=== PATIENT | female | born 1940 | race Caucasian/White ===

== ENCOUNTER 2016-06-15 13:31 | Inpatient (IN) | payer MEDICARE, MEDICAID ==
[2016-06-15] VITALS (7 sets, daily range): BP systolic 131–166; BP diastolic 68–117; PULSE 77–110; RESP 15–21; O2SAT 94–98
[~2016-06-15] VITALS: Ht 157.5 cm; Wt 59.0 kg
[~2016-06-15 13:31] MED LIST: CHOL200025 PO; ESTRACE VAGINAL; Hydrocodone/Acetaminophen PO; LOSA25TA21 PO; LOV30 SUBQ; LOVA40TA PO; METF10002 PO; Metoprolol Tartrate PO; Nicotine TOPICAL; QUET25TA PO; SERT50TA9 PO; Senna/Docusate Sodium PO; [UNRECOGNIZED DRUG - CODE] PO
--- NOTE | 2016-06-15 13:45 | ED.REPORT ---
HPI-General Illness Date of Service Jun 15, 2016 ED Provider: Valente Turpin DO Willough[place] is a 75-year-old woman who presents to the emergency department from the [facility] in [place]. She provides no history but [facility] reports that she has low sodium, urinary retention, diarrhea and increased confusion. Patient complains of right knee pain. Daughter reports that the patient was ambulatory and quite functional 2 weeks ago. However they learn from likely that she had 5 falls previous to that visit 2 weeks ago. Since then she has become increasingly weak, complaining of back pain, muscle aches, reduced appetite. 6 days ago she was transferred to [place] where she was diagnosed with the flu. After returning to [facility] she continues to exhibit reduced appetite, reduced drinking increased confusion. She does not walk by herself and requires 2 people to transfer. Daughter reports initial stages of dementia at baseline. Nursing Notes Stated Complaint: LOW SODIUM, INCREASED CONFUSION Chief Complaint: General Complaint Nursing Notes Reviewed: Yes Allergies: Coded Allergies: amoxicillin (Verified Allergy, Unknown, 01/20/14) clavulanic acid (Verified Allergy, Unknown, 01/20/14) codeine (Verified Allergy, Unknown, 01/20/14) erythromycin base (Verified Allergy, Unknown, 01/20/14) prednisone (Verified Allergy, Unknown, 01/20/14) prednisone intensol/ corticosteroids simvastatin (Verified Allergy, Unknown, 01/20/14) Uncoded Allergies: No Known Allergies (Allergy, Severe, 12/21/03) Scheduled ([Metoprolol Tartrate]) 50 MG TABLET 50 MG PO BID Cholecalciferol (Vitamin D3) (Vitamin D3) 2,000 Unit Tablet 2,000 UNIT PO DAILY Donepezil (Donepezil) 5 Mg Tablet 10 MG PO HS Estradiol (Estrace) 42.5 Gm Cream.appl 2 G VG 2X/week Folic Acid (Folic Acid) 0.8 Mg Tablet 0.4 MG PO DAILY Lidocaine (Lidoderm) 700 Mg Adh..patch 1 PATCH TP DAILY Losartan Potassium (Losartan Potassium) 100 Mg Tablet 100 MG PO DAILY Meloxicam (Meloxicam) 7.5 Mg Tablet 7.5 MG PO DAILY Metformin HCl (Metformin HCl ER) 1,000 Mg [id number] 1,000 MG PO BID Oseltamivir Phosphate (Tamiflu) 75 Mg Capsule 75 MG PO BID Sertraline HCl (Sertraline) 20 Mg/1 Ml Oral.conc 75 MG PO DAILY Scheduled PRN ([house cough syrup]) 15-30 ML PO q6hrs PRN PRN For Cough Acetaminophen (Acetaminophen) 325 Mg Tablet 650 MG PO Q4H PRN PRN For Pain Clonazepam (Clonazepam) 0.5 Mg Tablet 0.25 MG PO HS PRN PRN For Anxiety or Agitation Loperamide HCl (Imodium A-D) 2 Mg Capsule 2 MG PO Q4hrs PRN PRN For Diarrhea or Loose Stool Magnesium Hydroxide (Milk of Magnesia) 400 Mg/5 Ml Oral.susp 30 ML PO DAILY PRN PRN For Constipation Polyethylene Glycol 3350 (Miralax) 17 Gm Powd.pack 17 GM PO DAILY PRN PRN For Constipation Sennosides (Senna) 8.6 Mg Tablet 17.2 MG PO DAILY PRN PRN For Constipation hydrOXYzine Hcl (HydrOXYzine Hcl) 25 Mg Tablet 25 MG PO TID PRN PRN For Nausea General Time Seen by MD: 13:42 Chief Complaint Other (confusion) Review of Systems Unable to Obtain ROS Patient condition Full Review of Systems Cardiovascular: Denies: Chest pain GI: Denies: Abdominal pain Physical Exam General: Elderly, thin, moderate distress. Head: Atraumatic, normocephalic. No mastoid tenderness. Eyes: No scleral icterus or injection. No discharge. PERRL. Ears: Pinna and tragus nontender with manipulation. External auditory canal patent, atraumatic and without discharge. Tympanic membrane obrien, shiny and translucent without fluid, bulging, retraction or perforation. Hearing grossly intact. Nose: Symmetrical, nares patent without discharge. No frontal or maxillary sinus tenderness. Mouth/pharynx: normal dentition, mucus membranes tacky. Neck: No tenderness or lymphadenopathy. Trachea midline. Respiratory: Regular rate and rhythm. Breath sounds present, clear to auscultation and equal bilaterally. Cardiovascular: Regular rate and rhythm, without murmur, gallop or rub. No pedal edema. Gastrointestinal: Right-sided tenderness without guarding or rebound. Bowel sounds normoactive. Skin: Warm and dry. Neurological: Grossly nonfocal. Psychological: Confused. Vital Signs Vital Signs Date Time Temp Pulse Resp B/P Pulse Ox O2 Delivery O2 Flow Rate FiO2 06/15/16 17:04 37.1 99 15 150/117 96 Room Air 06/15/16 16:53 99 15 150/117 96 Room Air 06/15/16 13:43 37.1 78 21 131/82 98 Room Air 06/15/16 13:43 37.1 78 21 131/82 98 06/15/16 13:32 37.6 77 21 131/82 97 Room Air Initial VS: Reviewed, Vital signs normal General/Constitutional: Well-developed, Well-nourished Head / Eyes: Atraumatic, Normocephalic, PERRL ENT: Mucous membranes moist, Conjunctiva normal, No scleral icterus Neck: Supple, Non-tender, Full range of motion Respiratory: Breath sounds normal, Clear to auscultation, No respiratory distress Cardiovascular: Regular rate & rhythm, Heart sounds normal, Intact distal pulses Extremities: No swelling, No tenderness Skin: Warm, Dry, No cyanosis Abdomen: No guarding, No rebound, No hernia, No palpable mass Tenderness/Guarding/Rebound: Positive: Tender RLQ... (Mild), Tender RUQ... ( Mild), Tender suprapubic Neurologic: Speech NL, No motor deficits Mental Status: Positive: Somnolent Interpretation & Diagnostics Lab Results Interpretation Result Diagram: 06/15/16 1407 06/15/16 1830 Test 06/15/16 13:48 06/15/16 14:07 Urine Color Yellow (YELLOW) Urine Appearance Hazy (CLEAR,HAZY) Urine pH 6.5 (5.0-8.0) Urine Specific [place] 1.020 (1.003-1.035) Urine Protein Negativemg/dL (NEG,TRACE) Urine Glucose (UA) Negativemg/dL (NEGATIVE) Urine Ketones Negativemg/dL (NEGATIVE) Urine Occult Blood Negative (NEGATIVE) Urine Nitrite Positive (NEGATIVE) Urine Bilirubin Negative (NEGATIVE) Urine Urobilinogen Normalmg/dL (NORMAL) Urine Leukocyte Esterase Negative (NEGATIVE) Urine RBC 0-2/hpf (0-2) Urine WBC 0-5/hpf (0-5) Urine Epithelial Cells Occasional/hpf (NONE-MOD) Urine Crystals None seen (NONE SEEN) Urine Bacteria Many/hpf (NONE-FEW) Urine Hyaline Casts Occasional/lpf (NONE) Urine Granular Casts None seen (NONE SEEN) Urine Waxy Casts None seen (NONE SEEN) Urine Red Blood Cell Casts None seen (NONE SEEN) Urine White Blood Cell Casts None seen (NONE SEEN) Urine Mucus None seen (None Seen) Urine Trichomonas None seen (NONE SEEN) Urine Yeast None (NONE SEEN) Urinalysis Comment None Urine Culture Reflexed Indicated White Blood Count 14.8th/mm3 (3.8-10.1) Red Blood Count 4.20mil/mm3 (3.90-5.20) Hemoglobin 11.5g/dL (12.0-15.6) Hematocrit 34.3% (35.0-46.0) Mean Corpuscular Volume 81.7fL (81-100) Mean Corpuscular Hemoglobin 27.4pg (27.0-35.0) Mean Corpuscular Hemoglobin Concent 33.5% (32.0-37.0) Red Cell Distribution Width 12.7% (12.3-15.4) Platelet Count 304bil/L (150-400) Neutrophils (%) (Auto) 68.4% (40-74) Lymphocytes (%) (Auto) 19.0% (14-46) Monocytes (%) (Auto) 10.1% (4-12) Eosinophils (%) (Auto) 1.8% (0-5) Basophils (%) (Auto) 0.2% (0-3) Magnesium Level 1.7mg/dL (1.6-2.6) Total Bilirubin 0.3mg/dL (0.0-1.2) Aspartate Amino Transf (AST/SGOT) 35U/L (0-50) Alanine Aminotransferase (ALT/SGPT) 39U/L (0-32) Alkaline Phosphatase 66U/L (25-165) Troponin T < 0.010ug/L (0.0-0.011) Total Protein 6.7g/dL (6.4-8.4) Albumin 3.9g/dL (3.4-5.0) X-Ray Chest Interpretation Chest Xray Interpretation: PROCEDURE: X-RAY CHEST ONE VIEW, PORTABLE ([id number]) INDICATIONS: CP IMPRESSION: No acute cardiopulmonary findings. Interpretation / Wet Read by: Interpret - Radiologist, Interp - P Re-Eval/Medical Decision Med Decision/Clinical Course 1547: Recheck with Dr. Bhavana Vora. Symptoms reviewed and discussed plan to get abdominal CT with patient's family. Patient requests something to eat and reports mild nausea. She does not report any other associated pain and is able to name her family members in the room. Upon physical exam, patient had right upper mid and lower quadrant tenderness as well as suprapubic. 1630: Recheck with Dr. Vora. Informed patient of diagnosis of diverticulitis and hyponatremia and need for admission. Patient understands and agrees with plan for admission. Repalpated belly; right upper, mid, and lower quadrant abdominal pain, and left lower abdomen; maximal mid tenderness was super pubic This patient was signed out to me by the mid-level provider. In speaking with the family it sounds that the patient has a delirium. She says there is a recent treatment for influenza, examination the patient has abdominal pain which is worse in the suprapubic area. CT of the abdomen shows possible diverticulitis which would explain her abdominal pain. The patient will be admitted for IV antibiotics. Differential diagnoses considered were influenza, pneumonia, urinary tract infection, colitis, diverticulitis, and sepsis. Discharge & Departure Primary Impression: Diverticulitis Diverticulitis site: large intestine Diverticulitis bleeding: without bleeding Diverticulitis complication: without perforation or abscess Qualified Code: K57.32 - Diverticulitis of large intestine without perforation or abscess without bleeding Additional Impressions: Hyponatremia Acute delirium Disposition: ADMITTED TO HOSPITAL Referrals: Karsten Rodríguez MD (PCP) Care Transferred to: Dr Vora Care Transferred at: 16:00 Attending Statement This patient was initially seen by her mid-level provider and care is transferred to [place], Dr. Vora, I spent [id number] time with this patient and determine her disposition. Valente Turpin DO Jun 15, 2016 13:44 Jero Rae PA-C Jun 15, 2016 14:18 Roselia Vora MD Jun 15, 2016 15:46 NIKKI MALONEY Jun 15, 2016 15:49 2.7mmol/L (0.4-2.0) X-Ray Chest Interpretation Chest Xray Interpretation: PROCEDURE: X-RAY CHEST ONE VIEW, PORTABLE ([id number]) INDICATIONS: CP IMPRESSION: No acute cardiopulmonary findings. Interpretation / Wet Read by: Interpret - Radiologist, Interp - P Re-Eval/Medical Decision Med Decision/Clinical Course 1547: Recheck with Dr. Bhavana Vora. Symptoms reviewed and discussed plan to get abdominal CT with patient's family. Patient requests something to eat and reports mild nausea. She does not report any other associated pain and is able to name her family members in the room. Upon physical exam, patient had right upper mid and lower quadrant tenderness. 1630: Recheck with Dr. Vora. Informed patient of diagnosis of diverticulitis and hyponatremia and need for admission. Patient understands and agrees with plan for admission. Repalpated belly; right upper, mid, and lower quadrant abdominal pain; maximal mid tenderness was super pubic Discharge & Departure Referrals: Karsten Rodríguez MD (PCP) Valente Turpin DO Jun 15, 2016 13:44 Jero Rae PA-C Jun 15, 2016 14:18 Roselia Vora MD Jun 15, 2016 15:46 NIKKI MALONEY Jun 15, 2016 15:49
[2016-06-15 14:10] LABS: BASOPHILS % (AUTO) 0.2 % (0-3); EOSINOPHILS % (AUTO) 1.8 % (0-5); MONOCYTES % (AUTO) 10.1 % (4-12); Mean Corpuscular Hemoglobin 27.4 pg (27.0-35.0); Mean Corpuscular Volume 81.7 fL (81-100); NEUTROPHILS % (AUTO) 68.4 % (40-74); Platelet Count 304 bil/L (150-400)
--- NOTE | 2016-06-15 14:10 | DRSVH ---
PROCEDURE: X-RAY CHEST ONE VIEW, PORTABLE ([id number]) INDICATIONS: CP TECHNIQUE: One view of the chest was acquired. COMPARISON: [facility], , CHEST 1VW (PORTABLE), 01/19/2014, 20:32. FINDINGS: Surgical changes and devices: None. Lungs and pleura: No pleural effusions or pneumothorax. Lungs are clear. Mediastinum: Mediastinal contours appear normal. Heart size is normal. Bones and chest wall: No suspicious bony lesions. Overlying soft tissues appear unremarkable. IMPRESSION: No acute cardiopulmonary findings. Dictated by: Amanda Brush M.D. on 06/15/2016 at 14:08 Approved by: Amanda Brush M.D. on 06/15/2016 at 14:09
[2016-06-15] MEDS ORDERED: Ondansetron 2 mg/mL 2 mL Inj IVPUSH ONE (14:20)
[2016-06-15] MEDS ORDERED: 0.9% Sodium Chloride 1,000 ML IV ONE (14:20)
[2016-06-15 14:42] LABS: TROPONIN T < 0.010 ug/L (0.0-0.011)
[2016-06-15 14:44] LABS: Magnesium 1.7 mg/dL (1.6-2.6)
[2016-06-15 14:56] LABS: APPEARANCE,URINE HAZY (CLEAR,HAZY); COLOR,URINE YELLOW (YELLOW); PH,URINE 6.5 (5.0-8.0)
[2016-06-15 14:57] LABS: OCCULT BLOOD,URINE NEGATIVE (NEGATIVE); UROBILINOGEN,URINE NORMAL (NORMAL)
--- NOTE | 2016-06-15 15:23 | DRSVH ---
PROCEDURE: CT BRAIN WITHOUT CONTRAST ([id number]) INDICATIONS: fall TECHNIQUE: Noncontrast 4.5 mm thick angled axial sections acquired from the foramen magnum to the vertex, with c oronal reformats. COMPARISON: CT brain 06/08/2016; MRI brain 11/11/2015 FINDINGS: Image quality: Excellent. CSF spaces: Basal cisterns are patent. No extra-axial fluid collections. The ventricles are symmet bryon in size and shape. Brain: No intracranial bleeds or masses. There is cerebral volume loss for age, with resultant vent ricular and sulcal prominence. There are periventricular and deep white matter chronic small vessel ischemic changes. There is intracranial internal carotid artery atherosclerosis. Calcification right mammary body again noted. Skull and face: Calvarium and visualized facial bones appear intact, without suspicious lesions. Sinuses: Visualized sinuses and mastoids are clear. IMPRESSION: 1. No acute posttraumatic changes. 2. Cerebral atrophy and chronic deep white matter ischemic changes. Dictated by: Will Zurita M.D. on 06/15/2016 at 15:19 Approved by: Will Zurita M.D. on 06/15/2016 at 15:22
[2016-06-15] MEDS ORDERED: 0.9% Sodium Chloride 1,000 ML IV SCH ×3 (16:20→17:02)
--- NOTE | 2016-06-15 16:20 | DRSVH ---
PROCEDURE: CT ABDOMEN AND PELVIS WITH CONTRAST ([id number]) INDICATIONS: right side abdominal tenderness TECHNIQUE: After the administration of intravenous contrast, 5 mm thick sections acquired from the diaphragm to the symphysis. 5 mm coronal and sagittal reformats were acquired. For radiation dose reduction, the following was used: automated exposure control, adjustment of mA and/or kV according to patient siz e. COMPARISON: [facility] , CT, ABD/PELVIS W/CON (PNL), 11/21/2004, 16:27. [facility], CT, IVP-CT (ABD W/WO;PEL W/W/O), 08/29/2011, 10:49. [facility] , CT, ABD /PELVIS W/CON (PNL), 03/03/2010, 10:12. FINDINGS: Image quality: Excellent. ABDOMEN: Lung bases: Lung bases are clear. Heart size is normal. Atherosclerotic ossifications are noted in the visualized coronary vasculature. 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 Gallbladder is withi n normal limits. Biliary system is non dilated. Pancreas enhances normally. Bilobed fat containing right adrenal nodule is stable compared to prior examination and is compatible with myelolipoma. Kidn eys demonstrate normal size and enhancement, without hydronephrosis. Small bilateral renal angiomyoli pomas are stable compared to prior examinations. Large right renal cyst is again noted. Peritoneum and bowel: Small hiatal hernia is noted. Bowel loops demonstrate normal wall thickness an d caliber. Numerous diverticuli scattered throughout the colon. Circumferential wall thickening noted in the sigmoid colon the regional numerous diverticuli suspicious for chronic diverticulitis. Trace amount of free fluid is noted in the lower left pelvis adjacent to the sigmoid colon which again is s uspicious for chronic diverticulitis. No free air. The appendix is normal. Nodes and vessels: No retroperitoneal or mesenteric adenopathy by size criteria. Aorta and inferior vena cava are normal in size. Scattered atherosclerotic calcifications noted in the abdominal pelvic vasculature. Miscellaneous: No ventral hernias. PELVIS: Genitourinary: The bladder is obscured by artifact related to bilateral hip orthopedic hardware. Miscellaneous: No inguinal hernias or adenopathy. Bones: No suspicious bony lesions. No vertebral body compression fractures. Left hip arthroplasty n oted. Postsurgical changes compatible with ORIF of right hip fracture noted. Spine degenerative disea se and facet arthropathy noted. Convex left lumbar spine scoliosis is noted. IMPRESSION: 1. Reed colonic diverticulosis. Severe, circumferential wall thickening involving the sigmoid colon is noted in the region of multiple diverticula. Finding may represent chronic diverticulitis, however f inding is nonspecific and if patient fails to respond to appropriate therapy for diverticulitis, then colonoscopy is recommended to exclude neoplastic process. 2. The appendix is normal. 3. No dilated loops of bowel. 4. Right adrenal myelolipoma is stable. 5. 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 6. Splenic hemangiomas stable. 7. Atherosclerosis including the visualized coronary vasculature. Dictated by: Laurie Bansal MD, PhD on 06/15/2016 at 16:04 Approved by: Laurie Bansal MD, PhD on 06/15/2016 at 16:18
[2016-06-15] MEDS ORDERED: Ciprofloxacin Inj 400 MG in IV Premix 1 EACH IV ONE (16:25)
[2016-06-15] MEDS ORDERED: metroNIDAZOLE Inj 1,000 MG in IV Premix 1 EACH IV ONE (16:25)
[2016-06-15] MEDS ORDERED: TAM75UDCAP PO (16:59)
[2016-06-15] MEDS ORDERED: LOSA100T29 PO (16:59)
[2016-06-15] MEDS ORDERED: HYDR-656 PO (16:59)
[2016-06-15] MEDS ORDERED: MELO-259 PO (16:59)
[2016-06-15] MEDS ORDERED: LIDO700A6 TP (16:59)
[2016-06-15] MEDS ORDERED: DONE5TAB30 PO (16:59)
[2016-06-15] MEDS ORDERED: SENN-133 PO (16:59)
[2016-06-15] MEDS ORDERED: MAGN400O4 PO (16:59)
[2016-06-15] MEDS ORDERED: FOLI0.8T PO (16:59)
[2016-06-15] MEDS ORDERED: LOPE-147 PO (16:59)
[2016-06-15] MEDS ORDERED: ESTR42.52 VG (16:59)
[2016-06-15] MEDS ORDERED: SERT20OR6 PO (16:59)
[2016-06-15] MEDS ORDERED: ACET325T51 PO (16:59)
[2016-06-15] MEDS ORDERED: KLO5T PO (16:59)
[2016-06-15] MEDS ORDERED: [UNRECOGNIZED DRUG - REMARK] PO (16:59)
[2016-06-15] MEDS ORDERED: POLY17PO6 PO (16:59)
[2016-06-15] MEDS ORDERED: Alum-Mag Hydrox-Simeth 30 mL Suspension PO PRN ×2 (17:00→17:05)
[2016-06-15] MEDS ORDERED: Ondansetron 2 mg/mL 2 mL Inj IVPUSH PRN ×2 (17:00→17:05)
[2016-06-15] MEDS ORDERED: METF-778 PO (17:00)
[2016-06-15] MEDS ORDERED: Glucose 40% Oral Gel 15 Gm Tube PO PRN (17:10)
--- NOTE | 2016-06-15 17:25 | PCM.HPMED ---
Subjective Date of Service Jun 15, 2016 Primary Provider: Admitting Physician: Primary Care Physician: Karsten Rodríguez MD Attending Physician: Chief Complaint: HISTORY was OBTAINED FROM family / [facility] NOTES History of present illness 75-year-old female from nursing facility, recently discharged from [facility] for influenza and hyponatremia 5 days ago, noted by family to have urinary incontinence, lethargy, more than usual confusion since 10 days ago. mild nausea. diarrhea since then, calling out for help though I and granddaughter are present - unusual for dementia patient. concurrent runny nose this week, has been [facility] [employer] [facility]. She had been complaining of back pain and Right abdominal pain since last week. lethargy associated w/ falling much in the last few days. leg pain appears to be due to falls. chronic hip scar pains. In the ER, 98% room air, 131/82, HR 77, T 37.6, bruises noted on lower calves and lower abdomen, CT consistent with diverticulitis, Flagyl/Cipro/2 L normal saline Review of Systems - paitient delirous unable to assess ambulates w/ cane but forgets FAMILY HX no diverticulitis SOCIAL HX smoking history quit 4 year ago MEDICATIONS Past Medical/Surgical HX Cataracts Hypertension/hyperlipidemia Diverticulitis Endometriosis, left nephrectomy, tonsillectomy,carpal tunnel release UTI/nocturia Arthritis back, right hip joint replacement 2003, left hip replacement 2013 Diabetes types 2 Depression, anxiety recurrent hyponatremia since 2013 [employer] [place] tooth Allergies Coded Allergies: amoxicillin (Verified Allergy, Unknown, 01/20/14) clavulanic acid (Verified Allergy, Unknown, 01/20/14) codeine (Verified Allergy, Unknown, 01/20/14) erythromycin base (Verified Allergy, Unknown, 01/20/14) prednisone (Verified Allergy, Unknown, 01/20/14) prednisone intensol/ corticosteroids simvastatin (Verified Allergy, Unknown, 01/20/14) Uncoded Allergies: No Known Allergies (Allergy, Severe, 12/21/03) PMH Social History Hx Alcohol Use: No Hx Substance Use: No Hx Tobacco Use: Yes Smoking Status: Current Every Day Smoker Exam Vital Signs Vital Sign - Last Date Time Temp Pulse Resp B/P Pulse Ox O2 Delivery O2 Flow Rate FiO2 06/15/16 16:53 99 15 150/117 96 Room Air 06/15/16 13:43 37.1 Exam Exam on admission 2L NC NAD A and O x 3 mood affect WNL NC/AT no icterus no injected eyes EOMI PERRL /no pharyngeal lesions/ no oral lesions / hearing intact / dry mouth, follows some commands Supple neck CTAB equal chest rise / no accessory muscle use / speaks in full sentences / no rrw RRR S1 S2 / no mrg / 2+ radial pulses Soft nt nd + BS no hepatosplenomegaly No edema no cyanosis no ecchymosis of lower extremities No rash / no jaundice MAGAÑA squirming in bed EKG 72SR no ST changes Trop 0.01 at 2 PM lactic acid 2.7 UA positive nitrite, no yeast, many bacteria UCx pending Blood culture pending LFT normal except, ALT 39 Imaging PROCEDURE: CT ABDOMEN AND PELVIS WITH CONTRAST ([facility][id number]) INDICATIONS: right side abdominal tenderness TECHNIQUE: After the administration of intravenous contrast, 5 mm thick sections acquired from the diaphragm to the symphysis. 5 mm coronal and sagittal reformats were acquired. For radiation dose reduction, the following was used: automated exposure control, adjustment of mA and/or kV according to patient size. COMPARISON: [facility] , CT, ABD/PELVIS W/CON (PN), 11/21/2004 , 16:27. [facility], CT, IVP-CT (ABD W/WO;PEL W/W/O), 08/29/2011, 10:49. [facility] , CT, ABD/PELVIS W/CON (PN), 03/03/2010, 10: 12. FINDINGS: Image quality: Excellent. ABDOMEN: Lung bases: Lung bases are clear. Heart size is normal. Atherosclerotic ossifications are noted in the visualized coronary vasculature. 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 Gallbladder is within normal limits. Biliary system is non dilated. Pancreas enhances normally. Bilobed fat containing right adrenal nodule is stable compared to prior examination and is compatible with myelolipoma. Kidneys demonstrate normal size and enhancement, without hydronephrosis. Small bilateral renal angiomyolipomas are stable compared to prior examinations. Large right renal cyst is again noted. Peritoneum and bowel: Small hiatal hernia is noted. Bowel loops demonstrate normal wall thickness and caliber. Numerous diverticuli scattered throughout the colon. Circumferential wall thickening noted in the sigmoid colon the regional numerous diverticuli suspicious for chronic diverticulitis. Trace amount of free fluid is noted in the lower left pelvis adjacent to the sigmoid colon which again is suspicious for chronic diverticulitis. No free air. The appendix is normal. Nodes and vessels: No retroperitoneal or mesenteric adenopathy by size criteria. Aorta and inferior vena cava are normal in size. Scattered atherosclerotic calcifications noted in the abdominal pelvic vasculature. Miscellaneous: No ventral hernias. PELVIS: Genitourinary: The bladder is obscured by artifact related to bilateral hip orthopedic hardware. Miscellaneous: No inguinal hernias or adenopathy. Bones: No suspicious bony lesions. No vertebral body compression fractures. Left hip arthroplasty noted. Postsurgical changes compatible with ORIF of right hip fracture noted. Spine degenerative disease and facet arthropathy noted. Convex left lumbar spine scoliosis is noted. IMPRESSION: 1. Reed colonic diverticulosis. Severe, circumferential wall thickening involving the sigmoid colon is noted in the region of multiple diverticula. Finding may represent chronic diverticulitis, however finding is nonspecific and if patient fails to respond to appropriate therapy for diverticulitis, then colonoscopy is recommended to exclude neoplastic process. 2. The appendix is normal. 3. No dilated loops of bowel. 4. Right adrenal myelolipoma is stable. 5. 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 6. Splenic hemangiomas stable. 7. Atherosclerosis including the visualized coronary vasculature. PROCEDURE: CT BRAIN WITHOUT CONTRAST ([id number]) INDICATIONS: fall TECHNIQUE: Noncontrast 4.5 mm thick angled axial sections acquired from the foramen magnum to the vertex, with coronal reformats. COMPARISON: CT brain 06/08/2016; MRI brain 11/11/2015 FINDINGS: Image quality: Excellent. CSF spaces: Basal cisterns are patent. No extra-axial fluid collections. The ventricles are symmetric in size and shape. Brain: No intracranial bleeds or masses. There is cerebral volume loss for age , with resultant ventricular and sulcal prominence. There are periventricular and deep white matter chronic small vessel ischemic changes. There is intracranial internal carotid artery atherosclerosis. Calcification right mammary body again noted. Skull and face: Calvarium and visualized facial bones appear intact, without suspicious lesions. Sinuses: Visualized sinuses and mastoids are clear. IMPRESSION: 1. No acute posttraumatic changes. 2. Cerebral atrophy and chronic deep white matter ischemic changes. PROCEDURE: X-RAY CHEST ONE VIEW, PORTABLE ([id number]) INDICATIONS: CP TECHNIQUE: One view of the chest was acquired. COMPARISON: [facility], CR, CHEST 1VW (PORTABLE), 01/19/2014, 20:32. FINDINGS: Surgical changes and devices: None. Lungs and pleura: No pleural effusions or pneumothorax. Lungs are clear. Mediastinum: Mediastinal contours appear normal. Heart size is normal. Bones and chest wall: No suspicious bony lesions. Overlying soft tissues appear unremarkable. IMPRESSION: No acute cardiopulmonary findings. Lab and Diagnostics Result Diagram: 06/15/16140606/15/161406 Assessment & Plan Active issues and reason for admission 75-year-old female presenting with worse altered mental status from baseline dementia, treating for recurrent Diverticulitis and recurrent UTI with leukocytosis/lactic acidosis --pending [facility] inpatient notes from saturday -- Flagyl Cipro IVF --stool cx pending --consider GI follow up of persistent thickened colon wall per radiologist, if unrelieved by diverticulitis management UTI w/ new urinary incontinence -- Pending urine culture Recurrent hyponatremia, liekly dehydration contributory, contributory Siadh from SSRI? --serial BMP, NS 100/hr --tsh bnp recent influenza + --pending [facility] notes, continue tamifu, duoneb scheduled then PRN tomorrow monitor right leg pain, consider imaging if ongoing Chronic issues known prior to admission, present on admission Cataracts Hypertension/hyperlipidemia Arthritis back, right hip joint replacement 2003, left hip replacement 2013 Diabetes types 2 Depression, anxiety recurrent hyponatremia since 2013 --SSI, tylenol, trial tramadol for pain Diet carb/cardiac DVT prophylaxis lovenox Code DNR Disposition inpt Assessment and plan were discussed with patient family. Gracie Us MD Jun 15, 2016 17:25 Result Diagram: 06/15/16140606/15/161406 Gracie Us MD Jun 15, 2016 17:25
[2016-06-15] MEDS ORDERED: Albuterol-Ipratropium 3 mL Inhalation Solution NEB PRN (17:55)
[2016-06-15] MEDS: Insulin LISPRO 300 Unit/3 mL Inj SUBQ SCH ×2 (18:20→21:35)
[2016-06-15] MEDS: 0.9% Sodium Chloride 1,000 ML IV SCH (18:33)
--- NOTE | 2016-06-15 19:26 | NUR ---
Admit Pt admitted to [facility] from ED at 1805. Pt appears confused, constantly needing to be reorientated. Pt moans, states she hurts, unsure of location. Hx of falls-last week. Hx of hip replacements. IV in RFA patent. IV Flagyl started. Arciniega catheter patent, draining clear urine-placed in ED (per report) d/t urinary retention. Per family, pts spouse 5 yrs ago, dx with dementia last year. Granddaughter with pt. Bed in low position, 3 rails up, call light in reach.
[2016-06-15] MEDS: Albuterol-Ipratropium 3 mL Inhalation Solution NEB SCH (20:24)
[2016-06-15] MEDS: Ciprofloxacin Inj 400 MG in IV Premix 1 EACH IV SCH (21:09)
[2016-06-15 23:08] LABS: TROPONIN T 0.01 ug/L (0.0-0.011)
[2016-06-16] MEDS: Sodium Chloride LOK Flush 10 mL Syringe IVFLUSH SCH ×3 (00:26→17:19)
[2016-06-16] MEDS: metroNIDAZOLE Inj 500 MG in IV Premix 1 EACH IV SCH ×3 (00:26→17:20)
--- NOTE | 2016-06-16 01:09 | NUR ---
Agitation/Insomnia pt c/o insomnia, calling out help and asking to go to bed while currently in bed. Reoriented to Hospital room, provided Ultram for headache and repositioned multiple times.
[2016-06-16] MEDS: 0.9% Sodium Chloride 1,000 ML IV SCH ×3 (03:02→23:02)
[2016-06-16] MEDS: Albuterol-Ipratropium 3 mL Inhalation Solution NEB SCH (06:00)
[2016-06-16 06:02] VITALS: BP 159/79; PULSE 78; RESP 18; O2SAT 96
[2016-06-16 06:56] LABS: Mean Corpuscular Hemoglobin 26.9 pg (27.0-35.0); Mean Corpuscular Volume 81.7 fL (81-100)
[2016-06-16] MEDS: Insulin LISPRO 300 Unit/3 mL Inj SUBQ SCH ×4 (08:00→21:46)
[2016-06-16 08:08] LABS: Free Thyroxine Index 2.5 (1.2-4.9); Thyroxine (T4) 8.3 ug/dL (4.5-12.0)
[2016-06-16] MEDS: Lidocaine Topical 5% Patch TOPICAL SCH ×2 (08:43→11:20)
[2016-06-16 09:29] VITALS: PULSE 97; RESP 20; O2SAT 95
[2016-06-16] MEDS: Ciprofloxacin Inj 400 MG in IV Premix 1 EACH IV SCH ×2 (09:41→21:45)
--- NOTE | 2016-06-16 11:09 | PCM.PNMED ---
Subjective Date of Service Jun 16, 2016 Subjective She is still sleeping in her room late in the morning. She denies abdominal pain. She does complain of low back pain but has no tenderness there. She looks more pale than she did last week and when I was her attending at a different hospital. Her sodium level was 131. Today's white blood count is still pending. Exam Vital Signs Vital Sign - Last Date Time Temp Pulse Resp B/P Pulse Ox O2 Delivery O2 Flow Rate FiO2 06/16/16 09:29 97 20 95 Room Air 06/16/16 06:02 36.4 159/79 Intake and Output 06/15/16 06/15/16 06/16/16 Cumulative From/Thru 14:59 22:59 06:59 06/15/16 13:32 - 06/16/16 06:43 Intake Total 1000 ml 0 ml 1223 ml 2223 ml Output Total 200 ml 940 ml 800 ml 1940 ml Balance 800 ml -940 ml 423 ml 283 ml Intake Oral 0 ml 0 ml 0 ml IV Total 1000 ml 1223 ml 2223 ml Output Urine Total 200 ml 940 ml 800 ml 1940 ml # Bowel Movements 0 0 0 Exam She is able to be woken up and interacts at a basic level but does not appear to be oriented. This is close to her baseline. Heart is regular rate and rhythm without murmur Lungs are clear to auscultation bilaterally Abdomen is soft, bowel sounds are heard, she is not tender anywhere, specifically not tender in the left lower quadrant, the abdomen is without organomegaly. Extremities have no ankle edema. Lab and Diagnostics Result Diagram: 06/16/1661406/16/16614 X-Rays, CTs and MRIs CT ABDOMEN AND PELVIS WITH CONTRAST ([facility]-[id number]) INDICATIONS: right side abdominal tenderness TECHNIQUE: After the administration of intravenous contrast, 5 mm thick sections acquired from the diaphragm to the symphysis. 5 mm coronal and sagittal reformats were acquired. For radiation dose reduction, the following was used: automated exposure control, adjustment of mA and/or kV according to patient size. COMPARISON: [facility] , CT, ABD/PELVIS W/CON (PNL), 11/21/2004 , 16:27. [facility], CT, IVP-CT (ABD W/WO;PEL W/W/O), 08/29/2011, 10:49. [facility] , CT, ABD/PELVIS W/CON (PNL), 03/03/2010, 10: 12. FINDINGS: Image quality: Excellent. ABDOMEN: Lung bases: Lung bases are clear. Heart size is normal. Atherosclerotic ossifications are noted in the visualized coronary vasculature. 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 Gallbladder is within normal limits. Biliary system is non dilated. Pancreas enhances normally. Bilobed fat containing right adrenal nodule is stable compared to prior examination and is compatible with myelolipoma. Kidneys demonstrate normal size and enhancement, without hydronephrosis. Small bilateral renal angiomyolipomas are stable compared to prior examinations. Large right renal cyst is again noted. Peritoneum and bowel: Small hiatal hernia is noted. Bowel loops demonstrate normal wall thickness and caliber. Numerous diverticuli scattered throughout the colon. Circumferential wall thickening noted in the sigmoid colon the regional numerous diverticuli suspicious for chronic diverticulitis. Trace amount of free fluid is noted in the lower left pelvis adjacent to the sigmoid colon which again is suspicious for chronic diverticulitis. No free air. The appendix is normal. Nodes and vessels: No retroperitoneal or mesenteric adenopathy by size criteria. Aorta and inferior vena cava are normal in size. Scattered atherosclerotic calcifications noted in the abdominal pelvic vasculature. Miscellaneous: No ventral hernias. PELVIS: Genitourinary: The bladder is obscured by artifact related to bilateral hip orthopedic hardware. Miscellaneous: No inguinal hernias or adenopathy. Bones: No suspicious bony lesions. No vertebral body compression fractures. Left hip arthroplasty noted. Postsurgical changes compatible with ORIF of right hip fracture noted. Spine degenerative disease and facet arthropathy noted. Convex left lumbar spine scoliosis is noted. IMPRESSION: 1. Reed colonic diverticulosis. Severe, circumferential wall thickening involving the sigmoid colon is noted in the region of multiple diverticula. Finding may represent chronic diverticulitis, however finding is nonspecific and if patient fails to respond to appropriate therapy for diverticulitis, then colonoscopy is recommended to exclude neoplastic process. 2. The appendix is normal. 3. No dilated loops of bowel. 4. Right adrenal myelolipoma is stable. 5. 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 6. Splenic hemangiomas stable. 7. Atherosclerosis including the visualized coronary vasculature. Dictated by: Laurie Bansal MD, PhD Assessment & Plan Active issues and reason for admission 75-year-old female presenting with worse altered mental status from baseline dementia, treating for possible sigmoid diverticulitis. There is no UTI or lactic acidosis. -- Flagyl Cipro IVF -- The pro calcitonin was only 0.05. The white blood count was only 14. --stool cx pending --consider GI follow up of persistent thickened colon wall per radiologist, if unrelieved by diverticulitis management UTI w/ new urinary incontinence -- Her UA is normal. There is no UTI. 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 --serial BMP, NS 100/hr --tsh bnp recent influenza + -- Completed Tamiflu 5 day course. monitor right leg pain, consider imaging if ongoing -- No symptoms or signs today. Chronic issues known prior to admission, present on admission Cataracts Hypertension/hyperlipidemia Arthritis back, right hip joint replacement 2003, left hip replacement 2013 Diabetes types 2 Depression, anxiety recurrent hyponatremia since 2013 Progressive dementia --SSI, tylenol, trial tramadol for pain Diet carb/cardiac DVT prophylaxis lovenox Code DNR Disposition inpt Assessment and plan were discussed with patient family. Family continue to hope for a reversible/treatable cause to be found for her worsening dementia recently. At [facility] there were no complaints of abdominal pain and so no imaging of the abdomen was done last weekend during that hospitalization. VTE Mechanical Devices: Venous Foot Pump Resuscitation Status: DNR/DNI:Do Not Resuscitate/Intubate Vinayak Bryant MD Jun 16, 2016 11:06
[2016-06-16 12:17] VITALS: BP 120/67; PULSE 68; RESP 18; O2SAT 97
--- NOTE | 2016-06-16 13:32 | NUR ---
Student Nurse Note Arrived on shift, received report from NOC shift RN. Initial assessment of pt showed pt to be A&O to self only. Pt was restless. Pt has yet to have a BM since admission, PRN laxatives will be administered later this shift. AM medications were administered, which included IV Flagyl and Cipro. At approximately 1030 pt restlessness was unrelieved and removed IV. New IV was placed in the right antecubital and ABX were continued. Pt vocalized having pain in the lower back, which was not relieved with 650mg Acetaminophen. At approximately 1130, pt was given Toradol and a Lidocaine patch. Pt responded well and is now resting comfortably. Family consulted with Dr. Bryant regarding further action and plan of care. Further monitoring of labs, particularly WBC of 10 and Sodium of 133, indicated at this time. Addendum: 06/16/16 at 1836 by JITENDRA WALTERS 1730 - Pt getting restless and agitated again. Pt complains of intractable back pain. PRN PO tramadol administered to help with pain and restlessness.
--- NOTE | 2016-06-16 15:54 | NUR ---
Social Work: Initial Assessment Data: Pt is a 75 y/o female admitted for diverticulitis, delerium, hyponatremia. Pt's PCP is Dr Rodríguez, pt's insurance is [employer] Medicare with [facility] supp. No readmit score listed. Pt has dementia, ANTHROPOLOGICAL LINGUIST called pt's granddaughter to complete assessment. Pt's granddaughter states that she is pt's DPOA and states she will bring a copy to hospital. Pt's grdaughter states that pt lives at [facility] and typically uses a walker. She states pt does not drive, has no hx with , no LTC or VA benefits, and is not a caregiver. She states that she is agreeable to pt returning to [facility] but is interested in resources, ANTHROPOLOGICAL LINGUIST left [employer] book in room for her to have. ANTHROPOLOGICAL LINGUIST will continue to follow. Assessment: Pt from [facility]. Plan: Pt will d/c back to [facility] when medically stable. ANTHROPOLOGICAL LINGUIST will continue to follow. ARBEN Medina Addendum: 06/16/16 at 1613 by ASHLEIGH GRACE Amended: Links added.
[2016-06-16 16:51] VITALS: PULSE 89; RESP 14; O2SAT 94
--- NOTE | 2016-06-16 17:07 | DRSVH ---
PROCEDURE: X-RAY LUMBAR SPINE, 2 OR 3 VIEW INDICATIONS: Low back pain TECHNIQUE: 3 views of the lumbar spine were acquired. COMPARISON: [facility], [place], XR LUMBAR SPINE 2 OR 3VW, 02/11, 10:02. None. FINDINGS: Bones: 5 [id number] vertebrae are present. Convex left scoliosis is noted. There is mild no 2 -L3 and L3 over L4 retrolisthesis. Multilevel degenerative disc disease. Multilevel facet arthropat hy.. No vertebral body compression fractures. No suspicious bony lesions. Soft tissues: Overlying bowel gas pattern is normal. No suspicious soft tissue calcifications. IMPRESSION: No fracture. No acute osseous lesion. If there are persistent symptoms or continued clin ical suspicion for pathology, then MRI should be considered for further evaluation. Dictated by: Laurie Bansal MD, PhD on 06/16/2016 at 17:04 Approved by: Laurie Bansal MD, PhD on 06/16/2016 at 17:06
[2016-06-16 17:42] VITALS: BP 118/72; PULSE 74; RESP 18; O2SAT 97
[2016-06-16] MEDS: Polyethylene Glycol (PEG) 17 Gm Powder PO SCH (18:10)
[2016-06-16 20:42] VITALS: BP 156/79; PULSE 97; RESP 20; O2SAT 96
[2016-06-17] MEDS: Sodium Chloride LOK Flush 10 mL Syringe IVFLUSH SCH ×3 (00:30→17:10)
[2016-06-17] MEDS: metroNIDAZOLE Inj 500 MG in IV Premix 1 EACH IV SCH ×3 (01:23→17:10)
[2016-06-17 05:02] VITALS: BP 174/79; PULSE 80; RESP 20; O2SAT 96
--- NOTE | 2016-06-17 06:44 | NUR ---
Activity/Pain Patient has history of delirium, dementia, UTI. Patient weak and on bedrest, alert to self only. Restless and confused and will attempt to get out of bed to "go to the bathroom". Patient has love catheter and both bed alarm and kaylie alarm are on. Back pain managed with Tramadol q4. Continue IV antibiotics.
[2016-06-17] MEDS: Insulin LISPRO 300 Unit/3 mL Inj SUBQ SCH ×4 (08:00→19:59)
[2016-06-17] MEDS: Polyethylene Glycol (PEG) 17 Gm Powder PO SCH (08:30)
[2016-06-17] MEDS: Lidocaine Topical 5% Patch TOPICAL SCH (08:42)
[2016-06-17] MEDS: Ciprofloxacin Inj 400 MG in IV Premix 1 EACH IV SCH ×2 (08:46→19:58)
[2016-06-17] MEDS: 0.9% Sodium Chloride 1,000 ML IV SCH ×2 (09:02→19:55)
[2016-06-17 09:15] VITALS: PULSE 77; RESP 20; O2SAT 95
[2016-06-17] MEDS: Albuterol-Ipratropium 3 mL Inhalation Solution NEB SCH (09:15)
--- NOTE | 2016-06-17 09:19 | PCM.PNMED ---
Subjective Date of Service Jun 17, 2016 Subjective Her mental status is improved today. She is able to interact significantly improved level during my visit. Her complaints of low back pain have modulated. Her x-rays low back did not show any compression fracture. I reviewed the films myself and was not impressed with any significant osteoarthritis/degenerative disc disease either. She has no complaints of abdominal pain or other GI symptoms. Her urine culture is growing coag- negative staph which is pansensitive and is likely a contaminant. Her Arciniega catheter will be removed today. Exam Vital Signs Vital Sign - Last Date Time Temp Pulse Resp B/P Pulse Ox O2 Delivery O2 Flow Rate FiO2 06/17/16 05:02 37.1 80 20 174/79 96 Room Air Intake and Output 06/16/16 06/16/16 06/17/16 Cumulative From/Thru 15:00 23:00 07:00 06/15/16 13:32 - 06/17/16 05:03 Intake Total 460 ml 2683 ml Output Total 550 ml 2490 ml Balance -90 ml 193 ml Intake Oral 460 ml 460 ml IV Total 2223 ml Output Urine Total 550 ml 2490 ml # Bowel Movements 0 Exam Heart is regular rate and rhythm without murmur. Lungs are clear to auscultation bilaterally. Abdomen is soft, bowel sounds positive, nontender, no organomegaly. Extremities have no ankle edema There is no low back tenderness. In general she is alert, and in my opinion from years of observation at the long term appears to be at her baseline confusion, although the frown and the very general complaint of feeling badly is not her baseline. IVs and Medications Medications Reviewed: Medications were reviewed in detail Lab and Diagnostics Result Diagram: 06/16/1661406/16/16614 X-Rays, CTs and MRIs CT ABDOMEN AND PELVIS WITH CONTRAST ([id number]) INDICATIONS: right side abdominal tenderness TECHNIQUE: After the administration of intravenous contrast, 5 mm thick sections acquired from the diaphragm to the symphysis. 5 mm coronal and sagittal reformats were acquired. For radiation dose reduction, the following was used: automated exposure control, adjustment of mA and/or kV according to patient size. COMPARISON: [facility] , CT, ABD/PELVIS W/CON (PNL), 11/21/2004 , 16:27. [facility], CT, IVP-CT (ABD W/WO;PEL W/W/O), 08/29/2011, 10:49. [facility] , CT, ABD/PELVIS W/CON (PNL), 03/03/2010, 10: 12. FINDINGS: Image quality: Excellent. ABDOMEN: Lung bases: Lung bases are clear. Heart size is normal. Atherosclerotic ossifications are noted in the visualized coronary vasculature. 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 Gallbladder is within normal limits. Biliary system is non dilated. Pancreas enhances normally. Bilobed fat containing right adrenal nodule is stable compared to prior examination and is compatible with myelolipoma. Kidneys demonstrate normal size and enhancement, without hydronephrosis. Small bilateral renal angiomyolipomas are stable compared to prior examinations. Large right renal cyst is again noted. Peritoneum and bowel: Small hiatal hernia is noted. Bowel loops demonstrate normal wall thickness and caliber. Numerous diverticuli scattered throughout the colon. Circumferential wall thickening noted in the sigmoid colon the regional numerous diverticuli suspicious for chronic diverticulitis. Trace amount of free fluid is noted in the lower left pelvis adjacent to the sigmoid colon which again is suspicious for chronic diverticulitis. No free air. The appendix is normal. Nodes and vessels: No retroperitoneal or mesenteric adenopathy by size criteria. Aorta and inferior vena cava are normal in size. Scattered atherosclerotic calcifications noted in the abdominal pelvic vasculature. Miscellaneous: No ventral hernias. PELVIS: Genitourinary: The bladder is obscured by artifact related to bilateral hip orthopedic hardware. Miscellaneous: No inguinal hernias or adenopathy. Bones: No suspicious bony lesions. No vertebral body compression fractures. Left hip arthroplasty noted. Postsurgical changes compatible with ORIF of right hip fracture noted. Spine degenerative disease and facet arthropathy noted. Convex left lumbar spine scoliosis is noted. IMPRESSION: 1. Reed colonic diverticulosis. Severe, circumferential wall thickening involving the sigmoid colon is noted in the region of multiple diverticula. Finding may represent chronic diverticulitis, however finding is nonspecific and if patient fails to respond to appropriate therapy for diverticulitis, then colonoscopy is recommended to exclude neoplastic process. 2. The appendix is normal. 3. No dilated loops of bowel. 4. Right adrenal myelolipoma is stable. 5. 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 6. Splenic hemangiomas stable. 7. Atherosclerosis including the visualized coronary vasculature. Dictated by: Laurie Bansal MD, PhD Assessment & Plan Active issues and reason for admission 75-year-old female presenting with worse altered mental status from baseline dementia, treating for possible sigmoid diverticulitis. There is no UTI or lactic acidosis. -- Flagyl Cipro IVF -- The pro calcitonin was only 0.05. The white blood count was only 14. --stool cx pending --consider GI follow up of persistent thickened colon wall per radiologist, if unrelieved by diverticulitis management -- This was discussed extensively with her granddaughter yesterday. She is improved today so likely will be back to her baseline tomorrow and can be discharged back to [facility] without further imaging, and with continued oral antibiotics typical for diverticulitis. Consider repeat CT scan at some point, consider GI consult and colonoscopy. UTI w/ new urinary incontinence -- Her UA is normal. The coag-negative staph is classically a skin contaminant. She is being covered with Cipro and Flagyl, and has not had any UTI symptoms. Her catheter will be removed today.. 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 --serial BMP, NS 100/hr --tsh bnp recent influenza + -- Completed Tamiflu 5 day course yesterday. Much of her general complaints is probably related to both the flu and the Tamiflu. monitor right leg pain, consider imaging if ongoing -- No symptoms or signs today. Low Back Pain -- No signs of imaging of any pathology and complaints seem to be modulating today. -- This was her family's major concern yesterday -- They continue to be quite focused on finding a physiologic or medical reason for her mental deterioration. She has had a thorough evaluation with the best conclusion so far being possible diverticulitis and/or colonic neoplasm if not responding to the diverticulitis antibiotics. So far that does not appear to be the case. Chronic issues known prior to admission, present on admission Cataracts Hypertension/hyperlipidemia Arthritis back, right hip joint replacement 2003, left hip replacement 2013 Diabetes types 2 Depression, anxiety recurrent hyponatremia since 2013 Progressive dementia --SSI, tylenol, trial tramadol for pain Diet carb/cardiac DVT prophylaxis lovenox Code DNR Disposition inpt Assessment and plan were discussed with patient family. Family continue to hope for a reversible/treatable cause to be found for her worsening dementia recently. At [facility] there were no complaints of abdominal pain and so no imaging of the abdomen was done last weekend during that hospitalization. Pain Evaluation: Adequate Pain Control VTE Mechanical Devices: Venous Foot Pump Resuscitation Status: DNR/DNI:Do Not Resuscitate/Intubate Vinayak Bryant MD Jun 17, 2016 08:31
--- NOTE | 2016-06-17 12:54 | NUR ---
Evaluation completed. Please go to "Notes" then click on "Assessments and Notes" (bottom left corner of screen). Then select appropriate discipline tab on top of screen.
[2016-06-17 14:14] VITALS: BP 176/81; PULSE 89; RESP 22; O2SAT 98
--- NOTE | 2016-06-17 16:30 | NUR ---
LENORA given Chart not near room. Verbal consent to sign once chart is located. ARBEN Medina
--- NOTE | 2016-06-17 19:37 | NUR ---
Mentation Baseline dementia, grossly confused and unable to reorient. Family at bedside almost entire shift. One daughter increased agitation and was asked to leave. Sitter at bedside at this time. Family requesting not to have pt in [facility] bed for confusion. Bed and kaylie alarms in place at this time.
[2016-06-17 19:42] VITALS: BP 149/67; PULSE 88; RESP 18; O2SAT 96
[2016-06-17] MEDS: Nystatin 100,000 Unit/mL 5 mL Suspension PO SCH (20:30)
[2016-06-18] MEDS: metroNIDAZOLE Inj 500 MG in IV Premix 1 EACH IV SCH ×2 (00:11→08:21)
[2016-06-18] MEDS: 0.9% Sodium Chloride 1,000 ML IV SCH (00:33)
[2016-06-18] MEDS: Sodium Chloride LOK Flush 10 mL Syringe IVFLUSH SCH ×4 (00:46→19:48)
[2016-06-18] MEDS: Nystatin 100,000 Unit/mL 5 mL Suspension PO SCH ×4 (03:52→21:34)
--- NOTE | 2016-06-18 05:11 | NUR ---
Mentation: Crying out "help" through the first half of the shift, off and on. Was trying to get out of bed earlier, made it to the edge of the bed, sitter now with pt and bed alarm activated. The later half of the shift, pt did not try to get out of bed. Has been up to the BSC to void several times, used the bedpan once. Medicated for stated pain with Tramadol x1. After pain medication, pt has been quieter with periods of restfulness; although has been quite active rolling side to side in bed.
[2016-06-18 06:04] VITALS: BP 179/86; PULSE 91; RESP 18; O2SAT 96
[2016-06-18] MEDS: Ciprofloxacin Inj 400 MG in IV Premix 1 EACH IV SCH (08:20)
[2016-06-18] MEDS: Lidocaine Topical 5% Patch TOPICAL SCH (09:07)
[2016-06-18] MEDS: Polyethylene Glycol (PEG) 17 Gm Powder PO SCH (09:07)
[2016-06-18] MEDS: Insulin LISPRO 300 Unit/3 mL Inj SUBQ SCH ×4 (09:07→19:48)
--- NOTE | 2016-06-18 10:45 | NUR ---
Palliative Care Palliative Care received order from Dr Bryant 06/17/16 to assist with goals of care. Patient is a 75 year old woman who presented with worse altered mental status from baseline dementia. She was admitted 06/15/16 and is receiving care for recurrent diverticulitis and recurrent UTI with leukocytosis/lactic acidosis. Patient is a resident at [facility]. Fabienne Oden (granddaughter) [phone] Hilton Cerda (granddaughter) [phone] Palliative Care to follow. Vanessa Erwin
[2016-06-18 12:59] VITALS: BP 145/77; PULSE 62; RESP 18; O2SAT 100
--- NOTE | 2016-06-18 13:40 | PCM.CONPAL ---
Date of Service Jun 18, 2016 Date of Hospital Admission: Jun 15, 2016 at 17:05 Date of Palliative Consult: Jun 18, 2016 Requesting Provider: Vinayak Bryant MD Reason Palliative Care Consult: Pain, Other Symptoms, Goals of Care Discussion Hospital Unit @time of consult: Medical/Pediatric Care Palliative Care Recommendation 75-year-old female presenting with worse altered mental status from baseline dementia, treating for possible sigmoid diverticulitis. She has had frequent falls and increasing complaints of abdominal pain and back pain. She tells her granddaughters repeatedly "something's wrong with me". She was recently treated for influenza at [facility]. There is no UTI or lactic acidosis. Summary of palliative recommendations: -Symptom management (Pain/other) Agitation: PT previously on Seroquel, stopped on admission, may be partly due to borderline QTc of 472. --restart Seroquel 12.5 mg at HS --Additional prn dose seroquel 12.5 mg once daily --monthly EKG to check QTc; counselor marriage and family family about pros/cons of continuing med with high QT if this >500. Anxiety: patient expresses "something's wrong" --consider restarting clonazepam if seroquel ineffective. Previously 0.5 mg prn anxiety Pain: dtr agrees that patient's back/abdominal pain need treatment. She wants us to use caution due to patient being "sensitive" to pain meds. --Schedule Tramadol 50 mg at 0800, 1400, 2000 --Additional Tramadol dosing 50 mg up to 3 times a day prn. -DPOA/Advanced Directives/POLST --Agree DNR/DNI, selective treatments (IVF, antibiotics) NEEDS POLST FORM COMPLETED--palliative care will try to do this before DC but if unable suggest f/u by medical numerical control operator or SHRINK PIT SUPERVISOR at [facility] -Family/emotional support --assist family understanding of progressive dementia -Disposition: D/w gdtr and attending: see if pt will meet criteria for skilled therapies at [facility]. Patient Goals: 1. Patient wants to be told the truth about his/her illness, even if it is unpleasant. 2. Patient would like to be told prognosis when it can be predicted, to better guide treatment decisions. 3. Patient would choose quality of life over quantity of life, and defines quality as able to enjoy eating and visiting with family. 4. Patient would request that comfort care take priority over cognitive/mental confusion. Additional Medical Diagnoses with primary management by Hospitalist team include : Thickened Colon wall--Probable diverticulitis/diverticulosis, other differential includes neoplasm. -- Flagyl and Cipro changed from IV to po. -- The pro calcitonin was only 0.05. The white blood count was only 14. --stool cx pending --consider GI follow up of persistent thickened colon wall per radiologist, if unrelieved by diverticulitis management -- This was discussed extensively with her granddaughter yesterday. She is improved today so likely will be back to her baseline tomorrow and can be discharged back to [facility] without further imaging, and with continued oral antibiotics typical for diverticulitis. Consider repeat CT scan at some point, consider GI consult and colonoscopy. Oral Candidiasis: --Nystatin UTI w/ new urinary incontinence -- Her UA is normal. The coag-negative staph is classically a skin contaminant. She is being covered with Cipro and Flagyl, and has not had any UTI symptoms. Her catheter will be removed today.. 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 --serial BMP, NS 100/hr --tsh bnp recent influenza + -- Completed Tamiflu 5 day course yesterday. Much of her general complaints is probably related to both the flu and the Tamiflu. monitor right leg pain, consider imaging if ongoing -- No symptoms or signs today. Low Back Pain -- No signs of imaging of any pathology and complaints seem to be modulating today. -- This was her family's major concern yesterday -- They continue to be quite focused on finding a physiologic or medical reason for her mental deterioration. She has had a thorough evaluation with the best conclusion so far being possible diverticulitis and/or colonic neoplasm if not responding to the diverticulitis antibiotics. So far that does not appear to be the case. Chronic issues known prior to admission, present on admission Cataracts Hypertension/hyperlipidemia Arthritis back, right hip joint replacement 2003, left hip replacement 2013 Diabetes types 2 Depression, anxiety recurrent hyponatremia since 2013 Progressive dementia --SSI, tylenol, trial tramadol for connie Problems: (1) Goals of care, counseling/discussion Assessment & Plan: Family and patient want to treat reversible conditions, assistance with advancing dementia. Status: Acute ICD Code: Z71.89 (2) Pain Assessment & Plan: New onset pain in low back, R abdominal region --Lumbar XR shows no compression fx --Colonic thickening --Consider further w/u if s/s continue -Discuss palliative options Status: Acute ICD Code: R52 (3) Palliative care by specialist Assessment & Plan: INfectious causes of pain, differential for other causes included neoplasm in the setting of advancing dementia. Software Development Test Engineer POA regarding decision-making and palliative options Status: Acute ICD Code: Z51.5 End of Life Preferences Comfort if at end of life Goals of Care Hoping for return to baseline but focus on comfort with all treatments, along with treating treatable conditions Resuscitation Status Resuscitation Status: DNR/DNI:Do Not Resuscitate/Intubate POLST Updates/Changes Previous POLST?: No Antibiotics: Determine Use or Limitations Artificially Admin Nutrition: No Artifical Nutrition by Tube POLST Discussed with: Health Care Agent ([facility]) POLST Review Outcome: New Form Completed (plan new form completion as no form is with her. Family unable to come in to sign this.) . Pain: Mild Symptom management: Anxiety, Agitation, Delirium Pt History History of Present Illness 75-year-old female presenting with worse altered mental status from baseline dementia, treating for possible sigmoid diverticulitis. She has had frequent falls and increasing complaints of abdominal pain and back pain over the last 2- 3 weeks (since Jun 04). She tells her granddaughters repeatedly "something's wrong with me". She was recently treated for influenza at [facility]. There is no UTI or lactic acidosis. Her baseline includes being able to walk with her walker, needing reminders to use the walker; being able to feed herself and having a normal appetite, being fully continent of bowel and bladder. Past Medical History Significant PMH Noted: FAMILY HX no diverticulitis SOCIAL HX smoking history quit 4 year ago MEDICATIONS Past Medical/Surgical HX Cataracts Hypertension/hyperlipidemia Diverticulitis Endometriosis, left nephrectomy, tonsillectomy,carpal tunnel release UTI/nocturia Arthritis back, right hip joint replacement 2003, left hip replacement 2013 Diabetes types 2 Depression, anxiety recurrent hyponatremia since 2013 [place] tooth Social History Family Members Issues: local dtr Fabienne is POA; has only a few weeks old and a 2 yr old. Social Support: family supportive Living Situation: long-term care setting. Responsive Patient Symptoms Pain (current): Mild Pain (minimum): None Pain (maximium): Mild Tiredness/Fatigue: Mild Anxiety: Moderate Palliative Performance Scale PPS Patient Status: Baseline PPS Ambulation: Mainly Sit/Lie PPS Activity: Unable to do any work PPS Self-Care: Occasional assistance necessary PPS Intake: Normal or reduced PPS Conscious Level: Full or drowsey, +/- confusion Performance Scale: 50% ADLs ADL Patient Status: Current ADL Ambulation: Totally Bed ADL Dressing: Mainly assistance ADL Feeding: Mainly assistance ADL Hygene/bathing: Mainly assistance ADL Transfers: Mainly assistance FAST Scale FAST Score: 6-E Allergy Allergies Reviewed: Yes Medications Current Medications: Current Medications Docusate Sodium 250 mg DAILY PRN PO Last administered on 06/18/16 09:07; Admin Dose 250 MG; Start 06/16/16 at 18:10 Polyethylene Glycol 17 gm DAILY PO Last administered on 06/18/16 09:07; Admin Dose 17 GM; Start 06/16/16 at 18:10 Nystatin 500,000 unit Q6 PO Last administered on 06/18/16 09:07; Admin Dose 500, 000 UNIT; Start 06/17/16 at 20:30 Ciprofloxacin 500 mg BID PO; Start 06/18/16 at 08:35 Metronidazole HCl 500 mg Q8 PO; Start 06/18/16 at 08:35 Scheduled Atorvastatin (Lipitor) 20 Mg Tablet 20 MG PO HS Cholecalciferol (Vitamin D3) (Vitamin D3) 2,000 Unit Tablet 2,000 UNIT PO DAILY Donepezil (Donepezil) 5 Mg Tablet 10 MG PO HS Folic Acid (Folic Acid) 0.8 Mg Tablet 0.4 MG PO DAILY Lidocaine (Lidoderm) 700 Mg Adh..patch 1 PATCH TP DAILY Losartan Potassium (Losartan Potassium) 100 Mg Tablet 100 MG PO DAILY Meloxicam (Meloxicam) 7.5 Mg Tablet 7.5 MG PO DAILY Metformin HCl (Metformin HCl ER) 1,000 Mg [id number] 1,000 MG PO BID Metoprolol Tartrate (Metoprolol Tartrate) 50 Mg Tablet 50 MG PO BID Nut.tx.,Elemental,Lac-Free/Mct (Xtracal Plus Liquid Packet) 45 Ml Liquid.pkt 45 ML PO TIDWM Potassium Chloride (Potassium Chloride Powder) 20 Meq Packet 20 MEQ PO DAILY DISSOVE CONTENTS OF PACKET IN FULL GLASS OF WATER AND DRINK ONCE DAILY. TAKE WITH FOOD Risperidone (Risperdal) 1 Mg Tablet 0.5 MG PO TID Sertraline HCl (Sertraline) 50 Mg Tablet 75 MG PO DAILY Scheduled PRN ([house cough syrup]) 15-30 ML PO q6hrs PRN PRN For Cough Acetaminophen (Acetaminophen) 325 Mg Tablet 650 MG PO Q4H PRN PRN For Pain Albuterol Neb Soln (Albuterol Neb Soln) 0.63 Mg/3 Ml Vial.neb 0.83 MG INHALATION Q4H PRN PRN For Shortness of Breath Loperamide HCl (Imodium A-D) 2 Mg Capsule 2 MG PO Q4hrs PRN PRN For Diarrhea or Loose Stool Magnesium Hydroxide (Milk of Magnesia) 400 Mg/5 Ml Oral.susp 30 ML PO DAILY PRN PRN For Constipation Polyethylene Glycol 3350 (Miralax) 17 Gm Powd.pack 17 GM PO DAILY PRN PRN For Constipation Sennosides (Senna) 8.6 Mg Tablet 17.2 MG PO DAILY PRN PRN For Constipation Tramadol (Tramadol) 50 Mg Tablet 100 MG PO Q6H PRN PRN For Pain hydrOXYzine Hcl (HydrOXYzine Hcl) 25 Mg Tablet 25 MG PO TID PRN PRN For Itching Objective Findings Exam Vital Sign - Last Date Time Temp Pulse Resp B/P Pulse Ox O2 Delivery O2 Flow Rate FiO2 06/18/16 06:04 36.9 91 18 179/86 96 Room Air Intake and Output 06/17/16 06/17/16 06/18/16 Cumulative From/Thru 15:00 23:00 07:00 06/15/16 13:32 - 06/18/16 00:47 Intake Total 822 ml 439 ml 385 ml 4329 ml Output Total 1600 ml 300 ml 4390 ml Balance -778 ml 139 ml 385 ml -61 ml Intake Oral 0 ml 300 ml 760 ml IV Total 822 ml 139 ml 385 ml 3569 ml Output Urine Total 1600 ml 300 ml 4390 ml # Bowel Movements 0 0 General: Alert, Oriented, Person HEENT: Atraumatic Heart: Exam Unremarkable Lungs: Normal Air Movement Neuro: Arousable Lab/Diagnostics Lab and Imaging results reviewed in detail in EMR. Patient/Family Conference Members Present Family Members Present pt unable to participate due to dementia; dtr reached by TC, not able to come in for consultation due to ill children Discussion/Goals of Care Discussion: FAMILY UNDERSTANDING OF DISEASE: [The patient does not know why she is in the hospital. Pts gdlamar Loving is her POA but she is not able to come in today due to having an ill 2 yr old at home (as well as a baby). The gdtr understands that there is an underlying process of dementia but that the sudden changes in her starting from Jun 04 were too sudden to be explained by dementia. It made sense to her that the worsening of her grandmother's agitation and her loss of other abilities (diminished appetite and ability to self-feed, incontinence) could be explained by the influenza, diverticulosis/ itis, or other unknown cause. She said that Dr. Bryant had mentioned the possibility of cancer DISEASE PROGRESSION/EVIDENCE OF DECLINE: [sudden possible acute illness changes in the setting of moderate dementia] SYMPTOM BURDEN: [agitation, worsening of dementia/ delirium] GOALS: [treat underlying cause if able, palliate progression of underlying dementia] HOPES/WORRIES: [hope that patient can return to her prior level of function. POA /dtr is worried about this being related to a cancer; agrees that work-up and treatment would not be in patient's best interest.] Palliative Care counselled: Explored wishes as above. Counselled re: POLST options--dtr is aware that completing POLST prior to DC is their prerogative; this will be made available per the palliative care team during the hospitalization or can be completed with SHRINK PIT SUPERVISOR/Engineer/Conductor at SNF. Time spent Total time 70 minutes; >50% face to face with patient and/or family, providing counselling regarding plans and recommendations, and in care coordination with his/her medical teams. OF this 35 minutes was spent counseling for advanced care planning with the patient/the patients family/the surrogate decision maker. copies to: Vinayak Bryant MD, Sharmon M. ARNP Jun 18, 2016 11:18
[2016-06-18 19:34] VITALS: BP 149/87; PULSE 94; RESP 20; O2SAT 97
--- NOTE | 2016-06-18 19:52 | PCM.PNMED ---
Subjective Date of Service Jun 18, 2016 Subjective Patient reports that she is doing very poorly this morning. She states that she is in a considerable amount of pain. 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 She denies any myalgias or pain elsewhere. Patient denies any nausea, vomiting or abdominal pain. Exam Vital Signs Vital Sign - Last Date Time Temp Pulse Resp B/P Pulse Ox O2 Delivery O2 Flow Rate FiO2 06/18/16 12:59 36.5 62 18 145/77 100 Room Air Intake and Output 06/17/16 06/17/16 06/18/16 Cumulative From/Thru 15:00 23:00 07:00 06/15/16 13:32 - 06/18/16 00:47 Intake Total 822 ml 439 ml 385 ml 4329 ml Output Total 1600 ml 300 ml 4390 ml Balance -778 ml 139 ml 385 ml -61 ml Intake Oral 0 ml 300 ml 760 ml IV Total 822 ml 139 ml 385 ml 3569 ml Output Urine Total 1600 ml 300 ml 4390 ml # Bowel Movements 0 0 Exam General: Frail elderly female, lying in bed. No acute distress. HEENT: Normocephalic, atraumatic. External ears without defect. Pupils equal, round, and reactive to light and accommodation. Neck: Supple with full range of motion. Cardiovascular: Regular rate and rhythm with no murmurs, rubs, or gallops appreciated Pulmonary: Clear to auscultation bilaterally with no crackles, wheezes, or rhonchi. Normal respiratory effort with no use of accessory muscles. Abdomen: Bowel tones present. Soft, nontender, nondistended. Extremities: No clubbing, cyanosis, edema, or lymphadenopathy appreciated. Skin: Normal temperature, turgor, and texture; no rash, ulcers, or subcutaneous nodules appreciated. Psychiatric: Normal mood and affect. Alert. IVs and Medications Medications Reviewed: Medications were reviewed in detail Lab and Diagnostics Result Diagram: 06/16/1661406/16/16614 X-Rays, CTs and MRIs CT ABDOMEN AND PELVIS WITH CONTRAST ([id number]) INDICATIONS: right side abdominal tenderness TECHNIQUE: After the administration of intravenous contrast, 5 mm thick sections acquired from the diaphragm to the symphysis. 5 mm coronal and sagittal reformats were acquired. For radiation dose reduction, the following was used: automated exposure control, adjustment of mA and/or kV according to patient size. COMPARISON: [facility] [place] , [place], ABD/PELVIS W/CON (PNL), 11/21/2004 , 16:27. [facility], CT, IVP-CT (ABD W/WO;PEL W/W/O), 08/29/2011, 10:49. [facility] [place] , CT, ABD/PELVIS W/CON (PNL), 03/03/2010, 10: 12. FINDINGS: Image quality: Excellent. ABDOMEN: Lung bases: Lung bases are clear. Heart size is normal. Atherosclerotic ossifications are noted in the visualized coronary vasculature. 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 Gallbladder is within normal limits. Biliary system is non dilated. Pancreas enhances normally. Bilobed fat containing right adrenal nodule is stable compared to prior examination and is compatible with myelolipoma. Kidneys demonstrate normal size and enhancement, without hydronephrosis. Small bilateral renal angiomyolipomas are stable compared to prior examinations. Large right renal cyst is again noted. Peritoneum and bowel: Small hiatal hernia is noted. Bowel loops demonstrate normal wall thickness and caliber. Numerous diverticuli scattered throughout the colon. Circumferential wall thickening noted in the sigmoid colon the regional numerous diverticuli suspicious for chronic diverticulitis. Trace amount of free fluid is noted in the lower left pelvis adjacent to the sigmoid colon which again is suspicious for chronic diverticulitis. No free air. The appendix is normal. Nodes and vessels: No retroperitoneal or mesenteric adenopathy by size criteria. Aorta and inferior vena cava are normal in size. Scattered atherosclerotic calcifications noted in the abdominal pelvic vasculature. Miscellaneous: No ventral hernias. PELVIS: Genitourinary: The bladder is obscured by artifact related to bilateral hip orthopedic hardware. Miscellaneous: No inguinal hernias or adenopathy. Bones: No suspicious bony lesions. No vertebral body compression fractures. Left hip arthroplasty noted. Postsurgical changes compatible with ORIF of right hip fracture noted. Spine degenerative disease and facet arthropathy noted. Convex left lumbar spine scoliosis is noted. IMPRESSION: 1. Reed colonic diverticulosis. Severe, circumferential wall thickening involving the sigmoid colon is noted in the region of multiple diverticula. Finding may represent chronic diverticulitis, however finding is nonspecific and if patient fails to respond to appropriate therapy for diverticulitis, then colonoscopy is recommended to exclude neoplastic process. 2. The appendix is normal. 3. No dilated loops of bowel. 4. Right adrenal myelolipoma is stable. 5. 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 6. Splenic hemangiomas stable. 7. Atherosclerosis including the visualized coronary vasculature. Dictated by: Laurie Bansal MD, PhD Assessment & Plan 75-year-old female presenting with worse altered mental status from baseline dementia. Possible acute sigmoid diverticulitis, present on admission, ongoing. -- Flagyl and Cipro IVF -- procalcitonin was 0.05. The white blood count was 14. --stool cx negative --consider GI follow up of persistent thickened colon wall per radiologist, if unrelieved by diverticulitis management UTI w/ new urinary incontinence -- Her UA is normal. The coag-negative staph is classically a skin contaminant. She is being covered with Cipro and Flagyl, and has not had any UTI symptoms. Her catheter will be removed today.. 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 --serial BMP, NS 100/hr --Continue to monitor BMP Recent diagnosis of influenza, -- Completed Tamiflu 5 day course Right leg pain, chronicity unknown. -Consider imaging, if pt reports worsening. Low Back Pain, chronicity unknown -- Lumbar xray did not demonstrate any cause of the pain -- Palliative care, restarted Tramadol for pain control. Dementia, chronicity unknown, ongoing -Palliative care has been consulted, and started patient on Seroquel -Will check EKG to monitor for QTC prolongation Chronic issues known prior to admission, present on admission Cataracts Hypertension/hyperlipidemia Arthritis back, right hip joint replacement 2003, left hip replacement 2013 Diabetes types 2 Depression, anxiety recurrent hyponatremia since 2013 Progressive dementia Diet carb/cardiac DVT prophylaxis lovenox Code DNR VTE Mechanical Devices: Intermittant Pneumatic CD Resuscitation Status: DNR/DNI:Do Not Resuscitate/Intubate Time spent 25 minutes Attending Statement I have seen and evaluated patient at bedside in addition to directly supervising care provided by resident physician. I agree with above documentation. Active underlying medical condition aside from recent influenza is not certain, pt has baseline dementia, but potentially with overlying hospital delirium. Appreciating palliative care assistance. Winnie Gonzales DO Jun 18, 2016 19:52 Rm Calhoun DO Jun 18, 2016 22:49
[2016-06-19] MEDS: Nystatin 100,000 Unit/mL 5 mL Suspension PO SCH ×4 (02:30→20:15)
--- NOTE | 2016-06-19 05:58 | NUR ---
Sleep: Pt had ordered Seroquel at HS along with Tramadol and has been able to sleep most of the night. Continues to turn self in bed independently, but is not calling out for help. Although pt was sleepy and it was unsafe to administer the last PO dose of her antibiotic.
[2016-06-19 06:10] VITALS: BP 118/58; PULSE 82; RESP 18; O2SAT 98
[2016-06-19] MEDS: Insulin LISPRO 300 Unit/3 mL Inj SUBQ SCH ×4 (08:00→22:00)
[2016-06-19 08:15] LABS: BASOPHILS % (AUTO) 0.7 % (0-3); EOSINOPHILS % (AUTO) 2.7 % (0-5); Mean Corpuscular Hemoglobin 27.6 pg (27.0-35.0); Mean Corpuscular Volume 81.9 fL (81-100); NEUTROPHILS % (AUTO) 67.7 % (40-74); Platelet Count 327 bil/L (150-400)
[2016-06-19] MEDS: Polyethylene Glycol (PEG) 17 Gm Powder PO SCH (08:30)
[2016-06-19] MEDS: Sodium Chloride LOK Flush 10 mL Syringe IVFLUSH SCH ×3 (08:30→23:23)
--- NOTE | 2016-06-19 08:44 | NUR ---
LENORA: Patient unable to accept LENORA at this time, asked [facility] to follow up with daughter to give LENORA
--- NOTE | 2016-06-19 09:00 | NUR ---
LENORA signed with granddaughter via phone. ARBEN Serrato
[2016-06-19] MEDS: Lidocaine Topical 5% Patch TOPICAL SCH (09:13)
[2016-06-19 10:41] VITALS: PULSE 82; RESP 18; O2SAT 96
--- NOTE | 2016-06-19 10:52 | PCM.PALLBR ---
Palliative Care Recommendation 75-year-old female presenting with worse altered mental status from baseline dementia, treating for possible sigmoid diverticulitis. She has had frequent falls and increasing complaints of abdominal pain and back pain. Today is Hospital Day 5. Summary of palliative recommendations: -Symptom management (Pain/other) Agitation: PT previously on Seroquel, stopped on admission, may be partly due to borderline QTc of 472. --Continue Seroquel 12.5 mg at HS, has been helpful for sleeping without agitation overnight, Today we will add 12.5mg po q am, to see if she can be calmer during day when she is awake. --Additional prn dose seroquel 12.5 mg once daily --monthly EKG to check QTc; milieu counselor family about pros/cons of continuing med with high QT if this >500. Anxiety: patient expresses "something's wrong" --consider restarting clonazepam if seroquel ineffective. Previously 0.5 mg prn anxiety Pain: dtr agrees that patient's back/abdominal pain need treatment. She wants us to use caution due to patient being "sensitive" to pain meds. --Schedule Tramadol 50 mg at 0800, 1400, 2000 --Additional Tramadol dosing 50 mg up to 3 times a day prn. -DPOA/Advanced Directives/POLST 1.Agree DNR/DNI, selective treatments (IVF, antibiotics) 2. NEEDS POLST FORM COMPLETED-- Dr. Juarez filled out and signed her both sides of form and placed on paper chart. Granddaughter is not coming in until 7pm tonight and will ask for and sign form them. We discussed it over the phone together today. If granddaughter forgets to sign form before discharge, suggest f/u by medical field representative or PERPETUAL INVENTORY CLERK at [facility] -Family/emotional support --assist family understanding of progressive dementia -Disposition: Gdtr hopes that if pt will meet criteria for skilled therapies at [facility]-. Gdtr is also considering [facility] placement. Additional Medical Diagnoses with primary management by Hospitalist team include : Possible acute sigmoid diverticulitis, present on admission, ongoing. -- Flagyl and Cipro IVF -- procalcitonin was 0.05. The white blood count was 14. --stool cx negative --consider GI follow up of persistent thickened colon wall per radiologist, if unrelieved by diverticulitis management UTI w/ new urinary incontinence-- Her UA is normal. Catheter removed. 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 --serial BMP, NS 100/hr, Continue to monitor BMP Recent diagnosis of influenza, Completed Tamiflu 5 day course Right leg pain, chronicity unknown. Consider imaging, if pt reports worsening. Low Back Pain, chronicity unknown Lumbar xray did not demonstrate any cause of the pain -- Palliative care, restarted Tramadol for pain control. Dementia, chronicity unknown, with intermittent agitation, Palliative care has been consulted, and started patient on Seroquel -Will check EKG to monitor for QTC prolongation Thickened Colon wall--Probable diverticulitis/diverticulosis, other differential includes neoplasm. Flagyl and Cipro changed from IV to po. The pro calcitonin was only 0.05. The white blood count was only 14. Stool cx negative --She is improved so likely can be discharged back to [facility] without further imaging, and with continued oral antibiotics typical for diverticulitis. Consider repeat CT scan at some point, consider GI consult and colonoscopy. Daughter counseled on this by Attending team /. Oral Candidiasis: --Nystatin Problems: (1) Goals of care, counseling/discussion Assessment & Plan: Family and patient want to treat reversible conditions, assistance with advancing dementia. Status: Acute ICD Code: Z71.89 (2) Pain Assessment & Plan: New onset pain in low back, R abdominal region --Lumbar XR shows no compression fx --Colonic thickening --Consider further w/u if s/s continue -Discuss palliative options Status: Acute ICD Code: R52 (3) Palliative care by specialist Assessment & Plan: INfectious causes of pain, differential for other causes included neoplasm in the setting of advancing dementia. Atg Architect POA regarding decision-making and palliative options Status: Acute ICD Code: Z51.5 End of Life Preferences Comfort if at end of life Goals of Care Hoping for return to baseline but focus on comfort with all treatments, along with treating treatable conditions Resuscitation Status Resuscitation Status: DNR/DNI:Do Not Resuscitate/Intubate POLST Updates/Changes Previous POLST?: No Antibiotics: Determine Use or Limitations Artificially Admin Nutrition: No Artifical Nutrition by Tube POLST Discussed with: Health Care Agent (DPOAHC) POLST Review Outcome: New Form Completed (plan new form completion as no form is with her. Family unable to come in to sign this.) Total time 35 minutes; >50% face to face with patient and/or family, providing counselling regarding plans and recommendations, and in care coordination with his/her medical teams. I also spent an additional 15 minutes counseling for advanced care planning with the patient/the patients family/the surrogate decision maker. Palliative Brief Note Date of Service Jun 19, 2016 . History of Present Illness 75-year-old female admitted 06/15/16 with worse altered mental status from baseline dementia, treating for possible sigmoid diverticulitis. She has had frequent falls and increasing complaints of abdominal pain and back pain over the last 2-3 weeks (since Jun 04). She tells her granddaughters repeatedly "something's wrong with me". She was recently [place] [facility] [place] continues [place] flu precautions here. Past Medical History: Cataracts,Hypertension/hyperlipidemia,Arthritis back, right hip joint replacement 2003, left hip replacement 2013,Diabetes types 2, Depression, anxiety, recurrent hyponatremia since 2013, Progressive dementia. Hospital Course: Today is Hospital Day 5. She was treated for flu with Tamiflu x 5 days, was given antibiotics for presumptive sigmoid diverticulitis. She has been treated for hyponatremiaShe was started back on her HS seroquel on 06/18 evening, which has been helpful in calming her down. However, RN reports she still needs / sitter for calling out when she is awake. At baseline she can walk with her walker, needing reminders to use the walker ; being able to feed herself and having a normal appetite, being fully continent of bowel and bladder. This admission, she has needed help to get to [facility], and requires protective mats on siderails and floor as she had been trying to get out of bed due to confusion. Subjective: She is asking to go home. Objective: General: alert, makes eye contact, lying flat in bed with no dyspnea. HEENT: PERRL, EOMI, sclera clear, mucosa dry Lungs: clear Heart: S1,S2, no murmur Abdomen: flat, nontender, positive bowel sounds Extremities: moves all four extremities, no edema Skin: warm, dry, no eccymoses, no rashes Mental Status: alert x 1, president is "Hart," can name days of week in order but cannot recite backwards, knows town as [facility], cannot name hospital. Confused but quiet when people in room and responds positively to gently reassurances, when left alone she is calling out frequently for help. CT Abd/Pelvis without contrast on 06/15 (admission): 1. Reed colonic diverticulosis. Severe, circumferential wall thickening involving the sigmoid colon is noted in the region of multiple diverticula. Finding may represent chronic diverticulitis, however finding is nonspecific and if patient fails to respond to appropriate therapy for diverticulitis, then colonoscopy is recommended to exclude neoplastic process. 2. The appendix is normal. 3. No dilated loops of bowel. 4. Right adrenal myelolipoma is stable. 5. 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 6. Splenic hemangiomas stable. 7. Atherosclerosis including the visualized coronary vasculature. Melissa Juarez MD Jun 19, 2016 10:52
--- NOTE | 2016-06-19 11:42 | NUR ---
Evaluation completed. Please go to "Notes" then click on "Assessments and Notes" (bottom left corner of screen). Then select appropriate discipline tab on top of screen.
--- NOTE | 2016-06-19 12:39 | NUR ---
Palliative care note D/A: Phone call from pt stevie Loving ). She is calling to discuss possible SNF with rehab for pt. This worker reviews PT notes that indicates that pt was having trouble following direction and cautions that pt may not be able to participate in therapies to the degree necessary for SNF coverage. Have indicated that family will need to speak to HYPERBARIC TECHNICIAN who does dc planning and that this worker will discuss request with dcp. Note that pt was LTC pt at [facility] previously. Gr dtr also affirms that she is considering [facility] as possible longer term plan for pt. Phone call to Alba HYPERBARIC TECHNICIAN dcp. Alba is familiar with case having just spoken to gr dtr and will call her regarding above request. P: Palliative care to follow. Roxanna BATRES, CCM
[2016-06-19 14:02] VITALS: BP 122/73; PULSE 105; RESP 22; O2SAT 98
--- NOTE | 2016-06-19 14:21 | NUR ---
Social Work-continued d/c planning: Data:EMR Reviewed. Pt is on day 4 of hospitalization for diverticulitis per H&P. Pt is not medically stable, anticipate several more days. MAGDI spoke with pt's granddaughter Fabienne today to confirm discharge plan. 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 MAGDI updated by Palliative that granddaughter wondering about rehab. PT and OT have been seeing pt for therapy and recommending SNF. authorization would need to be obtained. Pt continues with sitter, pt will need to be 24 hours sitter free. SW provided update to Janeen Winston admissions at [facility] [phone]. Paperwork in the chart. SW will continue to follow. Assessment:Pt who is penitentiary care pt at [facility]. Plan: Pt to discharge back to [facility] when medically stable.PT and OT have been seeing pt for therapy and recommending SNF. authorization would need to be obtained. If denied, pt is penitentiary care pt at facility. Paperwork in the chart. SW will continue to follow. ARBEN Serrato
--- NOTE | 2016-06-19 15:39 | PCM.PNMED ---
Subjective Date of Service Jun 19, 2016 Subjective Patient seen this morning, and no family was present at the time. Patient was less talkative this morning, and only answered some of my questions. Exam Vital Signs Vital Sign - Last Date Time Temp Pulse Resp B/P Pulse Ox O2 Delivery O2 Flow Rate FiO2 06/19/16 06:10 36.3 82 18 118/58 98 Room Air Intake and Output 06/18/16 06/18/16 06/19/16 Cumulative From/Thru 15:00 23:00 07:00 06/15/16 13:32 - 06/19/16 06:30 Intake Total 100 ml 420 ml 360 ml 5209 ml Output Total 350 ml 400 ml 300 ml 5440 ml Balance -250 ml 20 ml 60 ml -231 ml Intake Oral 100 ml 420 ml 360 ml 1640 ml IV Total 3569 ml Output Urine Total 350 ml 400 ml 300 ml 5440 ml # Voids 1 1 # Bowel Movements 1 1 Exam General: Frail elderly female, lying in bed. No acute distress. HEENT: Normocephalic, atraumatic. External ears without defect. Pupils equal, round, and reactive to light and accommodation. Neck: Supple with full range of motion. Cardiovascular: Regular rate and rhythm with no murmurs, rubs, or gallops appreciated Pulmonary: Clear to auscultation bilaterally with no crackles, wheezes, or rhonchi. Normal respiratory effort with no use of accessory muscles. Abdomen: Bowel tones present. Soft, nontender, nondistended. Extremities: No clubbing, cyanosis, edema, or lymphadenopathy appreciated. Skin: Normal temperature, turgor, and texture; no rash, ulcers, or subcutaneous nodules appreciated. Psychiatric: Normal mood and affect. Alert but does not answer questions consistently. IVs and Medications Medications Reviewed: Medications were reviewed in detail Lab and Diagnostics Result Diagram: 06/16/1661406/16/16614 X-Rays, CTs and MRIs CT ABDOMEN AND PELVIS WITH CONTRAST ([id number]) INDICATIONS: right side abdominal tenderness TECHNIQUE: After the administration of intravenous contrast, 5 mm thick sections acquired from the diaphragm to the symphysis. 5 mm coronal and sagittal reformats were acquired. For radiation dose reduction, the following was used: automated exposure control, adjustment of mA and/or kV according to patient size. COMPARISON: [facility] [place] , [place], ABD/PELVIS W/CON (PN), 11/21/2004 , 16:27. [facility], [place], IVP-CT (ABD W/WO;PEL W/W/O), 08/29/2011, 10:49. [facility] , CT, ABD/PELVIS W/CON (PNL), 03/03/2010, 10: 12. FINDINGS: Image quality: Excellent. ABDOMEN: Lung bases: Lung bases are clear. Heart size is normal. Atherosclerotic ossifications are noted in the visualized coronary vasculature. 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 Gallbladder is within normal limits. Biliary system is non dilated. Pancreas enhances normally. Bilobed fat containing right adrenal nodule is stable compared to prior examination and is compatible with myelolipoma. Kidneys demonstrate normal size and enhancement, without hydronephrosis. Small bilateral renal angiomyolipomas are stable compared to prior examinations. Large right renal cyst is again noted. Peritoneum and bowel: Small hiatal hernia is noted. Bowel loops demonstrate normal wall thickness and caliber. Numerous diverticuli scattered throughout the colon. Circumferential wall thickening noted in the sigmoid colon the regional numerous diverticuli suspicious for chronic diverticulitis. Trace amount of free fluid is noted in the lower left pelvis adjacent to the sigmoid colon which again is suspicious for chronic diverticulitis. No free air. The appendix is normal. Nodes and vessels: No retroperitoneal or mesenteric adenopathy by size criteria. Aorta and inferior vena cava are normal in size. Scattered atherosclerotic calcifications noted in the abdominal pelvic vasculature. Miscellaneous: No ventral hernias. PELVIS: Genitourinary: The bladder is obscured by artifact related to bilateral hip orthopedic hardware. Miscellaneous: No inguinal hernias or adenopathy. Bones: No suspicious bony lesions. No vertebral body compression fractures. Left hip arthroplasty noted. Postsurgical changes compatible with ORIF of right hip fracture noted. Spine degenerative disease and facet arthropathy noted. Convex left lumbar spine scoliosis is noted. IMPRESSION: 1. Reed colonic diverticulosis. Severe, circumferential wall thickening involving the sigmoid colon is noted in the region of multiple diverticula. Finding may represent chronic diverticulitis, however finding is nonspecific and if patient fails to respond to appropriate therapy for diverticulitis, then colonoscopy is recommended to exclude neoplastic process. 2. The appendix is normal. 3. No dilated loops of bowel. 4. Right adrenal myelolipoma is stable. 5. 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 6. Splenic hemangiomas stable. 7. Atherosclerosis including the visualized coronary vasculature. Dictated by: Laurie Bansal MD, PhD Assessment & Plan 75-year-old female presenting with acute change in mental status from baseline dementia. Possible acute sigmoid diverticulitis, present on admission, ongoing. -Pt on PO Flagyl and Cipro -Normal procalcitonin, and no evidence of leukocytosis -Stool cx negative -Patient appears to be improving Acute urinary tract infection due to unknown cause, with concomitant urinary incontinence -UA demonstrated positive Nitrate, and many bacteria -Urine culture, preliminary report stating coagulase negative staphylococcus( spp epidermidis) -Pt has been receiving Cipro for suspected sigmoid diverticulitis, and bacteria in urine is sensitive to cipro. -Pt continues to require assistance with urination, secondary to balance issues. Recurrent hyponatremia, likely secondary to hypervolemia based on lab review. -Pt removed her IV, thus not receiving IVF -Pt has appropriate oral intake -Daily AM labs. Recent diagnosis of influenza, -Completed Tamiflu 5 day course Right leg pain, chronicity unknown. -Consider imaging, if pt reports worsening. -Pt denies pain today Low Back Pain, chronicity unknown -Lumbar xray did not demonstrate any cause of the pain -Palliative care, restarted Tramadol for pain control. Dementia, chronicity unknown, ongoing -Palliative care has been consulted, and started patient on Seroquel 12.5mg q HS , and Clonazepam 0.5mg BID -Will check EKG to monitor for QTC prolongation, pt will need monthly checks -Pt continues to need sitter, crying out while awake -Hopefully if new regimen of medication is effective, sitter can be discontinued and patient can be discharged home to [facility]. Functional status -Pt evaluated by Occupation Therapy, who felt that patient would benefit from discharge to SNF secondary to her functional deficits. 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 Gonzales on 06/19/2016 and I agree with the history, exam and plan as outlined in the note above. Winnie Gonzales DO Jun 19, 2016 07:04 Pravin Mars MD Jun 20, 2016 10:26
[2016-06-19 18:22] VITALS: BP 100/48; PULSE 72; RESP 22; O2SAT 93
--- NOTE | 2016-06-19 18:46 | NUR ---
Behavior Pt given 1 dose of PRN Seroquel mid morning, followed by 1 PO dose of Clonazepam. Pt continues to cry out "help" with sitter at bedside. Pt trying to get out of bed or chair, requesting to go home with aunt and uncle (), concerned about adopted children who are at home and wanting to know where her spouse is (). Granddaughter at bedside visiting, pt continues to call out for help. Continued need for sitter. Will continue to monitor.
--- NOTE | 2016-06-20 01:24 | NUR ---
Ambulation Some weight bearing from bed to BSC however on move back to bed almost no use of legs observed.
[2016-06-20] MEDS: Nystatin 100,000 Unit/mL 5 mL Suspension PO SCH ×4 (02:48→20:26)
[2016-06-20 05:41] VITALS: BP 129/60; PULSE 74; RESP 18; O2SAT 97
[2016-06-20 06:57] LABS: BASOPHILS % (AUTO) 0.5 % (0-3); EOSINOPHILS % (AUTO) 2.9 % (0-5); MONOCYTES % (AUTO) 10.9 % (4-12); Mean Corpuscular Hemoglobin 27.3 pg (27.0-35.0); Mean Corpuscular Volume 82.1 fL (81-100); NEUTROPHILS % (AUTO) 63.5 % (40-74); Platelet Count 336 bil/L (150-400)
[2016-06-20] MEDS: Sodium Chloride LOK Flush 10 mL Syringe IVFLUSH SCH ×3 (07:54→22:26)
[2016-06-20] MEDS: Insulin LISPRO 300 Unit/3 mL Inj SUBQ SCH ×4 (07:54→21:07)
[2016-06-20] MEDS: Polyethylene Glycol (PEG) 17 Gm Powder PO SCH (08:06)
[2016-06-20] MEDS: Lidocaine Topical 5% Patch TOPICAL SCH (08:06)
[2016-06-20] MEDS ORDERED: oxyCODONE 1 mg/mL 5 mL Liquid PO SCH (08:35)
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
[2016-06-20] MEDS: oxyCODONE 1 mg/mL 5 mL Liquid PO SCH ×4 (09:17→22:00)
--- NOTE | 2016-06-20 11:37 | NUR ---
Discontinue sitter Patient has been sleeping most of morning except to eat and use commode. Patient does not show need for sitter. Patient 1:1 sitter has been discontinued around 1100.
[2016-06-20 14:46] VITALS: BP 93/56; PULSE 71; RESP 16; O2SAT 95
--- NOTE | 2016-06-20 15:49 | PCM.PNMED ---
Subjective Date of Service Jun 20, 2016 Subjective Per nursing, overnight patient continued to scream help while with the sitter and requesting to speak with family members that were apparently . This morning patient was slightly agitated and would not answer any questions repeating "I don't want to be here please let me go". When I return to see the patient she was very somnolent and again did not answer any questions. Exam Vital Signs Vital Sign - Last Date Time Temp Pulse Resp B/P Pulse Ox O2 Delivery O2 Flow Rate FiO2 06/20/16 05:41 36.1 74 18 129/60 97 Room Air Intake and Output 06/19/16 06/19/16 06/20/16 Cumulative From/Thru 15:00 23:00 07:00 06/15/16 13:32 - 06/20/16 05:44 Intake Total 850 ml 300 ml 6359 ml Output Total 200 ml 200 ml 5840 ml Balance 650 ml 100 ml 519 ml Intake Oral 850 ml 300 ml 2790 ml IV Total 3569 ml Output Urine Total 200 ml 200 ml 5840 ml # Voids 1 2 # Bowel Movements 0 0 1 Exam General: Frail elderly female, lying in bed sleeping. Not easily woken. No acute distress. HEENT: Normocephalic, atraumatic. External ears without defect. Pupils equal, round, and reactive to light and accommodation. Neck: Supple with full range of motion. Cardiovascular: Regular rate and rhythm with no murmurs, rubs, or gallops appreciated Pulmonary: Clear to auscultation bilaterally with no crackles, wheezes, or rhonchi. Normal respiratory effort with no use of accessory muscles. Abdomen: Bowel tones present. Soft, nontender, nondistended. Extremities: No clubbing, cyanosis, edema, or lymphadenopathy appreciated. Skin: Normal temperature, turgor, and texture; no rash, ulcers, or subcutaneous nodules appreciated. Psychiatric: Pt is very somnolent, and does not answer questions. She opens eyes and then goes back to sleep. IVs and Medications Medications Reviewed: Medications were reviewed in detail Lab and Diagnostics Result Diagram: 06/20/1661406/20/16614 X-Rays, CTs and MRIs CT ABDOMEN AND PELVIS WITH CONTRAST ([id number]) INDICATIONS: right side abdominal tenderness TECHNIQUE: After the administration of intravenous contrast, 5 mm thick sections acquired from the diaphragm to the symphysis. 5 mm coronal and sagittal reformats were acquired. For radiation dose reduction, the following was used: automated exposure control, adjustment of mA and/or kV according to patient size. COMPARISON: [facility] , [place], ABD/PELVIS W/CON (PNL), 11/21/2004 , 16:27. [facility], [place], IVP-CT (ABD W/WO;PEL W/W/O), 08/29/2011, 10:49. [facility] , [place], ABD/PELVIS W/CON (PNL), 03/03/2010, 10: 12. FINDINGS: Image quality: Excellent. ABDOMEN: Lung bases: Lung bases are clear. Heart size is normal. Atherosclerotic ossifications are noted in the visualized coronary vasculature. 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 Gallbladder is within normal limits. Biliary system is non dilated. Pancreas enhances normally. Bilobed fat containing right adrenal nodule is stable compared to prior examination and is compatible with myelolipoma. Kidneys demonstrate normal size and enhancement, without hydronephrosis. Small bilateral renal angiomyolipomas are stable compared to prior examinations. Large right renal cyst is again noted. Peritoneum and bowel: Small hiatal hernia is noted. Bowel loops demonstrate normal wall thickness and caliber. Numerous diverticuli scattered throughout the colon. Circumferential wall thickening noted in the sigmoid colon the regional numerous diverticuli suspicious for chronic diverticulitis. Trace amount of free fluid is noted in the lower left pelvis adjacent to the sigmoid colon which again is suspicious for chronic diverticulitis. No free air. The appendix is normal. Nodes and vessels: No retroperitoneal or mesenteric adenopathy by size criteria. Aorta and inferior vena cava are normal in size. Scattered atherosclerotic calcifications noted in the abdominal pelvic vasculature. Miscellaneous: No ventral hernias. PELVIS: Genitourinary: The bladder is obscured by artifact related to bilateral hip orthopedic hardware. Miscellaneous: No inguinal hernias or adenopathy. Bones: No suspicious bony lesions. No vertebral body compression fractures. Left hip arthroplasty noted. Postsurgical changes compatible with ORIF of right hip fracture noted. Spine degenerative disease and facet arthropathy noted. Convex left lumbar spine scoliosis is noted. IMPRESSION: 1. Reed colonic diverticulosis. Severe, circumferential wall thickening involving the sigmoid colon is noted in the region of multiple diverticula. Finding may represent chronic diverticulitis, however finding is nonspecific and if patient fails to respond to appropriate therapy for diverticulitis, then colonoscopy is recommended to exclude neoplastic process. 2. The appendix is normal. 3. No dilated loops of bowel. 4. Right adrenal myelolipoma is stable. 5. 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 6. Splenic hemangiomas stable. 7. Atherosclerosis including the visualized coronary vasculature. Dictated by: Laurie Bansal MD, PhD PROCEDURE: CT BRAIN WITHOUT CONTRAST ([id number]) INDICATIONS: fall TECHNIQUE: Noncontrast 4.5 mm thick angled axial sections acquired from the foramen magnum to the vertex, with coronal reformats. COMPARISON: CT brain 06/08/2016; MRI brain 11/11/2015 FINDINGS: Image quality: Excellent. CSF spaces: Basal cisterns are patent. No extra-axial fluid collections. The ventricles are symmetric in size and shape. Brain: No intracranial bleeds or masses. There is cerebral volume loss for age , with resultant ventricular and sulcal prominence. There are periventricular and deep white matter chronic small vessel ischemic changes. There is intracranial internal carotid artery atherosclerosis. Calcification right mammary body again noted. Skull and face: Calvarium and visualized facial bones appear intact, without suspicious lesions. Sinuses: Visualized sinuses and mastoids are clear. IMPRESSION: 1. No acute posttraumatic changes. 2. Cerebral atrophy and chronic deep white matter ischemic changes. Dictated by: Will Zurita M.D. on 06/15/2016 at 15:19 Approved by: Will Zurita M.D. on 06/15/2016 at 15:22 Assessment & Plan 75-year-old female presenting with acute change in mental status from baseline dementia. Possible acute sigmoid diverticulitis, present on admission, ongoing. -Pt on PO Flagyl and Cipro -Normal procalcitonin, and no evidence of leukocytosis -Stool cx negative -Patient appears to be improving Acute urinary tract infection due to unknown cause, with concomitant urinary incontinence -UA demonstrated positive Nitrate, and many bacteria -Urine culture, preliminary report stating coagulase negative staphylococcus( spp epidermidis) -Pt has been receiving Cipro for suspected sigmoid diverticulitis, and bacteria in urine is sensitive to cipro. -Pt continues to require assistance with urination, secondary to balance issues. Recurrent hyponatremia, likely secondary to hypervolemia based on lab review. -Pt removed her IV, thus not receiving IVF -Pt has appropriate oral intake -Daily AM labs. Dementia, chronicity unknown, ongoing -Palliative care has been consulted, and started patient on Seroquel 25mg q HS and 12.5mg q daily, and Clonazepam 0.5mg BID, Aricept, and sertraline -Will check EKG to monitor for QTC prolongation, pt will need monthly checks -Pt was somnolent today, but did not demonstrate behavior requiring sitter. Sitter was discontinued. Recent diagnosis of influenza, -Completed Tamiflu 5 day course Right leg pain, chronicity unknown. -Consider imaging, if pt reports worsening. Low Back Pain, chronicity unknown -Lumbar xray did not demonstrate any cause of the pain -Palliative care,prescribed oxycodone for pain today Functional status -Pt evaluated by Occupation Therapy, who felt that patient would benefit from discharge to SNF secondary to her functional deficits. 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 Gonzales on 06/20/2016 and I agree with the history, exam and plan as outlined in the note above. Winnie Gonzales DO Jun 20, 2016 10:26 Pravin Mars MD Jun 21, 2016 10:22
--- NOTE | 2016-06-20 20:11 | NUR ---
Mentation still confused and calling out while people in room. When asked why she is yelling: "We have to work around here, I should be going to school or taking classes this quarter". Oriented to self only but able to identify city once the hospital name is given. Addendum: 06/21/16 at 0029 by MAR TELLEZ RN Missed medications due to somnolence: Flagyl and Roxicodone.
[2016-06-20] MEDS: risperiDONE 1 mg Tablet PO SCH (20:27)
[2016-06-20 20:50] VITALS: BP 150/69; PULSE 96; RESP 20; O2SAT 98
[2016-06-21] MEDS: Nystatin 100,000 Unit/mL 5 mL Suspension PO SCH ×4 (02:28→21:00)
[2016-06-21 05:40] VITALS: BP 106/65; PULSE 73; RESP 18; O2SAT 97
[2016-06-21 07:46] LABS: BASOPHILS % (AUTO) 0.3 % (0-3); EOSINOPHILS % (AUTO) 1.7 % (0-5); MONOCYTES % (AUTO) 11.4 % (4-12); Mean Corpuscular Hemoglobin 27.2 pg (27.0-35.0); Mean Corpuscular Volume 82.4 fL (81-100); NEUTROPHILS % (AUTO) 72.6 % (40-74); Platelet Count 321 bil/L (150-400)
[2016-06-21] MEDS: Insulin LISPRO 300 Unit/3 mL Inj SUBQ SCH ×4 (08:00→22:00)
--- NOTE | 2016-06-21 08:05 | PCM.PALLBR ---
Palliative Care Recommendation 75-year-old female presenting with worse altered mental status from baseline dementia, treating for possible sigmoid diverticulitis. She has had frequent falls and increasing complaints of abdominal pain and back pain. Today is Hospital Day 7. Summary of palliative recommendations: -Symptom management (Pain/other) 1. Agitation: PT previously on Seroquel, stopped on admission, may be partly due to borderline QTc of 472. --After several days of seroquel 12.5mg q day, then BID, no improvement, this was stopped and we began risperdal 0.5mg po BID on night of 06/21. Discussed with Dr. Mars who agrees. --consider prn dose of risperdal 0.5 during day, if needed for breakthrough agitation today. --monthly EKG to check QTc; tour counselor family about pros/cons of continuing med with high QT if this >500. 2. Anxiety: patient expresses "something's wrong" --continue clonazepam 0.5 po BID (today is day 3) 3. Pain: Pt crying out "ow, my back hurts. help me, please help me." Gdtr agrees that patient's back/abdominal pain need treatment. She wants us to use caution due to patient being "sensitive" to pain meds. --Started oxycodone 5mg before meals and at HS. Began on 06/20. Not oversedated on this regimen and seems calmer. Perhaps some of her agitation was 2/2 musculoskeletal/arthritic pain. --Continue Tramadol dosing 50 mg up to 3 times a day for breakthrough pain. -DPOA/Advanced Directives/POLST 1.Agree DNR/DNI, selective treatments (IVF, antibiotics) 2. POLST FORM COMPLETED-- Dr. Juarez filled out and signed her both sides of form and placed on paper chart. Granddaughter signed when she visited evening of 06/20. -Family/emotional support --assist family understanding of progressive dementia.Dr. Juarez counseled gdtr more on delirium, dementia, progressive behavior changes that are common in dementia, need for meds to reduce anxiety and agitation, thereby helping pt become less fearful and more comfortable in strange (hospital) surroundings. -Disposition: Gdtr hopes that if pt will meet criteria for skilled therapies at [facility]. Gdtr is also considering [facility] placement. Additional Medical Diagnoses with primary management by Hospitalist team include : Possible acute sigmoid diverticulitis, present on admission, ongoing. -- Flagyl and Cipro IVF -- procalcitonin was 0.05. The white blood count was 14. --stool cx negative --consider GI follow up of persistent thickened colon wall per radiologist, if unrelieved by diverticulitis management UTI w/ new urinary incontinence-- Her UA is normal. Catheter removed. 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 --serial BMP, NS 100/hr, Continue to monitor BMP Recent diagnosis of influenza, Completed Tamiflu 5 day course Right leg pain, chronicity unknown. Consider imaging, if pt reports worsening. Low Back Pain, chronicity unknown Lumbar xray did not demonstrate any cause of the pain -- Palliative care, restarted Tramadol for pain control. Dementia, chronicity unknown, with intermittent agitation, Palliative care has been consulted, and started patient on Seroquel -Will check EKG to monitor for QTC prolongation Thickened Colon wall--Probable diverticulitis/diverticulosis, other differential includes neoplasm. Flagyl and Cipro changed from IV to po. The pro calcitonin was only 0.05. The white blood count was only 14. Stool cx negative --She is improved so likely can be discharged back to [facility] without further imaging, and with continued oral antibiotics typical for diverticulitis. Consider repeat CT scan at some point, consider GI consult and colonoscopy. Daughter counseled on this by Attending team /. Oral Candidiasis: --Nystatin Problems: (1) Goals of care, counseling/discussion Assessment & Plan: Family and patient want to treat reversible conditions, assistance with advancing dementia. Status: Acute ICD Code: Z71.89 (2) Pain Assessment & Plan: New onset pain in low back, R abdominal region --Lumbar XR shows no compression fx --Colonic thickening --Consider further w/u if s/s continue -Discuss palliative options Status: Acute ICD Code: R52 (3) Palliative care by specialist Assessment & Plan: INfectious causes of pain, differential for other causes included neoplasm in the setting of advancing dementia. Emergency Department POA regarding decision-making and palliative options Status: Acute ICD Code: Z51.5 End of Life Preferences Comfort if at end of life Goals of Care Hoping for return to baseline but focus on comfort with all treatments, along with treating treatable conditions Resuscitation Status Resuscitation Status: DNR/DNI:Do Not Resuscitate/Intubate POLST Updates/Changes Previous POLST?: No Antibiotics: Determine Use or Limitations Artificially Admin Nutrition: No Artifical Nutrition by Tube POLST Discussed with: Health Care Agent (DPOAHC) POLST Review Outcome: New Form Completed (plan new form completion as no form is with her. Family unable to come in to sign this.) Total time 35 minutes; >50% face to face with patient and/or family, providing counselling regarding plans and recommendations, and in care coordination with his/her medical teams. Palliative Brief Note Date of Service Jun 21, 2016 . History of Present Illness 75-year-old female admitted 06/15/16 with worse altered mental status from baseline dementia, treating for possible sigmoid diverticulitis. She has had frequent falls and increasing complaints of abdominal pain and back pain over the last 2-3 weeks (since Jun 04). She tells her granddaughters repeatedly "something's wrong with me". She was recently treated for influenza at [facility] and continues on flu precautions here. Past Medical History: Cataracts,Hypertension/hyperlipidemia,Arthritis back, right hip joint replacement 2003, left hip replacement 2013,Diabetes types 2, Depression, anxiety, recurrent hyponatremia since 2013, Progressive dementia. Hospital Course: Today is Hospital Day 7. She was treated for flu with Tamiflu x 5 days, was given antibiotics for presumptive sigmoid diverticulitis. She has been treated for hyponatremia. She was started back on her HS seroquel on 06/18 evening, which has been helpful in calming her down. However, RN reports she still needs 03/12 sitter for calling out when she is awake. At baseline she can walk with her walker, needing reminders to use the walker; being able to feed herself and having a normal appetite, being fully continent of bowel and bladder. This admission, she has needed help to get to [facility], and requires protective mats on siderails and floor as she had been trying to get out of bed due to confusion. Subjective: She is sitting up in chair, eating breakfast Objective: General: alert, makes eye contact, sitting up in chair by bed HEENT: PERRL, EOMI, sclera clear, mucosa dry Lungs: clear Heart: S1,S2, no murmur Abdomen: flat, nontender, positive bowel sounds Extremities: moves all four extremities, no edema Skin: warm, dry, no eccymoses, no rashes Mental Status: alert x1. Confused but quiet when people in room and responds positively to gently reassurances, when left alone she is calling out frequently for help. Melissa Juarez MD Jun 21, 2016 08:04 Melissa Juarez MD Jun 21, 2016 08:04
[2016-06-21 08:12] VITALS: BP 108/63; PULSE 89; RESP 20; O2SAT 96
[2016-06-21] MEDS: Lidocaine Topical 5% Patch TOPICAL SCH (08:24)
[2016-06-21] MEDS: Polyethylene Glycol (PEG) 17 Gm Powder PO SCH (08:25)
[2016-06-21] MEDS: oxyCODONE 1 mg/mL 5 mL Liquid PO SCH ×4 (08:26→22:00)
[2016-06-21] MEDS: risperiDONE 1 mg Tablet PO SCH ×2 (08:28→21:02)
[2016-06-21] MEDS: Sodium Chloride LOK Flush 10 mL Syringe IVFLUSH SCH ×2 (08:30→16:23)
--- NOTE | 2016-06-21 09:51 | NUR ---
Social Work: Continued d/c planning Data: Pt is on day 6 of hospitalization. EMR reviewed. Pt discussed in rounds. MD states pt likely to remain in hospital for at least 2 more days. EXTERNAL GRINDER will continue to follow. Assessment: Pt who is independent at baseline. Plan: Pt will d/c to [facility] when medically stable, likely in at least 2 or more days. [facility] auth will be needed before d/c. EXTERNAL GRINDER will continue to follow. ARBEN Medina
--- NOTE | 2016-06-21 10:19 | NUR ---
LENORA: Patient unable to accept LENORA asked SCIENTIFIC AIDE to follow up via phone with POA.
[2016-06-21] MEDS: 0.9% Sodium Chloride 1,000 ML IV SCH ×2 (10:47→20:59)
--- NOTE | 2016-06-21 11:21 | NUR ---
LENORA given LENORA left on voice mail for pt's granddaughter. ARBEN Medina
--- NOTE | 2016-06-21 15:42 | NUR ---
Social Work: Continued d/c planning Data: Pt is on day 6 of hospitalization. EMR reviewed. RN told CHEF SAUCIER that pt's granddaughter, and DPOA, would like to talk with CHEF SAUCIER. CHEF SAUCIER called pt's granddaughter twice today, left messages both times requesting a call back to discuss d/c planning. CHEF SAUCIER will continue to follow. Assessment: Pt who is independent at baseline. Plan: Pt will likely d/c back to [facility] when medically stable. CHEF SAUCIER will await phone call from pt's granddaughter to discuss other d/c planning options. ARBEN Medina
[2016-06-21 16:10] VITALS: PULSE 89; RESP 18; O2SAT 96
--- NOTE | 2016-06-21 16:56 | PCM.PNMED ---
Subjective Date of Service Jun 21, 2016 Subjective Patient reports that she is very tired this morning. Patient states that the year is 1926 and that she is in a hotel in [place]. Patient is somewhat somnolent, but is able to answer some questions. Nursing overnight patient slept, with intermittent episodes of calling out and confusion Exam Vital Signs Vital Sign - Last Date Time Temp Pulse Resp B/P Pulse Ox O2 Delivery O2 Flow Rate FiO2 06/21/16 16:10 89 18 96 Room Air 06/21/16 08:12 36.6 108/63 Intake and Output 06/20/16 06/20/16 06/21/16 Cumulative From/Thru 15:00 23:00 07:00 06/15/16 13:32 - 06/21/16 05:40 Intake Total 675 ml 0 ml 7034 ml Output Total 450 ml 0 ml 6290 ml Balance 225 ml 0 ml 744 ml Intake Oral 675 ml 0 ml 3465 ml IV Total 3569 ml Output Urine Total 450 ml 0 ml 6290 ml # Voids 2 # Bowel Movements 0 1 Exam General: Frail elderly female, lying in bed sleeping. No acute distress. HEENT: Normocephalic, atraumatic. External ears without defect. Pupils equal, round, and reactive to light and accommodation. Neck: Supple with full range of motion. Cardiovascular: Regular rate and rhythm with no murmurs, rubs, or gallops appreciated Pulmonary: Clear to auscultation bilaterally with no crackles, wheezes, or rhonchi. Normal respiratory effort with no use of accessory muscles. Abdomen: Bowel tones present. Soft, nontender, nondistended. Extremities: No clubbing, cyanosis, edema, or lymphadenopathy appreciated. Skin: Normal temperature, turgor, and texture; no rash, ulcers, or subcutaneous nodules appreciated. Psychiatric: Patient is oriented to self only. She reports the year as 1926, and states she is in [place] and a hotel. IVs and Medications Medications Reviewed: Medications were reviewed in detail Lab and Diagnostics Result Diagram: 06/21/1640 06/21/16 0740 X-Rays, CTs and MRIs CT ABDOMEN AND PELVIS WITH CONTRAST ([id number]) INDICATIONS: right side abdominal tenderness TECHNIQUE: After the administration of intravenous contrast, 5 mm thick sections acquired from the diaphragm to the symphysis. 5 mm coronal and sagittal reformats were acquired. For radiation dose reduction, the following was used: automated exposure control, adjustment of mA and/or kV according to patient size. COMPARISON: [facility] , CT, ABD/PELVIS W/CON (PNL), 11/21/2004 , 16:27. [facility], CT, IVP-CT (ABD W/WO;PEL W/W/O), 08/29/2011, 10:49. [facility] , CT, ABD/PELVIS W/CON (PNL), 03/03/2010, 10: 12. FINDINGS: Image quality: Excellent. ABDOMEN: Lung bases: Lung bases are clear. Heart size is normal. Atherosclerotic ossifications are noted in the visualized coronary vasculature. 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 Gallbladder is within normal limits. Biliary system is non dilated. Pancreas enhances normally. Bilobed fat containing right adrenal nodule is stable compared to prior examination and is compatible with myelolipoma. Kidneys demonstrate normal size and enhancement, without hydronephrosis. Small bilateral renal angiomyolipomas are stable compared to prior examinations. Large right renal cyst is again noted. Peritoneum and bowel: Small hiatal hernia is noted. Bowel loops demonstrate normal wall thickness and caliber. Numerous diverticuli scattered throughout the colon. Circumferential wall thickening noted in the sigmoid colon the regional numerous diverticuli suspicious for chronic diverticulitis. Trace amount of free fluid is noted in the lower left pelvis adjacent to the sigmoid colon which again is suspicious for chronic diverticulitis. No free air. The appendix is normal. Nodes and vessels: No retroperitoneal or mesenteric adenopathy by size criteria. Aorta and inferior vena cava are normal in size. Scattered atherosclerotic calcifications noted in the abdominal pelvic vasculature. Miscellaneous: No ventral hernias. PELVIS: Genitourinary: The bladder is obscured by artifact related to bilateral hip orthopedic hardware. Miscellaneous: No inguinal hernias or adenopathy. Bones: No suspicious bony lesions. No vertebral body compression fractures. Left hip arthroplasty noted. Postsurgical changes compatible with ORIF of right hip fracture noted. Spine degenerative disease and facet arthropathy noted. Convex left lumbar spine scoliosis is noted. IMPRESSION: 1. Reed colonic diverticulosis. Severe, circumferential wall thickening involving the sigmoid colon is noted in the region of multiple diverticula. Finding may represent chronic diverticulitis, however finding is nonspecific and if patient fails to respond to appropriate therapy for diverticulitis, then colonoscopy is recommended to exclude neoplastic process. 2. The appendix is normal. 3. No dilated loops of bowel. 4. Right adrenal myelolipoma is stable. 5. 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 6. Splenic hemangiomas stable. 7. Atherosclerosis including the visualized coronary vasculature. Dictated by: Laurie Bansal MD, PhD PROCEDURE: CT BRAIN WITHOUT CONTRAST ([id number]) INDICATIONS: fall TECHNIQUE: Noncontrast 4.5 mm thick angled axial sections acquired from the foramen magnum to the vertex, with coronal reformats. COMPARISON: CT brain 06/08/2016; MRI brain 11/11/2015 FINDINGS: Image quality: Excellent. CSF spaces: Basal cisterns are patent. No extra-axial fluid collections. The ventricles are symmetric in size and shape. Brain: No intracranial bleeds or masses. There is cerebral volume loss for age , with resultant ventricular and sulcal prominence. There are periventricular and deep white matter chronic small vessel ischemic changes. There is intracranial internal carotid artery atherosclerosis. Calcification right mammary body again noted. Skull and face: Calvarium and visualized facial bones appear intact, without suspicious lesions. Sinuses: Visualized sinuses and mastoids are clear. IMPRESSION: 1. No acute posttraumatic changes. 2. Cerebral atrophy and chronic deep white matter ischemic changes. Dictated by: Will Zurita M.D. on 06/15/2016 at 15:19 Approved by: Will Zurita M.D. on 06/15/2016 at 15:22 Assessment & Plan 75-year-old female presenting with acute change in mental status from baseline dementia. Acute kidney injury likely secondary to dehydration due to dementia, not present on admission, ongoing -Patient's creatinine increased today to 1.74 -IV fluids started at 100 MLS per hour -Encouraging patient to increase by mouth intake of fluids -Patient has not been urinating, bladder scan demonstrating over 500 residual, in and out catheter utilized -Continue to monitor -Daily labs Possible acute sigmoid diverticulitis, present on admission, ongoing. -Pt on PO Flagyl and Cipro -Mild increase in WBC count 12.1 -Stool cx negative -Patient appears to be improving. Denies abdominal pain Acute urinary tract infection due to unknown cause, with concomitant urinary incontinence -UA demonstrated positive Nitrate, and many bacteria -Urine culture, preliminary report stating coagulase negative staphylococcus( spp epidermidis) -Pt has been receiving Cipro for suspected sigmoid diverticulitis, and bacteria in urine is sensitive to cipro. -Pt continues to require assistance with urination, secondary to balance issues. Recurrent hyponatremia, likely secondary to hypervolemia based on lab review. -Pt has appropriate oral intake -Daily AM labs. -Patient receiving IV fluids now Dementia, chronicity unknown, ongoing -Palliative care has been consulted, and started patient on Seroquel 25mg q HS and 12.5mg q daily, and Clonazepam 0.5mg BID, Aricept, and sertraline -Will check EKG to monitor for QTC prolongation, pt will need monthly checks -Patient no longer requiring a sitter, but is still confused and continues to yell out Recent diagnosis of influenza, -Completed Tamiflu 5 day course Right leg pain, chronicity unknown. -Consider imaging, if pt reports worsening. Low Back Pain, chronicity unknown -Lumbar xray did not demonstrate any cause of the pain -Palliative care,prescribed oxycodone for pain today Functional status -Pt evaluated by Occupation Therapy, who felt that patient would benefit from discharge to SNF secondary to her functional deficits. 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 Gonzales on 06/21/2016 and I agree with the history, exam and plan as outlined in the note above. Winnie Gonzales DO Jun 21, 2016 16:43 Pravin Mars MD Jun 22, 2016 11:58
--- NOTE | 2016-06-21 17:11 | NUR ---
Straight cath Patient did not void throughout the night and part of the day. Patient was bladder scanned and showed 503cc. MD notified and in and out straight cath was ordered. Patient was straight cath'd and voided 400cc of dark taye urine.
[2016-06-21 18:35] VITALS: BP 118/75; PULSE 89; RESP 18; O2SAT 95
[2016-06-22] MEDS: Sodium Chloride LOK Flush 10 mL Syringe IVFLUSH SCH ×4 (00:30→22:12)
[2016-06-22] MEDS: Nystatin 100,000 Unit/mL 5 mL Suspension PO SCH ×5 (02:30→19:32)
[2016-06-22 06:33] VITALS: BP 134/77; PULSE 77; RESP 16; O2SAT 98
[2016-06-22] MEDS: 0.9% Sodium Chloride 1,000 ML IV SCH ×3 (07:11→21:27)
[2016-06-22 07:46] LABS: BASOPHILS % (AUTO) 0.4 % (0-3); EOSINOPHILS % (AUTO) 1.6 % (0-5); MONOCYTES % (AUTO) 11.4 % (4-12); Mean Corpuscular Volume 83.5 fL (81-100); NEUTROPHILS % (AUTO) 71.6 % (40-74); Platelet Count 280 bil/L (150-400)
--- NOTE | 2016-06-22 07:58 | PCM.PALLBR ---
Palliative Care Recommendation 75-year-old female presenting with worse altered mental status from baseline dementia, treating for possible sigmoid diverticulitis. She has had frequent falls and increasing complaints of abdominal pain and back pain. Today is Hospital Day 7. Summary of palliative recommendations: -Symptom management (Pain/other) 1. Agitation: previously on Seroquel, stopped on admission, may be partly due to borderline QTc of 472. Now has had 2 days of risperdal which also causes QTc prolongation that must be monitored monthly. --After several days of seroquel 12.5mg q day, then BID, no improvement, this was stopped and we began risperdal 0.5mg po BID on night of 06/20. Working well for her. Continue on discharge. --monthly EKG to check QTc; financial health counselor family about pros/cons of continuing risperdal with high QT if this >500. 2. Anxiety: patient expresses "something's wrong" --continue clonazepam 0.5 po BID (today is day 4) 3. Pain: Pt crying out "ow, my back hurts. help me, please help me." Gdtr agrees that patient's back/abdominal pain need treatment. She wants us to use caution due to patient being "sensitive" to pain meds. --Started oxycodone 5mg before meals and at HS. Began on 06/20. RNs report she now seems oversedated on this regimen and had urinary retention of 500cc in bladder overnight on 06/21, removed by straight cath. Changed dosing to PRN on . --2nd option for breakthrough pain: Tramadol 50 mg up to 3 times a day. Continue on discharge. Wean off per [facility] at [facility]. -DPOA/Advanced Directives/POLST 1.Gdtr Agrees DNR/DNI, selective treatments (IVF, antibiotics) 2. POLST FORM COMPLETED-- Dr. Juarez filled out and signed her both sides of form and placed on paper chart. Granddaughter signed when she visited evening of 06/20. Original in chart. Copies in chart and in PC office. -Family/emotional support --assist family understanding of progressive dementia. On 06/22 Dr. Juarez counseled gdtr more on delirium, dementia, progressive behavior changes that are common in dementia, need for meds to reduce anxiety and agitation, thereby helping pt become less fearful and more comfortable in strange (hospital) surroundings. Dr. Juarez expressed hope that patient would need lower doses of anxiolytics and antipsychotic once discharged back to familiar surroundings. -Disposition: Gdtr hopes that if pt will meet criteria for skilled therapies at [facility]. Gdtr is also considering [facility] placement. Additional Medical Diagnoses with primary management by Hospitalist team include : Possible acute sigmoid diverticulitis, present on admission, ongoing. -- Flagyl and Cipro IVF -- procalcitonin was 0.05. The white blood count was 14. --stool cx negative --consider GI follow up of persistent thickened colon wall per radiologist, if unrelieved by diverticulitis management UTI w/ new urinary incontinence-- Her UA is normal. Catheter removed. 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 --serial BMP, NS 100/hr, Continue to monitor BMP Recent diagnosis of influenza, Completed Tamiflu 5 day course Right leg pain, chronicity unknown. Consider imaging, if pt reports worsening. Low Back Pain, chronicity unknown Lumbar xray did not demonstrate any cause of the pain -- Palliative care, restarted Tramadol for pain control. Dementia, chronicity unknown, with intermittent agitation, Palliative care has been consulted, and started patient on Seroquel -Will check EKG to monitor for QTC prolongation Thickened Colon wall--Probable diverticulitis/diverticulosis, other differential includes neoplasm. Flagyl and Cipro changed from IV to po. The pro calcitonin was only 0.05. The white blood count was only 14. Stool cx negative --She is improved so likely can be discharged back to [facility] without further imaging, and with continued oral antibiotics typical for diverticulitis. Consider repeat CT scan at some point, consider GI consult and colonoscopy. Daughter counseled on this by Attending team /. Oral Candidiasis: --Nystatin Problems: (1) Goals of care, counseling/discussion Assessment & Plan: Family and patient want to treat reversible conditions, assistance with advancing dementia. Status: Acute ICD Code: Z71.89 (2) Pain Assessment & Plan: New onset pain in low back, R abdominal region --Lumbar XR shows no compression fx --Colonic thickening --Consider further w/u if s/s continue -Discuss palliative options Status: Acute ICD Code: R52 (3) Palliative care by specialist Assessment & Plan: INfectious causes of pain, differential for other causes included neoplasm in the setting of advancing dementia. Cleaner Greaser POA regarding decision-making and palliative options Status: Acute ICD Code: Z51.5 End of Life Preferences Comfort if at end of life Goals of Care Hoping for return to baseline but focus on comfort with all treatments, along with treating treatable conditions Resuscitation Status Resuscitation Status: DNR/DNI:Do Not Resuscitate/Intubate POLST Updates/Changes Previous POLST?: No Antibiotics: Determine Use or Limitations Artificially Admin Nutrition: No Artifical Nutrition by Tube POLST Discussed with: Health Care Agent ([facility]PO[facility]) POLST Review Outcome: New Form Completed (plan new form completion as no form is with her. Family unable to come in to sign this.) Total time 65 minutes; >50% face to face with patient and/or family, providing counselling regarding plans and recommendations, and in care coordination with his/her medical teams. copies to: Vinayak Bryant MD Palliative Brief Note Date of Service Jun 22, 2016 . History of Present Illness 75-year-old female admitted 06/15/16 with worse altered mental status from baseline dementia, treating for possible sigmoid diverticulitis. She has had frequent falls and increasing complaints of abdominal pain and back pain over the last 2-3 weeks (since Jun 04). She tells her granddaughters repeatedly "something's wrong with me". She was recently treated for influenza at [facility] and continues on flu precautions here. Past Medical History: Cataracts,Hypertension/hyperlipidemia,Arthritis back, right hip joint replacement 2003, left hip replacement 2013,Diabetes types 2, Depression, anxiety, recurrent hyponatremia since 2013, Progressive dementia. Hospital Course: Today is Hospital Day 8. She was treated for flu with Tamiflu x 5 days, and had complete course antibiotics for presumptive sigmoid diverticulitis. She was treated for hyponatremia. Her normal dose of seroquel at night was not sufficient to prevent agitation in hospital and she was switched to risperdal this admission with improved control of agitation and anxiety. At baseline she can walk with her walker, needing reminders to use the walker; being able to feed herself and having a normal appetite, being fully continent of bowel and bladder. Earlier this admission, she has needed help to get to BS, and required protective mats on side-rails and floor. She is still confused but calmer now. Subjective: She is sitting up in chair, asking for help intermittently, while gdtr and Dr. Juarez discussing her care. Objective: General: alert, makes eye contact, sitting up in chair by bed HEENT: PERRL, EOMI, sclera clear, mucosa dry Lungs: clear Heart: S1,S2, no murmur Abdomen: flat, nontender, positive bowel sounds Extremities: moves all four extremities, no edema Skin: warm, dry, no eccymoses, no rashes Mental Status: alert x1. Confused but quiet when people in room and responds positively to gently reassurances, when left alone she is calling out frequently for help. Melissa Juarez MD Jun 22, 2016 07:58
[2016-06-22] MEDS: Insulin LISPRO 300 Unit/3 mL Inj SUBQ SCH ×4 (08:00→21:26)
[2016-06-22] MEDS: risperiDONE 1 mg Tablet PO SCH ×4 (08:30→19:31)
[2016-06-22] MEDS: Lidocaine Topical 5% Patch TOPICAL SCH (09:24)
[2016-06-22] MEDS: Polyethylene Glycol (PEG) 17 Gm Powder PO SCH (09:24)
[2016-06-22] MEDS: Heparin 5,000 Unit/mL Inj SUBQ SCH ×2 (10:54→21:26)
[2016-06-22] MEDS ORDERED: oxyCODONE 1 mg/mL 5 mL Liquid PO PRN (12:30)
--- NOTE | 2016-06-22 14:57 | DRSVH ---
PROCEDURE: US RENAL SONOGRAM INDICATIONS: NOÉ, worsening Cr TECHNIQUE: Real-time scanning was performed of the kidneys and bladder, with image documentation. COMPARISON: [facility], CT, CT ABD PELVIS W CON, 06/15/2016, 15:41. FINDINGS: Kidneys: Kidneys are normal in size. Right kidney measures 12.9 cm long; left kidney measures 13.1 cm long. Right renal cortical thickness is 1.4 cm; left renal cortical thickness is 1.4 cm. Renal c ortical echotexture is normal. No hydronephrosis or nephrolithiasis. Bilateral angiomyolipomas agai n seen involving the inferior pole of left kidney unchanged measuring roughly 12 mm in the midpole of the right kidney measuring 14 mm. Superior pole right renal cyst redemonstrated measuring up to 72 mm. Bladder: Arciniega catheter present. Miscellaneous: No free pelvic fluid. IMPRESSION: 1. Right renal cyst and bilateral angiomyolipomas unchanged. Dictated by: Masood ROBIN Interpreted: Sony Yao MD on 06/22/2016 at 14:55 Transcribed by: FALLON on 06/22/2016 at 14:57 Approved by: Sony Yao M.D. on 06/24/2016 at 15:35
[2016-06-22 16:48] VITALS: BP 151/82; PULSE 110; RESP 18; O2SAT 97
--- NOTE | 2016-06-22 16:54 | NUR ---
Arciniega Patient was bladder scanned and had 715cc in bladder and was unable to urinate. MD ordered Arciniega catheter to be placed. Nurse placed Arciniega catheter and 500cc of taye urine drained in to Arciniega bag.
[2016-06-22 19:33] VITALS: BP 174/85; PULSE 113
[2016-06-22 21:06] VITALS: BP 159/78; PULSE 100; RESP 19; O2SAT 98
--- NOTE | 2016-06-22 22:06 | NUR ---
Behavior Patient calling out help even when staff members are in the room. states she needs to go home to be with her kids. reports pain in her left hip area. patient given HS medications and PRN tramadol. was unable to take Aricept due to drowsiness. Arciniega catheter in place draining to gravity. vitals stable. bed alarm in place. hourly rounding. fall mats in place seizure pads for patient safety. will continue to monitor.
--- NOTE | 2016-06-22 22:21 | PCM.PNMED ---
Subjective Date of Service Jun 22, 2016 Subjective Patient was somnolent this morning, and did not answer any questions. When attempting to ask patient questions, she continued to yell out "help". Exam Vital Signs Vital Sign - Last Date Time Temp Pulse Resp B/P Pulse Ox O2 Delivery O2 Flow Rate FiO2 06/22/16 21:06 37.3 100 19 159/78 98 Room Air Intake and Output 06/21/16 06/21/16 06/22/16 Cumulative From/Thru 15:00 23:00 07:00 06/15/16 13:32 - 06/21/16 19:04 Intake Total 1510 ml 8544 ml Output Total 400 ml 6690 ml Balance 1110 ml 1854 ml Intake Oral 650 ml 4115 ml IV Total 860 ml 4429 ml Output Urine Total 400 ml 6690 ml # Voids 1 3 # Bowel Movements 1 Exam General: Frail elderly female, lying in bed sleeping. No acute distress. HEENT: Normocephalic, atraumatic. External ears without defect. Cardiovascular: Regular rate and rhythm with no murmurs, rubs, or gallops appreciated Pulmonary: Clear to auscultation bilaterally with no crackles, wheezes, or rhonchi. Normal respiratory effort with no use of accessory muscles. Abdomen: Bowel tones present. Soft, nontender, nondistended. Extremities: No clubbing, cyanosis, edema appreciated. Skin: Normal temperature, turgor, and texture; no rash, ulcers, or subcutaneous nodules appreciated. Psychiatric: Patient is minimally interactive, and yells "help" continuously. IVs and Medications Medications Reviewed: Medications were reviewed in detail Lab and Diagnostics Result Diagram: 06/22/16 0740 06/22/16 0740 X-Rays, CTs and MRIs CT ABDOMEN AND PELVIS WITH CONTRAST ([id number]) INDICATIONS: right side abdominal tenderness TECHNIQUE: After the administration of intravenous contrast, 5 mm thick sections acquired from the diaphragm to the symphysis. 5 mm coronal and sagittal reformats were acquired. For radiation dose reduction, the following was used: automated exposure control, adjustment of mA and/or kV according to patient size. COMPARISON: [facility] , CT, ABD/PELVIS W/CON (PN), 11/21/2004 , 16:27. [facility], CT, IVP-CT (ABD W/WO;PEL W/W/O), 08/29/2011, 10:49. [facility] , CT, ABD/PELVIS W/CON (PNL), 03/03/2010, 10: 12. FINDINGS: Image quality: Excellent. ABDOMEN: Lung bases: Lung bases are clear. Heart size is normal. Atherosclerotic ossifications are noted in the visualized coronary vasculature. 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 Gallbladder is within normal limits. Biliary system is non dilated. Pancreas enhances normally. Bilobed fat containing right adrenal nodule is stable compared to prior examination and is compatible with myelolipoma. Kidneys demonstrate normal size and enhancement, without hydronephrosis. Small bilateral renal angiomyolipomas are stable compared to prior examinations. Large right renal cyst is again noted. Peritoneum and bowel: Small hiatal hernia is noted. Bowel loops demonstrate normal wall thickness and caliber. Numerous diverticuli scattered throughout the colon. Circumferential wall thickening noted in the sigmoid colon the regional numerous diverticuli suspicious for chronic diverticulitis. Trace amount of free fluid is noted in the lower left pelvis adjacent to the sigmoid colon which again is suspicious for chronic diverticulitis. No free air. The appendix is normal. Nodes and vessels: No retroperitoneal or mesenteric adenopathy by size criteria. Aorta and inferior vena cava are normal in size. Scattered atherosclerotic calcifications noted in the abdominal pelvic vasculature. Miscellaneous: No ventral hernias. PELVIS: Genitourinary: The bladder is obscured by artifact related to bilateral hip orthopedic hardware. Miscellaneous: No inguinal hernias or adenopathy. Bones: No suspicious bony lesions. No vertebral body compression fractures. Left hip arthroplasty noted. Postsurgical changes compatible with ORIF of right hip fracture noted. Spine degenerative disease and facet arthropathy noted. Convex left lumbar spine scoliosis is noted. IMPRESSION: 1. Reed colonic diverticulosis. Severe, circumferential wall thickening involving the sigmoid colon is noted in the region of multiple diverticula. Finding may represent chronic diverticulitis, however finding is nonspecific and if patient fails to respond to appropriate therapy for diverticulitis, then colonoscopy is recommended to exclude neoplastic process. 2. The appendix is normal. 3. No dilated loops of bowel. 4. Right adrenal myelolipoma is stable. 5. 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 6. Splenic hemangiomas stable. 7. Atherosclerosis including the visualized coronary vasculature. Dictated by: Laurie Bansal MD, PhD PROCEDURE: CT BRAIN WITHOUT CONTRAST ([id number]) INDICATIONS: fall TECHNIQUE: Noncontrast 4.5 mm thick angled axial sections acquired from the foramen magnum to the vertex, with coronal reformats. COMPARISON: CT brain 06/08/2016; MRI brain 11/11/2015 FINDINGS: Image quality: Excellent. CSF spaces: Basal cisterns are patent. No extra-axial fluid collections. The ventricles are symmetric in size and shape. Brain: No intracranial bleeds or masses. There is cerebral volume loss for age , with resultant ventricular and sulcal prominence. There are periventricular and deep white matter chronic small vessel ischemic changes. There is intracranial internal carotid artery atherosclerosis. Calcification right mammary body again noted. Skull and face: Calvarium and visualized facial bones appear intact, without suspicious lesions. Sinuses: Visualized sinuses and mastoids are clear. IMPRESSION: 1. No acute posttraumatic changes. 2. Cerebral atrophy and chronic deep white matter ischemic changes. Dictated by: Will Zurita M.D. on 06/15/2016 at 15:19 Approved by: Will Zurita M.D. on 06/15/2016 at 15:22 Additional Diagnostics PROCEDURE: US RENAL SONOGRAM INDICATIONS: NOÉ, worsening Cr TECHNIQUE: Real-time scanning was performed of the kidneys and bladder, with image documentation. COMPARISON: [facility], CT, CT ABD PELVIS W CON, 06/15/2016, 15:41. FINDINGS: Kidneys: Kidneys are normal in size. Right kidney measures 12.9 cm long; left kidney measures 13.1 cm long. Right renal cortical thickness is 1.4 cm; left renal cortical thickness is 1.4 cm. Renal cortical echotexture is normal. No hydronephrosis or nephrolithiasis. Bilateral angiomyolipomas again seen involving the inferior pole of left kidney unchanged measuring roughly 12 mm in the midpole of the right kidney measuring 14 mm. Superior pole right renal cyst redemonstrated measuring up to 72 mm. Bladder: Arciniega catheter present. Miscellaneous: No free pelvic fluid. IMPRESSION: 1. Right renal cyst and bilateral angiomyolipomas unchanged. Dictated by: Masood ROBIN Interpreted: Sony Yao MD on 06/22/2016 at 14: 55 Transcribed by: FALLON on 06/22/2016 at 14:57 Assessment & Plan 75-year-old female presenting with acute change in mental status from baseline dementia. Acute kidney injury likely secondary to dehydration due to dementia, not present on admission, ongoing -Patient's creatinine increased today to 1.98 -IV fluids increased to 125 MLS per hour -Arciniega catheter placed due to urinary retention -Renal US ordered -Continue to monitor -Daily labs Possible acute sigmoid diverticulitis, present on admission, ongoing. -Pt on PO Flagyl and Cipro -Mild increase in WBC count 12.1 -Stool cx negative -Patient appears to be improving. Acute urinary tract infection due to unknown cause, with concomitant urinary incontinence -UA demonstrated positive Nitrate, and many bacteria -Urine culture, preliminary report stating coagulase negative staphylococcus( spp epidermidis) -Pt has been receiving Cipro for suspected sigmoid diverticulitis, and bacteria in urine is sensitive to cipro. -Arciniega catheter placed due to urinary retention Recurrent hyponatremia, likely secondary to hypervolemia based on lab review. -Pt has appropriate oral intake -Daily AM labs. -Patient receiving IV fluids now Dementia, chronicity unknown, ongoing -Palliative care has been consulted, and started patient on Seroquel 25mg q HS and 12.5mg q daily, and Clonazepam 0.5mg BID, Aricept, and sertraline -Will check EKG to monitor for QTC prolongation, pt will need monthly checks -Patient no longer requiring a sitter, but is still confused and continues to yell out Recent diagnosis of influenza, -Completed Tamiflu 5 day course Right leg pain, chronicity unknown. -Consider imaging, if pt reports worsening. Low Back Pain, chronicity unknown -Lumbar xray did not demonstrate any cause of the pain -Palliative care is managing the patient's pain medications Functional status -Pt evaluated by Occupation Therapy, who felt that patient would benefit from discharge to SNF secondary to her functional deficits. 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 Gonzales on 06/22/2016 and I agree with the history, exam and plan as outlined in the note above. Winnie Gonzales DO Jun 22, 2016 22:21 Pravin Mars MD Jun 23, 2016 14:10
--- NOTE | 2016-06-22 23:03 | NUR ---
Behavior Pt had seizure pads in place. No reported History of seizures in H&P. Pads were removed and one upper and two lower rails left up to prevent fall out of bed related to confusion/dementia and patient repeatedly calling for help " saying she needs to go home to her kids" while staff is in the room. Pt Alert to self and only.
[2016-06-23] MEDS: Nystatin 100,000 Unit/mL 5 mL Suspension PO SCH ×4 (00:47→21:05)
[2016-06-23] MEDS: 0.9% Sodium Chloride 1,000 ML IV SCH ×3 (05:46→22:47)
[2016-06-23 06:07] VITALS: BP 137/69; PULSE 86; RESP 20; O2SAT 96
[2016-06-23 06:55] LABS: BASOPHILS % (AUTO) 0.4 % (0-3); EOSINOPHILS % (AUTO) 1.8 % (0-5); MONOCYTES % (AUTO) 12.5 % (4-12); Mean Corpuscular Hemoglobin 27.3 pg (27.0-35.0); Mean Corpuscular Volume 83.3 fL (81-100); NEUTROPHILS % (AUTO) 69.8 % (40-74); Platelet Count 276 bil/L (150-400)
[2016-06-23] MEDS: Insulin LISPRO 300 Unit/3 mL Inj SUBQ SCH ×4 (08:00→21:22)
[2016-06-23] MEDS: Heparin 5,000 Unit/mL Inj SUBQ SCH ×2 (08:03→21:06)
[2016-06-23] MEDS: risperiDONE 1 mg Tablet PO SCH ×2 (08:03→21:05)
[2016-06-23] MEDS: Polyethylene Glycol (PEG) 17 Gm Powder PO SCH (08:03)
[2016-06-23] MEDS: Lidocaine Topical 5% Patch TOPICAL SCH (08:04)
[2016-06-23] MEDS: Sodium Chloride LOK Flush 10 mL Syringe IVFLUSH SCH ×2 (08:19→16:30)
--- NOTE | 2016-06-23 10:45 | NUR ---
[facility] Signed
[2016-06-23 12:31] VITALS: BP 106/52; PULSE 78; RESP 20; O2SAT 95
--- NOTE | 2016-06-23 15:57 | PCM.PNMED ---
Subjective Date of Service Jun 23, 2016 Subjective Patient is somnolent in bed, and intermittently answers questions. Pt states she is doing "terrible", stating it is because she is here. Pt reports that she needs to leave this place to go take care of her grandmother, pt states that she lives with her grandmother.Pt reports that her back is causing her pain. Exam Vital Signs Vital Sign - Last Date Time Temp Pulse Resp B/P Pulse Ox O2 Delivery O2 Flow Rate FiO2 06/23/16 12:31 37.7 78 20 106/52 95 Room Air Intake and Output 06/22/16 06/22/16 06/23/16 Cumulative From/Thru 14:59 22:59 06:59 06/15/16 13:32 - 06/23/16 06:59 Intake Total 0 ml 2380 ml 1383 ml 81584 ml Output Total 175 ml 850 ml 600 ml 8315 ml Balance -175 ml 1530 ml 783 ml 3992 ml Intake Oral 0 ml 962 ml 0 ml 5077 ml IV Total 1418 ml 1383 ml 7230 ml Output Urine Total 175 ml 850 ml 600 ml 8315 ml # Voids 1 4 # Bowel Movements 1 0 2 Exam General: Frail elderly female,sitting up in bed. She is in no acute distress. HEENT: Normocephalic, atraumatic. External ears without defect.During examination, pt was given liquid to swallow which she kept in her mouth and did not swallow, and then began coughing. Cardiovascular: Regular rate and rhythm with no murmurs, rubs, or gallops appreciated Pulmonary: Clear to auscultation bilaterally with no crackles, wheezes, or rhonchi. Normal respiratory effort with no use of accessory muscles. Abdomen: Bowel tones present. Soft, nontender, nondistended. Extremities: No clubbing, cyanosis, edema appreciated. Skin: Normal temperature, turgor, and texture; no rash, ulcers, or subcutaneous nodules appreciated. Psychiatric: Patient answers some questions, but perseverates on her need to leave the hospital to care for her grandmother who she states she lives with. IVs and Medications Medications Reviewed: Medications were reviewed in detail Lab and Diagnostics Result Diagram: 06/23/1660606/23/16606 X-Rays, CTs and MRIs CT ABDOMEN AND PELVIS WITH CONTRAST ([id number]) INDICATIONS: right side abdominal tenderness TECHNIQUE: After the administration of intravenous contrast, 5 mm thick sections acquired from the diaphragm to the symphysis. 5 mm coronal and sagittal reformats were acquired. For radiation dose reduction, the following was used: automated exposure control, adjustment of mA and/or kV according to patient size. COMPARISON: [facility] , CT, ABD/PELVIS W/CON (PNL), 11/21/2004 , 16:27. [facility], CT, IVP-CT (ABD W/WO;PEL W/W/O), 08/29/2011, 10:49. [facility] , CT, ABD/PELVIS W/CON (PNL), 03/03/2010, 10: 12. FINDINGS: Image quality: Excellent. ABDOMEN: Lung bases: Lung bases are clear. Heart size is normal. Atherosclerotic ossifications are noted in the visualized coronary vasculature. 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 Gallbladder is within normal limits. Biliary system is non dilated. Pancreas enhances normally. Bilobed fat containing right adrenal nodule is stable compared to prior examination and is compatible with myelolipoma. Kidneys demonstrate normal size and enhancement, without hydronephrosis. Small bilateral renal angiomyolipomas are stable compared to prior examinations. Large right renal cyst is again noted. Peritoneum and bowel: Small hiatal hernia is noted. Bowel loops demonstrate normal wall thickness and caliber. Numerous diverticuli scattered throughout the colon. Circumferential wall thickening noted in the sigmoid colon the regional numerous diverticuli suspicious for chronic diverticulitis. Trace amount of free fluid is noted in the lower left pelvis adjacent to the sigmoid colon which again is suspicious for chronic diverticulitis. No free air. The appendix is normal. Nodes and vessels: No retroperitoneal or mesenteric adenopathy by size criteria. Aorta and inferior vena cava are normal in size. Scattered atherosclerotic calcifications noted in the abdominal pelvic vasculature. Miscellaneous: No ventral hernias. PELVIS: Genitourinary: The bladder is obscured by artifact related to bilateral hip orthopedic hardware. Miscellaneous: No inguinal hernias or adenopathy. Bones: No suspicious bony lesions. No vertebral body compression fractures. Left hip arthroplasty noted. Postsurgical changes compatible with ORIF of right hip fracture noted. Spine degenerative disease and facet arthropathy noted. Convex left lumbar spine scoliosis is noted. IMPRESSION: 1. Reed colonic diverticulosis. Severe, circumferential wall thickening involving the sigmoid colon is noted in the region of multiple diverticula. Finding may represent chronic diverticulitis, however finding is nonspecific and if patient fails to respond to appropriate therapy for diverticulitis, then colonoscopy is recommended to exclude neoplastic process. 2. The appendix is normal. 3. No dilated loops of bowel. 4. Right adrenal myelolipoma is stable. 5. 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 6. Splenic hemangiomas stable. 7. Atherosclerosis including the visualized coronary vasculature. Dictated by: Laurie Bansal MD, PhD PROCEDURE: CT BRAIN WITHOUT CONTRAST ([id number]) INDICATIONS: fall TECHNIQUE: Noncontrast 4.5 mm thick angled axial sections acquired from the foramen magnum to the vertex, with coronal reformats. COMPARISON: CT brain 06/08/2016; MRI brain 11/11/2015 FINDINGS: Image quality: Excellent. CSF spaces: Basal cisterns are patent. No extra-axial fluid collections. The ventricles are symmetric in size and shape. Brain: No intracranial bleeds or masses. There is cerebral volume loss for age , with resultant ventricular and sulcal prominence. There are periventricular and deep white matter chronic small vessel ischemic changes. There is intracranial internal carotid artery atherosclerosis. Calcification right mammary body again noted. Skull and face: Calvarium and visualized facial bones appear intact, without suspicious lesions. Sinuses: Visualized sinuses and mastoids are clear. IMPRESSION: 1. No acute posttraumatic changes. 2. Cerebral atrophy and chronic deep white matter ischemic changes. Dictated by: Will Zurita M.D. on 06/15/2016 at 15:19 Approved by: Will Zurita M.D. on 06/15/2016 at 15:22 Additional Diagnostics PROCEDURE: US RENAL SONOGRAM INDICATIONS: NOÉ, worsening Cr TECHNIQUE: Real-time scanning was performed of the kidneys and bladder, with image documentation. COMPARISON: [facility], CT, CT ABD PELVIS W CON, 06/15/2016, 15:41. FINDINGS: Kidneys: Kidneys are normal in size. Right kidney measures 12.9 cm long; left kidney measures 13.1 cm long. Right renal cortical thickness is 1.4 cm; left renal cortical thickness is 1.4 cm. Renal cortical echotexture is normal. No hydronephrosis or nephrolithiasis. Bilateral angiomyolipomas again seen involving the inferior pole of left kidney unchanged measuring roughly 12 mm in the midpole of the right kidney measuring 14 mm. Superior pole right renal cyst redemonstrated measuring up to 72 mm. Bladder: Arciniega catheter present. Miscellaneous: No free pelvic fluid. IMPRESSION: 1. Right renal cyst and bilateral angiomyolipomas unchanged. Dictated by: Masood Velasco RRA Interpreted: Sony Yao MD on 06/22/2016 at 14: 55 Transcribed by: FALLON on 06/22/2016 at 14:57 Assessment & Plan 75-year-old female presenting with acute change in mental status from baseline dementia. Dysphagia likely secondary to dementia, ongoing -Witnessed patient unable to swallow liquids, and have coughing episode -No crackles have been auscultated on lung exam, but there is concern for aspiration -Swallow evaluation ordered today Acute kidney injury likely secondary to dehydration due to dementia, not present on admission, ongoing -Patient's creatinine increased today to 1.98 -IV fluids increased to 125 MLS per hour -Arciniega catheter placed due to urinary retention -Renal US demonstrated right renal cyst and bilateral angiomyolipomas. -Continue to monitor -Daily labs Acute urinary tract infection due to unknown cause, with concomitant urinary incontinence -UA demonstrated positive Nitrate, and many bacteria -Urine culture, preliminary report stating coagulase negative staphylococcus( spp epidermidis) -Pt has been receiving Cipro for suspected sigmoid diverticulitis, and bacteria in urine is sensitive to cipro. -Arciniega catheter placed due to urinary retention Possible acute sigmoid diverticulitis, present on admission, ongoing. -Pt on PO Flagyl and Cipro -WBC normalized at 8.2 -Stool cx negative -Patient appears to be improving. Recurrent hyponatremia, likely secondary to hypervolemia based on lab review. -Pt has appropriate oral intake -Daily AM labs. -Patient receiving IV fluids now Dementia, chronicity unknown, ongoing -Palliative care has been consulted, and started patient on Seroquel 25mg q HS and 12.5mg q daily, and Clonazepam 0.5mg BID, Aricept, and sertraline -Will check EKG to monitor for QTC prolongation, pt will need monthly checks -Patient no longer requiring a sitter, but is still confused and continues to yell out Recent diagnosis of influenza, -Completed Tamiflu 5 day course Right leg pain, chronicity unknown. -Consider imaging, if pt reports worsening. Low Back Pain, chronicity unknown -Lumbar xray did not demonstrate any cause of the pain -Palliative care is managing the patient's pain medications Functional status -Pt evaluated by Occupation Therapy, who felt that patient would benefit from discharge to SNF secondary to her functional deficits. 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 Gonzales on 06/23/2016 and I agree with the history, exam and plan as outlined in the note above. Winnie Gonzales DO Jun 23, 2016 15:33 Pravin Mars MD Jun 24, 2016 12:18
[2016-06-23 17:35] VITALS: BP_SYST 142; BP_SYST 169; BP_DIAS 76; BP_DIAS 86; PULSE 80; RESP 20; O2SAT 96
--- NOTE | 2016-06-23 17:39 | NUR ---
Social Work: Readiness for Discharge. D: Pt discussed in am rounds. Pt's kidney functioning is improving however not medically stable for discharge at this time. Anticipate pt to be ready on Saturday. APPLICATION ARCHITECT MANAGER met with pt's son at bedside. Pt resting comfortably. APPLICATION ARCHITECT MANAGER reviewed discharge plan. 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 Family confirms that they would like for her to return there. Palliative care has been involved however family reports to APPLICATION ARCHITECT MANAGER that they are not yet ready to full commit to full comfort measures. [facility] has accepted pt back with Dr. Rodríguez to follow. PPW on chart. A: Pt who has dementia and is a LTC resident at [facility]. P: Anticipate pt to return to [facility] with Dr. Rodríguez to follow once medically stable; APPLICATION ARCHITECT MANAGER to continue to follow. ARBEN Vanegas
--- NOTE | 2016-06-23 18:32 | NUR ---
Sleepiness: Patient has been very sleepy this evening. She woke up for breakfast, took her medications and ate about 25% of her breakfast. She was unarousable at lunch. She ate a few bites of her dinner. She wakes up to pain and repeated stimuli. Reviewed medication dosing with MD. Will pass information on to NOC shift.
[2016-06-23 20:14] VITALS: BP 160/75; PULSE 114; RESP 20; O2SAT 97
[2016-06-24] MEDS: Sodium Chloride LOK Flush 10 mL Syringe IVFLUSH SCH ×4 (00:30→21:16)
[2016-06-24] MEDS: Nystatin 100,000 Unit/mL 5 mL Suspension PO SCH ×4 (02:30→21:20)
[2016-06-24 05:23] VITALS: BP 157/81; PULSE 81; RESP 16; O2SAT 97
--- NOTE | 2016-06-24 05:38 | NUR ---
Behavior/pain/plan of care At beginning of shift patient yelling out "help me" staff and family members at bedside. Granddaughter concerned that the patient is being over medicated and is too sleepy. communicated with granddaughter about plan of care. encouraged family members to stay overnight for patient companionship. unfortunately both granddaughters and daughter work and this is not possible. Reinforced to granddaughter that I will hold tramadol and oxycodone tonight and try tylenol for pain. granddaughter was happy about this. Patient was given tylenol overnight for restlessness and c/o hip pains. patient slept throughout the night awakens easily to voice. blood sugar 105 at 0330. appears comfortable. breathing nonlabored. IVF infusing. love patent to gravity. will continue to monitor.
[2016-06-24] MEDS: 0.9% Sodium Chloride 1,000 ML IV SCH ×3 (06:05→21:15)
[2016-06-24] MEDS: Insulin LISPRO 300 Unit/3 mL Inj SUBQ SCH ×4 (08:00→21:15)
[2016-06-24] MEDS: risperiDONE 1 mg Tablet PO SCH ×3 (08:30→20:30)
[2016-06-24] MEDS: Polyethylene Glycol (PEG) 17 Gm Powder PO SCH (08:54)
[2016-06-24] MEDS: Lidocaine Topical 5% Patch TOPICAL SCH (08:57)
[2016-06-24] MEDS: Heparin 5,000 Unit/mL Inj SUBQ SCH ×2 (08:57→21:21)
[2016-06-24 11:26] LABS: BASOPHILS % (AUTO) 0.4 % (0-3); EOSINOPHILS % (AUTO) 1.1 % (0-5); MONOCYTES % (AUTO) 12.4 % (4-12); Mean Corpuscular Hemoglobin 27.2 pg (27.0-35.0); Mean Corpuscular Volume 84.9 fL (81-100); NEUTROPHILS % (AUTO) 75.3 % (40-74); Platelet Count 275 bil/L (150-400)
--- NOTE | 2016-06-24 13:58 | NUR ---
Swelling hands and feet: Patients hands and feet have non pitting edema. Patients current IV fluids are running at 125. The infusion rate was turned down to 75. Patient has been able to drink her ensure and some fluids . She has had a poor appetite with 25% food intake for lunch.
[2016-06-24 15:27] VITALS: BP 177/79; PULSE 83; RESP 18; O2SAT 97
--- NOTE | 2016-06-24 17:35 | PCM.PNMED ---
Subjective Date of Service Jun 24, 2016 Subjective Fartun Goldberg is a 75-year-old female who presented to [facility] with acute change in mental status from baseline dementia. Hospital day #10. Overnight: There were no acute events. The patient is lying in bed and in no acute distress. Her granddaughter is present. She reports that her grandmother is more alert this morning. The patient is demented and delirious therefore subjective exam is limited. . Exam Vital Signs Vital Sign - Last Date Time Temp Pulse Resp B/P Pulse Ox O2 Delivery O2 Flow Rate FiO2 06/24/16 15:27 36.7 83 18 177/79 97 Room Air Intake and Output 06/23/16 06/23/16 06/24/16 Cumulative From/Thru 14:59 22:59 06:59 06/15/16 13:32 - 06/24/16 05:56 Intake Total 1729 ml 0 ml 88140 ml Output Total 800 ml 1200 ml 13987 ml Balance 929 ml -1200 ml 3721 ml Intake Oral 320 ml 0 ml 5397 ml IV Total 1409 ml 8639 ml Output Urine Total 800 ml 1200 ml 13142 ml # Voids 4 # Bowel Movements 0 2 Exam General: Frail elderly female, sitting up in bed and in no acute distress. HEENT: Normocephalic, atraumatic. External ears without defect. Pupils equal round reactive to light. Extraocular movements intact. Cardiovascular: Regular rate and rhythm with no murmurs, rubs, or gallops appreciated Pulmonary: Clear to auscultation bilaterally with no crackles, wheezes, or rhonchi. Normal respiratory effort with no use of accessory muscles. Abdomen: Soft, nontender, nondistended, bowel sounds present. Extremities: No clubbing, cyanosis, or edema appreciated. Skin: Normal temperature, turgor, and texture; no rash, ulcers, or subcutaneous nodules appreciated. Psychiatric: Patient answers some questions, but perseverates on her need to leave the hospital to care for her grandmother who she states she lives with. IVs and Medications Medications Reviewed: Medications were reviewed in detail Lab and Diagnostics Result Diagram: 06/24/16 1054 06/24/16 1054 Microbiology Stool PCR negative. Blood culture shows no growth after 5 days. Urine culture grew coag-negative Staphylococcus likely procurement representative of contaminate. . X-Rays, CTs and MRIs X-RAY LUMBAR SPINE, 2 OR 3 VIEW IMPRESSION: No fracture. No acute osseous lesion. If there are persistent symptoms or continued clinical suspicion for pathology, then MRI should be considered for further evaluation. Dictated by: Laurie Bansal MD, PhD on 06/16/2016 at 17:04 Approved by: Laurie Bansal MD, PhD on 06/16/2016 at 17:06 CT ABDOMEN AND PELVIS WITH CONTRAST IMPRESSION: 1. Reed colonic diverticulosis. Severe, circumferential wall thickening involving the sigmoid colon is noted in the region of multiple diverticula. Finding may represent chronic diverticulitis, however finding is nonspecific and if patient fails to respond to appropriate therapy for diverticulitis, then colonoscopy is recommended to exclude neoplastic process. 2. The appendix is normal. 3. No dilated loops of bowel. 4. Right adrenal myelolipoma is stable. 5. 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 6. Splenic hemangiomas stable. 7. Atherosclerosis including the visualized coronary vasculature. Dictated by: Laurie Bansal MD, PhD CT BRAIN WITHOUT CONTRAST IMPRESSION: 1. No acute posttraumatic changes. 2. Cerebral atrophy and chronic deep white matter ischemic changes. Dictated by: Will Zurita M.D. on 06/15/2016 at 15:19 Approved by: Will Zurita M.D. on 06/15/2016 at 15:22 X-RAY CHEST ONE VIEW, PORTABLE IMPRESSION: No acute cardiopulmonary findings. Dictated by: Amanda Brush M.D. on 06/15/2016 at 14:08 Approved by: Amanda Brush M.D. on 06/15/2016 at 14:09 . Additional Diagnostics US RENAL SONOGRAM IMPRESSION: 1. Right renal cyst and bilateral angiomyolipomas unchanged. Dictated by: Masood ROBIN Interpreted: Sony Yao MD on 06/22/2016 at 14: 55 Transcribed by: FALLON on 06/22/2016 at 14:57 . Assessment & Plan Fartun Goldberg is a 75-year-old female who presented to [facility] with acute change in mental status from baseline dementia. Hospital day #10. Dysphagia likely secondary to dementia, unknown chronicity, present on admission. Ongoing. -Witnessed patient unable to swallow liquids, and have coughing episode -No crackles have been auscultated on lung exam, but there is concern for aspiration -Swallow evaluation ordered today Acute kidney injury, likely secondary to dehydration due to dementia, not present on admission. Ongoing. -Patient's creatinine increased today to 1.98 -IV fluids decreased to 80 mL/hr. -Arciniega catheter placed due to urinary retention -Renal US demonstrated right renal cyst and bilateral angiomyolipomas. -Continue to monitor -Daily labs Acute urinary tract infection Due to unknown cause, with concomitant urinary incontinence. -UA demonstrated positive Nitrate, and many bacteria -Urine culture, preliminary report stating coagulase negative staphylococcus( spp epidermidis) -Pt has been receiving Cipro for suspected sigmoid diverticulitis, and bacteria in urine is sensitive to cipro. -Arciniega catheter placed due to urinary retention Possible acute sigmoid diverticulitis, present on admission, ongoing. -Pt on PO Flagyl and Cipro . -WBC normalized at 8.2. -Stool cx negative. -Patient appears to be improving. Recurrent hyponatremia, likely secondary to hypervolemia based on lab review. -Pt has appropriate oral intake -Daily AM labs. -Patient receiving IV fluids now Dementia, chronicity unknown, ongoing -Palliative care has been consulted, and patient now on Risperdal 0.5 mg twice a day and Clonazepam 0.5mg twice a day, Aricept, and sertraline. -Will check EKG to monitor for QTC prolongation, pt will need monthly checks -Patient no longer requiring a sitter, but is still confused and continues to yell out Recent diagnosis of influenza, -Completed Tamiflu 5 day course Right leg pain, chronicity unknown. -Consider imaging, if pt reports worsening. Low Back Pain, chronicity unknown -Lumbar xray did not demonstrate any cause of the pain -Palliative care is managing the patient's pain medications Functional status -Pt evaluated by Occupation Therapy, who felt that patient would benefit from discharge to SNF secondary to her functional deficits. 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 Mann on 06/24/2016 and I agree with the history, exam and plan as outlined in the note above. Josefina Mann DO Jun 24, 2016 17:34 Pravin Mars MD Jun 25, 2016 13:12
--- NOTE | 2016-06-24 18:21 | NUR ---
Food intake: Patient ate 1/2 her hamburger for dinner and all of her ensure shake. Patient was able to chew her food after mashing it up with the fork ,sitting her bolt upright in her bed and sitting with her to encourage her to eat and drink.
[2016-06-24 20:37] VITALS: BP 196/82; PULSE 97; RESP 18; O2SAT 97
[2016-06-24 23:41] VITALS: RESP 18; O2SAT 96
[2016-06-25] MEDS: 0.9% Sodium Chloride 1,000 ML IV SCH (00:52)
[2016-06-25] MEDS: Nystatin 100,000 Unit/mL 5 mL Suspension PO SCH ×4 (02:30→21:34)
--- NOTE | 2016-06-25 04:21 | NUR ---
Sleep: No PRN meds administered thus far this shift. Pt has been able to sleep for most of the night. Cries out "help" occasionally, staff changes pt's position when she yells "help" as pt denies pain and is lying in bed with eyes closed not stating needs for staff when asked. Bed alarm activated.
[2016-06-25 04:54] VITALS: BP 174/69; PULSE 88; RESP 20; O2SAT 96
[2016-06-25 06:49] LABS: BASOPHILS % (AUTO) 0.4 % (0-3); MONOCYTES % (AUTO) 13.1 % (4-12); Mean Corpuscular Hemoglobin 26.8 pg (27.0-35.0); Mean Corpuscular Volume 84.7 fL (81-100); NEUTROPHILS % (AUTO) 70.5 % (40-74); Platelet Count 292 bil/L (150-400)
[2016-06-25] MEDS: Insulin LISPRO 300 Unit/3 mL Inj SUBQ SCH ×4 (07:34→22:08)
[2016-06-25] MEDS: risperiDONE 1 mg Tablet PO SCH ×2 (08:57→21:34)
[2016-06-25] MEDS: Sodium Chloride LOK Flush 10 mL Syringe IVFLUSH SCH ×3 (08:57→21:37)
[2016-06-25] MEDS: Lidocaine Topical 5% Patch TOPICAL SCH (08:58)
[2016-06-25] MEDS: Polyethylene Glycol (PEG) 17 Gm Powder PO SCH (08:58)
[2016-06-25] MEDS: Heparin 5,000 Unit/mL Inj SUBQ SCH ×2 (09:14→21:37)
[2016-06-25 10:23] VITALS: BP 173/69; PULSE 82; RESP 20; O2SAT 95
--- NOTE | 2016-06-25 10:48 | NUR ---
LENORA: Patient is unable to accept LENORA asked INFANT LEAD TEACHER to follow up via phone.
[2016-06-25] MEDS ORDERED: KCl 40 mEq/500 mL D5W(K 3 - 3.7 & Creat < 2) IV ONE (12:55)
--- NOTE | 2016-06-25 13:20 | NUR ---
PT NOTE-- Discussed patient at rounds and decline in medical status. Will discharge patient from PT services.
--- NOTE | 2016-06-25 13:24 | DRSVH ---
PROCEDURE: X-RAY CHEST ONE VIEW, PORTABLE ([id number]) INDICATIONS: cough TECHNIQUE: One view of the chest was acquired. COMPARISON: [facility], CR, XR CHEST 1VW (PORTABLE), 06/15/2016, 13:52. FINDINGS: Surgical changes and devices: None. Lungs and pleura: Interstitium is prominent in bibasilar patchy airspace opacities are present suspic ious for aspiration or pneumonia. No pleural effusion or pneumothorax. Mediastinum: Mediastinal contours appear normal. Heart size is normal. Bones and chest wall: No suspicious bony lesions. Overlying soft tissues appear unremarkable. Mult iple osseous densities again seen about the right glenohumeral joint suspicious for intra-articular b odies. IMPRESSION: 1. Prominent interstitium and bibasilar patchy air space opacities suspicious for aspiration or pneum onia. 2. Multiple osseous densities likely to right glenohumeral intra-articular bodies. Dictated by: Masood ROBIN Interpreted: Ector Diaz MD on 06/25/2016 at 13:22 Transcribed by: SAGE on 06/25/2016 at 13:23 Approved by: Ector Diaz M.D. on 06/25/2016 at 17:37
[2016-06-25] MEDS ORDERED: 0.9% Sodium Chloride 1,000 ML ONE (13:55)
[2016-06-25 14:49] LABS: APPEARANCE,URINE CLEAR (CLEAR,HAZY); COLOR,URINE STRAW (YELLOW); OCCULT BLOOD,URINE TRACE (NEGATIVE); PH,URINE 6.5 (5.0-8.0); UROBILINOGEN,URINE NORMAL (NORMAL)
--- NOTE | 2016-06-25 16:11 | PCM.PALLBR ---
Palliative Care Recommendation 75-year-old female presenting with worse altered mental status from baseline dementia, treating for possible sigmoid diverticulitis. She has had frequent falls and increasing complaints of abdominal pain and back pain. Today is Hospital Day 10. Summary of palliative recommendations: Decreased level of consciousness, starting a.m. 06/25: Daughter is mostly concerned that medications to calm her that were started in hospital are causing this sudden change in mentation. Dr. Juarez gave her U/A and CXR results and counseled her that all the medications that can cause sedation had been in her system for the last several days and she was wide awake, interactive , calling out at times but getting calmer by 06/22. She remained awake and alert over the weekend. She didn't get somnolent until 12-18 hours after her choking episode on Sunday 06/25 that daughter described (see Subjective section below). And now CXR is positive for new infiltrates suspicious for aspiration. 1. Agree with discontinuation of oxycodone, tramadol, clonazepam to allay concerns that these medications contributed to chemical sedation. 2. Suggest decrease dose of risperdal to 0.5mg once a day (provided that patient wakes up enough to swallow pill safely). The reason to try to keep risperdal is that if patient awakens, it took several days of medication to resolve her agitation and delirium with several days of sitters in her room. I counseled gdlamar Fabienne (who is Mrs. Goldberg's POA) on all of above, as well as introducing to her again, that if Mrs. Goldberg does not become more alert with antibiotic treatment for aspiration pneumonia that she may not survive this hospitalization. Mrs. Goldberg was turned down by hospice on 06/22, but if she starts to deteriorate in next 48 hours, we can ask hospice to review the notes of Palliative Care and medical team. Fabienne is tearful and hopes for the best outcome after antibiotics, but acknowledges that this may be where her grandmother is headed. Symptom management (Pain/other): 1. Agitation: previously on Seroquel, stopped on admission, may be partly due to borderline QTc of 472. Now has had 4 days of risperdal which also causes QTc prolongation that must be monitored monthly. --After several days of seroquel 12.5mg q day, then BID, with persistent agitation, it was discontinued and we began risperdal 0.5mg po BID on night of . Working well for her, until excessive sedation occurred today. Daughter reports that she witness --monthly EKG to check QTc; certified lactation counselor family about pros/cons of continuing risperdal with high QT if this >500. 2. Anxiety: patient expresses "something's wrong" --continue clonazepam 0.5 po BID (today is day 4) 3. Pain: Pt crying out "ow, my back hurts. help me, please help me." Gdtr agrees that patient's back/abdominal pain need treatment. She wants us to use caution due to patient being "sensitive" to pain meds. --Started oxycodone 5mg before meals and at HS. Began on 06/20. RNs report she now seems oversedated on this regimen and had urinary retention of 500cc in bladder overnight on 06/21, removed by straight cath. Changed dosing to PRN on . --2nd option for breakthrough pain: Tramadol 50 mg up to 3 times a day. Continue on discharge. Wean off per Adult Probation Officer at [facility]. DPOA/Advanced Directives/POLST: 1.Gdtr Agrees DNR/DNI, selective treatments (IVF, antibiotics) 2. POLST FORM COMPLETED-- Dr. Juarez filled out and signed her both sides of form and placed on paper chart. Granddaughter signed when she visited evening of 06/20. Original in chart. Copies in chart and in PC office. -Family/emotional support --assist family understanding of progressive dementia. On 06/22 Dr. Juarez counseled gdtr more on delirium, dementia, progressive behavior changes that are common in dementia, need for meds to reduce anxiety and agitation, thereby helping pt become less fearful and more comfortable in strange (hospital) surroundings. Dr. Juarez expressed hope that patient would need lower doses of anxiolytics and antipsychotic once discharged back to familiar surroundings. -Disposition: Gdtr hopes that if pt will meet criteria for skilled therapies at [facility]-. Gdtr is also considering [facility] placement. Problems: (1) Goals of care, counseling/discussion Assessment & Plan: Family and patient want to treat reversible conditions, assistance with advancing dementia. Status: Acute ICD Code: Z71.89 (2) Pain Assessment & Plan: New onset pain in low back, R abdominal region --Lumbar XR shows no compression fx --Colonic thickening --Consider further w/u if s/s continue -Discuss palliative options Status: Acute ICD Code: R52 (3) Palliative care by specialist Assessment & Plan: INfectious causes of pain, differential for other causes included neoplasm in the setting of advancing dementia. Community Development Officer POA regarding decision-making and palliative options Status: Acute ICD Code: Z51.5 End of Life Preferences Comfort if at end of life Goals of Care Hoping for return to baseline but focus on comfort with all treatments, along with treating treatable conditions Resuscitation Status Resuscitation Status: DNR/DNI:Do Not Resuscitate/Intubate POLST Updates/Changes Previous POLST?: No Antibiotics: Determine Use or Limitations Artificially Admin Nutrition: No Artifical Nutrition by Tube POLST Discussed with: Health Care Agent ([facility]) POLST Review Outcome: New Form Completed (plan new form completion as no form is with her. Family unable to come in to sign this.) . Advanced Care Planning Address: Comfort care Symptom management: Drowsiness/sleepiness Time 65 minutes; >50% face to face with patient and/or family, providing counselling regarding plans and recommendations, and in care coordination with his/her medical teams. I also spent an [id number] counseling for advanced care planning with the patient/the patients family/the surrogate decision maker. Total time: 125min. Palliative Brief Note Date of Service Jun 25, 2016 . History of Present Illness 75-year-old female admitted 06/15/16 with worse altered mental status from baseline dementia, treating for possible sigmoid diverticulitis. She has had frequent falls and increasing complaints of abdominal pain and back pain over the last 2-3 weeks (since Jun 04). She tells her granddaughters repeatedly "something's wrong with me". She was recently treated for influenza at [facility] and continues on flu precautions here. Past Medical History: Cataracts,Hypertension/hyperlipidemia,Arthritis back, right hip joint replacement 2003, left hip replacement 2013,Diabetes types 2, Depression, anxiety, recurrent hyponatremia since 2013, Progressive dementia. Hospital Course: Today is Hospital Day 11. She was treated for flu with Tamiflu x 5 days, and had complete course antibiotics for presumptive sigmoid diverticulitis. She was treated for hyponatremia. Her normal dose of seroquel at night was not sufficient to prevent agitation in hospital and she was switched to risperdal this admission with improved control of agitation and anxiety. At baseline (about three weeks ago) she can walk with her walker, needing reminders to use the walker; being able to feed herself and having a normal appetite, being fully continent of bowel and bladder. Earlier this admission, she has needed help to get to [facility], but now has a love (for urinary retention)and requires protective mats on side-rails and floor, because she was impulsively getting of bed unassisted, these mats are still in place. Since Thursday 06/22 she no longer needed a sitter with both antipsychotic and anxiolytic meds in place. Over the weekend, RNs reported at discharge rounds today that patient has been eating and drinking less over weekend and not taking her pills due to sedation. Granddaughter states she say pt awake and alert on Saturday afternoon, then Mrs. Goldberg drank some water, coughed a lot and turned very red trying to get her breath. There are no RN reports of this event documented in EMR. This morning she woke up with a 100.4 axiliary temperature, and she took only some of her a.m. pills and fell asleep. Now she is minimally responsive. U/A and CXR ordered. The U/A is negative, the CXR came back suspicious for aspiration pneumonia. Subjective: She is unresponsive, while gdtr and Dr. Juarez discuss recent sudden decreased level of consciousness at bedside. Daughter is mostly concerned that medications to calm her that were started in hospital are causing this sudden change in mentation. Dr. Juarez gave her U/A and CXR results and proposed that all these medications that can cause sedation had been in her system for the last several days and she was wide awake, interactive , calling out at times but getting calmer by 06/22. She didn't get somnolent until after her choking episode on Sunday 06/25. Objective: General: minimally responsive, grimaces to sternal rub HEENT: Pupils pinpoint, sclera clear, mucosa dry Lungs: decreased breath sounds Heart: S1,S2, no murmur Abdomen: flat, nontender, positive bowel sounds Extremities: moves all four extremities, no edema Skin: warm, dry, no ecchymoses, no rashes, hands have 1+ edema. Labs & Imaging: U/A: 06/25, unremarkable CXR: 06/25 Lungs and pleura: Interstitium is prominent in bibasilar patchy airspace opacities are present suspicious for aspiration or pneumonia. No pleural effusion or pneumothorax. Mediastinum: Mediastinal contours appear normal. Heart size is normal. Bones and chest wall: No suspicious bony lesions. Overlying soft tissues appear unremarkable. Multiple osseous densities again seen about the right glenohumeral joint suspicious for intra-articular bodies. IMPRESSION: 1. Prominent interstitium and bibasilar patchy air space opacities suspicious for aspiration or pneumonia. 2. Multiple osseous densities likely to right glenohumeral intra-articular bodies. Dictated by: Masood Velasco Stella Interpreted: Ector Diaz MD on 06/25/2016 at 13:[address] [facility] MD Jun 25, 2016 16:11
--- NOTE | 2016-06-25 18:45 | NUR ---
Mentation Patient somnolent most of the shift. Persistence and time required to get patient to take meds crushed in applesauce. Patient usually unable to open eyes or indicate whether she has pain. Intermittently calls out "help" and occasionally says "leave me alone".
--- NOTE | 2016-06-25 18:48 | PCM.PNMED ---
Subjective Date of Service Jun 25, 2016 Subjective Patient very somnolent, does not answer questions. Exam Vital Signs Vital Sign - Last Date Time Temp Pulse Resp B/P Pulse Ox O2 Delivery O2 Flow Rate FiO2 06/25/16 10:23 37.8 82 20 173/69 95 Room Air Intake and Output 06/24/16 06/24/16 06/25/16 Cumulative From/Thru 15:00 23:00 07:00 06/15/16 13:32 - 06/25/16 06:51 Intake Total 1129 ml 798 ml 27993 ml Output Total 1150 ml 1525 ml 86423 ml Balance -21 ml -727 ml 2973 ml Intake Oral 240 ml 0 ml 5637 ml IV Total 889 ml 798 ml 11839 ml Output Urine Total 1150 ml 1525 ml 30599 ml # Voids 4 # Bowel Movements 1 2 5 Exam General: Frail elderly female,sound asleep in bed. HEENT: Normocephalic, atraumatic. External ears without defect. Cardiovascular: Regular rate and rhythm with no murmurs, rubs, or gallops appreciated Pulmonary: Clear to auscultation bilaterally with no crackles, wheezes, or rhonchi. Normal respiratory effort with no use of accessory muscles. Abdomen: Bowel tones present. Soft, nontender, nondistended. Extremities: No clubbing, cyanosis, edema appreciated. Skin: Normal temperature, turgor, and texture; no rash, ulcers, or subcutaneous nodules appreciated. Psychiatric: Patient is very somnolent today, and does not respond to questions at all. IVs and Medications Medications Reviewed: Medications were reviewed in detail Lab and Diagnostics Result Diagram: 06/25/16 0610 06/25/16 0610 Microbiology Stool PCR negative. Blood culture shows no growth after 5 days. Urine culture grew coag-negative Staphylococcus likely security representative of contaminate. . X-Rays, CTs and MRIs X-RAY LUMBAR SPINE, 2 OR 3 VIEW IMPRESSION: No fracture. No acute osseous lesion. If there are persistent symptoms or continued clinical suspicion for pathology, then MRI should be considered for further evaluation. Dictated by: Laurie Bansal MD, PhD on 06/16/2016 at 17:04 Approved by: Laurie Bansal MD, PhD on 06/16/2016 at 17:06 CT ABDOMEN AND PELVIS WITH CONTRAST IMPRESSION: 1. Reed colonic diverticulosis. Severe, circumferential wall thickening involving the sigmoid colon is noted in the region of multiple diverticula. Finding may represent chronic diverticulitis, however finding is nonspecific and if patient fails to respond to appropriate therapy for diverticulitis, then colonoscopy is recommended to exclude neoplastic process. 2. The appendix is normal. 3. No dilated loops of bowel. 4. Right adrenal myelolipoma is stable. 5. 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 6. Splenic hemangiomas stable. 7. Atherosclerosis including the visualized coronary vasculature. Dictated by: Laurie Bansal MD, PhD CT BRAIN WITHOUT CONTRAST IMPRESSION: 1. No acute posttraumatic changes. 2. Cerebral atrophy and chronic deep white matter ischemic changes. Dictated by: Will Zurita M.D. on 06/15/2016 at 15:19 Approved by: Will Zurita M.D. on 06/15/2016 at 15:22 X-RAY CHEST ONE VIEW, PORTABLE IMPRESSION: No acute cardiopulmonary findings. Dictated by: Amanda Brush M.D. on 06/15/2016 at 14:08 Approved by: Amanda Brush M.D. on 06/15/2016 at 14:09 PROCEDURE: X-RAY CHEST ONE VIEW, PORTABLE ([id number]) INDICATIONS: cough TECHNIQUE: One view of the chest was acquired. COMPARISON: [facility], CR, XR CHEST 1VW (PORTABLE), 06/15/2016, 13: 52. FINDINGS: Surgical changes and devices: None. Lungs and pleura: Interstitium is prominent in bibasilar patchy airspace opacities are present suspicious for aspiration or pneumonia. No pleural effusion or pneumothorax. Mediastinum: Mediastinal contours appear normal. Heart size is normal. Bones and chest wall: No suspicious bony lesions. Overlying soft tissues appear unremarkable. Multiple osseous densities again seen about the right glenohumeral joint suspicious for intra-articular bodies. IMPRESSION: 1. Prominent interstitium and bibasilar patchy air space opacities suspicious for aspiration or pneumonia. 2. Multiple osseous densities likely to right glenohumeral intra-articular home Additional Diagnostics US RENAL SONOGRAM IMPRESSION: 1. Right renal cyst and bilateral angiomyolipomas unchanged. Dictated by: Masood ROBIN Interpreted: Sony Yao MD on 06/22/2016 at 14: 55 Transcribed by: FALLON on 06/22/2016 at 14:57 . Assessment & Plan Fartun Goldberg is a 75-year-old female who presented to [facility] Emergency Department with acute change in mental status from baseline dementia. Hospital day #10. Possible aspiration pneumonia, not present on admission, ongoing - CXR ordered demonstrating "prominent interstitium and bibasilar patchy air space opacities suspicious for aspiration or pneumonia" -Pt to be treated with Zosyn -COntinue to monitor Dysphagia likely secondary to dementia, unknown chronicity, present on admission. Ongoing. -Witnessed patient unable to swallow liquids, and have coughing episode -No crackles have been auscultated on lung exam, but there is concern for aspiration -Swallow evaluation ordered Acute kidney injury, likely secondary to dehydration due to dementia, not present on admission. Ongoing. -Patient's creatinine trending down to 1.37, but still elevated. -Arciniega catheter discontinued -IVF discontinued -Renal US demonstrated right renal cyst and bilateral angiomyolipomas. -UA performed today -Daily labs Acute urinary tract infection Due to unknown cause, with concomitant urinary incontinence. -UA demonstrated positive Nitrate, and many bacteria -Urine culture, preliminary report stating coagulase negative staphylococcus( spp epidermidis) -Pt has been receiving Cipro for suspected sigmoid diverticulitis, and bacteria in urine is sensitive to cipro for 7 days. Discontinued today -Arciniega catheter removed today Dementia, chronicity unknown, ongoing -Palliative care has been consulted -Patient no longer requiring a sitter, but is still confused and continues to yell out -Pt meets criteria for Hospice per listed admission guidelines, but pt was denied Hospice. This may need to be re-assessed Possible acute sigmoid diverticulitis, present on admission, ongoing. -Pt was on PO Flagyl and Cipro. Discontinued Cipro -WBC normalized -Stool cx negative. Recurrent hyponatremia, likely secondary to hypervolemia based on lab review. -Pt has appropriate oral intake -Daily AM labs. -Patient receiving IV fluids now Recent diagnosis of influenza, -Completed Tamiflu 5 day course Right leg pain, chronicity unknown. -Consider imaging, if pt reports worsening. Low Back Pain, chronicity unknown -Lumbar xray did not demonstrate any cause of the pain -Palliative care is managing the patient's pain medications Functional status -Pt evaluated by Occupation Therapy, who felt that patient would benefit from discharge to SNF secondary to her functional deficits. 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 Gonzales on 06/25/2016 and I agree with the history, exam and plan as outlined in the note above. Winnie Gonzales DO Jun 25, 2016 18:48 Pravin Mars MD Jun 26, 2016 14:12
[2016-06-25 20:55] VITALS: BP 188/76; PULSE 101; RESP 20; O2SAT 97
[2016-06-26] VITALS (11 sets, daily range): BP systolic 168–204; BP diastolic 70–105; PULSE 76–100; RESP 18–20; O2SAT 95–98
--- NOTE | 2016-06-26 01:45 | NUR ---
Mentation: Pt was calling out help, and "I have to go to the bathroom" for the first hour of the shift, eyes closed while yelling. Pt stated needing to urinate, Arciniega was still in at that time. Did open eyes to take HS medication with cues. The remainder of the night, thus far, pt has been somnolent, pt has been turned without response from pt. The midnight antibiotic dose was not administered due to pt not being safe for PO intake at this time. Addendum: 06/26/16 at 0546 by YOSSI GONZALES RN This morning, pt is more awake and yelling help. Eyes continue to be closed but she opens eyes what asked.
[2016-06-26] MEDS: Nystatin 100,000 Unit/mL 5 mL Suspension PO SCH ×4 (02:30→19:51)
--- NOTE | 2016-06-26 03:38 | NUR ---
Urination: Arciniega was removed at 2200. Pt has not voided yet at this time. Bladder scan done showing 452 mls of urine in bladder. Spoke with night resident, wants to continue to monitor for a couple more hours. Addendum: 06/26/16 at 0547 by YOSSI GONZALES RN Pt voided on own this morning in brief. PVR 22 mls.
[2016-06-26 06:27] LABS: BASOPHILS % (AUTO) 0.5 % (0-3); EOSINOPHILS % (AUTO) 2.3 % (0-5); MONOCYTES % (AUTO) 13.3 % (4-12); Mean Corpuscular Hemoglobin 27.3 pg (27.0-35.0); Mean Corpuscular Volume 84.6 fL (81-100); NEUTROPHILS % (AUTO) 68.8 % (40-74); Platelet Count 297 bil/L (150-400)
[2016-06-26] MEDS ORDERED: levoFLOXacin 750 mg Tablet PO SCH (07:30)
[2016-06-26] MEDS ORDERED: KCl 40 mEq/D5W 500 mL 40 MEQ in IV Premix 1 EACH IV ONE (08:10)
[2016-06-26] MEDS: Polyethylene Glycol (PEG) 17 Gm Powder PO SCH (08:20)
[2016-06-26] MEDS: risperiDONE 1 mg Tablet PO SCH ×3 (08:21→19:51)
[2016-06-26] MEDS: Sodium Chloride LOK Flush 10 mL Syringe IVFLUSH SCH ×2 (08:26→19:48)
[2016-06-26] MEDS: Insulin LISPRO 300 Unit/3 mL Inj SUBQ SCH ×4 (08:26→22:00)
[2016-06-26] MEDS: Lidocaine Topical 5% Patch TOPICAL SCH (08:26)
[2016-06-26] MEDS ORDERED: Haloperidol 5 mg/mL Inj IVPUSH PRN (10:45)
--- NOTE | 2016-06-26 10:49 | PCM.PALLBR ---
Palliative Care Recommendation 75-year-old female presenting with worse altered mental status from baseline dementia, treating for possible sigmoid diverticulitis. She has had frequent falls and increasing complaints of abdominal pain and back pain. Today is Hospital Day 11. Summary of palliative recommendations: Decreased level of consciousness, starting a.m. 06/25 Resolved (around 1a.m. 06/26 ): Daughter was mostly concerned that medications to calm her that were started in hospital are causing this sudden change in mentation. Dr. Juarez gave her U/ A and CXR results and counseled her on 06/25 that all the medications that can cause sedation had been in her system for the last several days and she was wide awake, interactive, calling out at times but getting calmer by 06/22. She remained awake and alert over the weekend. She didn't get somnolent until 12-18 hours after her choking episode on Sunday 06/25 that daughter described (see Subjective section below). And now CXR is positive for new infiltrates suspicious for aspiration, however she has been on appropriate antibiotic coverage for PNA. 1. We will continue to keep off all the pain and anxiety meds stopped 06/25. 2. Agitated delirium in context of progressive dementia. She had both doses of risperdal on 06/25 and is still agitated this a.m. I recommend that today () on day 6, we increase her risperdal dose to 0.5mg po TID (from BID). The hope is to reduce her agitation and avoid need to re-introduce sitters in her room. Hospice eligibility: Mrs. Goldberg was turned down by hospice on 06/22, and although she was somnolent on 06/25 and looked as if she might be infected, she is now awake and agitated again. Even if we ask hospice to review the notes of Palliative Care and medical team again on 06/26, I doubt there is enough change in her criteria to make her eligible. Symptom management (Pain/other): 1. We will continue to keep off all the pain and anxiety meds stopped 06/25. 2. Agitated delirium in context of progressive dementia. She had both doses of risperdal on 06/25 and is still agitated this a.m. I recommend that today on day 6, we increase her risperdal dose to 0.5mg po TID (from BID). The hope is to reduce her agitation and avoid need to re-introduce sitters in her room. a. follow EKGs for QTC prolongation monthly on risperdal. Her baseline QTc is 472. Consider discontinuation of risperdal if QT >500. DPOA/Advanced Directives/POLST: 1.Gdtr agrees to DNR/DNI, selective treatments (IVF, antibiotics) 2. POLST FORM COMPLETED-- Dr. Juarez filled out and signed her both sides of form and placed on paper chart. Granddaughter signed when she visited evening of 06/20. Original in chart. Copies in chart and in PC office. Family/emotional support: --[facility] has been providing ongoing counseling to DPOA Fabienne re: stages and signs of progressive dementia. On 06/22 and 06/25 Dr. Juarez counseled gdtr more on delirium, dementia, progressive behavior changes that are common in dementia, need for meds to reduce anxiety and agitation, thereby helping pt become less fearful and more comfortable in strange (hospital) surroundings. Dr. Juarez expressed hope that patient would need lower doses of anxiolytics and antipsychotic once discharged back to familiar surroundings. -Disposition: per Attending team with CM coordination. Possible back to [facility]- with Dr. Rodríguez. Problems: (1) Goals of care, counseling/discussion Assessment & Plan: Family and patient want to treat reversible conditions, assistance with advancing dementia. Status: Acute ICD Code: Z71.89 (2) Pain Assessment & Plan: New onset pain in low back, R abdominal region --Lumbar XR shows no compression fx --Colonic thickening --Consider further w/u if s/s continue -Discuss palliative options Status: Acute ICD Code: R52 (3) Palliative care by specialist Assessment & Plan: INfectious causes of pain, differential for other causes included neoplasm in the setting of advancing dementia. Barrel Polisher POA regarding decision-making and palliative options Status: Acute ICD Code: Z51.5 End of Life Preferences Comfort if at end of life Goals of Care Hoping for return to baseline but focus on comfort with all treatments, along with treating treatable conditions Resuscitation Status Resuscitation Status: DNR/DNI:Do Not Resuscitate/Intubate POLST Updates/Changes Previous POLST?: No Antibiotics: Determine Use or Limitations Artificially Admin Nutrition: No Artifical Nutrition by Tube POLST Discussed with: Health Care Agent (DPOAHC) POLST Review Outcome: New Form Completed (plan new form completion as no form is with her. Family unable to come in to sign this.) . Symptom management: Agitation, Delirium Total time 35 minutes; >50% face to face with patient and/or family, providing counselling regarding plans and recommendations, and in care coordination with his/her medical teams. I also spent an additional [ ] minutes counseling for advanced care planning with the patient/the patients family/the surrogate decision maker. Palliative Brief Note Date of Service Jun 26, 2016 . History of Present Illness 75-year-old female admitted 06/15/16 with worse altered mental status from baseline dementia, treating for possible sigmoid diverticulitis. She has had frequent falls and increasing complaints of abdominal pain and back pain over the last 2-3 weeks (since Jun 04). She tells her granddaughters repeatedly "something's wrong with me". She was recently treated for influenza [place] [facility] and continues on flu precautions here. Past Medical History: Cataracts,Hypertension/hyperlipidemia,Arthritis back, right hip joint replacement 2003, left hip replacement 2013,Diabetes types 2, Depression, anxiety, recurrent hyponatremia since 2013, Progressive dementia. Hospital Course: Today is Hospital Day 11. She was treated for flu with Tamiflu x 5 days, and had complete course antibiotics for presumptive sigmoid diverticulitis. She was treated for hyponatremia. Her normal dose of seroquel at night was not sufficient to prevent agitation in hospital and she was switched to risperdal this admission with improved control of agitation and anxiety. At baseline (about three weeks ago) she can walk with her walker, needing reminders to use the walker; being able to feed herself and having a normal appetite, being fully continent of bowel and bladder. Earlier this admission, she has needed help to get to [facility], but now has a love (for urinary retention)and requires protective mats on side-rails and floor, because she was impulsively getting of bed unassisted, these mats are still in place. Since Thursday 06/22 she no longer needed a sitter with both antipsychotic and anxiolytic meds in place. Over the weekend, RNs reported at discharge rounds today that patient has been eating and drinking less over weekend and not taking her pills due to sedation. Granddaughter states she say pt awake and alert on Saturday afternoon, then Mrs. Goldberg drank some water, coughed a lot and turned very red trying to get her breath. There are no RN reports of this event documented in EMR. This morning she woke up with a 100.4 axiliary temperature, and she took only some of her a.m. pills and fell asleep. Now she is minimally responsive. U/A and CXR ordered. The U/A is negative, the CXR came back suspicious for aspiration pneumonia, however, pt is already covered by two antibiotics. On 06/26, after all pain meds and anti-anxiety meds removed, pt is now wide awake and calling out again "Help me" intermittently throughout the day. Subjective: awake, alert, denies pain, inattentive, keeps calling out "help me " even when people in room attending her. Objective: HEENT: PERRL, EOMI, sclera clear, mucosa dry Lungs: decreased breath sounds Heart: S1,S2, no murmur Abdomen: flat, nontender, positive bowel sounds Extremities: moves all four extremities, no edema Skin: warm, dry, no ecchymoses, no rashes, hands have 1+ edema. Labs & Imaging: U/A: 06/25, unremarkable CXR: 06/25 Lungs and pleura: Interstitium is prominent in bibasilar patchy airspace opacities are present suspicious for aspiration or pneumonia. No pleural effusion or pneumothorax. Mediastinum: Mediastinal contours appear normal. Heart size is normal. Bones and chest wall: No suspicious bony lesions. Overlying soft tissues appear unremarkable. Multiple osseous densities again seen about the right glenohumeral joint suspicious for intra-articular bodies. IMPRESSION: 1. Prominent interstitium and bibasilar patchy air space opacities suspicious for aspiration or pneumonia. 2. Multiple osseous densities likely to right glenohumeral intra-articular bodies. Dictated by: Masood ROBIN Interpreted: Ector Diaz MD on 06/25/2016 at 13:22 [facility] MD Jun 26, 2016 10:49 Dictated by: Masood ROBIN Interpreted: Ector Diaz MD on 06/25/2016 at 13:22 Melissa Juarez MD Jun 26, 2016 10:49
[2016-06-26] MEDS: Heparin 5,000 Unit/mL Inj SUBQ SCH ×2 (12:14→23:31)
--- NOTE | 2016-06-26 13:23 | NUR ---
Social Work Continued Discharge Planning: SW conducted discharge planning update. 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 Palliative Care following. Per report in rounds, patient doesn't meet hospice criteria at this time. Palliative will continue to follow. Mention of swallow eval today. SW also spoke with [employer] rep, who is following patient. SW spoke to patient granddaughter/POA who to arrive to hospital today to discuss discharge plans of care with clinicians and SW. SW will continue to follow. PLAN: Return back to [facility]. half-way resident patient. SW will continue to follow pending further clinical course Phu THEODORE
[2016-06-26] MEDS ORDERED: Labetalol 5 mg/mL 4 mL Inj IVPUSH SCH (13:25)
[2016-06-26] MEDS ORDERED: hydrALAZINE 20 mg/mL Inj IV PRN (15:45)
--- NOTE | 2016-06-26 15:45 | NUR ---
NUTRITION ASSESSMENT: ASSESS: 75 YO female admitted for diverticulitis, influenza, hyponatremia, urinary incontinence, lethargy and confusion. Pt has remained confused (pt does have a baseline of dementia), but pt confusion seems to be improving per notes. ST eval will be reordered per MD at case management meeting. Pt with limited po intake since admit (x 11 days), but family does not desire nutrition support per notes. PMHx: Cataracts, HTN, hyperlipidemia, dementia, diverticulitis, endometriosis, arthritis, DM type 2, depression, anxiety. LABS: Reviewed. K+ 3.2, Glu 153, Cr 1.27, Alb 3.1. MEDS: Reviewed. GI: BM x 3 (06/25) CURRENT WT: 59.5 kg. Admit wt: 56.4 kg. DIET: heart healthy, Diabetic, Glucerna all trays. PO bites -25%. EST. NEEDS: 8294-0655 kcals (25-30 kcals/kg BW), 70-85 g protein (1.2-1.5 g/kg BW) NUTRITION DIAGNOSIS: 1.) Inadequate oral intake related to decreased ability to consume sufficient energy as evidenced by current po intake of bites-25% x 10 days. NUTRITION INTERVENTION: 1.) Continue to send Glucerna all trays. MONITOR / EVAL: PO intake, labs, ST eval, nutritional status. Follow per moderate nutritional risk guidelines.
--- NOTE | 2016-06-26 16:01 | PCM.PNMED ---
Subjective Date of Service Jun 26, 2016 Subjective Patient reports that she is doing very poorly today, she states that she aches all over. Patient also reports that she is being kept here, and that she needs to go find her grandmother. Exam Vital Signs Vital Sign - Last Date Time Temp Pulse Resp B/P Pulse Ox O2 Delivery O2 Flow Rate FiO2 06/26/16 14:37 94 190/93 97 Room Air 06/26/16 12:31 36.9 18 Intake and Output 06/25/16 06/25/16 06/26/16 Cumulative From/Thru 15:00 23:00 07:00 06/15/16 13:32 - 06/26/16 06:36 Intake Total 1217 ml 907 ml 80009 ml Output Total 825 ml 1050 ml 65671 ml Balance 392 ml -143 ml 3222 ml Intake Oral 100 ml 236 ml 5973 ml IV Total 1117 ml 671 ml 73809 ml Output Urine Total 825 ml 1050 ml 47611 ml # Voids 1 5 # Bowel Movements 1 6 Exam General: Frail elderly female lying in bed HEENT: Normocephalic, atraumatic. External ears without defect. Cardiovascular: Regular rate and rhythm with no murmurs, rubs, or gallops appreciated Pulmonary: Clear to auscultation bilaterally with no crackles, wheezes, or rhonchi. Normal respiratory effort with no use of accessory muscles. Abdomen: Bowel tones present. Soft, nontender, nondistended. Extremities: No clubbing, cyanosis, edema appreciated. Skin: Normal temperature, turgor, and texture; no rash, ulcers, or subcutaneous nodules appreciated. Psychiatric: Patient is awake and alert, but is only oriented to self. Patient is unable to report where she is any time. Patient perseverates on her need to leave and go to her grandmother's home to take care of her grandmother. IVs and Medications Medications Reviewed: Medications were reviewed in detail Lab and Diagnostics Result Diagram: 06/26/16 0600 06/26/16 0600 Microbiology Stool PCR negative. Blood culture shows no growth after 5 days. Urine culture grew coag-negative Staphylococcus likely statement services representative of contaminate. . X-Rays, CTs and MRIs X-RAY LUMBAR SPINE, 2 OR 3 VIEW IMPRESSION: No fracture. No acute osseous lesion. If there are persistent symptoms or continued clinical suspicion for pathology, then MRI should be considered for further evaluation. Dictated by: Laurie Bansal MD, PhD on 06/16/2016 at 17:04 Approved by: Laurie Bansal MD, PhD on 06/16/2016 at 17:06 CT ABDOMEN AND PELVIS WITH CONTRAST IMPRESSION: 1. Reed colonic diverticulosis. Severe, circumferential wall thickening involving the sigmoid colon is noted in the region of multiple diverticula. Finding may represent chronic diverticulitis, however finding is nonspecific and if patient fails to respond to appropriate therapy for diverticulitis, then colonoscopy is recommended to exclude neoplastic process. 2. The appendix is normal. 3. No dilated loops of bowel. 4. Right adrenal myelolipoma is stable. 5. 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 6. Splenic hemangiomas stable. 7. Atherosclerosis including the visualized coronary vasculature. Dictated by: Laurie Bansal MD, PhD CT BRAIN WITHOUT CONTRAST IMPRESSION: 1. No acute posttraumatic changes. 2. Cerebral atrophy and chronic deep white matter ischemic changes. Dictated by: Will Zurita M.D. on 06/15/2016 at 15:19 Approved by: Will Zurita M.D. on 06/15/2016 at 15:22 X-RAY CHEST ONE VIEW, PORTABLE IMPRESSION: No acute cardiopulmonary findings. Dictated by: Amanda Brush M.D. on 06/15/2016 at 14:08 Approved by: Amanda Brush M.D. on 06/15/2016 at 14:09 PROCEDURE: X-RAY CHEST ONE VIEW, PORTABLE ([id number]) INDICATIONS: cough TECHNIQUE: One view of the chest was acquired. COMPARISON: [facility], CR, XR CHEST 1VW (PORTABLE), 06/15/2016, 13: 52. FINDINGS: Surgical changes and devices: None. Lungs and pleura: Interstitium is prominent in bibasilar patchy airspace opacities are present suspicious for aspiration or pneumonia. No pleural effusion or pneumothorax. Mediastinum: Mediastinal contours appear normal. Heart size is normal. Bones and chest wall: No suspicious bony lesions. Overlying soft tissues appear unremarkable. Multiple osseous densities again seen about the right glenohumeral joint suspicious for intra-articular bodies. IMPRESSION: 1. Prominent interstitium and bibasilar patchy air space opacities suspicious for aspiration or pneumonia. 2. Multiple osseous densities likely to right glenohumeral intra-articular home Additional Diagnostics US RENAL SONOGRAM IMPRESSION: 1. Right renal cyst and bilateral angiomyolipomas unchanged. Dictated by: Masood Velasco RRA Interpreted: Sony Yao MD on 06/22/2016 at 14: 55 Transcribed by: FALLON on 06/22/2016 at 14:57 . Assessment & Plan Fartun Goldberg is a 75-year-old female who presented to [facility] Emergency Department with acute change in mental status from baseline dementia. Hospital day #11 Possible aspiration pneumonia, not present on admission, ongoing - CXR ordered demonstrating "prominent interstitium and bibasilar patchy air space opacities suspicious for aspiration or pneumonia" -We will continue to treat the patient with PO Levaquin and PO Flagyl. -Of note patient received 7 days of ciprofloxacin, and today is day 8 of Flagyl treatment -Continue to monitor Hypokalemia not present on admission, ongoing -Patient was provided with 40 IV KCl today, we will check the potassium at 5 PM. -A she required additional KCl IV yesterday and continued to have decreased potassium -We will continue to monitor and replenish as needed Hypertension, ongoing -Patient has been having increasing blood pressures, that is minimally responsive to IV labetalol. -We are starting the patient on 5 mg of amlodipine, and 10 mg of IV hydralazine is available should systolic blood pressure be greater than 160 Dysphagia likely secondary to dementia, unknown chronicity, present on admission. Ongoing. -Witnessed patient unable to swallow liquids, and have coughing episode -No crackles have been auscultated on lung exam, but there is concern for aspiration -Swallow evaluation ordered -IV fluids have been discontinued Acute kidney injury, likely secondary to dehydration due to dementia, not present on admission. Ongoing. -Patient's creatinine trending down to 1.37, but still elevated. -Arciniega catheter discontinued -IVF discontinued -Renal US demonstrated right renal cyst and bilateral angiomyolipomas. -UA concerning for infection -Daily labs Acute urinary tract infection Due to unknown cause, with concomitant urinary incontinence. -UA demonstrated positive Nitrate, and many bacteria -Urine culture, preliminary report stating coagulase negative staphylococcus( spp epidermidis) -Pt received ciprofloxacin for 7 days, which was initially prescribed to treat sigmoid diverticulitis along with Flagyl -Bacteria and urine was sensitive to Cipro, patient is currently on levofloxacin -No Arciniega present Dementia, chronicity unknown, ongoing -Palliative care has been consulted-- current regimen includes 0.5 mg Risperdal 3 times a day, sertraline 50 mg daily, donepezil 10 mg daily at bedtime -Patient no longer requiring a sitter, but is still confused and continues to yell out -Pt meets criteria for Hospice per listed admission guidelines, but pt was denied Hospice -Patient will discharge to [facility] [place] Possible acute sigmoid diverticulitis, present on admission, resolved -Pt was on PO Flagyl and Cipro. Discontinued Cipro -WBC normalized -Stool cx negative. Recurrent hyponatremia, likely secondary to hypervolemia based on lab review. -Pt has appropriate oral intake -Daily AM labs. Recent diagnosis of influenza, -Completed Tamiflu 5 day course Right leg pain, chronicity unknown. -Consider imaging, if pt reports worsening. Low Back Pain, chronicity unknown -Lumbar xray did not demonstrate any cause of the pain -Palliative care is managing the patient's pain medications Functional status -Pt evaluated by Occupation Therapy, who felt that patient would benefit from discharge to SNF secondary to her functional deficits. 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 Gonzales on 06/26/2016 and I agree with the history, exam and plan as outlined in the note above. Winnie Gonzales DO Jun 26, 2016 16:01 Pravin Mars MD Jun 27, 2016 12:48
--- NOTE | 2016-06-26 17:52 | NUR ---
Evaluation completed. Please go to "Notes" then click on "Assessments and Notes" (bottom left corner of screen). Then select appropriate discipline tab on top of screen.
--- NOTE | 2016-06-26 19:34 | NUR ---
HTN Reported BP via BLENDING KETTLE TENDER of 184/90. Repeat BP taken, continues to be elevated. paged. IV Labetalol 25mg Push Once ordered. Tele order placed, notified of Med administration. BP taken prior, Push give slowly. VS taken every 15 min. BP Lowered to 180/90, then raised back up to 190/90. notified of results. New sheduled & PRN orders placed. Continuing to monitor.
[2016-06-27 00:42] VITALS: BP 169/73; PULSE 90; RESP 18; O2SAT 95
[2016-06-27] MEDS: Sodium Chloride LOK Flush 10 mL Syringe IVFLUSH SCH ×2 (01:01→09:36)
[2016-06-27] MEDS: Nystatin 100,000 Unit/mL 5 mL Suspension PO SCH ×3 (02:08→15:03)
[2016-06-27 05:50] VITALS: BP 193/83; PULSE 97; RESP 18; O2SAT 96
--- NOTE | 2016-06-27 07:14 | NUR ---
Confusion Pt has remained confused all shift, calling out help, even when staff are in room talking with PT. Pt forgetful and requires constant reminders. Pt not using call light despite education and placing in Pts hand. Pt refused to take midnight does of flagyl.
[2016-06-27] MEDS: Insulin LISPRO 300 Unit/3 mL Inj SUBQ SCH ×2 (08:00→12:00)
[2016-06-27] MEDS: Lidocaine Topical 5% Patch TOPICAL SCH (09:36)
[2016-06-27] MEDS: Polyethylene Glycol (PEG) 17 Gm Powder PO SCH (09:36)
[2016-06-27] MEDS: risperiDONE 1 mg Tablet PO SCH ×2 (09:38→15:03)
[2016-06-27] MEDS: Heparin 5,000 Unit/mL Inj SUBQ SCH (09:39)
[2016-06-27 09:50] VITALS: BP 187/83; PULSE 98
[2016-06-27 10:09] LABS: BASOPHILS % (AUTO) 0.4 % (0-3); EOSINOPHILS % (AUTO) 1.6 % (0-5); MONOCYTES % (AUTO) 12.2 % (4-12); Mean Corpuscular Hemoglobin 26.9 pg (27.0-35.0); NEUTROPHILS % (AUTO) 72.2 % (40-74); Platelet Count 289 bil/L (150-400)
--- NOTE | 2016-06-27 10:15 | NUR ---
LENORA: Patient is not appropriate to receive LENORA asked DENTIST ATTENDANT to follow up via phone with daughter.
--- NOTE | 2016-06-27 10:16 | NUR ---
Spoke with Moriah Mayer Cm at [facility] and let her know potential for discharge today and we would need either approval or denial in order to transfer back to [facility]. Updated TRAWL NET MAKER Addendum: 06/27/16 at 1522 by BERNARDO LLOYD CM Moriah has called and let me know formal denial is being delivered and granddaughter of patient is being called and given this denial as well. Patient's granddaughter will be given the information on how to appeal this SNF denial. Updated TRAWL NET MAKER and TRAWL NET MAKER Application Integrator
--- NOTE | 2016-06-27 10:43 | NUR ---
LENORA signed Verbal permission to sign by pt's granddaughter via phone. ARBEN Medina
[2016-06-27 10:45] VITALS: BP 140/68; PULSE 85; RESP 20
[2016-06-27 10:59] VITALS: PULSE 92
[2016-06-27 11:20] VITALS: RESP 22; O2SAT 98
--- NOTE | 2016-06-27 11:20 | NUR ---
Blood Pressure: Patients blood pressure this morning was 187/83. Her Am Meds were given and 30 minutes after receiving the Meds her blood pressure decreased to 140/68.
--- NOTE | 2016-06-27 13:11 | PCM.PALLBR ---
Palliative Care Recommendation 75-year-old female presenting with worse altered mental status from baseline dementia, treating for possible sigmoid diverticulitis. She has had frequent falls and increasing complaints of abdominal pain and back pain. Today is Hospital Day 11. Summary of palliative recommendations: Decreased level of consciousness, starting a.m. 06/25 Resolved (around 1a.m. 06/26 ): Daughter was mostly concerned that medications to calm her that were started in hospital are causing this sudden change in mentation. Dr. Juarez gave her U/ A and CXR results and counseled her on 06/25 that all the medications that can cause sedation had been in her system for the last several days and she was wide awake, interactive, calling out at times but getting calmer by 06/22. She remained awake and alert over the weekend. She didn't get somnolent until 12-18 hours after her choking episode on Sunday 06/25 that daughter described (see Subjective section below). And now CXR is positive for new infiltrates suspicious for aspiration, however she has been on appropriate antibiotic coverage for PNA. 1. We will continue to keep off all the pain and anxiety meds stopped 06/25. 2. Agitated delirium in context of progressive dementia. She had both doses of risperdal on 06/25 and is still agitated this a.m.On 06/26 day, we increased her risperdal dose to 0.5mg po TID (from BID). The hope is to reduce her agitation and avoid need to re-introduce sitters in her room. Hospice eligibility: Mrs. Goldberg was turned down by hospice on 06/22, and although she was somnolent on 06/25 and looked as if she might be infected, she is now awake and agitated again. Even if we ask hospice to review the notes of Palliative Care and medical team again on 06/26, I doubt there is enough change in her criteria to make her eligible. Symptom management (Pain/other): 1. We will continue to keep off all the pain and anxiety meds stopped 06/25. 2. Agitated delirium in context of progressive dementia. On risperdal day 6, we increased her risperdal dose to 0.5mg po TID (from BID). The hope is to reduce her agitation and avoid need to re-introduce sitters in her room. I recommend we continue this dose and timing on discharge. 3. follow EKGs for QTC prolongation monthly on risperdal. Her baseline QTc is 472. Consider discontinuation of risperdal if QT >500. DPOA/Advanced Directives/POLST: 1.Gdtr agrees to DNR/DNI, selective treatments (IVF, antibiotics) 2. POLST FORM COMPLETED-- Dr. Juarez filled out and signed her both sides of form and placed on paper chart. Granddaughter signed when she visited evening of 06/20. Original in chart. Copies in chart and in PC office. Family/emotional support: --[facility] has been providing ongoing counseling to DPOA Fabienne re: stages and signs of progressive dementia. On 06/22 and 06/25 Dr. Juarez counseled gdtr more on delirium, dementia, progressive behavior changes that are common in dementia, need for meds to reduce anxiety and agitation, thereby helping pt become less fearful and more comfortable in strange (hospital) surroundings. Dr. Juarez expressed hope that patient would need lower doses of anxiolytics and antipsychotic once discharged back to familiar surroundings. -Disposition: per Attending team with CM coordination. Possible back to [facility] with Dr. Rodríguez. Palliative Care will sign off case today as plan is for discharge later this afternoon. Problems: (1) Goals of care, counseling/discussion Assessment & Plan: Family and patient want to treat reversible conditions, assistance with advancing dementia. Status: Acute ICD Code: Z71.89 (2) Pain Assessment & Plan: New onset pain in low back, R abdominal region --Lumbar XR shows no compression fx --Colonic thickening --Consider further w/u if s/s continue -Discuss palliative options Status: Acute ICD Code: R52 (3) Palliative care by specialist Assessment & Plan: INfectious causes of pain, differential for other causes included neoplasm in the setting of advancing dementia. Medicaid Billing Clerk POA regarding decision-making and palliative options Status: Acute ICD Code: Z51.5 End of Life Preferences Comfort if at end of life Goals of Care Hoping for return to baseline but focus on comfort with all treatments, along with treating treatable conditions Resuscitation Status Resuscitation Status: DNR/DNI:Do Not Resuscitate/Intubate POLST Updates/Changes Previous POLST?: No Antibiotics: Determine Use or Limitations Artificially Admin Nutrition: No Artifical Nutrition by Tube POLST Discussed with: Health Care Agent (DPOAHC) POLST Review Outcome: New Form Completed (plan new form completion as no form is with her. Family unable to come in to sign this.) . Symptom management: Agitation Total time 35 minutes; >50% face to face with patient and in care coordination with his/her medical teams. Palliative Brief Note Date of Service Jun 27, 2016 . History of Present Illness 75-year-old female admitted 06/15/16 with worse altered mental status from baseline dementia, treating for possible sigmoid diverticulitis. She has had frequent falls and increasing complaints of abdominal pain and back pain over the last 2-3 weeks (since Jun 04). She tells her granddaughters repeatedly "something's wrong with me". She was recently treated for influenza at [facility] and continues on flu precautions here. Past Medical History: Cataracts,Hypertension/hyperlipidemia,Arthritis back, right hip joint replacement 2003, left hip replacement 2013,Diabetes types 2, Depression, anxiety, recurrent hyponatremia since 2013, Progressive dementia. Hospital Course: Today is Hospital Day 12. She was treated for flu with Tamiflu x 5 days, and had complete course antibiotics for presumptive sigmoid diverticulitis. She was treated for hyponatremia. Her normal dose of seroquel at night was not sufficient to prevent agitation in hospital and she was switched to risperdal this admission with improved control of agitation and anxiety. At baseline (about three weeks ago) she can walk with her walker, needing reminders to use the walker; being able to feed herself and having a normal appetite, being fully continent of bowel and bladder. Earlier this admission, she has needed help to get to [facility], but now has a love (for urinary retention)and requires protective mats on side-rails and floor, because she was impulsively getting of bed unassisted, these mats are still in place. Since Thursday 06/22 she no longer needed a sitter with both antipsychotic and anxiolytic meds in place. Over the weekend, RNs reported at discharge rounds today that patient has been eating and drinking less over weekend and not taking her pills due to sedation. Granddaughter states she say pt awake and alert on Saturday afternoon, then Mrs. Goldberg drank some water, coughed a lot and turned very red trying to get her breath. There are no RN reports of this event documented in EMR. This morning she woke up with a 100.4 axiliary temperature, and she took only some of her a.m. pills and fell asleep. Now she is minimally responsive. U/A and CXR ordered. The U/A is negative, the CXR came back suspicious for aspiration pneumonia, however, pt is already covered by two antibiotics. On 06/26, after all pain meds and anti-anxiety meds removed, pt is now wide awake and calling out again "Help me" intermittently throughout the day. Subjective: awake, alert, denies pain, inattentive, keeps calling out "help me " even when people in room attending her. Objective: HEENT: PERRL, EOMI, sclera clear, mucosa dry Lungs: decreased breath sounds Heart: S1,S2, no murmur Abdomen: flat, nontender, positive bowel sounds Extremities: moves all four extremities, no edema Skin: warm, dry, no ecchymoses, no rashes, hands have 1+ edema. Labs & Imaging: U/A: 06/25, unremarkable CXR: 06/25 Lungs and pleura: Interstitium is prominent in bibasilar patchy airspace opacities are present suspicious for aspiration or pneumonia. No pleural effusion or pneumothorax. Mediastinum: Mediastinal contours appear normal. Heart size is normal. Bones and chest wall: No suspicious bony lesions. Overlying soft tissues appear unremarkable. Multiple osseous densities again seen about the right glenohumeral joint suspicious for intra-articular bodies. IMPRESSION: 1. Prominent interstitium and bibasilar patchy air space opacities suspicious for aspiration or pneumonia. 2. Multiple osseous densities likely to right glenohumeral intra-articular bodies. Dictated by: Masood Velasco RRA Interpreted: Ector Diaz MD on 06/25/2016 at 13:22 [facility],Melissa DIAZ Jun 27, 2016 13:11
[2016-06-27] MEDS ORDERED: Potassium Chloride 20 mEq SR Tablet PO STA (14:45)
--- NOTE | 2016-06-27 15:01 | PCM.DIMED ---
Winnie Gonzales DO 06/27/16 1501: Discharge Instructions Date of Service Jun 27, 2016 Dates of Hospitalization Jun 15, 2016 at 17:05 Discharge Diagnosis Discharge Diagnosis Possible aspiration pneumonia, not present on admission, ongoing Hypokalemia not present on admission, ongoing Hypertension, ongoing Dysphagia likely secondary to dementia, unknown chronicity, present on admission. Ongoing. Acute kidney injury, likely secondary to dehydration due to dementia, not present on admission. Ongoing. Acute urinary tract infection Due to unknown cause, with concomitant urinary incontinence. Dementia, chronicity unknown, ongoing Possible acute sigmoid diverticulitis, present on admission, resolved Recurrent hyponatremia, likely secondary to hypervolemia based on lab review. Recent diagnosis of influenza, Right leg pain, chronicity unknown. Low Back Pain, chronicity unknown Functional status Diet Other (dysphagis mechanical soft) Activity No restrictions Call your provider Fever or Chills, Shortness of breath, Bleeding, Chest pain, Vomitting, Excessive diarrhea, Weakness (unilateral) Patient Instructions You are being discharged back to [facility] You are prescribing some medications for you to help with your agitation. Please follow up with your primary care provider. Follow-up Provider: Karsten Rodríguez MD Follow-up with PCP in: 1 week Pravin Mars MD 07/05/16 1406: Winnie Gonzales DO Jun 27, 2016 15:01 Pravin Mars MD Jul 05, 2016 14:06
[2016-06-27] MEDS ORDERED: RISP1TAB90 PO (15:02)
--- NOTE | 2016-06-27 16:00 | NUR ---
Arranged S transport for [address] [facility], patient is returning to [facility]. Updated EMERGENCY ROOM CLINICIAN
--- NOTE | 2016-06-27 16:07 | NUR ---
Social Work: Discharge Data: Pt is on day 12 of hospitalization. EMR reviewed, d/c orders are in. PHYSICS TECHNICAL OFFICER spoke with [facility], specialist setting up BLS transportation for 4:30pm today through pt's [facility] benefit. PHYSICS TECHNICAL OFFICER spoke with pt's granddaughter and POA who is agreeable to plan, she also states she plans to appeal the [employer] Medicare denial of coverage for SNF stay for pt. PHYSICS TECHNICAL OFFICER updated RN, pt, pt's family, UA, and MD all updated and agreeable to plan. No further d/c planning needs anticipated at this time. PHYSICS TECHNICAL OFFICER will continue to follow if needs arise. Assessment: Pt from LTC. Plan: Pt will d/c via BLS at 4:30pm today to [facility]. No further d/c planning needs anticipated at this time. PHYSICS TECHNICAL OFFICER will continue to follow if needs arise. ARBEN Medina
--- NOTE | 2016-06-27 17:15 | NUR ---
Discharge Nursing Note: Patient was discharged to [facility] at 1715. Patient had no IV to discontinue. Patient was accidentally sent to [facility] with her Telemetry on and Nurse Martha will return the telemetry to the front desk lead of the [facility] emergency front desk lead tonight when she comes to pickle pumper lab work from the hospital. Patient was transported by S transport team to the SNF. Report was called to Martha the nurse taking over patient care at [facility].
--- NOTE | 2016-06-28 22:32 | PCM.DC.MED ---
Discharge Summary Date of Service Jun 28, 2016 Dates of Hospitalization Date of Hospital Admission Jun 15, 2016 at 17:05 Date of Discharge: Jun 27, 2016 Providers: Admitting Physician: Gracie Us MD Primary Care Physician: Karsten Rodríguez MD Attending Physician: Gracie Us MD Diagnosis at Time of Discharge Diagnosis at Time of Discharge Possible aspiration pneumonia, not present on admission, ongoing Hypokalemia not present on admission, ongoing Hypertension, ongoing Dysphagia likely secondary to dementia, unknown chronicity, present on admission. Ongoing. Acute kidney injury, likely secondary to dehydration due to dementia, not present on admission. Ongoing. Acute urinary tract infection Due to unknown cause, with concomitant urinary incontinence. Dementia, chronicity unknown, ongoing Possible acute sigmoid diverticulitis, present on admission, resolved Recurrent hyponatremia, likely secondary to hypervolemia based on lab review. Recent diagnosis of influenza, Right leg pain, chronicity unknown. Low Back Pain, chronicity unknown Functional status Procedures XRay, CTs & MRIs X-RAY LUMBAR SPINE, 2 OR 3 VIEW IMPRESSION: No fracture. No acute osseous lesion. If there are persistent symptoms or continued clinical suspicion for pathology, then MRI should be considered for further evaluation. Dictated by: Laurie Bansal MD, PhD on 06/16/2016 at 17:04 Approved by: Laurie Bansal MD, PhD on 06/16/2016 at 17:06 CT ABDOMEN AND PELVIS WITH CONTRAST IMPRESSION: 1. Reed colonic diverticulosis. Severe, circumferential wall thickening involving the sigmoid colon is noted in the region of multiple diverticula. Finding may represent chronic diverticulitis, however finding is nonspecific and if patient fails to respond to appropriate therapy for diverticulitis, then colonoscopy is recommended to exclude neoplastic process. 2. The appendix is normal. 3. No dilated loops of bowel. 4. Right adrenal myelolipoma is stable. 5. 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 6. Splenic hemangiomas stable. 7. Atherosclerosis including the visualized coronary vasculature. Dictated by: Laurie Bansal MD, PhD CT BRAIN WITHOUT CONTRAST IMPRESSION: 1. No acute posttraumatic changes. 2. Cerebral atrophy and chronic deep white matter ischemic changes. Dictated by: Will Zurita M.D. on 06/15/2016 at 15:19 Approved by: Will Zurita M.D. on 06/15/2016 at 15:22 X-RAY CHEST ONE VIEW, PORTABLE IMPRESSION: No acute cardiopulmonary findings. Dictated by: Amanda Bursh M.D. on 06/15/2016 at 14:08 Approved by: Amanda Brush M.D. on 06/15/2016 at 14:09 PROCEDURE: X-RAY CHEST ONE VIEW, PORTABLE ([id number]) INDICATIONS: cough TECHNIQUE: One view of the chest was acquired. COMPARISON: [facility], CR, XR CHEST 1VW (PORTABLE), 06/15/2016, 13: 52. FINDINGS: Surgical changes and devices: None. Lungs and pleura: Interstitium is prominent in bibasilar patchy airspace opacities are present suspicious for aspiration or pneumonia. No pleural effusion or pneumothorax. Mediastinum: Mediastinal contours appear normal. Heart size is normal. Bones and chest wall: No suspicious bony lesions. Overlying soft tissues appear unremarkable. Multiple osseous densities again seen about the right glenohumeral joint suspicious for intra-articular bodies. IMPRESSION: 1. Prominent interstitium and bibasilar patchy air space opacities suspicious for aspiration or pneumonia. 2. Multiple osseous densities likely to right glenohumeral intra-articular home Other Diagnostics US RENAL SONOGRAM IMPRESSION: 1. Right renal cyst and bilateral angiomyolipomas unchanged. Dictated by: Masood Velasco [facility] Interpreted: Sony Yao MD on 06/22/2016 at 14: 55 Transcribed by: FALLON on 06/22/2016 at 14:57 . Brief History 75-year-old female presenting with worse altered mental status from baseline dementia, treating for possible sigmoid diverticulitis. She has had frequent falls and increasing complaints of abdominal pain and back pain over the last 2- 3 weeks (since Jun 04). She tells her granddaughters repeatedly "something's wrong with me". She was recently treated for influenza at [facility]. There is no UTI or lactic acidosis. Her baseline includes being able to walk with her walker, needing reminders to use the walker; being able to feed herself and having a normal appetite, being fully continent of bowel and bladder. Hospital Course Fartun Goldberg is a 75-year-old female who presented to [facility] Emergency Department with acute change in mental status from baseline dementia. Hospital day #11 Possible aspiration pneumonia, not present on admission - CXR ordered demonstrating "prominent interstitium and bibasilar patchy air space opacities suspicious for aspiration or pneumonia" -Treated the patient with PO Levaquin and PO Flagyl. -Patient received 7 days of ciprofloxacin, and 8 days of Flagyl treatment Hypokalemia not present on admission -Patient was provided with 40 IV KCl twice -She required additional KCl IV and continued to have decreased potassium -40PO Kdur given on day of discharge, recommend outpatient follow up Hypertension -Patient had increasing blood pressures, that wass minimally responsive to IV labetalol. -Started the patient on 5 mg of amlodipine Dysphagia likely secondary to dementia, unknown chronicity, present on admission. -Witnessed patient unable to swallow liquids, and have coughing episode -No crackles have been auscultated on lung exam, but there is concern for aspiration Acute kidney injury, likely secondary to dehydration due to dementia, not present on admission. -Patient's creatinine trending down to 1.37, but still elevated on day of discharge -Renal US demonstrated right renal cyst and bilateral angiomyolipomas. Acute urinary tract infection Due to unknown cause, with concomitant urinary incontinence. -UA demonstrated positive Nitrate, and many bacteria -Urine culture, preliminary report stating coagulase negative staphylococcus( spp epidermidis) -Pt received ciprofloxacin for 7 days, which was initially prescribed to treat sigmoid diverticulitis along with Flagyl -Bacteria and urine was sensitive to Cipro, patient treated with levofloxacin Dementia, chronicity unknown, ongoing -Palliative care has been consulted-- current regimen includes 0.5 mg Risperdal 3 times a day, sertraline 50 mg daily, donepezil 10 mg daily at bedtime -Patient confused and continued to yell out at discharge -Pt meets criteria for Hospice per listed admission guidelines, but pt was denied Hospice Possible acute sigmoid diverticulitis, present on admission, resolved -Pt was on PO Flagyl and Cipro. -Stool cx negative. Recurrent hyponatremia, likely secondary to hypervolemia based on lab review. -Pt has appropriate oral intake Recent diagnosis of influenza, -Completed Tamiflu 5 day course Right leg pain, chronicity unknown. -Consider imaging, if pt reports worsening. Low Back Pain, chronicity unknown -Lumbar xray did not demonstrate any cause of the pain Functional status -Pt evaluated by Occupation Therapy, who felt that patient would benefit from discharge to SNF secondary to her functional deficits. Chronic issues known prior to admission, present on admission Cataracts Hypertension/hyperlipidemia Arthritis back, right hip joint replacement 2003, left hip replacement 2013 Diabetes types 2 Depression, anxiety recurrent hyponatremia since 2014 Progressive dementia Exam Vital Signs (Last) Date Time Temp Pulse Resp B/P Pulse Ox O2 Delivery O2 Flow Rate FiO2 06/27/16 11:20 36.6 22 98 Room Air 06/27/16 10:59 92 06/27/16 10:45 140/68 Exam General: Frail elderly female lying in bed HEENT: Normocephalic, atraumatic. External ears without defect. Cardiovascular: Regular rate and rhythm with no murmurs, rubs, or gallops appreciated Pulmonary: Clear to auscultation bilaterally with no crackles, wheezes, or rhonchi. Normal respiratory effort with no use of accessory muscles. Abdomen: Bowel tones present. Soft, nontender, nondistended. Extremities: No clubbing, cyanosis, edema appreciated. Skin: Normal temperature, turgor, and texture; no rash, ulcers, or subcutaneous nodules appreciated. Psychiatric: Patient is awake and alert, but is only oriented to self. Patient continues to yell "help" Test 06/15/16 14:07 06/15/16 17:12 06/15/16 22:30 06/16/16 00:55 Magnesium Level 1.7mg/dL (1.6-2.6) Ammonia 43ug/dL (18-53) Pro-B-Type Natriuretic Peptide 186.7pg/mL (0-738) Free Thyroxine Index 2.5 (1.2-4.9) Thyroxine (T4) 8.3ug/dL (4.5-12.0) Triiodothyronine (T3) Uptake 30% (24-39) Troponin T 0.010ug/L (0.0-0.011) Hold Sotelo Top Tube Received (Received) Lactic Acid Level 0.8mmol/L (0.4-2.0) Test 06/16/16 06:15 06/25/16 12:00 06/27/16 10:02 C-Reactive Protein 1.5mg/dL (0.0-0.5) Procalcitonin 0.05ng/mL (0.00-0.08) Urine Color Straw (YELLOW) Urine Appearance Clear (CLEAR,HAZY) Urine pH 6.5 (5.0-8.0) Urine Specific [place] 1.015 (1.003-1.035) Urine Protein Negativemg/dL (NEG,TRACE) Urine Glucose (UA) Negativemg/dL (NEGATIVE) Urine Ketones Negativemg/dL (NEGATIVE) Urine Occult Blood Trace (NEGATIVE) Urine Nitrite Negative (NEGATIVE) Urine Bilirubin Negative (NEGATIVE) Urine Urobilinogen Normalmg/dL (NORMAL) Urine Leukocyte Esterase Negative (NEGATIVE) Urine RBC 3-10/hpf (0-2) Urine WBC 0-5/hpf (0-5) Urine Epithelial Cells Occasional/hpf (NONE-MOD) Urine Crystals None seen (NONE SEEN) Urine Bacteria None/hpf (NONE-FEW) Urine Hyaline Casts None/lpf (NONE) Urine Granular Casts None seen (NONE SEEN) Urine Waxy Casts None seen (NONE SEEN) Urine Red Blood Cell Casts None seen (NONE SEEN) Urine White Blood Cell Casts None seen (NONE SEEN) Urine Mucus None seen (None Seen) Urine Trichomonas None seen (NONE SEEN) Urine Yeast None (NONE SEEN) Urinalysis Comment None Urine Culture Reflexed Not indicated White Blood Count 9.0th/mm3 (3.8-10.1) Red Blood Count 3.46mil/mm3 (3.90-5.20) Hemoglobin 9.3g/dL (12.0-15.6) Hematocrit 29.4% (35.0-46.0) Mean Corpuscular Volume 85.0fL (81-100) Mean Corpuscular Hemoglobin 26.9pg (27.0-35.0) Mean Corpuscular Hemoglobin Concent 31.6% (32.0-37.0) Red Cell Distribution Width 13.4% (12.3-15.4) Platelet Count 289bil/L (150-400) Neutrophils (%) (Auto) 72.2% (40-74) Lymphocytes (%) (Auto) 13.3% (14-46) Monocytes (%) (Auto) 12.2% (4-12) Eosinophils (%) (Auto) 1.6% (0-5) Basophils (%) (Auto) 0.4% (0-3) Sodium Level 144mEq/L (134-144) Potassium Level 3.2mEq/L (3.5-5.2) Chloride Level 104mEq/L (97-108) Carbon Dioxide Level 24mmol/L (18-29) Blood Urea Nitrogen 22mg/dL (8-27) Creatinine 0.97mg/dL (0.57-1.00) Estimat Glomerular Filtration Rate 80mL/min (>59) Glucose Level 150mg/dL (60-99) Calcium Level 8.3mg/dL (8.5-10.1) Total Bilirubin 0.3mg/dL (0.0-1.2) Aspartate Amino Transf (AST/SGOT) 20U/L (0-50) Alanine Aminotransferase (ALT/SGPT) 15U/L (0-32) Alkaline Phosphatase 53U/L (25-165) Total Protein 5.7g/dL (6.4-8.4) Albumin 3.4g/dL (3.4-5.0) Microbiology Results Stool PCR negative. Blood culture shows no growth after 5 days. Urine culture grew coag-negative Staphylococcus likely quality assurance representative of contaminate. . Discharge Medications Discharge Medications ([Metoprolol Tartrate]) 50 MG TABLET 50 MG PO BID Prescribed by: HENRY BAE MD Cholecalciferol (Vitamin D3) (Vitamin D3) 2,000 Unit Tablet 2,000 UNIT PO DAILY (Reported) Donepezil (Donepezil) 5 Mg Tablet 10 MG PO HS (Reported) Estradiol (Estrace) 42.5 Gm Cream.appl 2 G VG 2X/week (Reported) Folic Acid (Folic Acid) 0.8 Mg Tablet 0.4 MG PO DAILY (Reported) Lidocaine (Lidoderm) 700 Mg Adh..patch 1 PATCH TP DAILY (Reported) Losartan Potassium (Losartan Potassium) 100 Mg Tablet 100 MG PO DAILY (Reported ) Meloxicam (Meloxicam) 7.5 Mg Tablet 7.5 MG PO DAILY (Reported) Metformin HCl (Metformin HCl ER) 1,000 Mg [id number] 1,000 MG PO BID (Reported) Risperidone (Risperdal) 1 Mg Tablet 0.5 MG PO TID Prescribed by: MARTY ARTHUR DO Sertraline HCl (Sertraline) 20 Mg/1 Ml Oral.conc 75 MG PO DAILY (Reported) As needed ([house cough syrup]) 15-30 ML PO q6hrs PRN PRN For Cough (Reported) Acetaminophen (Acetaminophen) 325 Mg Tablet 650 MG PO Q4H PRN PRN For Pain ( Reported) Loperamide HCl (Imodium A-D) 2 Mg Capsule 2 MG PO Q4hrs PRN PRN For Diarrhea or Loose Stool (Reported) Magnesium Hydroxide (Milk of Magnesia) 400 Mg/5 Ml Oral.susp 30 ML PO DAILY PRN PRN For Constipation (Reported) Polyethylene Glycol 3350 (Miralax) 17 Gm Powd.pack 17 GM PO DAILY PRN PRN For Constipation (Reported) Sennosides (Senna) 8.6 Mg Tablet 17.2 MG PO DAILY PRN PRN For Constipation ( Reported) Followup Plan Discharge Diet: Other (dysphagis mechanical soft) Discharge Activity: No restrictions Patient Instructions You are being discharged back [facility] You are prescribing some medications for you to help with your agitation. Please follow up with your primary care provider. Follow-up Provider: Karsten Rodríguez MD Follow-up with PCP in: 1 week Time spent 35 minutes Attending Statement The patient was seen and examined together with Dr. Arthur on 06/27/2016 and I agree with the history, exam and plan as outlined in the note above. copies to: Karsten Rodríguez MD, Tara L DO Jun 28, 2016 22:31 Pravin Mars MD Jul 05, 2016 14:07
== END 2016-06-27 17:21 | DRG 391 ==
LOC: SED 13:31 → MPC 17:05
PROVIDERS: ADMIT Urology; ATTEND Urology
DX: K57.32 Diverticulitis of large intestine without perforation or abscess without bleeding (principal); J69.0 Pneumonitis due to inhalation of food and vomit; F05 Delirium due to known physiological condition; B37.0 Candidal stomatitis; E87.1 Hypo-osmolality and hyponatremia; N17.9 Acute kidney failure, unspecified; F03.90 Unspecified dementia, unspecified severity, without behavioral disturbance, psychotic disturbance, mood disturbance, and anxiety; R32 Unspecified urinary incontinence; I10 Essential (primary) hypertension; E78.5 Hyperlipidemia, unspecified; E11.9 Type 2 diabetes mellitus without complications; Z66 Do not resuscitate; Z96.643 Presence of artificial hip joint, bilateral; F32.9 Major depressive disorder, single episode, unspecified; F41.9 Anxiety disorder, unspecified; F17.200 Nicotine dependence, unspecified, uncomplicated; E86.0 Dehydration; J11.1 Influenza due to unidentified influenza virus with other respiratory manifestations; M79.604 Pain in right leg; M54.5 Low back pain; R13.19 Other dysphagia; E87.6 Hypokalemia

== ENCOUNTER 2016-07-06 10:48 | Inpatient (IN) | payer MEDICARE, MEDICAID ==
[~2016-07-06] VITALS: Ht 157.5 cm; Wt 50.2 kg
[2016-07-06] VITALS (14 sets, daily range): BP systolic 158–213; BP diastolic 65–98; PULSE 99–118; RESP 18–25; O2SAT 95–98
[~2016-07-06 10:48] MED LIST changes: +ACET325T51 PO; +DONE5TAB30 PO; +ESTR42.52 VG; -ESTRACE VAGINAL; +FOLI0.8T PO; -Hydrocodone/Acetaminophen PO; +LIDO700A6 TP; +LOPE-147 PO; +LOSA100T29 PO; -LOSA25TA21 PO; -LOV30 SUBQ; -LOVA40TA PO; +MAGN400O4 PO; +MELO-259 PO; +METF-778 PO; -METF10002 PO; -Nicotine TOPICAL; +POLY17PO6 PO; -QUET25TA PO; +RISP1TAB90 PO; +SENN-133 PO; +SERT20OR6 PO; -SERT50TA9 PO; -Senna/Docusate Sodium PO; -[UNRECOGNIZED DRUG - CODE] PO; +[UNRECOGNIZED DRUG - REMARK] PO
[2016-07-06 11:31] LABS: APPEARANCE,URINE HAZY (CLEAR,HAZY); COLOR,URINE YELLOW (YELLOW); OCCULT BLOOD,URINE SMALL (NEGATIVE)
[2016-07-06 11:32] LABS: UROBILINOGEN,URINE NORMAL (NORMAL)
[2016-07-06 11:34] LABS: BASOPHILS % (AUTO) 0.2 % (0-3); EOSINOPHILS % (AUTO) 0.6 % (0-5); MONOCYTES % (AUTO) 9.2 % (4-12); Mean Corpuscular Hemoglobin 27.3 pg (27.0-35.0); Mean Corpuscular Volume 87.3 fL (81-100); NEUTROPHILS % (AUTO) 75.1 % (40-74); Platelet Count 302 bil/L (150-400)
--- NOTE | 2016-07-06 11:35 | ED.REPORT ---
HPI-General Illness Date of Service Jul 06, 2016 ED Provider: Stephania Mortensen MD Nursing Notes Stated Complaint: DECREASE LOC/FEVER Chief Complaint: General Complaint Allergies: Coded Allergies: amoxicillin (Verified Allergy, Unknown, 07/06/16) clavulanic acid (Verified Allergy, Unknown, 07/06/16) codeine (Verified Allergy, Unknown, 07/06/16) erythromycin base (Verified Allergy, Unknown, 07/06/16) prednisone (Verified Allergy, Unknown, 07/06/16) simvastatin (Verified Allergy, Unknown, 07/06/16) General Time Seen by MD: 11:33 Physical Exam Vital Signs Vital Signs Date Time Temp Pulse Resp B/P Pulse Ox O2 Delivery O2 Flow Rate FiO2 07/06/16 11:15 38.4 117 18 169/79 95 Room Air Interpretation & Diagnostics Lab Results Interpretation Result Diagram: 07/06/16 1120 07/06/16 1120 Test 07/06/16 11:20 07/06/16 11:25 07/06/16 11:47 White Blood Count 14.5th/mm3 (3.8-10.1) Red Blood Count 3.70mil/mm3 (3.90-5.20) Hemoglobin 10.1g/dL (12.0-15.6) Hematocrit 32.3% (35.0-46.0) Mean Corpuscular Volume 87.3fL (81-100) Mean Corpuscular Hemoglobin 27.3pg (27.0-35.0) Mean Corpuscular Hemoglobin Concent 31.3% (32.0-37.0) Red Cell Distribution Width 14.1% (12.3-15.4) Platelet Count 302bil/L (150-400) Neutrophils (%) (Auto) 75.1% (40-74) Lymphocytes (%) (Auto) 14.6% (14-46) Monocytes (%) (Auto) 9.2% (4-12) Eosinophils (%) (Auto) 0.6% (0-5) Basophils (%) (Auto) 0.2% (0-3) Sodium Level 149mEq/L (134-144) Potassium Level 3.6mEq/L (3.5-5.2) Chloride Level 104mEq/L (97-108) Carbon Dioxide Level 30mmol/L (18-29) Blood Urea Nitrogen 31mg/dL (8-27) Creatinine 0.60mg/dL (0.57-1.00) Estimat Glomerular Filtration Rate 140mL/min (>59) Glucose Level 163mg/dL (60-99) Calcium Level 8.9mg/dL (8.5-10.1) Magnesium Level 1.7mg/dL (1.6-2.6) Total Bilirubin 0.5mg/dL (0.0-1.2) Aspartate Amino Transf (AST/SGOT) 17U/L (0-50) Alanine Aminotransferase (ALT/SGPT) 19U/L (0-32) Alkaline Phosphatase 73U/L (25-165) Troponin T < 0.010ug/L (0.0-0.011) Total Protein 6.8g/dL (6.4-8.4) Albumin 3.7g/dL (3.4-5.0) Urine Color Yellow (YELLOW) Urine Appearance Hazy (CLEAR,HAZY) Urine pH 6.0 (5.0-8.0) Urine Specific [place] 1.025 (1.003-1.035) Urine Protein 30mg/dL (NEG,TRACE) Urine Glucose (UA) Negativemg/dL (NEGATIVE) Urine Ketones Tracemg/dL (NEGATIVE) Urine Occult Blood Small (NEGATIVE) Urine Nitrite Positive (NEGATIVE) Urine Bilirubin Negative (NEGATIVE) Urine Urobilinogen Normalmg/dL (NORMAL) Urine Leukocyte Esterase Trace (NEGATIVE) Urine RBC 0-2/hpf (0-2) Urine WBC 11-50/hpf (0-5) Urine Epithelial Cells Occasional/hpf (NONE-MOD) Urine Crystals None seen (NONE SEEN) Urine Bacteria Moderate/hpf (NONE-FEW) Urine Hyaline Casts None/lpf (NONE) Urine Granular Casts None seen (NONE SEEN) Urine Waxy Casts None seen (NONE SEEN) Urine Red Blood Cell Casts None seen (NONE SEEN) Urine White Blood Cell Casts None seen (NONE SEEN) Urine Mucus Present (None Seen) Urine Trichomonas None seen (NONE SEEN) Urine Yeast Many (NONE SEEN) Urinalysis Comment None Urine Culture Reflexed Indicated Stephania Mortensen MD Jul 06, 2016 11:35
[2016-07-06] MEDS ORDERED: cefTRIAXone Inj 2,000 MG in Dextrose 5% Minibag Plus 50 ML IV ONE (11:40)
[2016-07-06] MEDS ORDERED: 0.9% Sodium Chloride 1,000 ML IV ONE (11:40)
[2016-07-06 11:43] LABS: YEAST,URINE MANY (NONE SEEN)
[2016-07-06 11:55] LABS: TROPONIN T < 0.010 ug/L (0.0-0.011)
[2016-07-06 12:02] LABS: Magnesium 1.7 mg/dL (1.6-2.6)
--- NOTE | 2016-07-06 12:31 | ED.REPORT ---
HPI-General Illness Date of Service Jul 06, 2016 ED Provider: Stephania Mortensen MD Patient is a 75 year old female w/ a hx of recent aspiration pneumonia, hypokalemia, HTN, dysphagia, dementia, and hyponatremia presents to the ED from [facility] in [facility] with her daughter and granddaughter due to decreased LOC for the past 3 when she was last at baseline. Associated symptoms include fever, trouble swallowing, increased weakness and confusion which have been increasing in severity over the past 2 months since multiple GLF in May and hospitalization in June. At the ED, the patient is somnolent and frequently calls out for, "help." She is unaware of other people in the room. The family wanted her transported to the hospital, they have been increasingly frustrated with the care provided at the center. She was admitted to [facility] from 06/15/16 - 06/17/16 due to hypokalemia, multiple GLF, and increasing confusion. Heart rate is 114 and she is unable to gvie hx or ROS. UA done that shows no growth at 48 hrs. Pt is DNR with limited intervention. Nursing Notes Stated Complaint: DECREASE LOC/FEVER Chief Complaint: General Complaint Nursing Notes Reviewed: Yes Allergies: Coded Allergies: amoxicillin (Verified Allergy, Unknown, 07/06/16) clavulanic acid (Verified Allergy, Unknown, 07/06/16) codeine (Verified Allergy, Unknown, 07/06/16) erythromycin base (Verified Allergy, Unknown, 07/06/16) prednisone (Verified Allergy, Unknown, 07/06/16) prednisone intensol/ corticosteroids simvastatin (Verified Allergy, Unknown, 07/06/16) Scheduled Atorvastatin (Lipitor) 20 Mg Tablet 20 MG PO HS Cholecalciferol (Vitamin D3) (Vitamin D3) 2,000 Unit Tablet 2,000 UNIT PO DAILY Donepezil (Donepezil) 5 Mg Tablet 10 MG PO HS Folic Acid (Folic Acid) 0.8 Mg Tablet 0.4 MG PO DAILY Lidocaine (Lidoderm) 700 Mg Adh..patch 1 PATCH TP DAILY Losartan Potassium (Losartan Potassium) 100 Mg Tablet 100 MG PO DAILY Metformin HCl (Metformin HCl ER) 1,000 Mg [id number] 1,000 MG PO BID Metoprolol Tartrate (Metoprolol Tartrate) 50 Mg Tablet 50 MG PO BID Nut.tx.,Elemental,Lac-Free/Mct (Xtracal Plus Liquid Packet) 45 Ml Liquid.pkt 45 ML PO TIDWM Potassium Chloride (Potassium Chloride Powder) 20 Meq Packet 20 MEQ PO DAILY DISSOVE CONTENTS OF PACKET IN FULL GLASS OF WATER AND DRINK ONCE DAILY. TAKE WITH FOOD Risperidone (Risperdal) 1 Mg Tablet 0.5 MG PO TID Sertraline HCl (Sertraline) 20 Mg/1 Ml Oral.conc 75 MG PO DAILY Scheduled PRN ([house cough syrup]) 15-30 ML PO q6hrs PRN PRN For Cough Acetaminophen (Acetaminophen) 325 Mg Tablet 650 MG PO Q4H PRN PRN For Pain Albuterol Neb Soln (Albuterol Neb Soln) 0.63 Mg/3 Ml Vial.neb 0.63 MG INHALATION Q4H PRN PRN For Shortness of Breath Loperamide HCl (Imodium A-D) 2 Mg Capsule 2 MG PO Q4hrs PRN PRN For Diarrhea or Loose Stool Lorazepam (Ativan) 0.5 Mg Tablet 0.25 MG PO QID PRN PRN For Anxiety or Agitation Magnesium Hydroxide (Milk of Magnesia) 400 Mg/5 Ml Oral.susp 30 ML PO DAILY PRN PRN For Constipation Polyethylene Glycol 3350 (Miralax) 17 Gm Powd.pack 17 GM PO DAILY PRN PRN For Constipation Sennosides (Senna) 8.6 Mg Tablet 17.2 MG PO DAILY PRN PRN For Constipation Tramadol (Tramadol) 50 Mg Tablet 100 MG PO Q6H PRN PRN For Pain hydrOXYzine Hcl (HydrOXYzine Hcl) 25 Mg Tablet 25 MG PO TID PRN PRN For Itching General Time Seen by MD: 11:33 Chief Complaint Fever Hx Obtained From: Daughter, Other family... (Granddaughter) Arrived By: Walk-in Sudden in Onset?: Yes Onset Occurred: 3 days ago Symptom Duration: Since onset Recent Healthcare: Recent doctor visit, Recent hospitalization Similar Sx Previous: Yes Past Medical History Past Medical History recent aspiration pneumonia hypokalemia hyponatremia hypokalemia diverticulosis Reports: Hypertension Reports: Dementia Smoking History Current Every Day Smoker Review of Systems Unable to Obtain ROS Patient condition Physical Exam Vital Signs Vital Signs Date Time Temp Pulse Resp B/P Pulse Ox O2 Delivery O2 Flow Rate FiO2 07/06/16 15:45 114 24 182/82 98 Room Air 07/06/16 13:00 107 20 166/73 97 Room Air 07/06/16 12:30 108 21 158/72 97 Room Air 07/06/16 12:00 114 24 171/65 97 Room Air 07/06/16 11:30 117 24 161/76 95 Room Air 07/06/16 11:15 38.4 117 18 169/79 95 Room Air 07/06/16 11:00 117 24 168/67 95 Room Air Initial VS: Reviewed Head / Eyes: Atraumatic, Normocephalic, PERRL ENT: Mucous membranes moist, Conjunctiva normal, No scleral icterus Neck: Supple, Non-tender, Full range of motion Respiratory: Breath sounds normal, Clear to auscultation, No respiratory distress Abdomen / GI: Soft, Non-tender, No guarding, No rebound, No distention Extremities: Vascular intact, Neuro intact, No swelling, No tenderness Alertness: Positive: Confused, Somnolent Head / Eyes: Atraumatic, Normocephalic Heart Rate / Rhythm: Positive: Tachycardia Mental Status: Positive: Somnolent, Unresponsive right sided facial droop Interpretation & Diagnostics Lab Results Interpretation Result Diagram: 07/06/16 1120 07/06/16 1120 Test 07/06/16 11:20 07/06/16 11:25 07/06/16 11:47 White Blood Count 14.5th/mm3 (3.8-10.1) Red Blood Count 3.70mil/mm3 (3.90-5.20) Hemoglobin 10.1g/dL (12.0-15.6) Hematocrit 32.3% (35.0-46.0) Mean Corpuscular Volume 87.3fL (81-100) Mean Corpuscular Hemoglobin 27.3pg (27.0-35.0) Mean Corpuscular Hemoglobin Concent 31.3% (32.0-37.0) Red Cell Distribution Width 14.1% (12.3-15.4) Platelet Count 302bil/L (150-400) Neutrophils (%) (Auto) 75.1% (40-74) Lymphocytes (%) (Auto) 14.6% (14-46) Monocytes (%) (Auto) 9.2% (4-12) Eosinophils (%) (Auto) 0.6% (0-5) Basophils (%) (Auto) 0.2% (0-3) Sodium Level 149mEq/L (134-144) Potassium Level 3.6mEq/L (3.5-5.2) Chloride Level 104mEq/L (97-108) Carbon Dioxide Level 30mmol/L (18-29) Blood Urea Nitrogen 31mg/dL (8-27) Creatinine 0.60mg/dL (0.57-1.00) Estimat Glomerular Filtration Rate 140mL/min (>59) Glucose Level 163mg/dL (60-99) Calcium Level 8.9mg/dL (8.5-10.1) Magnesium Level 1.7mg/dL (1.6-2.6) Total Bilirubin 0.5mg/dL (0.0-1.2) Aspartate Amino Transf (AST/SGOT) 17U/L (0-50) Alanine Aminotransferase (ALT/SGPT) 19U/L (0-32) Alkaline Phosphatase 73U/L (25-165) Troponin T < 0.010ug/L (0.0-0.011) Total Protein 6.8g/dL (6.4-8.4) Albumin 3.7g/dL (3.4-5.0) Urine Color Yellow (YELLOW) Urine Appearance Hazy (CLEAR,HAZY) Urine pH 6.0 (5.0-8.0) Urine Specific [place] 1.025 (1.003-1.035) Urine Protein 30mg/dL (NEG,TRACE) Urine Glucose (UA) Negativemg/dL (NEGATIVE) Urine Ketones Tracemg/dL (NEGATIVE) Urine Occult Blood Small (NEGATIVE) Urine Nitrite Positive (NEGATIVE) Urine Bilirubin Negative (NEGATIVE) Urine Urobilinogen Normalmg/dL (NORMAL) Urine Leukocyte Esterase Trace (NEGATIVE) Urine RBC 0-2/hpf (0-2) Urine WBC 11-50/hpf (0-5) Urine Epithelial Cells Occasional/hpf (NONE-MOD) Urine Crystals None seen (NONE SEEN) Urine Bacteria Moderate/hpf (NONE-FEW) Urine Hyaline Casts None/lpf (NONE) Urine Granular Casts None seen (NONE SEEN) Urine Waxy Casts None seen (NONE SEEN) Urine Red Blood Cell Casts None seen (NONE SEEN) Urine White Blood Cell Casts None seen (NONE SEEN) Urine Mucus Present (None Seen) Urine Trichomonas None seen (NONE SEEN) Urine Yeast Many (NONE SEEN) Urinalysis Comment None Urine Culture Reflexed Indicated Lactic Acid Level 1.0mmol/L (0.4-2.0) ECG Interpretation Time: 11:18 Interpreted by: ED physician Rhythm / Conduction: Tachycardia (116) Re-Eval/Medical Decision Med Decision/Clinical Course A long discussion with granddaughter who is power of attorney law clerk as well as patient's daughter. They are frustrated with her significant progression of symptoms in the last month with recurrent admissions agitation and not feeling that she is receiving care needed. In reviewing symptoms she very likely did have a stroke at the end of May causing some cognitive deficits D swallowing difficulties as well as the repeated falling. She has had recurrent episodes of with likely aspiration pneumonia and continued episodes of acute delirium with agitation. She is responded somewhat to medications however there been high doses and rapid changes Daughter and granddaughter are very invested in making sure the quality of life and goals of care are appropriate there concerned that she was doing well month ago and want to make sure that this truly is a final decline before they consider comfort care measures only. Interested in additional period care consult, treatment of current pneumonia, evaluation for stroke about a month ago with continued right-sided symptoms. Long discussion of pathophysiology of stroke with recurrent infections and slow stepwise decline of function in such setting all questions answered to be admitted to the hospitalist concerns shared including request for palliative care consult Time of Eval: 14:30 Patient Status: Condition unchanged Re-Evaluation/Progress Note: Long discussion with family on treatment options. Counseled Regarding: Diagnosis, Lab results, Need for follow-up, When/why to return to ED Discharge & Departure Primary Impression: Aspiration pneumonia Aspiration pneumonia type: unspecified Laterality: unspecified laterality Lung location: unspecified part of lung Qualified Code: J69.0 - Pneumonitis due to inhalation of food and vomit Additional Impressions: Stroke CVA mechanism: unspecified Qualified Code: I63.9 - Cerebral infarction, unspecified Dementia Dementia type: unspecified type Dementia behavioral disturbance: without behavioral disturbance Qualified Code: F03.90 - Unspecified dementia without behavioral disturbance Disposition: Home Discharge Condition All VS Reviewed: Yes Condition: Stable Scribe Attestation Portion of this note were transcribed by Nikki Hernandez. IDr. Mortensen, personally performed the history, physical exam, and medical decision-making: I reviewed and confirmed the accuracy for the information in the transcribed note. Signed by: rahul Lobo, 07/06/16 1500 Stephania Mortensen MD Jul 06, 2016 12:31 NIKKI HERNANDEZ Jul 06, 2016 12:38
[2016-07-06] MEDS ORDERED: ATOR20TA PO (15:56)
[2016-07-06] MEDS ORDERED: METO50TA3 PO (15:56)
[2016-07-06] MEDS ORDERED: HYDR-656 PO (15:59)
[2016-07-06] MEDS ORDERED: TRAM50TA2 PO (15:59)
[2016-07-06] MEDS ORDERED: ALBU0.63 INHALATION (15:59)
[2016-07-06] MEDS ORDERED: LORA-302 PO (15:59)
[2016-07-06] MEDS ORDERED: POTA20PA12 PO (16:00)
[2016-07-06] MEDS ORDERED: [UNRECOGNIZED DRUG - CODE] PO (16:00)
[2016-07-06] MEDS ORDERED: Ondansetron 2 mg/mL 2 mL Inj IVPUSH PRN (17:05)
[2016-07-06] MEDS ORDERED: Polyethylene Glycol (PEG) 17 Gm Powder PO PRN (17:05)
[2016-07-06] MEDS: Lactated Ringer's 1,000 ML IV SCH (18:23)
[2016-07-06] MEDS ORDERED: Piperacillin-Tazo 3.375 Gm Inj 3.375 GM in Dextrose 5% Minibag Plus 50 ML IV SCH (18:35)
[2016-07-06] MEDS: Cefepime Inj 2,000 MG in Dextrose 5% Minibag Plus 100 ML IV SCH (20:25)
--- NOTE | 2016-07-06 21:26 | PCM.HPMED ---
Subjective Date of Service Jul 06, 2016 Primary Provider: Admitting Physician: Daisy Baron MD Primary Care Physician: Patti Loera Attending Physician: Daisy Baron MD Chief Complaint: lethargy, fever History of Present Illness: 75yo F w/ recent prolonged hospitalizations 2/3-15 with worsening mental status , diverticulitis, NOÉ, possible UTI, aspiration pneumonia p/w fever, lethargy History was obtained by Granddaughter at the bedside. Since pt was discharged, pt's MS was not back to baseline, wax and wane.However, at some point, pt was able to communicate with her family, friends. Pt was able eat 40% of meals with assistance, having persistent loose stools. Then 3days SNOW SHOVELER, pt had low grade temp, then since yesterday, pt became more lethargic, had [id number] today,pt was sent to ED per family's wishes. Pt didn't have cough, sputum, was not on love cath, no nausea, vomiting noticed. No seizure like activities observed. per EMS , VS BP 160s, [id number], 96% on RA. Of note, According to previous note, prior to previous hospitalization, At baseline pt is functional walking with walker, being able to feed herself despite baseline dementia, pt got treated with influenza, also had frequent falls and back pain. Palliative care were consulted in last hospitalization, code status remained DNR/DNI/okay with IVF, abx. this was confirmed again with granddaughter today. On arrival to ED, VS 168/87, 107, 20, 97% on RA, then became febrile up to 38.3. labs showed new leukocytosis, hypernatremia, positive UA positive Nitrite/ leukEST/bacteria. EKG showed sinus , CXR unremarkable. pt received 1liter NS, [id number]. Review of Systems: Pertinent positives as noted in history of present illness. All other systems were reviewed and are negative Allergies Coded Allergies: amoxicillin (Verified Allergy, Unknown, 07/06/16) clavulanic acid (Verified Allergy, Unknown, 07/06/16) codeine (Verified Allergy, Unknown, 07/06/16) erythromycin base (Verified Allergy, Unknown, 07/06/16) prednisone (Verified Allergy, Unknown, 07/06/16) prednisone intensol/ corticosteroids simvastatin (Verified Allergy, Unknown, 07/06/16) Home Medications Scheduled Atorvastatin (Lipitor) 20 Mg Tablet 20 MG PO HS Cholecalciferol (Vitamin D3) (Vitamin D3) 2,000 Unit Tablet 2,000 UNIT PO DAILY Donepezil (Donepezil) 5 Mg Tablet 10 MG PO HS Folic Acid (Folic Acid) 0.8 Mg Tablet 0.4 MG PO DAILY Lidocaine (Lidoderm) 700 Mg Adh..patch 1 PATCH TP DAILY Losartan Potassium (Losartan Potassium) 100 Mg Tablet 100 MG PO DAILY Metformin HCl (Metformin HCl ER) 1,000 Mg [id number] 1,000 MG PO BID Metoprolol Tartrate (Metoprolol Tartrate) 50 Mg Tablet 50 MG PO BID Nut.tx.,Elemental,Lac-Free/Mct (Xtracal Plus Liquid Packet) 45 Ml Liquid.pkt 45 ML PO TIDWM Potassium Chloride (Potassium Chloride Powder) 20 Meq Packet 20 MEQ PO DAILY DISSOVE CONTENTS OF PACKET IN FULL GLASS OF WATER AND DRINK ONCE DAILY. TAKE WITH FOOD Risperidone (Risperdal) 1 Mg Tablet 0.5 MG PO TID Sertraline HCl (Sertraline) 20 Mg/1 Ml Oral.conc 75 MG PO DAILY Scheduled PRN ([house cough syrup]) 15-30 ML PO q6hrs PRN PRN For Cough Acetaminophen (Acetaminophen) 325 Mg Tablet 650 MG PO Q4H PRN PRN For Pain Albuterol Neb Soln (Albuterol Neb Soln) 0.63 Mg/3 Ml Vial.neb 0.63 MG INHALATION Q4H PRN PRN For Shortness of Breath Loperamide HCl (Imodium A-D) 2 Mg Capsule 2 MG PO Q4hrs PRN PRN For Diarrhea or Loose Stool Lorazepam (Ativan) 0.5 Mg Tablet 0.25 MG PO QID PRN PRN For Anxiety or Agitation Magnesium Hydroxide (Milk of Magnesia) 400 Mg/5 Ml Oral.susp 30 ML PO DAILY PRN PRN For Constipation Polyethylene Glycol 3350 (Miralax) 17 Gm Powd.pack 17 GM PO DAILY PRN PRN For Constipation Sennosides (Senna) 8.6 Mg Tablet 17.2 MG PO DAILY PRN PRN For Constipation Tramadol (Tramadol) 50 Mg Tablet 100 MG PO Q6H PRN PRN For Pain hydrOXYzine Hcl (HydrOXYzine Hcl) 25 Mg Tablet 25 MG PO TID PRN PRN For Itching PMH Past Medical/Surgical HX Cataracts Hypertension/hyperlipidemia Diverticulitis Endometriosis, left nephrectomy, tonsillectomy,carpal tunnel release UTI/nocturia Arthritis back, right hip joint replacement 2003, left hip replacement 2013 Diabetes types 2 Depression, anxiety recurrent hyponatremia since 2013 charcot yolie tooth FAMILY HX no diverticulitis SOCIAL HX smoking history quit 4 year ago Social History Hx Alcohol Use: No Hx Substance Use: No Smoking Status: Current Every Day Smoker Exam Vital Signs Vital Sign - Last Date Time Temp Pulse Resp B/P Pulse Ox O2 Delivery O2 Flow Rate FiO2 07/06/16 16:45 118 25 193/85 98 Room Air 07/06/16 16:29 38.3 Exam no JVD, dry MM, no LAD regular tachy, nl s1, s2 no mrg CTAB, no w,c S,ND,diffuse tenderness,hypoactive BS+ warm, no edema, pulses 06/14 neuro: drowsy, moving four extremities to painful stimuli, not following commands PERRLA, Lab and Diagnostics Result Diagram: 07/06/16 1120 07/06/16 1120 Assessment & Plan 75yo F w/ recent prolonged hospitalizations 2/3-15 with worsening mental status , diverticulitis, NOÉ, possible UTI, aspiration pneumonia p/w fever, lethargy acute, active acute on chronic encephalopathy, POA, multifactorial: underlying cognitive dysfunction, toxic metabolic-sepsis, cannot exclude stroke, non-convulsive seizure, 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 -s/p Ceftriaxone in ED, pt had breakthrough fever several hrs afterwards, became more tachy, therefore broadened abx to cefepime and flagyl -continue [id number] -bolus target MAP>65 -would consider LP if pt remains altered. -FU infectious w/u, BCX, UCX, will get respiratory PCR mild hypernatremia, POA, likely free water loss due to dehydration, monitor with IVF for now chronic, stable Hypertension/hyperlipidemia hx of recent Diverticulitis, POA, given tender abdomen, will consider CT abd with con when pt is more stable Arthritis back, right hip joint replacement 2003, left hip replacement 2013 Diabetes types 2, POA, RISS while NPO Depression, anxiety, hold antidepressant, anti-psychotics recurrent hyponatremia since 2013, not active charcot yolie tooth, stable on CT in last adm dispo:Patient will be admitted with inpatient status with expectation of inpatient therapy for more than 2 midnights diet:NPO, await swallow eval dvt ppx:HSQ DNR/DNI It seems DOPA, granddaughter has high hopes that pt will improve significantly, discussed that pt may not improve even after sepsis clears, she seemed to understand that we should set the goal realistically if she remains unchanged on this admission. Hospice/comfort measures were not brought up yet. Time spent 65min Drea East MD Jul 06, 2016 17:08
[2016-07-06] MEDS: Acetaminophen IV 1,000 MG in IV Premix 1 EACH IV PRN (21:41)
[2016-07-06] MEDS: Labetalol 5 mg/mL 4 mL Inj IVPUSH PRN ×2 (22:03→23:38)
[2016-07-06] MEDS: Heparin 5,000 Unit/mL Inj SUBQ SCH (22:10)
[2016-07-06] MEDS: metroNIDAZOLE Inj 500 MG in IV Premix 1 EACH IV SCH (22:19)
[2016-07-07] VITALS (20 sets, daily range): BP systolic 146–211; BP diastolic 65–96; PULSE 88–117; RESP 16–28; O2SAT 93–100
--- NOTE | 2016-07-07 02:18 | NUR ---
Fever Patient had temp of 100.9 Axillary. BP elevated 180's systolic. MD notified. new order for IV Tylenol and to give ordered cefepime AB. No new orders for BP at this time. MD aware of patients allergy to amoxicillin and would like to continue with cefepime.
--- NOTE | 2016-07-07 02:21 | NUR ---
BP Patients BP elevated 205 systolic HR 110's. notified. new order for IV labetalol for Systolic greater than 190. patient was given labetalol x2 this shift 1 hour apart. BP currently 170's systolic. HR 90's. will continue to monitor
[2016-07-07] MEDS: Labetalol 5 mg/mL 4 mL Inj IVPUSH PRN (04:38)
[2016-07-07] MEDS: Lactated Ringer's 1,000 ML IV SCH ×3 (04:39→23:41)
[2016-07-07] MEDS: Acetaminophen IV 1,000 MG in IV Premix 1 EACH IV PRN (05:01)
[2016-07-07] MEDS: metroNIDAZOLE Inj 500 MG in IV Premix 1 EACH IV SCH ×3 (05:24→23:41)
--- NOTE | 2016-07-07 05:45 | NUR ---
LOC PT will respond to name by occasionally opening eyes. Not aware of time/place. Pt will periodically call out "Help" even when you are in the room with her, she doesn't respond to your response for aid after that.
[2016-07-07] MEDS: Cefepime Inj 2,000 MG in Dextrose 5% Minibag Plus 100 ML IV SCH ×3 (06:29→17:15)
--- NOTE | 2016-07-07 07:22 | NUR ---
BP Patients BP elevated 213 systolic HR 110's. Patient was given IV labetalol 20mg. 30 minutes later patient BP remains elevated 180's-190's systolic. Paged MD to get BP medication with better coverage for patient. No response. Will continue to monitor and pass on to next shift.
[2016-07-07 08:28] LABS: BASOPHILS % (AUTO) 0.3 % (0-3); EOSINOPHILS % (AUTO) 0.5 % (0-5); MONOCYTES % (AUTO) 9.5 % (4-12); Mean Corpuscular Hemoglobin 26.9 pg (27.0-35.0); Mean Corpuscular Volume 83.4 fL (81-100); NEUTROPHILS % (AUTO) 73.7 % (40-74); Platelet Count 296 bil/L (150-400)
[2016-07-07] MEDS ORDERED: cefTRIAXone Inj 2,000 MG in Dextrose 5% Minibag Plus 50 ML IV SCH (08:30)
[2016-07-07 09:09] LABS: Magnesium 1.7 mg/dL (1.6-2.6); Phosphorus 2.8 mg/dL (2.5-4.9)
[2016-07-07] MEDS: Vancomycin Dose per Pharmacist XX SCH (09:35)
[2016-07-07] MEDS ORDERED: Potassium Chloride Inj 30 MEQ in Dextrose 5% 250 ML IV ONE (09:35)
[2016-07-07] MEDS ORDERED: Vancomycin Serum Trough XX ONE (10:00)
[2016-07-07] MEDS ORDERED: Vancomycin Inj 1,000 MG in 0.9% Sodium Chloride 250 ML IV ONE (10:00)
--- NOTE | 2016-07-07 10:06 | PCM.CONPHA ---
Subjective lethargy, fever Objective Vital Signs Date Time Temp Pulse Resp B/P Pulse Ox O2 Delivery O2 Flow Rate FiO2 07/07/16 09:11 102 07/07/16 09:10 37.9 102 21 190/88 96 Room Air 07/07/16 07:54 38.2 92 22 199/84 100 Room Air 07/07/16 06:32 38.2 94 22 185/83 96 Room Air 07/07/16 05:57 117 07/07/16 05:08 95 185/77 07/07/16 04:32 37.3 106 28 211/79 95 Room Air 07/07/16 00:54 37.8 96 20 178/73 97 Room Air 07/06/16 23:37 37.5 99 202/90 97 07/06/16 22:17 106 198/89 07/06/16 22:00 38.1 111 20 207/98 95 Room Air 07/06/16 21:32 213/94 07/06/16 17:54 115 07/06/16 17:51 38.6 117 20 187/80 96 Room Air 07/06/16 16:45 118 25 193/85 98 Room Air 07/06/16 16:29 38.3 07/06/16 15:45 114 24 182/82 98 Room Air 07/06/16 13:00 107 20 166/73 97 Room Air 07/06/16 12:30 108 21 158/72 97 Room Air 07/06/16 12:00 114 24 171/65 97 Room Air 07/06/16 11:30 117 24 161/76 95 Room Air 07/06/16 11:15 38.4 117 18 169/79 95 Room Air 07/06/16 11:00 117 24 168/67 95 Room Air Intake and Output 07/05/16 07/06/16 07/07/16 00:00 00:00 00:00 Intake Total 1000 ml Balance 1000 ml Weight (Kilograms): 55.300 Height (Feet): 5 Height (Inches): 2.00 Test 07/06/16 11:20 07/06/16 11:25 07/06/16 11:47 07/07/16 08:23 Troponin T < 0.010ug/L (0.0-0.011) Procalcitonin 0.13ng/mL (0.00-0.08) Urine Color Yellow (YELLOW) Urine Appearance Hazy (CLEAR,HAZY) Urine pH 6.0 (5.0-8.0) Urine Specific [place] 1.025 (1.003-1.035) Urine Protein 30mg/dL (NEG,TRACE) Urine Glucose (UA) Negativemg/dL (NEGATIVE) Urine Ketones Tracemg/dL (NEGATIVE) Urine Occult Blood Small (NEGATIVE) Urine Nitrite Positive (NEGATIVE) Urine Bilirubin Negative (NEGATIVE) Urine Urobilinogen Normalmg/dL (NORMAL) Urine Leukocyte Esterase Trace (NEGATIVE) Urine RBC 0-2/hpf (0-2) Urine WBC 11-50/hpf (0-5) Urine Epithelial Cells Occasional/hpf (NONE-MOD) Urine Crystals None seen (NONE SEEN) Urine Bacteria Moderate/hpf (NONE-FEW) Urine Hyaline Casts None/lpf (NONE) Urine Granular Casts None seen (NONE SEEN) Urine Waxy Casts None seen (NONE SEEN) Urine Red Blood Cell Casts None seen (NONE SEEN) Urine White Blood Cell Casts None seen (NONE SEEN) Urine Mucus Present (None Seen) Urine Trichomonas None seen (NONE SEEN) Urine Yeast Many (NONE SEEN) Urinalysis Comment None Urine Culture Reflexed Indicated Lactic Acid Level 1.0mmol/L (0.4-2.0) White Blood Count 11.9th/mm3 (3.8-10.1) Red Blood Count 3.38mil/mm3 (3.90-5.20) Hemoglobin 9.1g/dL (12.0-15.6) Hematocrit 28.2% (35.0-46.0) Mean Corpuscular Volume 83.4fL (81-100) Mean Corpuscular Hemoglobin 26.9pg (27.0-35.0) Mean Corpuscular Hemoglobin Concent 32.3% (32.0-37.0) Red Cell Distribution Width 13.9% (12.3-15.4) Platelet Count 296bil/L (150-400) Neutrophils (%) (Auto) 73.7% (40-74) Lymphocytes (%) (Auto) 15.4% (14-46) Monocytes (%) (Auto) 9.5% (4-12) Eosinophils (%) (Auto) 0.5% (0-5) Basophils (%) (Auto) 0.3% (0-3) Sodium Level 143mEq/L (134-144) Potassium Level 3.1mEq/L (3.5-5.2) Chloride Level 103mEq/L (97-108) Carbon Dioxide Level 25mmol/L (18-29) Blood Urea Nitrogen 21mg/dL (8-27) Creatinine 0.45mg/dL (0.57-1.00) Estimat Glomerular Filtration Rate 195mL/min (>59) Glucose Level 191mg/dL (60-99) Calcium Level 7.9mg/dL (8.5-10.1) Phosphorus Level 2.8mg/dL (2.5-4.9) Magnesium Level 1.7mg/dL (1.6-2.6) Total Bilirubin 0.4mg/dL (0.0-1.2) Aspartate Amino Transf (AST/SGOT) 46U/L (0-50) Alanine Aminotransferase (ALT/SGPT) 42U/L (0-32) Alkaline Phosphatase 67U/L (25-165) Total Protein 5.7g/dL (6.4-8.4) Albumin 3.3g/dL (3.4-5.0) Assessment/Plan Assessment/Plan Patient is an 75 y.o. female receiving vancomycin for PNEUMONIA. Concurrent abx include:flagyl,cefepime. WBC count is 13 and the patient is febrile. Patient is 55 kg, 62 inches tall with a SCr of 0.45 mg/dL-- estimated CrCl of 65 mL/min. Based on patient parameters vancomycin will be dosed at 750mg q12h with a target trough of 15-20 /mL. Trough will be drawn prior to the 4th dose on 07/08 @ 1900. Pharmacy will follow daily and adjust as appropriate. Thank you for the consult in the care of this patient. RTM PharmD Rolf Galesa Jul 07, 2016 10:06
[2016-07-07] MEDS ORDERED: Vancomycin Inj 1,000 MG in IV Premix 1 EACH IV ONE ×2 (10:18→10:19)
[2016-07-07] MEDS: Heparin 5,000 Unit/mL Inj SUBQ SCH ×2 (11:09→20:30)
[2016-07-07] MEDS ORDERED: MELO-259 PO (12:43)
[2016-07-07] MEDS ORDERED: SERT50TA9 PO (12:46)
--- NOTE | 2016-07-07 13:55 | DRSVH ---
PROCEDURE: CT BRAIN WITHOUT CONTRAST ([id number]) INDICATIONS: ABDOMINAL PAIN FEVER SUSPECT RECURRENT DIVERTICULI TECHNIQUE: Noncontrast 4.5 mm thick angled axial sections acquired from the foramen magnum to the vertex, with c oronal reformats. COMPARISON: [facility], CT, CT BRAIN WO CON, 06/15/2016, 15:02. FINDINGS: Image quality: Excellent. CSF spaces: Basal cisterns are patent. No extra-axial fluid collections. The ventricles are symmet bryon in size and shape. Brain: No intracranial bleeds or masses. There is cerebral volume loss for age, with resultant vent ricular and sulcal prominence. There are periventricular and deep white matter chronic small vessel ischemic changes. There is intracranial internal carotid artery atherosclerosis. Skull and face: Calvarium and visualized facial bones appear intact, without suspicious lesions. Sinuses: Visualized sinuses and mastoids are clear. IMPRESSION: Moderate microvascular atherosclerotic change in the deep white matter each hemisphere. No acute disease. Dictated by: Sony Yao M.D. on 07/07/2016 at 13:54 Approved by: Sony Yao M.D. on 07/07/2016 at 13:54
--- NOTE | 2016-07-07 13:58 | DRSVH ---
PROCEDURE: CT ABDOMEN AND PELVIS WITH CONTRAST ([id number]) INDICATIONS: ABDOMINAL PAIN FEVER SUSPECT RECURRENT DIVERTICULI TECHNIQUE: After the administration of intravenous contrast, 5 mm thick sections acquired from the diaphragm to the symphysis. 5 mm coronal and sagittal reformats were acquired. For radiation dose reduction, the following was used: automated exposure control, adjustment of mA and/or kV according to patient arjun baez. COMPARISON: [facility], CT, CT ABD PELVIS W CON, 06/15/2016, 15:41. FINDINGS: Image quality: Excellent. ABDOMEN: Lung bases: Lung bases are clear. Heart size is normal. Solid organs: Liver and spleen are normal in size and enhancement. Gallbladder has developed gallbl adder wall thickening subsequent to the 06/15/[address] scan. The gallbladder wall now measures be tween 5 and 6 mm in maximal thickness and there is slight pericolicystic edema in the adjacent fat. Biliary system is non dilated. Pancreas enhances normally. No adrenal nodules. Kidneys demonstrate normal size and enhancement, without hydronephrosis. Peritoneum and bowel: Bowel loops demonstrate normal wall thickness and caliber. No free fluid or a ir. Nodes and vessels: No retroperitoneal or mesenteric adenopathy by size criteria. Aorta and inferior vena cava are normal in size. Miscellaneous: No ventral hernias. PELVIS: Genitourinary: Bladder wall thickness is normal. Miscellaneous: No inguinal hernias or adenopathy. Quality of visualization of the lower pelvis is s omewhat limited by metal artifact from bilateral hip surgeries. Bones: No suspicious bony lesions. No vertebral body compression fractures. IMPRESSION: Acute cholecystitis is the likely cause for the new finding of gallbladder wall thickenin g not present earlier this month 06/15/16. Dictated by: Sony Yao M.D. on 07/07/2016 at 13:55 Approved by: Sony Yao M.D. on 07/07/2016 at 13:57
--- NOTE | 2016-07-07 14:52 | PCM.PNMED ---
Subjective Date of Service Jul 07, 2016 Subjective pt had breakthrough fever on cefepime, flagyl was added, MS seemed better this AM, AAOx1, followed some simple commands, kept febrile throughout today, CT showed acute baltazar, surgery consulted prelim UCX showed staph aureus, so vanc was added Exam Vital Signs Vital Sign - Last Date Time Temp Pulse Resp B/P Pulse Ox O2 Delivery O2 Flow Rate FiO2 07/07/16 13:11 38.0 100 18 192/96 97 Room Air Intake and Output 07/06/16 07/06/16 07/07/16 Cumulative From/Thru 15:00 23:00 07:00 07/06/16 13:12 - 07/07/16 05:57 Intake Total 1000 ml 828 ml 1828 ml Output Total 1325 ml 1325 ml Balance 1000 ml -497 ml 503 ml Intake Oral 0 ml 0 ml IV Total 1000 ml 828 ml 1828 ml Output Urine Total 1325 ml 1325 ml Exam no JVD, dry MM, no LAD regular tachy, nl s1, s2 no mrg CTAB, no w,c S,ND,diffuse tenderness,hypoactive BS+ warm, no edema, pulses 2/2 IVs and Medications Medications Reviewed: Medications were reviewed in detail Lab and Diagnostics Result Diagram: 07/07/1682207/07/16 0823 Assessment & Plan 75yo F w/ recent prolonged hospitalizations 2-15 with worsening mental status , diverticulitis, NOÉ, possible UTI, aspiration pneumonia p/w fever, lethargy acute, active acute on chronic encephalopathy, POA, multifactorial: underlying cognitive dysfunction, toxic metabolic-sepsis, medicine-induced. CTH no acute findings today. -MS seems to improve with medical tx, reassess qshift, -will hold off on all home HOISTMAN meds -given no brain MRI from prior hospitalization, no clear explanation of acute recent worsening of MS within 2mo, will consider MRI when pt can tolerate Sepsis, POA, SIRS+HR/RR/fever/wbc, source: likely acute cholecystitis, UTI based on CT, bowels were unremarkable at this time. -s/p Ceftriaxone in ED, pt had breakthrough fever several hrs afterwards, became more tachy, therefore broadened abx to cefepime and flagyl, will continue cover both infection. -vancomycin started 07/07 given UCX-staph, stop if negative for MRSA -continue [id number] -bolus target MAP>65 -would consider LP if pt remains altered. -FU infectious w/u, BCX, UCX, -appreciate surgery input mild hypernatremia, POA, likely free water loss due to dehydration,normalized. 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 diet:NPO, appreciate swallow eval dvt ppx:HSQ DNR/DNI, continue to discuss GOC Time spent 35min Drea East MD Jul 07, 2016 14:52
--- NOTE | 2016-07-07 15:19 | NUR ---
Social Work-initial assessment: Data:See initial assessment. Pt is a 75 y/o female who was admitted on 07/06/16 for pneumonia per H&P. Pt's insurance is [facility] and PCP is ANITA Hare.EMR reviewed. 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 Pt uses [facility] at baseline and does not drive. Pt has no HH history. Pt has no terminal make up operator care insurance or VA benefits. MAGDI spoke with Janeen Winston admissions at [facility] who confirms they will accept pt back at discharge. SW attempted to reach granddaughter Fabienne [phone], message left. Paperwork placed in the chart. SW will continue to follow. Assessment:Pt who is a terminal make up operator care pt at [facility]. Plan:Pt to discharge back to [facility] when medically stable. SW to follow up with granddaughter tomorrow. Paperwork placed in the chart. SW will continue to follow. ARBEN Serrato Addendum: 07/07/16 at 1523 by CANELO ROLLE Amended: Links added.
--- NOTE | 2016-07-07 15:38 | NUR ---
BP/Temp Blood pressure 190's/80-90, temp 37.9-38.2. Patient given IV Tylenol with minimal results. Labetalol given overnight with minimal results. Day hospitalist waiting for vancomycin infusion to give BP meds. Addendum: 07/07/16 at 1543 by CRAIG GOMEZ RN Patient seen by surgery. Will be having a baltazar today.
--- NOTE | 2016-07-07 16:08 | NUR ---
NUTRITION ASSESSMENT: ASSESS:75 YO female with recent prolonged hospitalizations 2/3-15 with worsening mental status, diverticulitis, NOÉ, possible UTI, aspiration pneumonia p/w fever, lethargy. Cholecystitis diagnosed; cholecystectomy planned for today. Patient with complicated medical history, resides at [facility]. Family reports pt. eats approximately 40% meals. PMHx:MS, cataracts, HTN, dyslipidemia, diverticulitis, endometriosis, left nephrectomy, carpal tunnel release, UTI, arthritis, type 2 diabetes, depression, anxiety, hyponatremia, charcot yolie tooth. DIET:NPO x 1 D. LABS: Reviewed. K+ 3.1, Cr 0.45, Glu 191, Ca 7.9, ALT 42, Alb 3.3, Procalcitonin 0.13. MEDICATIONS: Reviewed. NUTRITION FOCUSED PHYSICAL ASSESSMENT: GI symptoms / stool: Persistent loose stools.Roel: 15. Skin Integrity: No issues noted. ANTHROPOMETRICS: Current Wt: 55.3 kgBMI: 22.0 kg/m2. IBW: 50.0 kg (110.6% IBW) Weight loss: 1.1 kg x 3 weeks. ESTIMATED NEEDS (NOÉ): Calories: 1383 - 1659 kcal (25 - 35 kcal / kg BW) Protein: 33 - 44 g protein (0.6 - 0.8 g / kg BW) Fluid: 1659 mL (approx. 30 mL / kg BW) NUTRITION DIAGNOSIS: 1)Chewing / swallowing difficulties related to MS, as evidenced by requirement for modified diet texture per history. 2)Inadequate oral intake related to inability to consume sufficient energy, as evidenced by slow but steady weight loss. INTERVENTION: 1) Once diet advanced, will add supplements to trays. 2) Code status DNR / DNI and, as such, is not a likely candidate for PEG tube placement to mitigate long-term feeding issues. MONITOR/EVALUATE: Diet advance / tolerance, PO intake, labs, GI/nutrition status. Follow up per high nutrition risk guidelines.
--- NOTE | 2016-07-07 16:10 | NUR ---
took over care at 4pm
--- NOTE | 2016-07-07 16:12 | NUR ---
Order received for a swallow evaluation but pt now NPO for possible surgery. ST will f/u tomorrow for eval. Pt to remain NPO until evaluation is completed.
--- NOTE | 2016-07-07 16:45 | NUR ---
Patient to OR
[2016-07-07] MEDS ORDERED: Lactated Ringer's 1,000 ML IV ONE (17:00)
--- NOTE | 2016-07-07 17:00 | CONS ---
[address] [address] CONSULTATION REPORT PATIENT: HOWARD ORDAZ : 1940 MR#: [id number] ADMIT: 07/06/2016 JOB ID: [id number] DATE OF SERVICE: 07/07/2016 CHIEF COMPLAINT: Cholecystitis. HISTORY OF PRESENT ILLNESS: The patient is a 75-year-old female who was admitted to the hospital yesterday due to fever, lethargy, and worsening mental status. The patient was recently hospitalized in early June for treatment of diverticulitis. The patient returned to the hospital yesterday due to fever, progressive weakness and confusion, and has been having multiple ground level falls. The patient underwent a workup with a CT scan of the abdomen today and that showed gallbladder wall thickening consistent with acute cholecystitis. This finding was not seen on the CAT scan in early June. I was consulted by the hospitalist for evaluation. The patient does have some tenderness to palpation in the right upper quadrant. The patient's initial white blood count was 14.5 and today it is down to 11.9. The patient's total bilirubin was 0.5 yesterday and today it is will 0.4. PAST MEDICAL HISTORY: Cataract surgery, dementia, diverticulitis, endometriosis, tonsillectomy, arthritis, bilateral hip replacements, type 2 diabetes, history of hyponatremia. MEDICATIONS: At home include Lipitor, donepezil, losartan, metformin, metoprolol, potassium, Risperdal, sertraline. ALLERGIES: AMOXICILLIN, CODEINE, ERYTHROMYCIN BASE, PREDNISONE, AND SIMVASTATIN. SOCIAL HISTORY: The patient is a resident at the [facility] in [place]. She does have a daughter and granddaughter who act as her durable power of access specialist. REVIEW OF SYSTEMS: Positive for progressive weakness. There has been no nausea or vomiting. There is fever for the past two days. All other systems reviewed and were negative. PHYSICAL EXAMINATION: Patient currently in the hospital bed in no acute distress. Her BMI is 22.3. Temperature is 38, blood pressure 192/96, pulse is 100, respirations 18. Head is normocephalic, atraumatic. There is no scleral icterus. Neck is supple. Heart is regular. Lungs are clear. Abdomen is slightly obese. There is no tenderness in the lower quadrants, but on palpation of the epigastric and right upper quadrant location there is mild tenderness. Extremities show no clubbing or cyanosis. Neurologically, the patient does awake and she does answer a few simple questions. LABORATORY EXAMINATION: Showed a white count of 11.9, hematocrit 28.2, platelet count is 296. Sodium was 143, potassium 3.1, creatinine 0.45. Her total bilirubin was 0.4. ASSESSMENT: This is a 75-year-old female with acute cholecystitis. The patient has been started on IV antibiotics. Given the patient's DNI/DNR status, discussion was carried out with the patient's granddaughter and also family friends in terms of nonoperative management with IV antibiotics or percutaneous cholecystostomy tube versus proceeding to surgery. They will consider all the options and discuss with family and get back to me today. The patient should remain n.p.o. at this point. SYEDA
[2016-07-07 17:05] LABS: INR 1.26 ratio
--- NOTE | 2016-07-07 17:30 | NUR ---
Shift note Pt transferred back to room from PACU after having cholecystectomy done today @17:30. Pt was in pain and verbalizing discomfort. Family present. Talked with patients DPO her daughter about her concerns for the patients pain level and comfort and wanted us to keep her as comfortable as possible and provide pain Meds as prescribed. Pt given pain med and will continue to monitor pain level. Addendum: 07/08/16 at 0615 by SONJA WALTERS IV Infiltration left forearm IV D/c intact r/t infiltration of cefepime and LR. Pt anterior forearm cool to touch with trace pitting. Arm propped up on pillow to facilitate draining and warm blanket place over arm. A new IV was placed in the Left hand successfully.
[2016-07-07] MEDS ORDERED: Bupivacaine-MPF 0.5% W/EPI 30 mL Inj INFILTRATE ONE (17:37)
--- NOTE | 2016-07-07 18:07 | PCM.HPANE ---
Patient Data Surgeon Admitting Provider:Daisy Baron MD Attending Provider:Daisy Baron MD Primary Care Physician:Patti Loera Other Provider: Reason for Visit Asp Pneumonia, Failure To Thrive, Cva (1 Mnth Ago) Ht/WT & BMI Height (Feet): 5 Height (Inches): 2.00 Weight (Kilograms): 55.300 Body Mass Index 22.43 Allergies Coded Allergies: amoxicillin (Verified Allergy, Unknown, 07/06/16) clavulanic acid (Verified Allergy, Unknown, 07/06/16) codeine (Verified Allergy, Unknown, 07/06/16) erythromycin base (Verified Allergy, Unknown, 07/06/16) prednisone (Verified Allergy, Unknown, 07/06/16) prednisone intensol/ corticosteroids simvastatin (Verified Allergy, Unknown, 07/06/16) Past Anesthesia History Anesthesia History: Denies:: Anesthesia Reactions Diabetes History Hx Diabetes?: Yes (type 2 dx long time ago) Current Bedside Blood Glucose: 190 MRSA MRSA: No Medications Active Scripts Risperidone (Risperdal)1 Mg Tablet0.5 Mg PO TID #90 TABLET Prov:Winnie Gonzales L DO 06/27/16 Reported Medications Sertraline HCl (Sertraline)50 Mg Vsrmui92 Mg PO DAILY 30 Days Ref 0 07/07/16 Meloxicam 7.5 Mg Tablet7.5 Mg PO DAILY 30 Days Ref 0 07/07/16 Nut.tx.,Elemental,Lac-Free/Mct (Xtracal Plus Liquid Packet)45 Ml Liquid.pkt45 Ml PO TIDWM 07/06/16 Potassium Chloride (Potassium Chloride Powder)20 Meq Ocppja71 Meq PO DAILY DISSOVE CONTENTS OF PACKET IN FULL GLASS OF WATER AND DRINK ONCE DAILY. TAKE WITH FOOD 07/06/16 hydrOXYzine Hcl (HydrOXYzine Hcl)25 Mg Wfphqd45 Mg PO TID PRN For Itching 07/06/16 Tramadol 50 Mg Fduwrw514 Mg PO Q6H PRN For Pain 07/06/16 Albuterol Neb Soln 0.63 Mg/3 Ml Vial.neb0.83 Mg INHALATION Q4H PRN For Shortness of Breath 07/06/16 Atorvastatin (Lipitor)20 Mg Izxrhl06 Mg PO HS 07/06/16 Metoprolol Tartrate 50 Mg Qopzzk30 Mg PO BID 07/06/16 Metformin HCl (Metformin HCl ER)1,000 Mg Mtzfwjk35c1,000 Mg PO BID 06/15/16 [house cough syrup] No Conflict Yqokg04-47 Ml PO q6hrs PRN For Cough 06/15/16 Loperamide HCl (Imodium A-D)2 Mg Capsule2 Mg PO Q4hrs PRN For Diarrhea or Loose Stool 06/15/16 Sennosides (Senna)8.6 Mg Ylydih85.2 Mg PO DAILY PRN For Constipation 06/15/16 Magnesium Hydroxide (Milk of Magnesia)400 Mg/5 Ml Oral.susp30 Ml PO DAILY PRN For Constipation 06/15/16 Lidocaine (Lidoderm)700 Mg Adh..patch1 Patch TP DAILY 06/15/16 Folic Acid 0.8 Mg Tablet0.4 Mg PO DAILY 06/15/16 Donepezil 5 Mg Cujteg29 Mg PO HS 06/15/16 Polyethylene Glycol 3350 (Miralax)17 Gm Powd.pack17 Gm PO DAILY PRN For Constipation 06/15/16 Acetaminophen 325 Mg Zchfom007 Mg PO Q4H PRN For Pain 06/15/16 Losartan Potassium 100 Mg Mgxfbr819 Mg PO DAILY 06/15/16 Cholecalciferol (Vitamin D3) (Vitamin D3)2,000 Unit Tablet2,000 Unit PO DAILY 01/19/14 Discontinued Reported Medications Lorazepam (Ativan)0.5 Mg Tablet0.25 Mg PO QID PRN For Anxiety or Agitation 07/06/16 Sertraline HCl (Sertraline)20 Mg/1 Ml Oral.conc75 Mg PO DAILY 06/15/16 Estradiol (Estrace)42.5 Gm Cream.appl2 G VG 2X/week 06/15/16 Meloxicam 7.5 Mg Tablet7.5 Mg PO DAILY 06/15/16 Discontinued Scripts [Metoprolol Tartrate] (Lopressor)50 MG TABLET No Conflict Check50 Mg PO BID 30 Days Prov:Mendez Arias MD 01/25/14 History History of ENT Problems?: Yes HEENT History: Positive for:: Cataracts (surgery 2014) Denies:: Dysphagia Hx of Heart Problems?: Yes Cardiovascular History: Positive for:: Hypertension Denies:: Cardiac Surgery Chest Pain Congestive Heart Failure Edema Heart Murmur Irregular Heartbeat Pacemaker Thrombophlebitis Other Cardiac History: HLD Hx of Respiratory Problem?: Yes Respiratory History: Positive for:: Dyspnea Pneumonia (current admit dx: aspiration pneumonia) Hx Neurologic Problems?: Yes Neurological History: Positive for:: CVA (current admitting dx) Dementia (dx 2016) Denies:: Alzheimer's Disease Dizziness Headaches Seizures 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 Hx Musculoskeletal Problems?: Yes Musculoskeletal History: Positive for:: Back Injury (back pain ) Joint Replacement (rt hip 2013 L hip prior to-d/t falls) Musculoskeletal Trauma (rt and lt hip fracture ) Hx of Psycho/Social Problems?: Yes Psycho Social History: Positive for:: Anxiety Hx Depression (suicidal ideation ,no attempts or plan-after spouse ) Denies:: Bipolar Disorder Suicide Attempt Hx Surgeries?: Yes (OVARIES,TONSILECTOMY,CARPAL TUNNEL RT WRIST, rt hip) Hx Any Other Health Problems?: Yes Other History: Positive for:: Hospitalization (rt hip fx, lt hip fx, ) Denies:: Cancer Thyroid Disease History Blood Transfusions: Denies:: Blood Transfuse Reaction Blood Transfusions Hx Diabetes: Yes (type 2 dx long time ago)Bedside Blood Glucose: 190 Hx Alcohol Use: NoHx Substance Use: No Smoking Status: Current Every Day Smoker Have You Smoked inLast 12 mo: No Stop/Bang Treated for Sleep Apnea?: No Do You Have a CPAP Machine?: No S-Snoring: Do You Snore Loudly: No T-Tired: feel tired, fatigued: Yes O-Obsered: Observed not breath: No P-Blood Pressure: treated: Yes B- Body Mass Index > 35 kg/m2: No A- Age over 50: Yes N- Neck Large Circumference: No G- Gender Male: No CARISSA Total Score: 2 Risk Assessment Category Category 1A: Patient has history of documented sleep apnea, and HAS NOT received any narcotic, sedative or anesthesia administration during this stay. Category 1B: Patient has history of documented sleep apnea, and HAS received any narcotic , sedative or anesthesia administration during this stay Category 2: Patient has SUSPECTED Obstructive Sleep Apnea, and HAS received any narcotic , sedative or anesthesia administration during this stay. Category 3: Patient has SUSPECTED Obstructive Sleep Apnea and HAS NOT received narcotic, sedative or anesthesia administration during this stay. Category 4: Outpatient in Procedural Areas with known sleep apnea or who screen positive for High Risk via the STOP/BANG questionnaire. Exam Exam Vital Signs Vital Signs Date Time Temp Pulse Resp B/P Pulse Ox O2 Delivery O2 Flow Rate FiO2 07/07/16 13:11 38.0 100 18 192/96 97 Room Air 07/07/16 09:11 102 07/07/16 09:10 37.9 102 21 190/88 96 Room Air General Appearance: Alert, Cooperative, No Acute Distress HEENT/AIRWAY: MP 2 (very dry mouth with inspussated phlegm in posterior pharynx ) Lungs: Clear to Auscultation, Normal Air Movement Heart: Exam Unremarkable, Regular Rate/Rhythm, No Murmurs/Rubs/Gallops Meds/Labs/Diagnostics Admission Meds Current Medications Heparin Sodium (Porcine) 5000 unit 5,000 unit Q12 SUBQ Last administered on 11:09; Start 07/06/16 at 20:30 Lactated Ringer's 1,000 ml @ 100 mls/hr Q10H IV Last administered on 04:39; Start 07/06/16 at 17:02 Cefepime HCl 2000 mg/Dextrose/Water 100 ml @ 25 mls/hr Q8H IV Last administered on 07/07/16 06:29; Start 07/06/16 at 21:00 Metronidazole/ Sodium Chloride 500 mg/Premix 100 ml @ 200 mls/hr Q8H IV Last administered on 07/07/16 16:13; Start 07/06/16 at 21:30 Potassium Chloride 30 meq/ Dextrose/Water 265 ml @ 88.333 mls/ hr ONCE ONCE IV Last administered on 07/07/16 12:53; Start 07/07/16 at 09:35; Stop at 12:34; Status DC Vancomycin/0.9 % Sod Chloride/ Premix (Vancomycin Inj/ IV Premix) 200 ml @ 133.333 mls/hr OT ONCE IV Last administered on 07/07/16t 10:52; Start at 10:19; Stop 07/07/16 at 11:48; Status DC Bedside Blood Glucose: 190 Labs Test 07/06/16 11:20 07/06/16 11:25 07/06/16 11:47 07/07/16 08:23 Troponin T < 0.010ug/L (0.0-0.011) Procalcitonin 0.13ng/mL (0.00-0.08) Urine Color Yellow (YELLOW) Urine Appearance Hazy (CLEAR,HAZY) Urine pH 6.0 (5.0-8.0) Urine Specific [place] 1.025 (1.003-1.035) Urine Protein 30mg/dL (NEG,TRACE) Urine Glucose (UA) Negativemg/dL (NEGATIVE) Urine Ketones Tracemg/dL (NEGATIVE) Urine Occult Blood Small (NEGATIVE) Urine Nitrite Positive (NEGATIVE) Urine Bilirubin Negative (NEGATIVE) Urine Urobilinogen Normalmg/dL (NORMAL) Urine Leukocyte Esterase Trace (NEGATIVE) Urine RBC 0-2/hpf (0-2) Urine WBC 11-50/hpf (0-5) Urine Epithelial Cells Occasional/hpf (NONE-MOD) Urine Crystals None seen (NONE SEEN) Urine Bacteria Moderate/hpf (NONE-FEW) Urine Hyaline Casts None/lpf (NONE) Urine Granular Casts None seen (NONE SEEN) Urine Waxy Casts None seen (NONE SEEN) Urine Red Blood Cell Casts None seen (NONE SEEN) Urine White Blood Cell Casts None seen (NONE SEEN) Urine Mucus Present (None Seen) Urine Trichomonas None seen (NONE SEEN) Urine Yeast Many (NONE SEEN) Urinalysis Comment None Urine Culture Reflexed Indicated Lactic Acid Level 1.0mmol/L (0.4-2.0) White Blood Count 11.9th/mm3 (3.8-10.1) Red Blood Count 3.38mil/mm3 (3.90-5.20) Hemoglobin 9.1g/dL (12.0-15.6) Hematocrit 28.2% (35.0-46.0) Mean Corpuscular Volume 83.4fL (81-100) Mean Corpuscular Hemoglobin 26.9pg (27.0-35.0) Mean Corpuscular Hemoglobin Concent 32.3% (32.0-37.0) Red Cell Distribution Width 13.9% (12.3-15.4) Platelet Count 296bil/L (150-400) Neutrophils (%) (Auto) 73.7% (40-74) Lymphocytes (%) (Auto) 15.4% (14-46) Monocytes (%) (Auto) 9.5% (4-12) Eosinophils (%) (Auto) 0.5% (0-5) Basophils (%) (Auto) 0.3% (0-3) Sodium Level 143mEq/L (134-144) Potassium Level 3.1mEq/L (3.5-5.2) Chloride Level 103mEq/L (97-108) Carbon Dioxide Level 25mmol/L (18-29) Blood Urea Nitrogen 21mg/dL (8-27) Creatinine 0.45mg/dL (0.57-1.00) Estimat Glomerular Filtration Rate 195mL/min (>59) Glucose Level 191mg/dL (60-99) Calcium Level 7.9mg/dL (8.5-10.1) Phosphorus Level 2.8mg/dL (2.5-4.9) Magnesium Level 1.7mg/dL (1.6-2.6) Total Bilirubin 0.4mg/dL (0.0-1.2) Aspartate Amino Transf (AST/SGOT) 46U/L (0-50) Alanine Aminotransferase (ALT/SGPT) 42U/L (0-32) Alkaline Phosphatase 67U/L (25-165) Total Protein 5.7g/dL (6.4-8.4) Albumin 3.3g/dL (3.4-5.0) Plan Impression Patient chart reviewed, patient interviewed and anesthestic plan with risks, benefits, and alternatives discussed, and informed consent obtained. ASA Physical Status: ASA4 Life Threatening Anesthetic Plan: GA Bene/Risks/Altern/Consents: Yes HP Complete Prior to Induction: Yes Other Sepsis/SIRS of unclear etiology possible acute cholecystitis vs. UTI vs. diverticulitis. HD stable on RA. Possible recent aspiration pneumonitiis by CXR. Altered MS with dementia. Pt is currently DNR will discusssuspension of DNR status during the perioperative period with daughter who has durable power of deputy prosecuting attorney. Carlos Yeh MD Jul 07, 2016 16:37
[2016-07-07] MEDS ORDERED: Lactated Ringer's 1,000 ML IV SCH (18:09)
[2016-07-07] MEDS ORDERED: Lactated Ringer's 500 ML IV PRN (18:09)
[2016-07-07] MEDS ORDERED: Phenylephrine 10,000 mCg/mL Inj IVPUSH PRN (18:10)
[2016-07-07] MEDS ORDERED: Labetalol 5 mg/mL 4 mL Inj IV PRN (18:10)
[2016-07-07] MEDS ORDERED: HYDROmorphone 1 mg/mL Inj IVPUSH PRN (18:10)
[2016-07-07] MEDS ORDERED: MetoCLOpramide 5 mg/mL 2 mL Inj IVPUSH PRN (18:10)
[2016-07-07] MEDS ORDERED: EPHEDrine Sulfate 50 mg/mL Inj IVPUSH PRN (18:10)
[2016-07-07] MEDS ORDERED: Dexamethasone 4 mg/mL Inj IVPUSH PRN (18:10)
[2016-07-07] MEDS ORDERED: Ondansetron 2 mg/mL 2 mL Inj IVPUSH PRN (18:10)
[2016-07-07] MEDS ORDERED: fentaNYL-PF 50 mCg/mL 2 mL Inj IVPUSH PRN (18:10)
[2016-07-07] MEDS ORDERED: Atropine 0.4 mg/mL Inj IVPUSH PRN (18:10)
[2016-07-07] MEDS ORDERED: HYDROcodone-APAP 5-325 mg Tablet PO PRN (18:40)
[2016-07-07] MEDS ORDERED: Insulin LISPRO 300 Unit/3 mL Inj SUBQ ONE (19:00)
--- NOTE | 2016-07-07 19:21 | PCM.ANEP1 ---
Post Anesthesia Phase 1 PACU Phase 1 Assessment Vital Signs Vital Signs Date Time Temp Pulse Resp B/P Pulse Ox O2 Delivery O2 Flow Rate FiO2 07/07/16 19:10 93 17 178/73 98 Nasal Cannula 2 07/07/16 19:05 95 17 176/74 99 Nasal Cannula 2 07/07/16 19:00 36.6 94 16 165/71 99 Nasal Cannula 2 07/07/16 18:55 95 19 167/70 100 Nasal Cannula 4 07/07/16 18:53 36.3 96 20 150/66 93 Nasal Cannula 4 07/07/16 13:11 38.0 100 18 192/96 97 Room Air Anesthetic Administered: GA Level of Alertness: Sleeping, hard to arouse MAGAÑA's with Equal Strength: Yes Pain: No Nausea or Vomiting: No Oxygen Delivery: Nasal Cannula Lungs: Clear to Auscultation, Normal Air Movement Dermatome Level: Full Sensation Carlos Yeh MD Jul 07, 2016 19:21
--- NOTE | 2016-07-07 19:23 | PCM.ANEP2 ---
Post Anesthesia Evaluation ASA/CMS Post Anesthesia VS in Patient's Normal Range?: Yes Resp Stable; Airway Patent?: Yes CV Function & Hydration Stable: Yes Mental Status Recovered?: Yes Pain control Satisfactory?: Yes N/V Control Satisfactory?: Yes Carlos Yeh MD Jul 07, 2016 19:23
--- NOTE | 2016-07-07 19:40 | DRSVH ---
PROCEDURE: X-RAY OPERATIVE CHOLANGIOGRAM ([id number]) INDICATIONS: C-ARM ASSISTED CHOLANGIOGRAM, ACUTE CHOLECYSTITIS COMPARISON: [facility], CT, CT ABD PELVIS W CON, 07/07/2016, 13:28. FINDINGS: Biliary ducts: The surgeon injected contrast into the biliary ducts after cannulation of the cystic duct stump. Visualized intra- and extrahepatic bile ducts are normal in caliber, without strictures. No intraluminal filling defects to suggest retained ductal stones or sludge. No evidence for iatro genic ductal injury. Duodenum: Contrast flows promptly through the sphincter of Oddi into the duodenum, which appears nor mal in caliber. IMPRESSION: Normal operative cholangiogram. Dictated by: Sony Yao M.D. on 07/07/2016 at 19:37 Approved by: Sony Yao M.D. on 07/07/2016 at 19:38
[2016-07-07] MEDS: HYDROmorphone 0.5 mg/0.5 mL iSecure Syringe IVPUSH PRN (20:16)
[2016-07-08] VITALS (10 sets, daily range): BP systolic 141–171; BP diastolic 65–84; PULSE 83–113; RESP 19–28; O2SAT 94–99
[2016-07-08] MEDS: Vancomycin Inj 750 MG in 0.9% Sodium Chloride 250 ML IV SCH ×2 (00:34→09:25)
--- NOTE | 2016-07-08 01:05 | OP ---
[address] [address] OPERATIVE REPORT PATIENT: HOWARD ORDAZ : 1940 MR#: [id number] ADMIT: 07/06/2016 JOB ID: [id number] DATE OF SURGERY: 07/07/2016 SURGEON: Rafi Sheets MD ICE CREAM SERVER: Aleksey Dennis PA-C ANESTHESIA: General. PREOPERATIVE DIAGNOSIS(ES): Acute cholecystitis. POSTOPERATIVE DIAGNOSIS(ES): Acute cholecystitis. PRINCIPAL PROCEDURE: Laparoscopic cholecystectomy with intraoperative cholangiogram. INDICATION FOR PROCEDURE: The patient is a 75-year-old female with fever, lethargy, weakness, and a CT scan finding consistent with acute cholecystitis. PRINCIPAL FINDING: Definite cholecystitis. Successful laparoscopic cholecystectomy. The intraoperative cholangiogram was normal. PROCEDURE COURSE: The patient was brought to the operating table and was provided with general anesthesia. The patient was given IV antibiotics and SCDs. A time-out was performed. The patient's abdomen was prepped and draped in the usual sterile fashion. Next, local anesthetic was injected into the infraumbilical location and a 5 mm stab incision was made. A Veress needle was used to establish pneumoperitoneum. A 5 mm trocar was then placed and the laparoscope was introduced. A 12 mm trocar was then placed in the subxiphoid location, and two additional 5 mm trocars were then placed in the right lateral abdomen. There were some omental adhesions covering up the gallbladder, and also adhesed to the liver. These were taken down using electrocautery. The surface of the gallbladder was eventually visualized once we detached the omentum. The gallbladder did appear to be distended and with some pericholecystic fluid. The Calot triangle was then exposed and the cystic duct was circumferentially isolated. It was visualized to enter the gallbladder directly. The cystic artery was visualized to its right. A clip was then placed on the gallbladder, cystic duct junction, and a partial transection of the cystic duct was made. Intraoperative cholangiogram demonstrated normal proximal and distal biliary anatomy without any filling defects, and the contrast did drain into the duodenum. The cholangiocatheter was then removed from the patient. Two additional clips were then placed on the proximal cystic duct and then the duct was then transected. The cystic artery was similarly clipped and divided. Electrocautery was then used to detach the gallbladder from the gallbladder fossa. The specimen was then placed into the EndoCatch bag and removed from the patient. Hemostasis was verified. Inspection of the clips shows that they were intact, and there is no signs of bile leak at the end the case. Irrigation was performed in the right upper quadrant and suctioned. Next, we turned our attention to the subxiphoid port. The fascial defect there was then reapproximated using 0 Vicryl suture using the EndoClose device. Next, CO2 was allowed to escape and all the trocars were then removed from the patient. Skin edges were then reapproximated using absorbable sutures. Steri-Strips and sterile dressing were then placed over each wound. By the end of the procedure, needle counts and sponge counts were correct. The patient was then extubated and taken to the recovery room in stable satisfactory condition. CC: Dr. East
[2016-07-08] MEDS: Cefepime Inj 2,000 MG in Dextrose 5% Minibag Plus 100 ML IV SCH ×4 (02:26→23:04)
[2016-07-08] MEDS: HYDROmorphone 0.5 mg/0.5 mL iSecure Syringe IVPUSH PRN (05:24)
[2016-07-08] MEDS ORDERED: fentaNYL-PF 50 mCg/mL 2 mL Inj ONE (06:35)
[2016-07-08] MEDS ORDERED: EPHEDrine/NS 5 mg/mL 5 mL Syringe ONE (06:35)
[2016-07-08] MEDS ORDERED: Ondansetron 2 mg/mL 2 mL Inj ONE (06:35)
[2016-07-08] MEDS ORDERED: Rocuronium 10 mg/mL 5 mL Inj ONE (06:35)
[2016-07-08] MEDS ORDERED: Propofol 10,000 mCg/mL 20 mL Inj ONE (06:35)
[2016-07-08] MEDS ORDERED: Phenylephrine/NS 100 mCg/mL 10 mL Syringe IVPUSH ONE (06:35)
[2016-07-08] MEDS ORDERED: MetoCLOpramide 5 mg/mL 2 mL Inj ONE (06:35)
[2016-07-08] MEDS ORDERED: Remifentanil 1 mg/3 mL Inj ONE (06:35)
--- NOTE | 2016-07-08 07:18 | PCM.PNSURG ---
Subjective Visit Information: Reason for Visit Asp Pneumonia, Failure To Thrive, Cva (1 Mnth Ago) Surgery/Surgery Date Post-Op Day # Date of Admission: Jul 06, 2016 at 16:13 Hospital Day # Subjective: a little hypertensive this am, not sure if pain related, pt not able to communicate much, no n/v reported Objective Objective Awake in bed Not talkative Abd: dressings intact, mild tenderness R lat abdomen (incisional) Vital Sign- Last 8 Hours Date Time Temp Pulse Resp B/P Pulse Ox O2 Delivery O2 Flow Rate FiO2 07/08/16 06:19 83 07/08/16 05:07 37.1 109 20 171/84 98 Room Air 07/08/16 01:00 155/65 07/08/16 00:00 141/65 07/07/16 23:36 37.5 99 21 146/65 Nasal Cannula 1.00 Intake and Output- Last 8 Hour 07/08/16 Cumulative From/Thru 07:00 07/06/16 13:12 - 07/08/16 06:20 Intake Total 672 ml 3150 ml Output Total 350 ml 2756 ml Balance 322 ml 394 ml Intake Oral 0 ml 0 ml IV Total 672 ml 3150 ml Output Urine Total 350 ml 2755 ml Estimated Blood Loss 1 ml Result Diagram: 07/07/16 0823 07/07/16 0823 Assessment & Plan Impression POD #1 s/p lap baltazar Dementia DM Problems: Plan Await labs this am May advance diet as tolerated OK to stop abx from surgical standpoint Rafi Sheets MD Jul 08, 2016 07:18
[2016-07-08 07:21] LABS: BASOPHILS % (AUTO) 0.2 % (0-3); EOSINOPHILS % (AUTO) 0.4 % (0-5); MONOCYTES % (AUTO) 10.5 % (4-12); Mean Corpuscular Hemoglobin 27.3 pg (27.0-35.0); NEUTROPHILS % (AUTO) 77.2 % (40-74); Platelet Count 348 bil/L (150-400)
[2016-07-08 07:51] LABS: Magnesium 1.3 mg/dL (1.6-2.6); Phosphorus 3.1 mg/dL (2.5-4.9)
[2016-07-08] MEDS: Vancomycin Dose per Pharmacist XX SCH (08:30)
[2016-07-08] MEDS: metroNIDAZOLE Inj 500 MG in IV Premix 1 EACH IV SCH ×2 (09:01→17:02)
[2016-07-08] MEDS: Heparin 5,000 Unit/mL Inj SUBQ SCH ×2 (09:06→21:01)
--- NOTE | 2016-07-08 10:17 | NUR ---
pt complains of upset stomach-Zofran 4mg given
--- NOTE | 2016-07-08 10:37 | PCM.PNMED ---
Subjective Date of Service Jul 08, 2016 Subjective Patient had laparoscopic cholecystectomy successfully by 07/07 no fever since then pt looked more comfortable today still very slow to response, but AAOx2, c/o mild abdominal pain followed simple commands Exam Vital Signs Vital Sign - Last Date Time Temp Pulse Resp B/P Pulse Ox O2 Delivery O2 Flow Rate FiO2 07/08/16 09:07 113 07/08/16 08:47 37.0 19 171/73 99 Room Air 07/07/16 23:36 1.00 Intake and Output 07/07/16 07/07/16 07/08/16 Cumulative From/Thru 15:00 23:00 07:00 07/06/16 13:12 - 07/08/16 06:20 Intake Total 650 ml 672 ml 3150 ml Output Total 1081 ml 350 ml 2756 ml Balance -431 ml 322 ml 394 ml Intake Oral 0 ml 0 ml 0 ml IV Total 650 ml 672 ml 3150 ml Output Urine Total 1080 ml 350 ml 2755 ml Estimated Blood Loss 1 ml 1 ml Exam no JVD, dry MM, no LAD regular tachy, nl s1, s2 no mrg CTAB, no w,c S,ND,mild tenderness,hypoactive BS+ warm, no edema, pulses 2/2 IVs and Medications Medications Reviewed: Medications were reviewed in detail Lab and Diagnostics Result Diagram: 07/08/16 0710 07/08/16 0710 Assessment & Plan 75yo F w/ recent prolonged hospitalizations 2/3-15 with worsening mental status , diverticulitis, NOÉ, possible UTI, aspiration pneumonia p/w fever, lethargy acute, active acute on chronic encephalopathy, POA, multifactorial: underlying cognitive dysfunction, toxic metabolic-sepsis, medicine-induced. CTH no acute findings today. 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 underwent Lap Elysia on 07/07 by . -pt clinically improving after surgery, abx, -s/p Ceftriaxone in ED, pt had breakthrough fever several hrs afterwards, became more tachy, therefore broadened abx to cefepime and flagyl, will continue cover both infection. -vancomycin started 07/07 given UCX MRSA+ -continue SR773cb/hr -bolus target MAP>65 -FU infectious w/u, BCX, UCX, mild hypernatremia, POA, likely free water loss due to dehydration,normalized. chronic, stable Hypertension/hyperlipidemia, [id number]/tachycardic, resume home BB today. hx of recent Diverticulitis, POA, given tender abdomen, will consider CT abd with con when pt is more stable Arthritis back, right hip joint replacement 2003, left hip replacement 2013 Diabetes types 2, POA, RISS while NPO Depression, anxiety, hold antidepressant, anti-psychotics recurrent hyponatremia since 2013, not active charcot yolie tooth, stable on CT in last adm dispo:pending, likely prolonged given clinical status. diet:advance as tolerate, appreciate swallow eval dvt ppx:HSQ DNR/DNI, continue to discuss GOC with pt/family Time spent 35min Drea East MD Jul 08, 2016 10:37
--- NOTE | 2016-07-08 10:39 | NUR ---
Evaluation completed. Please go to "Notes" then click on "Assessments and Notes" (bottom left corner of screen). Then select appropriate discipline tab on top of screen.
--- NOTE | 2016-07-08 10:44 | NUR ---
calling for help pt continues to call for help, but when this RN enters the room pt can't tell me what she needs. pt has also be yelling out random words.
[2016-07-08] MEDS ORDERED: Potassium Chloride 20 mEq/15 mL 15mL Oral Soln PO ONE (11:05)
[2016-07-08] MEDS ORDERED: Magnesium Sulf 2 Gm/50mL Water 2 GM in IV Premix 1 EACH IV ONE (11:05)
--- NOTE | 2016-07-08 12:31 | DRSVH ---
PROCEDURE: US ABDOMEN, LIMITED ([id number]) INDICATIONS: acute baltazar on CT look for stones TECHNIQUE: Real-time focused scanning was performed of the abdomen, with image documentation. COMPARISON: None. FINDINGS: Gallbladder wall is abnormally thickened. No intraluminal filling defects are seen. IMPRESSION: Abnormally thickened gallbladder wall. The appearance is consistent with a CT findings. N o gallstones are visualized. Dictated by: Candido Burris M.D. on 07/08/2016 at 12:28 Approved by: Candido Burris M.D. on 07/08/2016 at 12:29
--- NOTE | 2016-07-08 15:26 | NUR ---
Social Work-continued d/c planning: Data:EMR Reviewed. Pt is on day 2 of hospitalization for ASP per H&P. Pt is not medically stable, anticipate several more days. MAGDI spoke with pt's granddaughter Fabienne today regarding discharge planning. Fabienne in agreement for pt to return to [facility] at discharge. Michelle states she has DPOA and will bring in paperwork this afternoon. SW confirmed with [facility] that they can accept pt back at discharge. Paperwork in the chart. SW will continue to follow. Assessment:pt who resides at [facility]. Plan:Pt to discharge back to [facility] when medically stable. Authorization will need to be attempted through so pt can go back on [facility] if denied. Pt is care home care pt. Paperwork in the chart. MAGDI will continue to follow. ARBEN Serrato
[2016-07-08] MEDS ORDERED: Vancomycin Serum Trough XX ONE (19:00)
[2016-07-08] MEDS: Vancomycin Inj 1,000 MG in IV Premix 1 EACH IV SCH (20:52)
--- NOTE | 2016-07-08 21:36 | NUR ---
Shift Note Pt PO meds- held PO meds due to decreased attention and inability to follow verbal commands. Pt is at high risk for aspiration and is on nectar thick per speech eval today. Oral- Pt oral mucosa looks inflamed and coated in chunky white bits behind lower dentia and under tongue. Tried to provide oral care but did not open mouth enough to adequately provide oral care to remove debris.
[2016-07-08] MEDS ORDERED: 0.9% Sodium Chloride 250 ML ONE (22:57)
[2016-07-09] VITALS (9 sets, daily range): BP systolic 149–194; BP diastolic 58–83; PULSE 98–113; RESP 22–28; O2SAT 91–97
[2016-07-09] MEDS: metroNIDAZOLE Inj 500 MG in IV Premix 1 EACH IV SCH ×3 (03:58→16:37)
[2016-07-09] MEDS: Labetalol 5 mg/mL 4 mL Inj IVPUSH PRN (05:17)
[2016-07-09] MEDS: Acetaminophen IV 1,000 MG in IV Premix 1 EACH IV PRN ×3 (05:17→23:34)
[2016-07-09 06:15] LABS: BASOPHILS % (AUTO) 0.1 % (0-3); EOSINOPHILS % (AUTO) 0.2 % (0-5); MONOCYTES % (AUTO) 9.8 % (4-12); Mean Corpuscular Hemoglobin 27.3 pg (27.0-35.0); Mean Corpuscular Volume 85.8 fL (81-100); NEUTROPHILS % (AUTO) 76.9 % (40-74); Platelet Count 301 bil/L (150-400)
[2016-07-09] MEDS: Cefepime Inj 2,000 MG in Dextrose 5% Minibag Plus 100 ML IV SCH ×2 (06:34→13:00)
[2016-07-09 06:42] LABS: Magnesium 1.7 mg/dL (1.6-2.6); Phosphorus 2.2 mg/dL (2.5-4.9)
--- NOTE | 2016-07-09 07:25 | NUR ---
BP Patients BP elevated 190 systolic and HR 110's. medicated with labetalol 20mg IV. 15 minutes later BP 160's systolic HR 90's. Pain/Fever Patient reports I was having a stomach ache. patient appears sleepy. grimacing. stomach soft to touch bowel tones active. incisions c/d/i. temp elevated 100F. notified. new order for IV tylenol. 30 minutes later patient sleeping, temp down to 100.5. will continue to monitor.
[2016-07-09] MEDS: Vancomycin Dose per Pharmacist XX SCH (08:30)
--- NOTE | 2016-07-09 08:38 | PCM.PNSURG ---
Subjective Date of Service: Jul 09, 2016 Visit Information: Reason for Visit Asp Pneumonia, Failure To Thrive, Cva (1 Mnth Ago) Surgery/Surgery Date Post-Op Day # Date of Admission: Jul 06, 2016 at 16:13 Hospital Day # Subjective: Patient only minimally aware and alert, will briefly open eyes to name and very minimal interaction. No overt signs of tenderness to palpation in the abdomen. Patient febrile and warm to the touch. Will periodically shout "help" but will not respond to questioning as to what help she needs. Remainder of ROS unable to be obtained due to patient non-responsiveness. Objective Objective GEN: minimally alert, not oriented, somnolent febrile woman in an uncertain degree of stress HEENT: mucous membranes pink and moist, PERRL, EOMI, no scleral icterus Neck: Supple non tender no JVD CV: RRR, II/ systolic ejection murmur best heard at right sternal border Resp: Diffuse mild crackles, no wheezing Abdomen: Laparoscopic incisions appear intact without any erythema or drainage, patient does not express any overt signs of tenderness to palpation, BS+ 4Q Extr: Non clubbing cyanosis or edema Neuro: Difficult to assess given patient's non-responsiveness, grossly intact without focal neurologic deficit Vital Sign- Last 8 Hours Date Time Temp Pulse Resp B/P Pulse Ox O2 Delivery O2 Flow Rate FiO2 07/09/16 05:25 98 26 166/66 95 Room Air 07/09/16 05:01 38.7 113 28 194/83 97 Room Air 07/09/16 00:51 38.2 102 24 149/58 95 Room Air Intake and Output- Last 8 Hour 07/09/16 Cumulative From/Thru 07:00 07/06/16 13:12 - 07/09/16 06:53 Intake Total 0 ml 3540 ml Output Total 275 ml 3631 ml Balance -275 ml -91 ml Intake Oral 0 ml 240 ml IV Total 3300 ml Output Urine Total 275 ml 3630 ml Estimated Blood Loss 1 ml Result Diagram: 07/09/1653907/09/1640 Lab & Micro Results: Item Value Date Time White Blood Count 12.9 th/mm3 H 07/09/16 0540 Hemoglobin 9.0 g/dL L 07/09/16 0540 Hematocrit 28.3 % L 07/09/16 0540 Neutrophils (%) (Auto) 76.9 % H 07/09/16 0540 Platelet Count 301 lesia/L 07/09/16 0540 Lymphocytes (%) (Auto) 12.4 % L 07/09/16 0540 Sodium Level 143 mEq/L 07/09/16 0540 Potassium Level 2.9 mEq/L L 07/09/16 0540 Chloride Level 106 mEq/L 07/09/16 0540 Carbon Dioxide Level 22 mmol/L 07/09/16 0540 Blood Urea Nitrogen 21 mg/dL 07/09/16 0540 Creatinine 0.41 mg/dL L 07/09/16 0540 Estimat Glomerular Filtration Rate 217 mL/min 07/09/16 0540 Glucose Level 175 mg/dL H 07/09/16 0540 Calcium Level 7.6 mg/dL L 07/09/16 0540 Phosphorus Level 2.2 mg/dL L 07/09/16 0540 Magnesium Level 1.7 mg/dL 07/09/16 0540 Total Bilirubin 0.4 mg/dL 07/09/16 0540 Alanine Aminotransferase (ALT/SGPT) 62 U/L H 07/09/16 0540 Aspartate Amino Transf (AST/SGOT) 59 U/L H 07/09/16 0540 Alkaline Phosphatase 77 U/L 07/09/16 0540 Total Protein 5.1 g/dL L 07/09/16 0540 Albumin 2.9 g/dL L 07/09/16 0540 Procalcitonin 0.35 ng/mL H 07/09/16 0540 Assessment & Plan Impression Patient manifested a fever last evening of as yet undetermined etiology with elevated but downtrending WBC. Repeat blood cultures and further diagnostics pending per primary team. Abdomen appears benign on exam today with well healing laparoscopic incisions. Problems: Plan -Will defer infectious management to primary team -OK to advance diet as tolerated -We will continue to follow this patient and be available should any concerns arise Wallace Nicolas DO Jul 09, 2016 08:34
[2016-07-09] MEDS: Heparin 5,000 Unit/mL Inj SUBQ SCH ×2 (09:19→20:25)
--- NOTE | 2016-07-09 10:00 | NUR ---
WITHHELD AM MEDS Held morning medications, including metoprolol due to patient's cognition. Opened eyes to voice and own name but unable to keep eyes open or respond verbally. Notified hospitalist during AM rounds.
[2016-07-09] MEDS ORDERED: Potassium Chloride 20 mEq SR Tablet PO ONE (10:05)
[2016-07-09] MEDS ORDERED: KCl 40 mEq/D5W 500 mL 40 MEQ in IV Premix 500 EACH IV ONE (10:05)
[2016-07-09] MEDS ORDERED: Potassium Phos (mEq) Inj 40 MEQ in Dextrose 5% 500 ML IV ONE (10:15)
[2016-07-09] MEDS: Vancomycin Inj 1,000 MG in IV Premix 1 EACH IV SCH ×3 (10:56→23:08)
--- NOTE | 2016-07-09 12:54 | PCM.PHAPRO ---
Progress Date of Service: Jul 08, 2016 Assessment/Plan Patient is an 75 y.o. female receiving vancomycin for PNEUMONIA. Concurrent abx include: flagyl,cefepime. WBC count is 12.9 and the patient is febrile. Patient is 55 kg, 62 inches tall with a SCr of 0.41 mg/dL-- estimated CrCl of 64 mL/min. Blood cultures are negative but nasal swab came back MRSA positive with sensitivity to vanco Patient was on vancomycin 750mg q12h which produced a trough of 9.8. This dose based on our algorithms was set to produce a trough of 15-20. It is unknown why this trough came back so low, all doses were given appropriately, lab was drawn at the correct time. Due to patient not being in therapeutic range I will hesitantly up her dose to 1G Q12H and closely monitor. Trough will be drawn prior to the 4th dose on 07/10 @ 0800. Pharmacy will follow daily and adjust as appropriate. Thank you for the consult in the care of this patient. Kathleen Yao PharmD Jul 09, 2016 12:54
--- NOTE | 2016-07-09 15:17 | PCM.PNMED ---
Subjective Date of Service Jul 09, 2016 Subjective unable to obtain ROS 2ndry to patient minimally verbal and appears lethargic Exam Vital Signs Vital Sign - Last Date Time Temp Pulse Resp B/P Pulse Ox O2 Delivery O2 Flow Rate FiO2 07/09/16 11:00 38.8 111 26 185/75 96 Room Air 07/07/16 23:36 1.00 Intake and Output 07/08/16 07/08/16 07/09/16 Cumulative From/Thru 15:00 23:00 07:00 07/06/16 13:12 - 07/09/16 06:53 Intake Total 390 ml 0 ml 3540 ml Output Total 600 ml 275 ml 3631 ml Balance -210 ml -275 ml -91 ml Intake Oral 240 ml 0 ml 240 ml IV Total 150 ml 3300 ml Output Urine Total 600 ml 275 ml 3630 ml Estimated Blood Loss 1 ml Exam appears very lethargic and minimally responsive General: No Acute Distress Head: Normal Eyes: Scleral Anicteric Mouth: Mucous Membr Moist/Waldorf Neck: Supple Chest & Lungs: Chest Wall Normal, Clear to auscultation & percussion Cardiovascular: Regular Rate/Rhythm Pulses: NL carotid, radial, femoral, DP, PT Abdomen: Tender (seems mildly tender), Non-distended, Normoactive bowel tones, Soft Extremities: No cyanosis/clubbing/edma bilat Neurological: Other (neuro exam limited 2ndry to patient quite lethargic. does open her eyes when I call her name. She seems to be able to move all extremities.) IVs and Medications Medications Reviewed: Medications were reviewed in detail Lab and Diagnostics Result Diagram: 07/09/16 0540 07/09/16 0540 Assessment & Plan 75yo female with history of Diabetes types 2, dementia, depression, anxiety and recent prolonged hospitalizations 3-06/27 with worsening mental status, diverticulitis, NOÉ, possible UTI, aspiration pneumonia p/w fever, lethargy # Acute sepsis, present on admission. ongoing - SIRS criteria: Fever, Tachycardia, leukocytosis, tachypnea, and altered mental status. Source of infection combination of acute cholecystitis and UTI ( present on admission) - further treatment and management as noted below - continue with broad Abx until clinically more stable and rule out other sources of infection # Acute cholecystitis. present on admission. presumed resolved - post laparoscopic cholecystectomy with intraoperative cholangiogram on 07/08/16 - appreciate surgery consult. will f/u w/ recs - advance diet as tolerated # Acute MRSA urinary tract infection (UTI), present on admission - continue with Vancomycin (dose per pharmacy) (day 2) # Acute on chronic encephalopathy, present on admission. ongoing and worsening - multifactorial: underlying cognitive dysfunction, toxic metabolic-sepsis, medicine-induced. 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 not present on admission - likely due to ongoing sepsis - treatment as noted above - followup # History of hypertension. ongoing. poorly controlled - continue with prn medication until sepsis improved and hemodynamically more stable # History of dysphagia likely secondary to dementia, unknown chronicity, present on admission. Ongoing. - Swallow evaluation - c/w supportive care # History of Diabetes types 2 - cover with ISS # Progressive dementia - c/w supportive care # Goals of care - consider palliative care consult Dispo: 3-4 days Resuscitation Status: DNR/DNI:Do Not Resuscitate/Intubate Time spent 40 min Pradeep Hernandez Jul 09, 2016 15:17
--- NOTE | 2016-07-09 15:27 | NUR ---
BP/HR BP continues to remain elevated today between 160-180's systolic. HR in 100-110's. Unable to give PO beta sheryl. Paged MD regarding IV medication. Remains lethargic, opens eyes to name. Attempts made to help feed lunch but only took a few bites/sips. Needed multiple directions to swallow food, as patient was pocketing fluid in her mouth. Can move arms and legs but resting in bed. Q2 turns provided. Hourly rounding continues.
--- NOTE | 2016-07-09 16:48 | NUR ---
MISSED ABX DOSE Unable to hang 1300 cefepime dose related to patient currently receiving K rider, doesn't end until approx 1900. Both mixtures are not compatible and only 1 IV site. Patient has received other antibiotics, vancomycin and flagyl.
[2016-07-09] MEDS: Insulin Human REGular 300 Unit/3 mL Inj SUBQ SCH (22:03)
[2016-07-09] MEDS ORDERED: 0.9% Sodium Chloride 250 ML ONE (23:34)
[2016-07-10] VITALS (10 sets, daily range): BP systolic 156–197; BP diastolic 59–86; PULSE 88–116; RESP 20–24; O2SAT 93–100
[2016-07-10] MEDS: Cefepime Inj 2,000 MG in Dextrose 5% Minibag Plus 100 ML IV SCH ×4 (00:16→18:09)
[2016-07-10] MEDS ORDERED: Cefepime Inj 2,000 MG in Dextrose 5% Minibag Plus 100 ML IV SCH (00:30)
[2016-07-10] MEDS ORDERED: 0.9% Sodium Chloride 250 ML ONE (02:17)
[2016-07-10] MEDS: metroNIDAZOLE Inj 500 MG in IV Premix 1 EACH IV SCH ×3 (02:19→18:09)
--- NOTE | 2016-07-10 04:14 | NUR ---
Confusion/Temp Patient only opened her eyes one time during shift. During initial assessment, patient did state that she knew she was in the hospital. For remainder of shift, she constantly yelled out asking for help. Patient not responsive to questions but stopped yelling when softly spoken to at times. Patients temperature remained elevated throughout shift. At 0400, it was 100.9. IV tylenol administered. Care continues.
[2016-07-10] MEDS: Insulin Human REGular 300 Unit/3 mL Inj SUBQ SCH ×4 (04:37→22:50)
[2016-07-10 06:34] LABS: BASOPHILS % (AUTO) 0.1 % (0-3); EOSINOPHILS % (AUTO) 0.1 % (0-5); MONOCYTES % (AUTO) 8.4 % (4-12); Mean Corpuscular Hemoglobin 27.1 pg (27.0-35.0); Mean Corpuscular Volume 86.4 fL (81-100); NEUTROPHILS % (AUTO) 80.9 % (40-74); Platelet Count 345 bil/L (150-400)
[2016-07-10 06:37] LABS: INR 1.57 ratio
[2016-07-10 07:02] LABS: Magnesium 1.7 mg/dL (1.6-2.6)
[2016-07-10] MEDS ORDERED: Potassium Chloride 20 mEq SR Tablet PO ONE (07:35)
[2016-07-10] MEDS ORDERED: KCl 40 mEq/D5W 500 mL 40 MEQ in IV Premix 500 EACH IV ONE (07:35)
[2016-07-10] MEDS: Vancomycin Dose per Pharmacist XX SCH (08:37)
[2016-07-10] MEDS: Heparin 5,000 Unit/mL Inj SUBQ SCH ×2 (08:38→22:46)
[2016-07-10] MEDS ORDERED: Acetaminophen IV 1,000 MG in IV Premix 1 EACH IV PRN (09:10)
[2016-07-10] MEDS: Labetalol 5 mg/mL 4 mL Inj IVPUSH PRN (09:15)
--- NOTE | 2016-07-10 09:28 | DRSVH ---
PROCEDURE: CT CHEST, ABDOMEN AND PELVIS WITH CONTRAST ([id number]) INDICATIONS: fever, altered mental status TECHNIQUE: After the administration of intravenous contrast, 5 mm thick sections acquired from the lung apices t o the symphysis. 5 mm coronal and sagittal reformats were performed, with additional 7 mm MIP reform ats through the lungs. For radiation dose reduction, the following was used: automated exposure con trol, adjustment of mA and/or kV according to patient size. COMPARISON: [facility], CT, IVP-CT (ABD W/WO;PEL W/W/O), 08/29/2011, 10:49. [facility] , CT, ABD/PELVIS W/CON (PNL), 03/03/2010, 10:12. [facility] [place] , CT, AB D/PELVIS W/CON (PNL), 01/24/2009, 15:53. [facility] , CT, ABD/PELVIS W/CON (PNL), 11/10, 16:27. [facility], CT, CT ABD PELVIS W CON, 07/07/2016, 13:28. FINDINGS: Image quality: Motion is present throughout multiple portions of the examination, limiting areas of f ine detail evaluation. CHEST: Lungs and pleura: The tendon changes are present within the lungs bilaterally. There is appearance of mild increased pulmonary vascularity. There is an anterior right middle lobe linear opacity measurin g 7 mm, unchanged compared to 08/29/11. Mediastinum: Heart size is normal. No pericardial effusion. No mediastinal or hilar adenopathy by size criteria. Thoracic aorta and central pulmonary arteries are normal in size. Esophagus demonstr ates prominent proximal and mid circumferential thickening. Small hiatal hernia. Chest wall: No axillary or supraclavicular adenopathy by size criteria. Thyroid gland is unremarkab le. ABDOMEN: Solid organs: Liver and spleen are normal in size and enhancement. Gallbladder appears to been yoshi amrit in the interval since the prior exam, as clips are present within the gallbladder fossa. There is a low attenuation collection present within the gallbladder fossa measuring 32 mm AP by 38 mm transv erse with ill-defined small scattered fluid also present near the adjacent duodenal C-loop. Biliary system is non dilated. Pancreas enhances normally. Fat-containing right adrenal mass is unchanged. Kidneys demonstrate normal size and enhancement, without hydronephrosis. Right renal cysts are noted, unchanged. Peritoneum and bowel: Bowel loops demonstrate normal wall thickness and caliber. No free fluid or a ir. Prominent diverticula are present within the colon. Portions of the left colon are suboptimally visualized secondary to metallic streak artifact from left hip arthroplasty and right femoral fixatio n. Nodes and vessels: No retroperitoneal or mesenteric adenopathy by size criteria. Aorta and inferior vena cava are normal in size. Miscellaneous: No ventral hernias. PELVIS: Genitourinary: Bladder is incompletely visualized secondary to metallic streak artifact from adjacen t prosthesis. Miscellaneous: No inguinal hernias or adenopathy. Bones: No suspicious bony lesions. No vertebral body compression fractures. IMPRESSION: 1. Presumed interval cholecystectomy with fluid collection in the gallbladder fossa. This could repre sent developing abscess versus biloma. 2. Diverticulosis. 3. Unchanged fat-containing right adrenal mass. Dictated by: Corrine Hernandez M.D. on 07/10/2016 at 8:55 Approved by: Corrine Hernandez M.D. on 07/10/2016 at 9:26
[2016-07-10] MEDS ORDERED: Vancomycin Serum Trough XX ONE ×2 (09:30)
[2016-07-10] MEDS: Vancomycin Inj 1,000 MG in IV Premix 1 EACH IV SCH ×2 (10:00→11:18)
[2016-07-10] MEDS ORDERED: Vancomycin Inj 250 MG in 0.9% Sodium Chloride 100 ML IV ONE (12:30)
[2016-07-10] MEDS: D5 0.45% NaCl + KCl 20 mEq/L 1,000 ML IV SCH ×2 (13:47→21:53)
--- NOTE | 2016-07-10 14:15 | PCM.PNMED ---
Subjective Date of Service Jul 10, 2016 Subjective ROS limited 2ndry to patient quite lethargic but seems to deny any pain or discomfort and specifically seems to deny any abd pain Exam Vital Signs Vital Sign - Last Date Time Temp Pulse Resp B/P Pulse Ox O2 Delivery O2 Flow Rate FiO2 07/10/16 12:00 38.8 104 24 182/72 94 Nasal Cannula 2.00 Intake and Output 07/09/16 07/09/16 07/10/16 Cumulative From/Thru 15:00 23:00 07:00 07/06/16 13:12 - 07/10/16 06:32 Intake Total 1713 ml 731 ml 5984 ml Output Total 600 ml 800 ml 5031 ml Balance 1113 ml -69 ml 953 ml Intake Oral 15 ml 0 ml 255 ml IV Total 1698 ml 731 ml 5729 ml Output Urine Total 600 ml 800 ml 5030 ml Estimated Blood Loss 1 ml Exam appears very lethargic but more alert than yesterday and able to answer some questions with "yes" or "no" General: No Acute Distress Head: Normal Eyes: Scleral Anicteric Mouth: Mucous Membr Moist/[place] Neck: Supple Chest & Lungs: Chest Wall Normal, Clear to auscultation & percussion Cardiovascular: Regular Rate/Rhythm Pulses: NL carotid, radial, femoral, DP, PT Abdomen: Tender (seems mildly tender), Non-distended, Normoactive bowel tones, Soft Extremities: No cyanosis/clubbing/edema bilat Neurological: seems more awake and alert than yesterday but still very lethargic and neuro exam limited but seems non-focal. IVs and Medications Medications Reviewed: Medications were reviewed in detail Lab and Diagnostics Result Diagram: 07/10/16 0555 07/10/16 0555 Assessment & Plan 75yo female with history of Diabetes types 2, dementia, depression, anxiety and recent prolonged hospitalizations 3-06/27 with worsening mental status, diverticulitis, NOÉ, possible UTI, aspiration pneumonia p/w fever, lethargy # Acute sepsis, present on admission. ongoing - SIRS criteria: Fever, Tachycardia, leukocytosis, tachypnea, and altered mental status. Source of infection combination of acute cholecystitis and UTI ( present on admission) - further treatment and management as noted below - continue with broad Abx until clinically more stable and rule out other sources of infection # Acute cholecystitis. present on admission. - post laparoscopic cholecystectomy with intraoperative cholangiogram on 07/08/16 - CT chest/abd/pelvis 07/09 showing: "Presumed interval cholecystectomy with fluid collection in the gallbladder fossa. This could represent developing abscess versus biloma." - discussed CT findings with radiology and with surgery (Dr. Santiago) this am. appreciate surgery consult. will f/u w/ recs # Acute MRSA urinary tract infection (UTI), present on admission - continue with Vancomycin (dose per pharmacy) (day 3) # Acute on chronic encephalopathy, present on admission. ongoing - multifactorial: underlying cognitive dysfunction, toxic metabolic-sepsis, medicine-induced. 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 not present on admission - likely due to ongoing sepsis - treatment as noted above - followup # History of hypertension. ongoing. poorly controlled - continue with prn medication until sepsis improved and hemodynamically more stable # History of dysphagia likely secondary to dementia, unknown chronicity, present on admission. Ongoing. - Swallow evaluation - c/w supportive care # History of Diabetes types 2 - cover with ISS # Progressive dementia - c/w supportive care # Goals of care - consider palliative care consult Dispo: 3-4 days VTE Mechanical Devices: Intermittant Pneumatic CD Resuscitation Status: DNR/DNI:Do Not Resuscitate/Intubate Time spent 40 min Pradeep Hernandez Jul 10, 2016 14:15
--- NOTE | 2016-07-10 15:50 | NUR ---
NUTRITION FOLLOW-UP: ASSESS: 75 YO female admitted with aspiration PNA and failure to thrive. Pt with acute cholecystitis s/p lap cholecystectomy. Pt is currently very lethargic and has been NPO / clear liquids x 4 days. PMHx: MS, cataracts, HTN, dyslipidemia, diverticulitis, endometriosis, left nephrectomy, carpal tunnel release, UTI, arthritis, type 2 diabetes, depression, anxiety, hyponatremia, charcot yolie tooth. DIET: Clear liquids, [place] Thick x 4 days, po 0-15%. LABS: Reviewed. K+ 2.6, Glu 167, A1C 6.9, Ca 7.9, ALT 58, ALB 3.1. MEDICATIONS: Reviewed. GI symptoms / stool: No BM reported at this time. ANTHROPOMETRICS: Current Wt: 55.3 kg BMI: 22.3 kg/m2 ESTIMATED NEEDS: Calories: 14-1650 kcal (25 -30 kcal / kg BW) Protein: 55-85 g protein (1.0-1.5 g / kg BW) NUTRITION DIAGNOSIS: 1) Inadequate oral intake related to inability to consume sufficient energy, as evidenced by NPO/CL diet x 4 days and po intake < 15% of meals. 2) Chewing / swallowing difficulties related to MS, as evidenced by requirement for modified diet texture per history. INTERVENTION: 1.) Continue to advance diet as able. Will add gelatein and NT Ensure Clear to all trays. MONITOR/EVALUATE: Diet advance / tolerance, PO intake, labs, GI/nutrition status, POC. Follow per high nutrition risk guidelines. Addendum: 07/11/16 at [address] MD advanced diet to full liquids today. ST was unable to assess pt today per RN request. As pt was on nectar thick clear liquids, will add nectar thick diet modifier to current full liquid diet.
--- NOTE | 2016-07-10 16:48 | DRSVH ---
PROCEDURE: NM HIDA SCAN BILE LEAK RADIOPHARMACEUTICAL: 4.9 mCi Tc-99m mebrofenin IV. INDICATIONS: rule out bile leak TECHNIQUE: Following intravenous administration of Tc-99m mebrofenin, sequential anterior abdominal images were obtained through at least 60 minutes. COMPARISON: [facility], CT, CT CHEST ABD PELVIS W CON, 07/09/2016, 17:13. FINDINGS: There is normal tracer uptake and excretion by the liver. There is normal visualization o f intrahepatic ducts, common bile duct. There is a focus of apparent increased uptake appearing to be along the common bile duct/duodenal border. At first appears at approximately 7 minutes and appears relatively unchanged until disappearing at 17 minutes. There is normal tracer excretion into duodenum . IMPRESSION: 1. Focus of increased uptake along the common bile duct/duodenal region. Although this roughly approx imates the area of fluid collection on the CT, finding is suspected to be related to tracer within th e common bile duct or proximal duodenum, rather than bile leak. Bile leak would be expected to persis t and continue to increase in size, rather than nonvisualization on later images. Dictated by: Corrine Hernandez M.D. on 07/10/2016 at 16:43 Approved by: Corrine Hernandez M.D. on 07/10/2016 at 16:47
--- NOTE | 2016-07-10 17:21 | PCM.PHAPRO ---
Progress VANCOMYCIN DOSING PER PHARMACY Indication: Pneumonia Other ABX: Cefepime, Flagyl Goal: 15-20 Labs: WBC: 15 Temp: Febrile SCr: 0.35 Vanc trough: 11 (9.8 previously 07/08) Subtherapeutic level and concerning clinical picture. Will temporarily increase dosing to vancomycin 1,250mg every 12 hours. Today's morning dose was supplemented with 250mg vancomycin piggyback. Will redraw trough 07/11/16 @ 2230. Pharmacy will continue to monitor. Shyam Mccabe Jul 10, 2016 17:21
--- NOTE | 2016-07-10 20:37 | PROG NOTE ---
[address] [address] PROGRESS NOTE PATIENT: HOWARD ORDAZ : 1940 MR#: [id number] ADMIT: 07/06/2016 JOB ID: [id number] DATE: 07/10/2016 The patient was seen earlier today for General Surgery following discussion with Dr. Hernandez. She remains neurologically within a standard deviation of where she has been. She did have a temperature to 38.5 this morning, 38.8 at noon. Her abdominal exam is benign other than tenderness over her incisions. Her white count had dropped from 16.5 down to 12.9, but is now back up to 15 over the past 48 hours. Her hematocrit is more or less stable, drifting down to 28.7. Chemistries demonstrate normal liver function tests other than a mild elevation of her ALT that has been present for several days to 58. Procalcitonin is 0.23. IMAGING: She did have a CT scan earlier today, "which demonstrated some fluid collection in the gallbladder fossa" and there was a question as to whether this could be an abscess or biloma. I have reviewed the films and the report. This fluid collection is roughly 3 cm x 4 cm, and quite consistent with normal postop fluid following a laparoscopic cholecystectomy or even possibly a little bit of blood. Because of the concern of a possible bile leak, we obtained a HIDA scan which demonstrates no evidence for active bile leak. IMPRESSION AND PLAN: I suspect that this CT finding represents normal postop fluid and is not the source of her fever or ongoing infection. The fluid is small enough that the likelihood of it being a source of intra-abdominal infection this close to the laparoscopic cholecystectomy is so low that I would not pursue Interventional Radiology sampling of the fluid. General Surgery will continue to follow.
[2016-07-10] MEDS: Vancomycin Inj 1,250 MG in 0.9% Sodium Chloride 250 ML IV SCH (23:04)
[2016-07-11] VITALS (8 sets, daily range): BP systolic 141–196; BP diastolic 56–86; PULSE 79–97; RESP 18–24; O2SAT 98–100
[2016-07-11] MEDS: Cefepime Inj 2,000 MG in Dextrose 5% Minibag Plus 100 ML IV SCH ×4 (01:20→17:42)
[2016-07-11] MEDS: metroNIDAZOLE Inj 500 MG in IV Premix 1 EACH IV SCH ×4 (01:22→17:42)
--- NOTE | 2016-07-11 01:44 | NUR ---
Swallow Pt's speech very clear. Opens eyes when asked. Cooperative. Given meds crushed in applesauce. Pt tolerated very well Will cont to monitor
[2016-07-11] MEDS: Insulin Human REGular 300 Unit/3 mL Inj SUBQ SCH ×5 (02:42→22:07)
[2016-07-11] MEDS: D5 0.45% NaCl + KCl 20 mEq/L 1,000 ML IV SCH ×2 (04:00→20:15)
[2016-07-11] MEDS: Labetalol 5 mg/mL 4 mL Inj IVPUSH PRN (04:11)
--- NOTE | 2016-07-11 04:18 | NUR ---
Elevated BP Pt's systolic BP greater than 190. Taken twice. Given IV labetolol 20 mg. BP reduced to 165/71
[2016-07-11 06:51] LABS: Mean Corpuscular Hemoglobin 27.1 pg (27.0-35.0); Mean Corpuscular Volume 86.8 fL (81-100)
[2016-07-11] MEDS ORDERED: KCl 40 mEq/D5W 500 mL 40 MEQ in IV Premix 500 EACH IV ONE (07:30)
[2016-07-11] MEDS ORDERED: Potassium Chloride 20 mEq SR Tablet PO ONE (07:30)
--- NOTE | 2016-07-11 08:57 | NUR ---
Change in patient condition Student Nurse and Clinical Instructor in room to give morning meds. Patient stated, "Please do, Im not feeling well", referring to her medications. Pt was diaphoretic, bp obtained 194/84, temp elevated 101.1, BS 207, previously 192 at 7am, resp rate of 28. Provider notified pt was minimally alert, painful stimuli did not awaken her. MD came to room to assess and evaluate. Tylenol PO given. Pt resting, call light at bedside, bed in low position with bed alarm on.
[2016-07-11] MEDS: Heparin 5,000 Unit/mL Inj SUBQ SCH ×2 (09:10→21:25)
[2016-07-11] MEDS: Vancomycin Dose per Pharmacist XX SCH (09:12)
--- NOTE | 2016-07-11 11:14 | NUR ---
Palliative Care Palliative Care received verbal order from Dr Hernandez 07/11/16 to assist with goals of care. Patient is a 75 year old woman with hx of progressive dementia, DM2, depression, anxiety, worsening mental status, diverticulitis, NOÉ. She was recently admitted 06/15-06/27/16 and was readmitted 07/06/16. She is receiving care for acute sepsis, acute cholecystitis, acute mrsa UTI, aspiration pneumonia, failure to thrive. The Palliative Care Team saw patient multiple times during previous/recent admission. Patient is a long-term care resident at [facility]. Fabienne Oden (granddaughter) [phone] Hilton Cerda (granddaughter) [phone] Palliative Care to follow. Vanessa Erwin
[2016-07-11] MEDS: Vancomycin Inj 1,250 MG in 0.9% Sodium Chloride 250 ML IV SCH ×2 (11:51→23:35)
--- NOTE | 2016-07-11 12:04 | PCM.PNSURG ---
Subjective Date of Service: Jul 11, 2016 Visit Information: Reason for Visit Asp Pneumonia, Failure To Thrive, Cva (1 Mnth Ago) Surgery/Surgery Date Post-Op Day #4 Date of Admission: Jul 06, 2016 at 16:13 Hospital Day # Subjective: Does not respond to verbal stimulus. Nursing reports that they are not administering pain medications, unnecessary. Postop General: Other (as above) Pain Management: No or Minimal Pain Postop Activity: Other (bed rest) Objective Vital Sign- Last 8 Hours Date Time Temp Pulse Resp B/P Pulse Ox O2 Delivery O2 Flow Rate FiO2 07/11/16 10:19 97 07/11/16 08:57 38.4 94 194/84 99 Nasal Cannula 1.50 07/11/16 04:01 36.9 90 24 196/80 99 Nasal Cannula 2.00 Intake and Output- Last 8 Hour 07/11/16 Cumulative From/Thru 07:00 07/06/16 13:12 - 07/11/16 06:13 Intake Total 0 ml 7509 ml Output Total 275 ml 5756 ml Balance -275 ml 1753 ml Intake Oral 0 ml 435 ml IV Total 7074 ml Output Urine Total 275 ml 5755 ml Estimated Blood Loss 1 ml # Bowel Movements 1 General: Cooperative, No Acute Distress, Anicteric, Other (noncommunicative) Lungs: Clear to Auscultation (in the anterolateral lewis) Heart: Regular Rate/Rhythm Abdomen: Soft, Non-distended, No masses, Other (tender in the right upper quadrant to palpation) SURGICAL WOUND : Wound General Appearence: Steri Strips, Sutures, No Erythema, No Discharge Extremities: Thigh&Calf Soft/Nontender Result Diagram: 07/11/16 0605 07/11/16 0605 Lab & Micro Results: Blood cultures positive for MRSA Urine culture positive for MRSA Diagnostics: Yesterday's HIDA scan did not demonstrate bile leak. CT scan from the day before yesterday demonstrated small gallbladder fossa fluid collection not thought to be significant or require drainage Assessment & Plan Impression Primary diagnosis: 1. Acute cholecystitis. POD #4 with small gallbladder fossa fluid accumulation on CT scan not felt to be contributing to his overall sepsis. 2. MRSA bacteremia 3. MRSA urinary tract infection Other diagnoses: 1. Cataracts 2. Hypertension/hyperlipidemia 3. Diverticulitis 4. Endometriosis, left nephrectomy, tonsillectomy,carpal tunnel release 5. UTI/nocturia 6. Arthritis back, right hip joint replacement 2003, left hip replacement 2013 7. Diabetes types 2 8. Depression, anxiety 9. recurrent hyponatremia since 2013 10. charcot yolie tooth 11. Dementia Problems: Plan Sepsis treatment as per hospitalist service. Surgery will continue to follow. VTE Prophylaxis: Sub-Q Heparin (Unfractionated) Resuscitation Status: DNR/DNI:Do Not Resuscitate/Intubate Aleksey Dennis PA-C Jul 11, 2016 12:04
--- NOTE | 2016-07-11 13:47 | PATH ---
SURGICAL PATHOLOGY Attending Physician:Rafi Sheets M.D. CASE STATUS: Signed Out PATIENT NAME: HOWARD ORDAZ PID: [id number] : 1940 DATE COLLECTED:07/07/2016 00:00 SPECIMEN: Gallbladder CLINICAL HISTORY: CHOLECYSTITIS 1).GALLBLADDER FINAL DIAGNOSIS: 1.GALLBLADDER: CHOLELITHIASIS AND ACUTE CHOLECYSTITIS. NO EVIDENCE OF MALIGNANCY. ICD10 CODE K80.6 GROSS DESCRIPTION: Received in formalin, labeled with the patient' s name and "gallbladder", is one sanchez-green gallbladder measuring 8.0 x 4.2 x 2.8 cm. The serosal surface is smooth and glistening. [place] are located at the cystic duct region. Sectioning of the gallbladder reveals a wall to measure 0.5 cm in thickness. Within the cavity is found one stone measuring 0.5 x 0.4 x 0.2 cm. The stone is easily crushed. The mucosal surface is light sanchez, smooth, and shows focal areas of abnormality near the cystic duct region. Barbed Wire Machine Operator sections are submitted in one cassette. ([id number]) MICRO DESCRIPTION: See diagnosis. ICD-9 CODES: CPT CODES: 1: 13449 Electronically Signed Out Renetta Back MD [facility] Pathology [facility] [address], [place] [address] Technical component performed at [facility], [address], [place], [address]
--- NOTE | 2016-07-11 14:52 | PCM.PNMED ---
Subjective Date of Service Jul 11, 2016 Subjective ROS limited 2ndry to patient quite lethargic but seems to deny any pain or discomfort Exam Vital Signs Vital Sign - Last Date Time Temp Pulse Resp B/P Pulse Ox O2 Delivery O2 Flow Rate FiO2 07/11/16 12:16 38.1 80 24 141/62 100 Nasal Cannula 1.50 Intake and Output 07/10/16 07/10/16 07/11/16 Cumulative From/Thru 15:00 23:00 07:00 07/06/16 13:12 - 07/11/16 06:13 Intake Total 1525 ml 0 ml 7509 ml Output Total 450 ml 275 ml 5756 ml Balance 1075 ml -275 ml 1753 ml Intake Oral 180 ml 0 ml 435 ml IV Total 1345 ml 7074 ml Output Urine Total 450 ml 275 ml 5755 ml Estimated Blood Loss 1 ml # Bowel Movements 1 1 Exam appears very lethargic but more alert than previous days and able to answer some questions with "yes" or "no" General: No Acute Distress Head: Normal Eyes: Scleral Anicteric Mouth: Mucous Membr Moist/[place] Neck: Supple Chest & Lungs: Chest Wall Normal, Clear to auscultation bilat Cardiovascular: Regular Rate/Rhythm Pulses: NL carotid, radial, femoral, DP, PT Abdomen: Tender (seems mildly tender), Non-distended, Normoactive bowel tones, Soft Extremities: No cyanosis/clubbing/edema bilat Neurological: seems more awake and alert than prior days but still very lethargic and neuro exam limited but seems non-focal. IVs and Medications Medications Reviewed: Medications were reviewed in detail Lab and Diagnostics Result Diagram: 07/11/1660407/11/16 06 Assessment & Plan 75yo female with history of Diabetes types 2, dementia, depression, anxiety and recent prolonged hospitalizations 06/15-06/27 with worsening mental status, diverticulitis, NOÉ, possible UTI, aspiration pneumonia p/w fever, lethargy # Acute sepsis, present on admission. ongoing - SIRS criteria: Fever, Tachycardia, leukocytosis, tachypnea, and altered mental status. Source of infection combination of acute cholecystitis and UTI ( present on admission). Now with possible bacteremia as well. - further treatment and management as noted below - continue with broad Abx until clinically more stable and rule out other sources of infection # Acute cholecystitis. present on admission. - post laparoscopic cholecystectomy with intraoperative cholangiogram on 07/08/16 - CT chest/abd/pelvis 07/09 showing: "Presumed interval cholecystectomy with fluid collection in the gallbladder fossa. This could represent developing abscess versus biloma." - appreciate surgery consult. will f/u w/ recs # Acute MRSA urinary tract infection (UTI), present on admission - continue with Vancomycin (dose per pharmacy) (day 4) # one blood culture from 07/09 coming back positive - ? if real vs contamination. - f/u final culture result - repeat blood culture 07/11 # Acute on chronic encephalopathy, present on admission. ongoing - multifactorial: underlying cognitive dysfunction, toxic metabolic-sepsis, medicine-induced. 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 not present on admission. resolved - likely due to ongoing sepsis - treatment as noted above - followup # History of hypertension. ongoing. poorly controlled - resume home BP meds and f/u closely # History of dysphagia likely secondary to dementia, unknown chronicity, present on admission. Ongoing. - Swallow evaluation - c/w supportive care # History of Diabetes types 2 - cover with ISS # Progressive dementia - c/w supportive care # Goals of care - palliative care consulted. will f/u w/ recs Dispo: 3-4 days VTE Prophylaxis: Sub-Q Heparin (Unfractionated) VTE Mechanical Devices: Intermittant Pneumatic CD Resuscitation Status: DNR/DNI:Do Not Resuscitate/Intubate Time spent 35 min Pradeep Hernandez Jul 11, 2016 14:52
--- NOTE | 2016-07-11 14:52 | NUR ---
Pt condition Pt found to be difficult to arouse and confused this am, diaphoretic and stated she felt like something was wrong. VS taken, fever of 38.4, 94 HR, 194/84, 99% O2 sats on 2L, glucose 207. Lt arm also still swollen from 07/10 IV infiltration/removal. notified, who came and assessed pt. New blood cultures ordered and ultrasound of lt arm ordered. PRN tylenol given at approx 0930. Fever resolved within next hour. Ultrasound results pending. Due to assignment change new nurse taking over at this time, full report given. Care continues.
--- NOTE | 2016-07-11 15:06 | DRSVH ---
PROCEDURE: US VENOUS ARM DUPLEX UNILATERAL, LEFT INDICATIONS: left arm swelling. r/o DVT TECHNIQUE: Real-time imaging, as well as color and pulse Doppler interrogation, was performed of the left upper extremity deep veins from the inferior neck to the antecubital fossa. COMPARISON: None. FINDINGS: The internal jugular vein, visualized portions of the subclavian vein, axillary, and brach ial veins are free of intraluminal thrombus. Where physically possible, the veins are normally compr essible. Color and pulse Doppler demonstrate normal intraluminal flow, with expected phasicity and p ulsatility. Additional scanning of the cephalic and basilic veins of the superficial system demonstr ate normal compressibility, without thrombus. IMPRESSION: No left upper extremity venous thrombosis identified. Note, a small segment of the brach ial vein is not identified. Dictated by: Masood Velasco [facility] Interpreted: Laurie Bansal MD on 07/11/2016 at 15:05 Transcribed by: HARVINDER on 07/11/2016 at 15:05 Approved by: Laurie Bansal MD, PhD on 07/11/2016 at 17:19
--- NOTE | 2016-07-11 15:07 | PCM.CONPAL ---
Date of Service Jul 11, 2016 Date of Hospital Admission: Jul 06, 2016 at 16:13 Date of Palliative Consult: Jul 11, 2016 Requesting Provider: Pradeep Hernandez Reason Palliative Care Consult: Goals of Care Discussion Hospital Unit @time of consult: Medical/Pediatric Care Palliative Care Recommendation 75-year-old female admitted with deterioration in level of consciousness, worsened anorexia, then fevers and abdominal pain, ultimately felt to be secondary to sepsis associated with acute cholecystitis. Now status post cholecystectomy with slow improvement, with additional diagnosis of MRSA UTI and acute transaminitis Palliative medicine consulted at family request to review goals of care. Lengthy discussion with the patient's granddaughter/POStella Loving today regarding patient's diagnoses, care, potential for recovery, etc. Per our discussion, plan will be to continue to monitor the patient's overall status. If she improves over the next several days, then will continue with supportive care in hopes of continuing recovery. If, however, she deteriorates, Fabienne is very open to the possibility of transitioning to comfort/end-of-life care. Summary of palliative recommendations: -Symptom management (Pain/other)- appears comfortable and in no pain or other significant distress. So far, much less agitation/delirium than during last admission. Receiving minimal pain medication (acetaminophen) and her other chronic behavioral medications (including quetiapine, risperidone, donepezil) remain on hold. Her granddaughter hopes to minimize reintroduction of such medications and would like to reduce the patient's overall medication burden as much as possible (to that end, today I did discontinue her atorvastatin). We will continue to follow and monitor behaviors and reintroduce medications only as required. -DPOA/Advanced Directives/POLST- she remains DO NOT RESUSCITATE/DO NOT INTUBATE/ antibiotics okay/no artificial nutrition per her POLST completed at the time of her last hospitalization. -Family/emotional support- excellent support from her family members Patient Goals: 1. Patient's family wants to be told the truth about her illness, even if it is unpleasant. 2. Patient's family would like to be told prognosis when it can be predicted, to better guide treatment decisions. 3. Patient would choose quality of life over quantity of life, and defines quality as being functional to the level that she was in May before her recent series of illnesses. Additional Medical Diagnoses with primary management by Hospitalist team include : # Acute sepsis, present on admission. ongoing # Acute cholecystitis. present on admission. # Acute MRSA urinary tract infection (UTI), present on admission # Acute on chronic encephalopathy, present on admission. ongoing # Acute hypokalemia # Acute transaminitis. not present on admission # History of hypertension. ongoing. poorly controlled # History of dysphagia likely secondary to dementia, unknown chronicity, present on admission. Ongoing. # History of Diabetes types 2 # Progressive dementia Problems: End of Life Preferences DO NOT RESUSCITATE/DO NOT INTUBATE/hospitalization and antibiotics okay/no artificial nutrition Goals of Care Ideally to return to functional status enjoyed at the start of May Disposition [facility]ely return [facility] when medically cleared Resuscitation Status Resuscitation Status: DNR/DNI:Do Not Resuscitate/Intubate Limited Interventions: Medications and IV Fluid POLST Updates/Changes Previous POLST?: Yes Antibiotics: Determine Use or Limitations Artificially Admin Nutrition: No Artifical Nutrition by Tube POLST Discussed with: Health Care Agent (DPOAHC) POLST Review Outcome: No Change . Advanced Care Planning Address: Code status change Pain: None Pt History History of Present Illness Per admission H&P: 75yo F w/ recent prolonged hospitalizations 2/3-15 with worsening mental status , diverticulitis, NOÉ, possible UTI, aspiration pneumonia p/w fever, lethargy History was obtained by Granddaughter at the bedside. Since pt was discharged, pt's MS was not back to baseline, wax and wane.However, at some point, pt was able to communicate with her family, friends. Pt was able eat 40% of meals with assistance, having persistent loose stools. Then 3days KARATE BLACK BELT, pt had low grade temp, then since yesterday, pt became more lethargic, had [id number] today,pt was sent to ED per family's wishes. Pt didn't have cough, sputum, was not on love cath, no nausea, vomiting noticed. No seizure like activities observed. per EMS , VS BP 160s, [id number], 96% on RA. Of note, According to previous note, prior to previous hospitalization, At baseline pt is functional walking with walker, being able to feed herself despite baseline dementia, pt got treated with influenza, also had frequent falls and back pain. Palliative care were consulted in last hospitalization, code status remained DNR/DNI/okay with IVF, abx. this was confirmed again with granddaughter today. Patient has since undergone cholecystectomy. Recovery has been slow with recurrent fevers and concerns about persistent or new infection. Palliative medicine consulted to review patient and family wishes regarding goals of care. Patient had just recently been discharged from the hospital on - during that admission she was seen by palliative medicine/Dr. El Prior to visiting the patient today, reviewed her records in the EMR in detail. Spoke with her bedside nurse as well as with her hospitalist. When I arrived, patient is lying in bed, usually asleep but occasionally mumbling. Awakened later but remains somewhat confused. I spoke at length with her grand daughter/RAMON Loving. Reviewed with Fabienne the patient's prior palliative consultation conclusions and plans. Fabienne and the rest of the family of hope that the patient would improve and recover to what her baseline had been in May, and are concerned that she has had to return to the hospital with a new problem. Their hope is that this was a discrete problem, now fixed with surgery, but at the same time realize that this may be another step in a cascade of additional illnesses, and they do not want to unnecessarily/1 pleasantly prolong the patient's life if there is no hope of recovery. Past Medical History Significant PMH Noted: Cataracts Hypertension/hyperlipidemia Diverticulitis Endometriosis, left nephrectomy, tonsillectomy,carpal tunnel release UTI/nocturia Arthritis back, right hip joint replacement 2003, left hip replacement 2013 Diabetes types 2 Depression, anxiety recurrent hyponatremia since 2013 charcot yolie tooth Social History Occupation: Retired Family Members Issues: Fabienne expressed concerns about overall direction of care- she continues to hope that the patient can return to her baseline status as of May/2016, when she was ambulatory and interactive at her SNF and seemed to have a reasonably good quality of life. She does not want to continue to pursue aggressive treatment if there is no reasonable hope that the patient can recover , but she recognizes that it is very difficult to know her predict what is going to be happening. Social Support: Good support from multiple family members in area Living Situation: [facility] Performance Scale PPS Patient Status: Baseline PPS Ambulation: Mainly Sit/Lie PPS Activity: Unable to do any work PPS Self-Care: Occasional assistance necessary PPS Intake: Normal or reduced PPS Conscious Level: Full or confusion Performance Scale: 50% ADLs ADL Patient Status: Baseline ADL Ambulation: Mainly Sit/Lie ADL Dressing: Occasional assistance necessary ADL Feeding: Occasional assistance necessary ADL Hygene/bathing: Occasional assistance necessary ADL Transfers: Occasional assistance necessary POLST at Time of Admission Previous POLST?: Yes POLST Last Review Date: Jul 11, 2016 Cardiopulmonary Resuscitation: DNR: Do Not Attempt Resuscitation Medical Interventions: Limited Additional Interventions Antibiotics: Determine Use or Limitations Artificially Admin Nutrition: No Artifical Nutrition by Tube POLST Discussed with: Health Care Agent (DPOAHC) POLST Status: No change from last encounter Allergy Allergies Reviewed: Yes Medications Current Medications: Current Medications Insulin Human Regular * Low Dose Insulin Algori... Q6 SUBQ Last administered on 07/11/16 12:24; Admin Dose 3 UNIT; Start 07/09/16 at 20:30 Vancomycin/0.9 % Sod Chloride 1000 mg/Premix 200 ml @ 133.333 mls/hr Q12H IV Last administered on 07/10/16 11:18; Admin Dose 133.333 MLS/HR; Start 07/09/16 at 22:00; Stop 07/10/16 at 17:14; Status DC Cefepime HCl 2000 mg/Dextrose/Water 100 ml @ 25 mls/hr Q8 IV; Start 07/10/16 at 00:30; Status Cancel Cefepime HCl 2000 mg/Dextrose/Water 100 ml @ 25 mls/hr Q8 IV Last administered on 07/11/16 08:48; Admin Dose 25 MLS/HR; Start 07/10/16 at 08:30 Potassium Chloride/Dextrose/ Sod Cl 1,000 ml @ 70 mls/hr [id number] IV Last administered on 07/11/16 04:00; Admin Dose 70 MLS/HR; Start 07/10/16 at 07:35 Famotidine 20 mg 20 mg DAILY PO Last administered on 07/11/16 09:12; Admin Dose 20 MG; Start 07/10/16 at 08:30 Acetaminophen 1000 mg/Premix 100 ml @ 400 mls/hr Q6H PRN IV Last administered on 07/10/16 12:45; Admin Dose 400 MLS/HR; Start 07/10/16 at 09:10; Stop 3/1/ 17 at 09:11; Status DC Vancomycin HCl/ Sodium Chloride 250 ml @ 166.667 mls/hr Q12H IV Last administered on 07/11/16 11:51; Admin Dose 166.667 MLS/HR; Start 07/10/16 at 23: 00 Losartan Potassium 50 mg DAILY PO Last administered on 07/11/16 09:12; Admin Dose 50 MG; Start 07/11/16 at 08:30 Scheduled Atorvastatin (Lipitor) 20 Mg Tablet 20 MG PO HS Cholecalciferol (Vitamin D3) (Vitamin D3) 2,000 Unit Tablet 2,000 UNIT PO DAILY Donepezil (Donepezil) 5 Mg Tablet 10 MG PO HS Folic Acid (Folic Acid) 0.8 Mg Tablet 0.4 MG PO DAILY Lidocaine (Lidoderm) 700 Mg Adh..patch 1 PATCH TP DAILY Losartan Potassium (Losartan Potassium) 100 Mg Tablet 100 MG PO DAILY Meloxicam (Meloxicam) 7.5 Mg Tablet 7.5 MG PO DAILY Metformin HCl (Metformin HCl ER) 1,000 Mg [id number] 1,000 MG PO BID Metoprolol Tartrate (Metoprolol Tartrate) 50 Mg Tablet 50 MG PO BID Nut.tx.,Elemental,Lac-Free/Mct (Xtracal Plus Liquid Packet) 45 Ml Liquid.pkt 45 ML PO TIDWM Potassium Chloride (Potassium Chloride Powder) 20 Meq Packet 20 MEQ PO DAILY DISSOVE CONTENTS OF PACKET IN FULL GLASS OF WATER AND DRINK ONCE DAILY. TAKE WITH FOOD Risperidone (Risperdal) 1 Mg Tablet 0.5 MG PO TID Sertraline HCl (Sertraline) 50 Mg Tablet 75 MG PO DAILY Scheduled PRN ([house cough syrup]) 15-30 ML PO q6hrs PRN PRN For Cough Acetaminophen (Acetaminophen) 325 Mg Tablet 650 MG PO Q4H PRN PRN For Pain Albuterol Neb Soln (Albuterol Neb Soln) 0.63 Mg/3 Ml Vial.neb 0.83 MG INHALATION Q4H PRN PRN For Shortness of Breath Loperamide HCl (Imodium A-D) 2 Mg Capsule 2 MG PO Q4hrs PRN PRN For Diarrhea or Loose Stool Magnesium Hydroxide (Milk of Magnesia) 400 Mg/5 Ml Oral.susp 30 ML PO DAILY PRN PRN For Constipation Polyethylene Glycol 3350 (Miralax) 17 Gm Powd.pack 17 GM PO DAILY PRN PRN For Constipation Sennosides (Senna) 8.6 Mg Tablet 17.2 MG PO DAILY PRN PRN For Constipation Tramadol (Tramadol) 50 Mg Tablet 100 MG PO Q6H PRN PRN For Pain hydrOXYzine Hcl (HydrOXYzine Hcl) 25 Mg Tablet 25 MG PO TID PRN PRN For Itching Objective Findings Exam Vital Sign - Last Date Time Temp Pulse Resp B/P Pulse Ox O2 Delivery O2 Flow Rate FiO2 07/11/16 12:16 38.1 80 24 141/62 100 Nasal Cannula 1.50 Intake and Output 07/10/16 07/10/16 07/11/16 Cumulative From/Thru 15:00 23:00 07:00 07/06/16 13:12 - 07/11/16 06:13 Intake Total 1525 ml 0 ml 7509 ml Output Total 450 ml 275 ml 5756 ml Balance 1075 ml -275 ml 1753 ml Intake Oral 180 ml 0 ml 435 ml IV Total 1345 ml 7074 ml Output Urine Total 450 ml 275 ml 5755 ml Estimated Blood Loss 1 ml # Bowel Movements 1 1 Objective Frail elderly woman lying in bed. Vital signs noted. Skin pale, warm and dry. Head and neck exam without acute findings. Lungs clear anterolaterally, heart sounds regular, abdomen rounded, tympanitic, no severe tenderness and no peritoneal signs. I can palpate moderately across her entire abdomen and she does not flinch, grimace her shoulder signs of discomfort. Extremities without pitting edema. Neurologic exam limited by poor cooperation. Lab/Diagnostics Lab and Imaging results reviewed in detail in EMR. Time spent Total time 75 minutes; >50% face to face with patient and family, providing counselling regarding plans and recommendations, and in care coordination with her medical teams. Of the above total time, 20 minutes counseling for advanced care planning with the patient's granddaughter/POA copies to: Patti Loera; [facility] Wallace Akhtar MD Jul 11, 2016 15:07
--- NOTE | 2016-07-11 15:21 | DRSVH ---
CORRECTED MRN ON 07/11/16 PROCEDURE: X-RAY CHEST ONE VIEW, PORTABLE ([id number]) INDICATIONS: SEPSIS TECHNIQUE: One view of the chest was acquired. COMPARISON: None. FINDINGS: Surgical changes and devices: None. Lungs and pleura: No pleural effusions or pneumothorax. Lungs are clear considering reduced inspira tion and patient tilt and rotation rightward. Mediastinum: Mediastinal contours appear normal. Heart size is normal. Bones and chest wall: No suspicious bony lesions. Overlying soft tissues appear unremarkable. Note is made of multiple loose bodies inferior right shoulder joint space, partially calcified and measur ing up to 1.4 cm in dimension. IMPRESSION: Reduced inspiration, patient tilt and rotation rightward, no pneumonia found. Intra-mellissa cular loose bodies as noted right shoulder. Dictated by: Sony Yao M.D. on 07/06/2016 at 12:50 Approved by: Sony Yao M.D. on 07/06/2016 at 12:51
--- NOTE | 2016-07-11 19:33 | NUR ---
Report Written report given to charge nurse and aware. Reviewed student notes and assessment and agree.
[2016-07-11] MEDS ORDERED: Vancomycin Serum Trough XX ONE (22:30)
[2016-07-11] MEDS ORDERED: 0.9% Sodium Chloride 250 ML ONE (23:30)
[2016-07-12] VITALS (10 sets, daily range): BP systolic 153–200; BP diastolic 58–95; PULSE 83–92; RESP 20–24; O2SAT 100
[2016-07-12] MEDS: Cefepime Inj 2,000 MG in Dextrose 5% Minibag Plus 100 ML IV SCH ×3 (00:25→15:38)
[2016-07-12] MEDS: metroNIDAZOLE Inj 500 MG in IV Premix 1 EACH IV SCH ×3 (00:25→17:28)
--- NOTE | 2016-07-12 00:42 | PCM.PHAPRO ---
Progress Date of Service: Jul 12, 2016 Vancomycin dosing by pharmacy for 75 y/o woman O: * She is currently on vancomycin 1250 mg IV every 12 hours * Trough level on 07/11 of 14.7 mcg/mL * SCr 0.31 mg/dL, UOP 620 mL on 07/11 A: * The trough level is appropriate * Vancomycin concentrations are likely at steady-state now, and the trough will remain about the same unless renal function changes P: * Continue the current dose of vancomycin * Drawing a new trough level on 07/13 Thank you. Pharmacy will continue to follow this patient. Chayito Newton, PharmD Chayito Newton Jul 12, 2016 00:42
[2016-07-12] MEDS: Labetalol 5 mg/mL 4 mL Inj IVPUSH PRN (04:57)
--- NOTE | 2016-07-12 05:38 | NUR ---
confusion pt alert this shift but confused. easily awakens to voice, she answers some questions appropriately and other times doesn't answer at all. she frequently calls out for help but can't tell the nurse what is wrong. Once she did complain of her L foot hurting. there is no redness, open areas or signs of injury on foot. pt kept hitting foot against bed saying "ow". she was given PO Tylenol. after admin of Tylenol pt still occasionally yelled out for help but she appeared more comfortable, she was no longer restless, and had her eyes closed.
--- NOTE | 2016-07-12 05:46 | NUR ---
BP this am pt BP was 200/82. she was given 20mg of IV labetalol. upon reassessment BP is 153/58. will continue to monitor.
[2016-07-12 06:40] LABS: BASOPHILS % (AUTO) 0.1 % (0-3); EOSINOPHILS % (AUTO) 1.1 % (0-5); MONOCYTES % (AUTO) 7.7 % (4-12); Mean Corpuscular Hemoglobin 27.7 pg (27.0-35.0); Mean Corpuscular Volume 86.3 fL (81-100); NEUTROPHILS % (AUTO) 77.8 % (40-74); Platelet Count 281 bil/L (150-400)
[2016-07-12] MEDS: Insulin Human REGular 300 Unit/3 mL Inj SUBQ SCH ×4 (07:30→23:52)
[2016-07-12] MEDS ORDERED: KCl 40 mEq/D5W 500 mL 40 MEQ in IV Premix 500 EACH IV ONE (07:40)
--- NOTE | 2016-07-12 08:04 | PCM.PNSURG ---
Subjective Date of Service: Jul 12, 2016 Visit Information: Reason for Visit Asp Pneumonia, Failure To Thrive, Cva (1 Mnth Ago) Surgery/Surgery Date Post-Op Day # Date of Admission: Jul 06, 2016 at 16:13 Hospital Day # Subjective: Patient much more alert today on examination, still not orientated and speech is mostly mumbled or garbled. Does state that she feels much better today than previously. Endorses some mild abdominal pain in the epigastric region overlying midline incision. Remainder of ROS unable to obtained due to minimally conversant patient. Objective Objective Gen: Elderly chronically ill appearing woman in no acute distress, alert but not oriented, mild acute distress due to mild abdominal pain Neck: Supple non-tender, no lymphadenopathy HEENT: PERRL, EOMI, mucous membranes slightly dry CV:RRR no murmurs rubs or gallops Resp: Lungs CTA BL Abdomen: Laparoscopic incisions clean dry and intact, abdomen slightly distended , tenderness to palpation in epigastric region overlying midline incision, BS+ 4Q, hyper-resonant to percussion Neuro: no focal neurologic deficit Vital Sign- Last 8 Hours Date Time Temp Pulse Resp B/P Pulse Ox O2 Delivery O2 Flow Rate FiO2 07/12/16 05:36 90 153/58 07/12/16 05:26 90 07/12/16 04:52 37.4 88 20 200/82 100 Nasal Cannula 1.50 07/12/16 01:15 37.0 87 20 188/72 100 Nasal Cannula 1.50 Intake and Output- Last 8 Hour 07/12/16 Cumulative From/Thru 07:00 07/06/16 13:12 - 07/12/16 06:24 Intake Total 1788 ml 9597 ml Output Total 475 ml 6576 ml Balance 1313 ml 3021 ml Intake Oral 236 ml 971 ml IV Total 1552 ml 8626 ml Output Urine Total 475 ml 6575 ml Estimated Blood Loss 1 ml # Bowel Movements 1 3 Result Diagram: 07/12/16 0530 07/12/16 0530 Assessment & Plan Impression Patient day 5 s/p laparoscopic cholecystectomy, overall her mentation appears much improved upon evaluation today though nursing staff states that she manifests classic waxing waning delirium. Abdomen remains mildly distended and tender to palpation around incisions which are clean dry and intact. Primary diagnosis: 1. Acute cholecystitis. POD #5 with small gallbladder fossa fluid accumulation on CT scan not felt to be contributing to his overall sepsis. 2. MRSA bacteremia 3. MRSA urinary tract infection Other diagnoses: 1. Cataracts 2. Hypertension/hyperlipidemia 3. Diverticulitis 4. Endometriosis, left nephrectomy, tonsillectomy,carpal tunnel release 5. UTI/nocturia 6. Arthritis back, right hip joint replacement 2003, left hip replacement 2013 7. Diabetes types 2 8. Depression, anxiety 9. recurrent hyponatremia since 2013 10. charcot yolie tooth 11. Dementia Problems: Plan -Continue with hospitalist management of sepsis -Surgery will continue to follow VTE Prophylaxis: Sub-Q Heparin (Unfractionated) Resuscitation Status: DNR/DNI:Do Not Resuscitate/Intubate Limited Interventions: Medications and IV Fluid Attending Statement: I agree with Dr. Nicolas's assessment and plan. Wallace Nicolas DO Jul 12, 2016 08:04 Rafi Sheets MD Jul 16, 2016 17:23
[2016-07-12] MEDS: Vancomycin Dose per Pharmacist XX SCH (08:30)
[2016-07-12] MEDS: Heparin 5,000 Unit/mL Inj SUBQ SCH ×2 (09:13→20:56)
--- NOTE | 2016-07-12 09:26 | NUR ---
pot. chlor. 40 MeQ not available at the moment. This RN will ask pharmacy to make up a bag.
--- NOTE | 2016-07-12 10:58 | PCM.PALLBR ---
Palliative Care Recommendation 75-year-old female admitted with deterioration in level of consciousness, worsened anorexia, then fevers and abdominal pain, ultimately felt to be secondary to sepsis associated with acute cholecystitis. Now status post cholecystectomy POD 5 with slow improvement, with additional diagnosis of MRSA UTI and acute transaminitis. Palliative medicine consulted at family request to review goals of care. Dr. Akhtar had a lengthy discussion with the patient's granddaughter/POStella Loving on 07/11 regarding patient's diagnoses, care, potential for recovery, etc. Fabienne and the rest of the family hope that the patient would improve and recover to what her baseline had been in May, and are concerned that she has had to return to the hospital with a new problem. Their hope is that this was a discrete problem, now fixed with surgery, but at the same time realize that this may be another step in a cascade of additional illnesses, and they do not want to unnecessarily/unpleasantly prolong the patient's life if there is no hope of recovery. Per our discussion, plan will be to continue to monitor the patient's overall status. If she improves over the next several days, then will continue with supportive care in hopes of continuing recovery. If, however, she deteriorates , Fabienne is very open to the possibility of transitioning to comfort/end-of- life care. Summary of palliative recommendations: Symptom management (Pain/other): appears comfortable and in no pain or other significant distress. So far, much less agitation/delirium than during last admission. Receiving minimal pain medication (acetaminophen) and her other chronic behavioral medications (including quetiapine, risperidone, donepezil) remain on hold. Her granddaughter hopes to minimize reintroduction of such medications and would like to reduce the patient's overall medication burden as much as possible (to that end, on 07/11 Dr. Akhtar discontinued her atorvastatin). We will continue to follow and monitor behaviors and reintroduce medications only as required. DPOA/Advanced Directives/POLST: she remains DO NOT RESUSCITATE/DO NOT INTUBATE/ antibiotics okay/no artificial nutrition per her POLST completed at the time of her last hospitalization. Family/emotional support: get excellent support from her family members Patient Goals: 1. Patient's family wants to be told the truth about her illness, even if it is unpleasant. 2. Patient's family would like to be told prognosis when it can be predicted, to better guide treatment decisions. 3. Granddaughter (POA) would choose quality of life over quantity of life, and defines quality as being functional to the level that she was in May before her recent series of illnesses. Additional Medical Diagnoses with primary management by Hospitalist team include : Primary diagnosis: 1. Acute cholecystitis. POD #5 s/p laparoscopic cholecystectomy with small gallbladder fossa fluid accumulation on CT scan not felt to be contributing to his overall sepsis. 2. MRSA bacteremia 3. MRSA urinary tract infection 4. Sepsis Other diagnoses: 1. Cataracts 2. Hypertension/hyperlipidemia 3. Diverticulitis 4. Endometriosis, left nephrectomy, tonsillectomy,carpal tunnel release 5. UTI/nocturia 6. Arthritis back, right hip joint replacement 2003, left hip replacement 2013 7. Diabetes types 2 8. Depression, anxiety 9. 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 11.Dementia Problems: End of Life Preferences DO NOT RESUSCITATE/DO NOT INTUBATE/hospitalization and antibiotics okay/no artificial nutrition Goals of Care Ideally to return to functional status enjoyed at the start of May Disposition Likely return to [facility] when medically cleared Resuscitation Status Resuscitation Status: DNR/DNI:Do Not Resuscitate/Intubate Limited Interventions: Medications and IV Fluid POLST Updates/Changes Previous POLST?: Yes POLST Last Review Date: Jul 11, 2016 Antibiotics: Determine Use or Limitations Artificially Admin Nutrition: No Artifical Nutrition by Tube POLST Discussed with: Health Care Agent (DPOAHC) (granddaughter Fabienne) POLST Review Outcome: No Change Total time 35 minutes; >50% face to face with patient and/or family, providing counselling regarding plans and recommendations, and in care coordination with his/her medical teams. Palliative Brief Note Date of Service Jul 12, 2016 . Patient Identification: 75yo F w/ recent prolonged hospitalizations 06/15/16-06/27 with worsening mental status, diverticulitis, NOÉ, possible UTI, aspiration pneumonia p/w fever, lethargy. Discharged to [facility]- and improved with better able to talk to family and eating 40% of meals, then became lethargic and febrile 3 days [employer]. She was admitted, diagnosed with cholecystitis and underwent a cholecystectomy. Hospital Course: Per staff writer, pt frequently calls out, (had significant hospital delirium at last admission) with seems to experience a waxing/waning confusion. She is now s/p laparoscopic cholecystectomy POD 5, overall her mentation appears much improved in terms of alertness, but often inattentive. Prior to visiting the patient today, reviewed her records in the EMR in detail. Spoke with her bedside nurse as well as with her hospitalist. Subjective: On rounds this afternoon, she is awake and calm, denies pain, asks for something to drink, accepts nectar thickened orange drink, two spoonfuls. Thanks provider for drink. Does not initiate any conversation, but answers simple questions most of the time. Sometimes just stares at provider without answering. Exam: Abdomen remains mildly distended and tender to palpation around incisions which are clean dry and intact. Result Diagram: 07/12/16 0530 Pt functional baseline (May 2016, prior to Jun 15 hospitalization): pt walking with walker, being able to feed herself despite baseline dementia, pt got treated with influenza, also had frequent falls and back pain. Palliative care were consulted in last hospitalization, code status remained DNR/DNI/okay with IVF, abx. this was confirmed again with granddaughter today. Melissa Juarez MD Jul 12, 2016 10:58 mumbling. Awakened later but remains somewhat confused. I spoke at length with her grand daughter/RAMON Loving. Melissa Juarez MD Jul 12, 2016 10:58
[2016-07-12] MEDS: Vancomycin Inj 1,250 MG in 0.9% Sodium Chloride 250 ML IV SCH ×2 (11:08→23:57)
--- NOTE | 2016-07-12 11:16 | NUR ---
Social Work: Continued d/c planning Data: Pt is on day 6 of hospitalization. EMR reviewed. JEWELRY BENCH MOLDER spoke with pt's granddaughter, Fabienne [phone]. Fabienne states no questions at this time. They spoke with Palliative yesterday and per their note they are waiting to see how pt responds to treatment and then family will consider moving to comfort care at that time if she continues to not respond. JEWELRY BENCH MOLDER will continue to follow. Assessment: LTC pt at [facility]. Plan: Pt will likely d/c back to [facility] when medically stable pending if she starts improving from medical treatment. JEWELRY BENCH MOLDER will continue to follow. ARBEN Medina
--- NOTE | 2016-07-12 11:16 | NUR ---
LENORA signed Verbal permission to sign by pt's granddaughter over the phone. ARBEN Medina
--- NOTE | 2016-07-12 15:14 | PCM.PNMED ---
Subjective Date of Service Jul 12, 2016 Subjective ROS limited 2ndry to patient quite lethargic but seems to deny any pain or discomfort Exam Vital Signs Vital Sign - Last Date Time Temp Pulse Resp B/P Pulse Ox O2 Delivery O2 Flow Rate FiO2 07/12/16 13:19 37.0 87 23 165/78 100 Nasal Cannula 1.50 Intake and Output 07/11/16 07/11/16 07/12/16 Cumulative From/Thru 15:00 23:00 07:00 07/06/16 13:12 - 07/12/16 06:24 Intake Total 300 ml 1788 ml 9597 ml Output Total 345 ml 475 ml 6576 ml Balance -45 ml 1313 ml 3021 ml Intake Oral 300 ml 236 ml 971 ml IV Total 1552 ml 8626 ml Output Urine Total 345 ml 475 ml 6575 ml Estimated Blood Loss 1 ml # Bowel Movements 1 1 3 Exam appears very lethargic but more alert than previous days and able to answer some questions with "yes" or "no" General: No Acute Distress Head: Normal Eyes: Scleral Anicteric Mouth: Mucous Membr Moist/[place] Neck: Supple Chest & Lungs: Chest Wall Normal, Clear to auscultation bilat Cardiovascular: Regular Rate/Rhythm Pulses: NL carotid, radial, femoral, DP, PT Abdomen: Tender (seems tender mostly at upper and right upper abdomen), Non- distended, Normoactive bowel tones, Soft Extremities: No cyanosis/clubbing/edema bilat Neurological: seems more awake and alert than prior days but still very lethargic and neuro exam limited but seems non-focal. IVs and Medications Medications Reviewed: Medications were reviewed in detail Lab and Diagnostics Result Diagram: 07/12/1652907/12/1630 Assessment & Plan 75yo female with history of Diabetes types 2, dementia, depression, anxiety and recent prolonged hospitalizations 06/15-06/27 with worsening mental status, diverticulitis, NOÉ, possible UTI, aspiration pneumonia p/w fever, lethargy # Acute sepsis, present on admission. ongoing - SIRS criteria: Fever, Tachycardia, leukocytosis, tachypnea, and altered mental status. Source of infection combination of acute cholecystitis and UTI ( present on admission). - further treatment and management as noted below - continue with broad Abx until clinically more stable and rule out other sources of infection # Acute cholecystitis. present on admission. - post laparoscopic cholecystectomy with intraoperative cholangiogram on 07/08/16 - CT chest/abd/pelvis 07/09 showing: "Presumed interval cholecystectomy with fluid collection in the gallbladder fossa. This could represent developing abscess versus biloma." - appreciate surgery consult. will f/u w/ recs # Acute MRSA urinary tract infection (UTI), present on admission - continue with Vancomycin (dose per pharmacy) (day 5) # one blood culture from 07/09 coming back positive - likely contamination given coag negative staph - f/u final culture result - f/u repeat blood culture 07/11 # Acute on chronic encephalopathy, present on admission. ongoing - multifactorial: underlying cognitive dysfunction, toxic metabolic-sepsis, medicine-induced. - continue hold off [employer] meds # Acute hypokalemia - replete and f/u # Acute transaminitis. not present on admission. resolved - likely due to ongoing sepsis - treatment as noted above # History of hypertension. ongoing. improved - c/w home BP meds and f/u closely # History of dysphagia likely secondary to dementia, unknown chronicity, present on admission. Ongoing. - Swallow evaluation - c/w supportive care # History of Diabetes types 2 - cover with ISS # Progressive dementia - c/w supportive care # Goals of care - appreciate palliative care consult. will f/u w/ recs Dispo: 3-4 days VTE Prophylaxis: Sub-Q Heparin (Unfractionated) VTE Mechanical Devices: Intermittant Pneumatic CD Resuscitation Status: DNR/DNI:Do Not Resuscitate/Intubate Limited Interventions: Medications and IV Fluid Time spent 35 min Pradeep Hernandez Jul 12, 2016 15:14
[2016-07-12] MEDS: D5 0.45% NaCl + KCl 20 mEq/L 1,000 ML IV SCH (16:44)
[2016-07-13] VITALS (7 sets, daily range): BP systolic 155–197; BP diastolic 66–84; PULSE 81–91; RESP 16–22; O2SAT 98–100
[2016-07-13] MEDS: Labetalol 5 mg/mL 4 mL Inj IVPUSH PRN (01:02)
[2016-07-13] MEDS: Cefepime Inj 2,000 MG in Dextrose 5% Minibag Plus 100 ML IV SCH ×3 (01:06→16:01)
[2016-07-13] MEDS: metroNIDAZOLE Inj 500 MG in IV Premix 1 EACH IV SCH (02:04)
[2016-07-13 06:47] LABS: Magnesium 1.3 mg/dL (1.6-2.6)
[2016-07-13] MEDS ORDERED: Magnesium Sulf 2 Gm/50mL Water 2 GM in IV Premix 1 EACH IV ONE (07:25)
[2016-07-13] MEDS: Insulin Human REGular 300 Unit/3 mL Inj SUBQ SCH ×4 (07:30→22:35)
[2016-07-13] MEDS: D5 0.45% NaCl + KCl 20 mEq/L 1,000 ML IV SCH ×2 (07:41→21:23)
[2016-07-13] MEDS: Vancomycin Dose per Pharmacist XX SCH (08:30)
[2016-07-13] MEDS: Heparin 5,000 Unit/mL Inj SUBQ SCH ×2 (10:03→21:06)
--- NOTE | 2016-07-13 10:13 | NUR ---
NUTRITION FOLLOW-UP: ASSESS: 75 YO female admitted with aspiration PNA and failure to thrive. Pt with acute cholecystitis s/p lap cholecystectomy. Diet has been advanced to Pureed with NT liquids per ST. Per RN she is eating much better now. The last 2 days she has been eating 50-75% of meals. Overall PO avg is ~30%. No new wt since admit. PMHx: MS, cataracts, HTN, dyslipidemia, diverticulitis, endometriosis, left nephrectomy, carpal tunnel release, UTI, arthritis, type 2 diabetes, depression, anxiety, hyponatremia, charcot yolie tooth. DIET: Pureed w/NT liquids. PO 50-75% x 2 days. PO avg 30% LABS: Reviewed. Depot Agent <.3, Glu 153, Ca 7.8, Mg 1.3, Alb 2.5 MEDICATIONS: Reviewed. GI symptoms / stool: BMx1 3/3 ANTHROPOMETRICS: Current Wt: 55.3 kg BMI: 22.3 kg/m2. No new wt since admit ESTIMATED NEEDS: Calories: 8747-8050 kcal (25 -30 kcal / kg BW) Protein: 55-85 g protein (1.0-1.5 g / kg BW) NUTRITION DIAGNOSIS: 1) Inadequate oral intake related to inability to consume sufficient energy, as evidenced by NPO/CL diet x 4 days and po intake < 15% of meals.--IMPROVING 2) Chewing / swallowing difficulties related to MS, as evidenced by requirement for modified diet texture per history.--PERSISTS INTERVENTION: 1.) Continue current supplements of Gelatein and NT Ensure on all trays. 2.) Will monitor for new wt. MONITOR/EVALUATE:Diet tolerance, PO intake, wt, labs, GI/nutrition status, POC. Follow per moderate nutrition risk guidelines.
[2016-07-13] MEDS ORDERED: Vancomycin Serum Trough XX ONE (10:30)
--- NOTE | 2016-07-13 10:50 | PCM.PALLBR ---
Palliative Care Recommendation 75-year-old female admitted with deterioration in level of consciousness, worsened anorexia, then fevers and abdominal pain, ultimately felt to be secondary to sepsis associated with acute cholecystitis. Now status post cholecystectomy POD 6 with slow improvement, with additional diagnosis of MRSA UTI and acute transaminitis. Palliative medicine consulted at family request to review goals of care. Dr. Akhtar had a lengthy discussion with the patient's granddaughter/POStella Loving on 07/11 regarding patient's diagnoses, care, potential for recovery, etc. Fabienne and the rest of the family hope that the patient would improve and recover to what her baseline had been in May, and are concerned that she has had to return to the hospital with a new problem. Their hope is that this was a discrete problem, now fixed with surgery, but at the same time realize that this may be another step in a cascade of additional illnesses, and they do not want to unnecessarily/unpleasantly prolong the patient's life if there is no hope of recovery. Per our discussion, plan will be to continue to monitor the patient's overall status. If she improves over the next several days, then will continue with supportive care in hopes of continuing recovery. If, however, she deteriorates , Fabienne is very open to the possibility of transitioning to comfort/end-of- life care. At this time the Palliative care team will sign off as patient's goals of care are determined. Time will help tell if patient is more appropriate for a recovery vs comfort path and family is aware of these options. Please do not hesitate to contact us in the future should more needs for palliative service arise. Thank you for this consult. Summary of palliative recommendations: Symptom management (Pain/other): appears comfortable and in no pain or other significant distress. So far, much less agitation/delirium than during last admission. Receiving minimal pain medication (acetaminophen) and her other chronic behavioral medications (including quetiapine, risperidone, donepezil) remain on hold. Her granddaughter hopes to minimize reintroduction of such medications and would like to reduce the patient's overall medication burden as much as possible (to that end, on 07/11 Dr. Akhtar discontinued her atorvastatin). We will continue to follow and monitor behaviors and reintroduce medications only as required. DPOA/Advanced Directives/POLST: she remains DO NOT RESUSCITATE/DO NOT INTUBATE/ antibiotics okay/no artificial nutrition per her POLST completed at the time of her last hospitalization. Family/emotional support: get excellent support from her family members Patient Goals: 1. Patient's family wants to be told the truth about her illness, even if it is unpleasant. 2. Patient's family would like to be told prognosis when it can be predicted, to better guide treatment decisions. 3. Granddaughter (POA) would choose quality of life over quantity of life, and defines quality as being functional to the level that she was in May before her recent series of illnesses. Additional Medical Diagnoses with primary management by Hospitalist team include : Primary diagnosis: 1. Acute cholecystitis. POD #5 s/p laparoscopic cholecystectomy with small gallbladder fossa fluid accumulation on CT scan not felt to be contributing to his overall sepsis. 2. MRSA bacteremia 3. MRSA urinary tract infection 4. Sepsis Other diagnoses: 1. Cataracts 2. Hypertension/hyperlipidemia 3. Diverticulitis 4. Endometriosis, left nephrectomy, tonsillectomy,carpal tunnel release 5. UTI/nocturia 6. Arthritis back, right hip joint replacement 2003, left hip replacement 2013 7. Diabetes types 2 8. Depression, anxiety 9. 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 11.Dementia Problems: End of Life Preferences DO NOT RESUSCITATE/DO NOT INTUBATE/hospitalization and antibiotics okay/no artificial nutrition Goals of Care Ideally to return to functional status enjoyed at the start of May Disposition Likely return to [facility] when medically cleared Resuscitation Status Resuscitation Status: DNR/DNI:Do Not Resuscitate/Intubate Limited Interventions: Medications and IV Fluid POLST Updates/Changes Previous POLST?: Yes POLST Last Review Date: Jul 11, 2016 Antibiotics: Determine Use or Limitations Artificially Admin Nutrition: No Artifical Nutrition by Tube POLST Discussed with: Health Care Agent (DPOAHC) (granddaughter Fabienne) POLST Review Outcome: No Change Total time 15 minutes; >50% face to face with patient and/or family, providing counselling regarding plans and recommendations, and in care coordination with his/her medical teams. Attending Statement Dr. Juarez was physically present and supporting resident physician in this pt encounter. She agrees with management plan outlined above in resident's note. Palliative Brief Note Date of Service Jul 13, 2016 . 75-year-old female admitted with deterioration in level of consciousness, worsened anorexia, then fevers and abdominal pain, ultimately felt to be secondary to sepsis associated with acute cholecystitis. Now status post cholecystectomy POD 6 with slow improvement, with additional diagnosis of MRSA UTI and acute transaminitis. Today patient reports feeling tired and very reasonably says that she does not want to talk about it and wants to rest. Per nursing report she is eating better today and seems more lucid than she has in the past. Palliative medicine consulted at family request to review goals of care. Dr. Akhtar had a lengthy discussion with the patient's granddaughter/POStella Loving on 07/11 regarding patient's diagnoses, care, potential for recovery, etc. Fabienne and the rest of the family hope that the patient would improve and recover to what her baseline had been in May, and are concerned that she has had to return to the hospital with a new problem. Their hope is that this was a discrete problem, now fixed with surgery, but at the same time realize that this may be another step in a cascade of additional illnesses, and they do not want to unnecessarily/unpleasantly prolong the patient's life if there is no hope of recovery. Per our discussion, plan will be to continue to monitor the patient's overall status. If she improves over the next several days, then will continue with supportive care in hopes of continuing recovery. If, however, she deteriorates , Fabienne is very open to the possibility of transitioning to comfort/end-of- life care. Toya Crisostomo DO Jul 13, 2016 10:50 Melissa Juarez MD Jul 13, 2016 10:52
[2016-07-13] MEDS: Vancomycin Inj 1,250 MG in 0.9% Sodium Chloride 250 ML IV SCH (11:24)
--- NOTE | 2016-07-13 11:50 | PCM.CONPHA ---
Subjective Date of Service: Jul 13, 2016 UTI, possible bacteremia with MRSA Reason for Pharmacy Consult: Vancomycin Dosing Objective Vital Signs Date Time Temp Pulse Resp B/P Pulse Ox O2 Delivery O2 Flow Rate FiO2 07/13/16 10:26 Supplement Oxygen 07/13/16 09:45 37.4 91 22 177/76 100 Nasal Cannula 1.50 07/13/16 08:00 89 07/13/16 05:21 37.3 86 19 167/72 100 Nasal Cannula 1.50 07/13/16 00:41 36.8 81 21 197/84 100 Nasal Cannula 1.50 07/12/16 20:57 Supplement Oxygen 07/12/16 20:46 36.6 91 24 170/95 100 Nasal Cannula 1.50 07/12/16 20:00 83 07/12/16 18:18 37.3 91 23 180/89 100 Nasal Cannula 1.50 07/12/16 13:19 37.0 87 23 165/78 100 Nasal Cannula 1.50 07/12/16 12:11 Supplement Oxygen Intake and Output 07/11/16 07/12/16 07/13/16 00:00 00:00 00:00 Intake Total 2256 ml 300 ml 3246 ml Output Total 1250 ml 620 ml 1528 ml Balance 1006 ml -320 ml 1718 ml Weight (Kilograms): 55.300 Height (Feet): 5 Height (Inches): 2.00 Test 07/06/16 11:20 07/06/16 11:25 07/06/16 11:47 07/09/16 05:40 Troponin T < 0.010ug/L (0.0-0.011) Urine Color Yellow (YELLOW) Urine Appearance Hazy (CLEAR,HAZY) Urine pH 6.0 (5.0-8.0) Urine Specific Colver 1.025 (1.003-1.035) Urine Protein 30mg/dL (NEG,TRACE) Urine Glucose (UA) Negativemg/dL (NEGATIVE) Urine Ketones Tracemg/dL (NEGATIVE) Urine Occult Blood Small (NEGATIVE) Urine Nitrite Positive (NEGATIVE) Urine Bilirubin Negative (NEGATIVE) Urine Urobilinogen Normalmg/dL (NORMAL) Urine Leukocyte Esterase Trace (NEGATIVE) Urine RBC 0-2/hpf (0-2) Urine WBC 11-50/hpf (0-5) Urine Epithelial Cells Occasional/hpf (NONE-MOD) Urine Crystals None seen (NONE SEEN) Urine Bacteria Moderate/hpf (NONE-FEW) Urine Hyaline Casts None/lpf (NONE) Urine Granular Casts None seen (NONE SEEN) Urine Waxy Casts None seen (NONE SEEN) Urine Red Blood Cell Casts None seen (NONE SEEN) Urine White Blood Cell Casts None seen (NONE SEEN) Urine Mucus Present (None Seen) Urine Trichomonas None seen (NONE SEEN) Urine Yeast Many (NONE SEEN) Urinalysis Comment None Urine Culture Reflexed Indicated Lactic Acid Level 1.0mmol/L (0.4-2.0) Hemoglobin A1c 6.9% (4.8-5.6) Phosphorus Level 2.2mg/dL (2.5-4.9) Test 07/10/16 05:55 07/12/16 05:30 07/13/16 06:15 07/13/16 10:35 Prothrombin Time 17.0sec (8.1-12.5) Prothromb Time International Ratio 1.57ratio Activated Partial Thromboplast Time 32.7sec (22.8-33.0) Procalcitonin 0.23ng/mL (0.00-0.08) White Blood Count 12.5th/mm3 (3.8-10.1) Red Blood Count 2.85mil/mm3 (3.90-5.20) Hemoglobin 7.9g/dL (12.0-15.6) Hematocrit 24.6% (35.0-46.0) Mean Corpuscular Volume 86.3fL (81-100) Mean Corpuscular Hemoglobin 27.7pg (27.0-35.0) Mean Corpuscular Hemoglobin Concent 32.1% (32.0-37.0) Red Cell Distribution Width 13.6% (12.3-15.4) Platelet Count 281bil/L (150-400) Neutrophils (%) (Auto) 77.8% (40-74) Lymphocytes (%) (Auto) 12.4% (14-46) Monocytes (%) (Auto) 7.7% (4-12) Eosinophils (%) (Auto) 1.1% (0-5) Basophils (%) (Auto) 0.1% (0-3) Total Bilirubin 0.3mg/dL (0.0-1.2) Aspartate Amino Transf (AST/SGOT) 19U/L (0-50) Alanine Aminotransferase (ALT/SGPT) 27U/L (0-32) Alkaline Phosphatase 88U/L (25-165) Total Protein 4.9g/dL (6.4-8.4) Albumin 2.5g/dL (3.4-5.0) Sodium Level 136mEq/L (134-144) Potassium Level 4.0mEq/L (3.5-5.2) Chloride Level 102mEq/L (97-108) Carbon Dioxide Level 21mmol/L (18-29) Blood Urea Nitrogen 13mg/dL (8-27) Creatinine < 0.30mg/dL (0.57-1.00) Estimat Glomerular Filtration Rate 311mL/min (>59) Glucose Level 153mg/dL (60-99) Calcium Level 7.8mg/dL (8.5-10.1) Magnesium Level 1.3mg/dL (1.6-2.6) Vancomycin Level Trough 14.5mcg/mL Assessment/Plan Assessment/Plan Assessment: * Patient is needing vancomycin management for treatment of a MRSA UTI, possible bacteremia. * Patient's current vancomycin regimen: vancomycin 1.25 grams IV q12h * Patient's vancomycin trough goal range: 10-15 mcg/mL * Patient's vancomycin trough: 14.5 mcg/mL (07/13/16 at 1035) * Trough was drawn appropriately and previous doses were given on time. * Patient's vancomycin trough is within the goal range. Plan: * Since the patient's vancomycin trough is within the goal range, will continue the current vancomycin regimen of 1.25 grams IV q12h. * Since the last 2 vancomycin troughs have been within the goal range, the patient will not need another vancomycin trough for at least 5 days as long as the renal function remains stable. * Will continue to follow. Edi Hernandez Jul 13, 2016 11:50
--- NOTE | 2016-07-13 14:23 | PCM.PNMED ---
Subjective Date of Service Jul 13, 2016 Subjective denies any pain or discomfort today Exam Vital Signs Vital Sign - Last Date Time Temp Pulse Resp B/P Pulse Ox O2 Delivery O2 Flow Rate FiO2 07/13/16 12:43 36.8 82 22 171/66 100 Nasal Cannula 1.50 Intake and Output 07/12/16 07/12/16 07/13/16 Cumulative From/Thru 15:00 23:00 07:00 07/06/16 13:12 - 07/13/16 06:28 Intake Total 1458 ml 710 ml 92979 ml Output Total 1053 ml 950 ml 8579 ml Balance 405 ml -240 ml 3186 ml Intake Oral 420 ml 0 ml 1391 ml IV Total 1038 ml 710 ml 00005 ml Output Urine Total 1050 ml 950 ml 8575 ml Stool Total 3 ml 3 ml Estimated Blood Loss 1 ml # Bowel Movements 1 4 Exam much more awake and alert today compared to prior days. answers questions more completely General: No Acute Distress Head: Normal Eyes: Scleral Anicteric Mouth: Mucous Membr Moist/[place] Neck: Supple Chest & Lungs: Chest Wall Normal, Clear to auscultation bilat Cardiovascular: Regular Rate/Rhythm Pulses: NL carotid, radial, femoral, DP, PT Abdomen: Tender (seems tender mostly at upper and right upper abdomen), Non- distended, Normoactive bowel tones, Soft Extremities: No cyanosis/clubbing/edema bilat Neurological: seems more awake and alert than prior days. seems non-focal. IVs and Medications Medications Reviewed: Medications were reviewed in detail Lab and Diagnostics Result Diagram: 07/12/16 0530 07/13/16 0615 Assessment & Plan 75yo female with history of Diabetes types 2, dementia, depression, anxiety and recent prolonged hospitalizations 06/15-06/27 with worsening mental status, diverticulitis, NOÉ, possible UTI, aspiration pneumonia p/w fever, lethargy # Acute sepsis, present on admission. improving - SIRS criteria: Fever, Tachycardia, leukocytosis, tachypnea, and altered mental status. Source of infection combination of acute cholecystitis and UTI ( present on admission). - afebrile for 24h now - further treatment and management as noted below - continue with broad Abx (Vanco, Flagyl, Cefepime) and will consider tapering down if continue to remain stable and improve in next 24-48h # Acute cholecystitis. present on admission. - post laparoscopic cholecystectomy with intraoperative cholangiogram on 07/08/16 - CT chest/abd/pelvis 07/09 showing: "Presumed interval cholecystectomy with fluid collection in the gallbladder fossa. This could represent developing abscess versus biloma." - appreciate surgery consult. will f/u w/ recs # Acute MRSA urinary tract infection (UTI), present on admission - continue with Vancomycin (dose per pharmacy) (day 6) # one blood culture from 07/09 coming back positive - likely contamination given coag negative staph - f/u repeat blood culture 07/11 # Acute on chronic encephalopathy, present on admission. improving - multifactorial: underlying cognitive dysfunction, toxic metabolic-sepsis, medicine-induced. 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 Resolved - f/u # Acute transaminitis. not present on admission. resolved - likely due to sepsis # History of hypertension. ongoing. improved - c/w home BP meds and f/u closely # History of dysphagia likely secondary to dementia, unknown chronicity, present on admission. Ongoing. - Swallow evaluation - c/w supportive care # History of Diabetes types 2 - cover with ISS # Progressive dementia - c/w supportive care # Goals of care - appreciate palliative care consult. will f/u w/ recs Dispo: 3-4 days VTE Prophylaxis: Sub-Q Heparin (Unfractionated) VTE Mechanical Devices: Venous Foot Pump Resuscitation Status: DNR/DNI:Do Not Resuscitate/Intubate Limited Interventions: Medications and IV Fluid Time spent 35 min Pradeep Hernandez Jul 13, 2016 14:23
--- NOTE | 2016-07-13 14:27 | PCM.PNSURG ---
Subjective Date of Service: Jul 13, 2016 Visit Information: Reason for Visit Asp Pneumonia, Failure To Thrive, Cva (1 Mnth Ago) Surgery/Surgery Date Post-Op Day #6 Date of Admission: Jul 06, 2016 at 16:13 Hospital Day # Subjective: No complaints of pain. Has not been out of bed. Postop General: No Complaints Pain Management: PO Postop Activity: Other (bed rest) Objective Vital Sign- Last 8 Hours Date Time Temp Pulse Resp B/P Pulse Ox O2 Delivery O2 Flow Rate FiO2 07/13/16 12:43 36.8 82 22 171/66 100 Nasal Cannula 1.50 07/13/16 10:26 Supplement Oxygen 07/13/16 09:45 37.4 91 22 177/76 100 Nasal Cannula 1.50 07/13/16 08:00 89 Intake and Output- Last 8 Hour 07/13/16 Cumulative From/Thru 07:00 07/06/16 13:12 - 07/13/16 06:28 Intake Total 710 ml 12728 ml Output Total 950 ml 8579 ml Balance -240 ml 3186 ml Intake Oral 0 ml 1391 ml IV Total 710 ml 07581 ml Output Urine Total 950 ml 8575 ml Stool Total 3 ml Estimated Blood Loss 1 ml # Bowel Movements 1 4 General: Alert, Cooperative, No Acute Distress, Other (disoriented) Lungs: Clear to Auscultation (in the anterolateral lewis) Heart: Regular Rate/Rhythm Abdomen: Soft, Non-distended, Other (slight tenderness in the right upper quadrant to deep palpation) SURGICAL WOUND : Wound General Appearence: Steri Strips, Sutures, Intact, Well Approximated, No Erythema, No Discharge Extremities: Thigh&Calf Soft/Nontender Neuro: Normal Speech Result Diagram: 07/12/16 0530 07/13/16 0615 Assessment & Plan Impression Primary diagnosis: 1. Acute cholecystitis. POD # 6 with coag-negative staph positive blood culture 1 and MRSA urinary tract infection.. 2. bacteremia 3. MRSA urinary tract infection Other diagnoses: 1. Cataracts 2. Hypertension/hyperlipidemia 3. Diverticulitis 4. Endometriosis, left nephrectomy, tonsillectomy,carpal tunnel release 5. UTI/nocturia 6. Arthritis back, right hip joint replacement 2003, left hip replacement 2013 7. Diabetes types 2 8. Depression, anxiety 9. recurrent hyponatremia since 2013 10. charcot yolie tooth 11. Dementia Problems: Plan Surgery continuing to follow. Medical management of bacteremia and urosepsis. Pain Management: Oral Tylenol VTE Prophylaxis: Sub-Q Heparin (Unfractionated) Resuscitation Status: DNR/DNI:Do Not Resuscitate/Intubate Limited Interventions: Medications and IV Fluid Aleksey Dennis PA-C Jul 13, 2016 14:27
[2016-07-14] VITALS (8 sets, daily range): BP systolic 149–178; BP diastolic 61–79; PULSE 74–85; RESP 18–22; O2SAT 99–100
[2016-07-14] MEDS: Vancomycin Inj 1,250 MG in 0.9% Sodium Chloride 250 ML IV SCH ×2 (00:19→13:37)
[2016-07-14] MEDS: Cefepime Inj 2,000 MG in Dextrose 5% Minibag Plus 100 ML IV SCH ×3 (04:56→17:00)
--- NOTE | 2016-07-14 05:37 | NUR ---
IV Infiltrated IV's in right arm infiltrated and caused swelling in right hand. Difficult IV start, purchasing manager and Larry unable to start another IV. A third RN from CCU called in to start IV in left foot. Able to run Abx though not compatible with D5 1/2 NS 20mEQ K. A second IV attempt at right foot was unsuccessful.
[2016-07-14 06:52] LABS: Magnesium 1.8 mg/dL (1.6-2.6)
[2016-07-14 07:06] LABS: BASOPHILS % (AUTO) 0.3 % (0-3); EOSINOPHILS % (AUTO) 1.4 % (0-5); MONOCYTES % (AUTO) 6.9 % (4-12); Mean Corpuscular Hemoglobin 27.4 pg (27.0-35.0); Mean Corpuscular Volume 84.4 fL (81-100); NEUTROPHILS % (AUTO) 78.3 % (40-74); Platelet Count 281 bil/L (150-400)
[2016-07-14] MEDS: Insulin Human REGular 300 Unit/3 mL Inj SUBQ SCH ×4 (08:15→21:33)
[2016-07-14] MEDS: Vancomycin Dose per Pharmacist XX SCH (08:30)
[2016-07-14] MEDS: D5 0.45% NaCl + KCl 20 mEq/L 1,000 ML IV SCH ×2 (10:00→23:33)
[2016-07-14] MEDS: Heparin 5,000 Unit/mL Inj SUBQ SCH ×2 (10:00→21:07)
[2016-07-14] MEDS ORDERED: Potassium Chloride 20 mEq SR Tablet PO ONE (10:25)
[2016-07-14] MEDS ORDERED: KCl 40 mEq/D5W 500 mL 40 MEQ in IV Premix 500 EACH IV ONE (10:25)
--- NOTE | 2016-07-14 16:09 | PCM.PNMED ---
Subjective Date of Service Jul 14, 2016 Subjective denies any pain or discomfort today Exam Vital Signs Vital Sign - Last Date Time Temp Pulse Resp B/P Pulse Ox O2 Delivery O2 Flow Rate FiO2 07/14/16 13:56 37.0 75 20 158/64 100 Room Air 07/13/16 17:54 Intake and Output 07/13/16 07/13/16 07/14/16 Cumulative From/Thru 15:00 23:00 07:00 07/06/16 13:12 - 07/14/16 06:02 Intake Total 420 ml 0 ml 19758 ml Output Total 2700 ml 750 ml 20435 ml Balance -2280 ml -750 ml 156 ml Intake Oral 420 ml 0 ml 1811 ml IV Total 78328 ml Output Urine Total 2700 ml 750 ml 27623 ml Stool Total 3 ml Estimated Blood Loss 1 ml # Bowel Movements 0 4 Exam General: No Acute Distress Head: Normal Eyes: Scleral Anicteric Mouth: Mucous Membr Moist/[place] Neck: Supple Chest & Lungs: Chest Wall Normal, Clear to auscultation bilat Cardiovascular: Regular Rate/Rhythm Pulses: NL carotid, radial, femoral, DP, PT Abdomen: Tender (seems tender mostly at upper and right upper abdomen), Non- distended, Normoactive bowel tones, Soft Extremities: No cyanosis/clubbing/edema bilat Neurological: seems more awake and alert than prior days. seems non-focal. IVs and Medications Medications Reviewed: Medications were reviewed in detail Lab and Diagnostics Result Diagram: 07/14/16 0553 07/14/16 0553 Assessment & Plan 75yo female with history of Diabetes types 2, dementia, depression, anxiety and recent prolonged hospitalizations 06/15-06/27 with worsening mental status, diverticulitis, NOÉ, possible UTI, aspiration pneumonia p/w fever, lethargy # Acute sepsis, present on admission. improving - SIRS criteria: Fever, Tachycardia, leukocytosis, tachypnea, and altered mental status. Source of infection combination of acute cholecystitis and UTI ( present on admission). - was afebrile on 07/12-07/13 but spike of fever again on 07/14 - further treatment and management as noted below - continue with broad Abx (Vanco, Flagyl, Cefepime) # Acute cholecystitis. present on admission. - post laparoscopic cholecystectomy with intraoperative cholangiogram on 07/08/16 - CT chest/abd/pelvis 07/09 showing: "Presumed interval cholecystectomy with fluid collection in the gallbladder fossa. This could represent developing abscess versus biloma." - appreciate surgery consult. will f/u w/ recs - repeat CT abdomen given spike of fever again and continued abd pain # Acute MRSA urinary tract infection (UTI), present on admission - continue with Vancomycin (dose per pharmacy) (day 7) # one blood culture from 07/09 coming back positive - likely contamination given coag negative staph - f/u repeat blood culture 07/11 # Acute on chronic encephalopathy, present on admission. improving - multifactorial: underlying cognitive dysfunction, toxic metabolic-sepsis, medicine-induced. 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 Resolved # Acute hypokalemia. - replete and f/u # Acute transaminitis. not present on admission. resolved - likely due to sepsis # History of hypertension. ongoing. improved - c/w home BP meds and f/u closely # History of dysphagia likely secondary to dementia, unknown chronicity, present on admission. Ongoing. - Swallow evaluation - c/w supportive care # History of Diabetes types 2 - cover with ISS # Progressive dementia - c/w supportive care # Goals of care - appreciate palliative care consult. will f/u w/ recs Dispo: 3-4 days VTE Prophylaxis: Sub-Q Heparin (Unfractionated) VTE Mechanical Devices: Venous Foot Pump Resuscitation Status: DNR/DNI:Do Not Resuscitate/Intubate Limited Interventions: Medications and IV Fluid Pradeep Hernandez Jul 14, 2016 16:09
--- NOTE | 2016-07-14 17:05 | DRSVH ---
PROCEDURE: X-RAY PICC LINE PLACEMENT BY NURSE ([id number]) INDICATIONS: has limited IV access. on IV abx COMPARISON: None. FINDINGS: PICC was placed by the intravenous therapy team from the right side. Fluoroscopic spot fi lm demonstrates tip of PICC in the lower SVC. IMPRESSION: Tip of PICC lies within the lower SVC. Dictated by: Shwetha Vera M.D. on 07/14/2016 at 16:59 Approved by: Shwetha Vera M.D. on 07/14/2016 at 16:59
--- NOTE | 2016-07-14 18:34 | NUR ---
PICC line NO IV access, multiple incompatible IV fluids and/or ABX. PICC line placed in room this shift, verbal consent over the phone with HERBIE Loving. Fluids infusing at this time.
--- NOTE | 2016-07-14 19:19 | DRSVH ---
PROCEDURE: CT ABDOMEN AND PELVIS WITH CONTRAST ([id number]) INDICATIONS: abd pain, fever TECHNIQUE: After the administration of intravenous contrast, 5 mm thick sections acquired from the diaphragm to the symphysis. 5 mm coronal and sagittal reformats were acquired. For radiation dose reduction, the following was used: automated exposure control, adjustment of mA and/or kV according to patient arjun morales COMPARISON: [facility], CT, CT CHEST ABD PELVIS W CON, 07/09/2016, 17:13. FINDINGS: Image quality: Limited by metallic artifact but in the pelvis. ABDOMEN: Lung bases: Small left pleural effusion. Lung bases are otherwise clear. Heart size is enlarged. Solid organs: Liver and spleen are normal in size and enhancement. Gallbladder is surgically absent . Small amount of fluid within the gallbladder fossa is present, as before, without significant perip heral enhancement to indicate abscess. Biliary system is non dilated. Pancreas enhances normally. N o change in fat containing right adrenal nodule. No left adrenal nodules. No change in exophytic sup erior pole right renal cyst. Kidneys demonstrate otherwise normal size and enhancement, without hydro nephrosis. Peritoneum and bowel: A small hiatal hernia is present , as before. Bowel loops demonstrate normal w all thickness and caliber. No free fluid or air. Nodes and vessels: No retroperitoneal or mesenteric adenopathy by size criteria. Aorta and inferior vena cava are normal in size. Miscellaneous: No ventral hernias. PELVIS: Genitourinary: Bladder wall thickness is normal. Miscellaneous: No inguinal hernias or adenopathy. Bones: No suspicious bony lesions. Right hip ORIF hardware. Left hip arthroplasty. No vertebral bod y compression fractures. IMPRESSION: 1. No change in postsurgical postcholecystectomy fluid. 2. Small hiatal hernia. 3. New trace left pleural effusion. 4. 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 Dictated by: Shwetha Vera M.D. on 07/14/2016 at 19:14 Approved by: Shwetha Vera M.D. on 07/14/2016 at 19:17
[2016-07-15] VITALS (9 sets, daily range): BP systolic 120–162; BP diastolic 75–92; PULSE 75–92; RESP 18–22; O2SAT 99–100
[2016-07-15] MEDS: Cefepime Inj 2,000 MG in Dextrose 5% Minibag Plus 100 ML IV SCH ×3 (01:10→17:16)
[2016-07-15] MEDS: Vancomycin Inj 1,250 MG in 0.9% Sodium Chloride 250 ML IV SCH ×3 (01:15→23:46)
[2016-07-15 05:52] LABS: Mean Corpuscular Hemoglobin 27.3 pg (27.0-35.0); Mean Corpuscular Volume 84.5 fL (81-100)
[2016-07-15] MEDS: Insulin Human REGular 300 Unit/3 mL Inj SUBQ SCH ×4 (08:24→21:09)
[2016-07-15] MEDS: Vancomycin Dose per Pharmacist XX SCH (08:30)
[2016-07-15] MEDS: Heparin 5,000 Unit/mL Inj SUBQ SCH ×2 (08:40→21:01)
--- NOTE | 2016-07-15 09:20 | NUR ---
LENORA signed ARBEN Medina
--- NOTE | 2016-07-15 10:26 | NUR ---
Social Work: Continued d/c planning Data: Pt is on day 9 of hospitalization. EMR reviewed. Pt discussed in rounds. LEAD BI DEVELOPER spoke with pt's granddaughter Fabienne regarding LENORA and update. stated in rounds pt is not yet medically ready and will remain in hospital for at least 2 more days. LEAD BI DEVELOPER will continue to follow. Assessment: Pt from SNF, LTC. Plan: Pt will d/c back to [facility] when medically stable. [facility] Medicare authorization needed, expected denile, and pt will likely return on [facility] supp. LEAD BI DEVELOPER will continue to follow. ARBEN Medina
--- NOTE | 2016-07-15 13:54 | NUR ---
Nutrition Puree/[place] thick liquids with 1:1 assist. Bedrest for meals and as upright as possible. Intake only bites to 25% last couple of days. Frequent encouragement of solid and liquid intake. IVF continues.
[2016-07-15] MEDS: D5 0.45% NaCl + KCl 20 mEq/L 1,000 ML IV SCH (14:39)
--- NOTE | 2016-07-15 14:46 | PCM.PNMED ---
Subjective Date of Service Jul 15, 2016 Subjective denies any pain or discomfort Exam Vital Signs Vital Sign - Last Date Time Temp Pulse Resp B/P Pulse Ox O2 Delivery O2 Flow Rate FiO2 07/15/16 13:12 36.7 77 19 124/92 100 Room Air 07/13/16 17:54 Intake and Output 07/14/16 07/14/16 07/15/16 Cumulative From/Thru 15:00 23:00 07:00 07/06/16 13:12 - 07/15/16 06:45 Intake Total 495 ml 0 ml 0 ml 49250 ml Output Total 975 ml 2350 ml 02390 ml Balance 495 ml -975 ml -2350 ml -2674 ml Intake Oral 0 ml 0 ml 1811 ml IV Total 495 ml 00464 ml Output Urine Total 975 ml 2350 ml 09161 ml Stool Total 3 ml Estimated Blood Loss 1 ml # Bowel Movements 0 0 4 Exam General: No Acute Distress Head: Normal Eyes: Scleral Anicteric Mouth: Mucous Membr Moist/[place] Neck: Supple Chest & Lungs: Chest Wall Normal, Clear to auscultation bilat Cardiovascular: Regular Rate/Rhythm Pulses: NL carotid, radial, femoral, DP, PT Abdomen: Tender (seems tender mostly at upper and right upper abdomen), Non- distended, Normoactive bowel tones, Soft Extremities: No cyanosis/clubbing/edema bilat Neurological: seems more awake and alert than prior days. seems non-focal. IVs and Medications Medications Reviewed: Medications were reviewed in detail Lab and Diagnostics Result Diagram: 07/15/16 0540 07/14/16 0553 Assessment & Plan 75yo female with history of Diabetes types 2, dementia, depression, anxiety and recent prolonged hospitalizations 06/15-06/27 with worsening mental status, diverticulitis, NOÉ, possible UTI, aspiration pneumonia p/w fever, lethargy # Acute sepsis, present on admission. improving - SIRS criteria: Fever, Tachycardia, leukocytosis, tachypnea, and altered mental status. Source of infection combination of acute cholecystitis and UTI ( present on admission). - was afebrile on 07/12-07/13 but spike of fever again on 07/14 - further treatment and management as noted below - continue with broad Abx (Vanco, Flagyl, Cefepime) # Acute cholecystitis. present on admission. - post laparoscopic cholecystectomy with intraoperative cholangiogram on 07/08/16 - CT chest/abd/pelvis 07/09 showing: "Presumed interval cholecystectomy with fluid collection in the gallbladder fossa. This could represent developing abscess versus biloma." - appreciate surgery consult. will f/u w/ recs - repeat CT 07/14: "No change in postsurgical postcholecystectomy fluid." # Acute MRSA urinary tract infection (UTI), present on admission - continue with Vancomycin (dose per pharmacy) (day 8) # one blood culture from 07/09 coming back positive - likely contamination given coag negative staph - f/u repeat blood culture 07/11 # Acute on chronic encephalopathy, present on admission. improving - multifactorial: underlying cognitive dysfunction, toxic metabolic-sepsis, medicine-induced. 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 poa. ongoing and slowly worsening - no sign of active blood loss. - ? if partially 2ndry to daily phlebotomy - blood checks every other day for now # Acute hypomagnesemia. Resolved # Acute hypokalemia. - replete and f/u # Acute transaminitis. not present on admission. resolved - likely due to sepsis # History of hypertension. ongoing. improved - c/w home BP meds and f/u closely # History of dysphagia likely secondary to dementia, unknown chronicity, present on admission. Ongoing. - Swallow evaluation - c/w supportive care # History of Diabetes types 2 - cover with ISS # Progressive dementia - c/w supportive care # Goals of care - appreciate palliative care consult. will f/u w/ recs Dispo: 3-4 days VTE Prophylaxis: Sub-Q Heparin (Unfractionated) VTE Mechanical Devices: Venous Foot Pump Resuscitation Status: DNR/DNI:Do Not Resuscitate/Intubate Limited Interventions: Medications and IV Fluid Pradeep Hernandez Jul 15, 2016 14:46
--- NOTE | 2016-07-15 17:25 | PROG NOTE ---
[address] [address] PROGRESS NOTE PATIENT: HOWARD ORDAZ : 1940 MR#: [id number] ADMIT: 07/06/2016 JOB ID: [id number] DATE: The patient in the past 48 hours has had one temperature spike to 38.5. Her exam remains unchanged. Her white count remains at 10. She continues on vancomycin, Flagyl and cefepime. She did had a follow-up abdominal CT that demonstrates no significant change in the small fluid collection that is consistent with normal postsurgical changes. There is no rim enhancement, and I strongly suspect that her fever is not due to this fluid. [facility]
[2016-07-16] VITALS (9 sets, daily range): BP systolic 110–164; BP diastolic 61–110; PULSE 81–94; RESP 18–22; O2SAT 98–100
[2016-07-16] MEDS: Cefepime Inj 2,000 MG in Dextrose 5% Minibag Plus 100 ML IV SCH ×3 (02:10→16:36)
--- NOTE | 2016-07-16 02:52 | NUR ---
activity turned patient every 2 hours, heels floated. love catheter leaking, placed on dry chucks.
[2016-07-16] MEDS: D5 0.45% NaCl + KCl 20 mEq/L 1,000 ML IV SCH ×2 (03:11→19:20)
[2016-07-16 03:37] LABS: Mean Corpuscular Hemoglobin 28.5 pg (27.0-35.0); Mean Corpuscular Volume 84.4 fL (81-100)
[2016-07-16] MEDS: Vancomycin Dose per Pharmacist XX SCH (08:30)
[2016-07-16] MEDS: Insulin Human REGular 300 Unit/3 mL Inj SUBQ SCH ×4 (09:20→22:00)
[2016-07-16] MEDS: Heparin 5,000 Unit/mL Inj SUBQ SCH ×2 (09:21→22:47)
--- NOTE | 2016-07-16 09:25 | PCM.PNSURG ---
Subjective Visit Information: Reason for Visit Asp Pneumonia, Failure To Thrive, Cva (1 Mnth Ago) Surgery/Surgery Date Post-Op Day # Date of Admission: Jul 06, 2016 at 16:13 Hospital Day # Subjective: afebrile for 24 hrs (T max 37.5) , WBC down to 10, pt is not conversant this am , had a repeat CT on 07/14 Objective Objective In bed Does not open eyes or verbally respond this am Abd: incisions clean, some tenderness at R incisional sites with palpation, otherwise soft Vital Sign- Last 8 Hours Date Time Temp Pulse Resp B/P Pulse Ox O2 Delivery O2 Flow Rate FiO2 07/16/16 09:09 37.3 91 18 146/62 98 Room Air 07/16/16 06:34 155/63 07/16/16 04:49 37.2 88 20 164/110 100 Room Air Intake and Output- Last 8 Hour 07/16/16 Cumulative From/Thru 06:59 07/06/16 13:12 - 07/16/16 06:43 Intake Total 1500 ml 85912 ml Output Total 825 ml 13433 ml Balance 675 ml -763 ml Intake Oral 0 ml 1811 ml IV Total 1500 ml 52350 ml Output Urine Total 825 ml 99670 ml Stool Total 3 ml Estimated Blood Loss 1 ml # Bowel Movements 0 4 Result Diagram: 07/16/16 0320 07/16/16 0320 Assessment & Plan Impression s/p lap baltazar for acute cholecystitis Dementia MRSA CT scan done 07/09 and 07/14 Problems: Plan Called and discussed with granddaughter Fabienne (DPOA) this am Plan per hospitalist Surgery will sign off at this time. VTE Prophylaxis: Sub-Q Heparin (Unfractionated) Resuscitation Status: DNR/DNI:Do Not Resuscitate/Intubate Limited Interventions: Medications and IV Fluid Rafi Sheets MD Jul 16, 2016 09:25
[2016-07-16] MEDS ORDERED: Potassium Chloride 20 mEq SR Tablet PO ONE (10:15)
[2016-07-16] MEDS ORDERED: KCl 40 mEq/D5W 500 mL 40 MEQ in IV Premix 500 EACH IV ONE (10:15)
[2016-07-16] MEDS ORDERED: Vancomycin Serum Trough XX ONE (10:30)
--- NOTE | 2016-07-16 10:45 | NUR ---
Wound Care [facility] Patient seen for pressure ulcer protocol assessment. Skin intact. No areas of redness or skin breakdown noted. Patient with small rash to left buttock. Patient currently using P500 bed. Recommend continued q2 hour turning, floating heels, and continued use of P500 bed. Please reconsult wound care if further needs arise.
--- NOTE | 2016-07-16 14:49 | PCM.PHAPRO ---
Progress Date of Service: Jul 16, 2016 Scr = 0.3 Vanco trough 16.2. Pt continues on IV vancomycin and IV cefepime to treat acute cholecystitis and MRSA UTI. Trough is therapeutic at 16.2, goal 15-20 for sepsis. Today is day 10 of abx. Per hospitalist, continue abx one more day. Will leave IV vancomycin regimen the same for now. Pharmacy will continue to follow this patient's antibiotic therapy. Alba Novak PharmD Jul 16, 2016 14:49
[2016-07-16] MEDS: Vancomycin Inj 1,250 MG in 0.9% Sodium Chloride 250 ML IV SCH (15:03)
--- NOTE | 2016-07-16 15:06 | PCM.PNMED ---
Subjective Date of Service Jul 16, 2016 Subjective ROS limited 2ndry to patient quite lethargic but seems to deny any pain or discomfort Exam Vital Signs Vital Sign - Last Date Time Temp Pulse Resp B/P Pulse Ox O2 Delivery O2 Flow Rate FiO2 07/16/16 13:41 37.4 85 18 135/102 100 Room Air 07/13/16 17:54 Intake and Output 07/15/16 07/15/16 07/16/16 Cumulative From/Thru 15:00 23:00 07:00 07/06/16 13:12 - 07/16/16 06:43 Intake Total 2186 ml 1500 ml 57067 ml Output Total 950 ml 825 ml 69737 ml Balance 2186 ml -950 ml 675 ml -763 ml Intake Oral 0 ml 1811 ml IV Total 2186 ml 1500 ml 18181 ml Output Urine Total 950 ml 825 ml 68331 ml Stool Total 3 ml Estimated Blood Loss 1 ml # Bowel Movements 0 0 4 Exam appears more lethargic and sleepy today. General: No Acute Distress Head: Normal Eyes: Scleral Anicteric Mouth: Mucous Membr Moist/[place] Neck: Supple Chest & Lungs: Chest Wall Normal, Clear to auscultation bilat Cardiovascular: Regular Rate/Rhythm Pulses: NL carotid, radial, femoral, DP, PT Abdomen: Tender (seems mildly tender), Non-distended, Normoactive bowel tones, Soft Extremities: No cyanosis/clubbing/edema bilat Neurological: seems more awake and alert than prior days but still very lethargic and neuro exam limited but seems non-focal. IVs and Medications Medications Reviewed: Medications were reviewed in detail Lab and Diagnostics Result Diagram: 07/16/16 0320 07/16/16 0320 Assessment & Plan 75yo female with history of Diabetes types 2, dementia, depression, anxiety and recent prolonged hospitalizations 06/15-06/27 with worsening mental status, diverticulitis, NOÉ, possible UTI, aspiration pneumonia p/w fever, lethargy # Acute sepsis, present on admission. improving - SIRS criteria: Fever, Tachycardia, leukocytosis, tachypnea, and altered mental status. Source of infection combination of acute cholecystitis and UTI ( present on admission). - was afebrile on 07/12-07/13 but spike of fever again on 07/14 - further treatment and management as noted below - continue with broad Abx (Vanco, Flagyl, Cefepime) day 9 - will consider stopping Abx tomorrow after full 10 days of treatment # Acute cholecystitis. present on admission. - post laparoscopic cholecystectomy with intraoperative cholangiogram on 07/08/16 - CT chest/abd/pelvis 07/09 showing: "Presumed interval cholecystectomy with fluid collection in the gallbladder fossa. This could represent developing abscess versus biloma." - appreciate surgery consult. will f/u w/ recs - repeat CT 07/14: "No change in postsurgical postcholecystectomy fluid." # Acute MRSA urinary tract infection (UTI), present on admission - continue with Vancomycin (dose per pharmacy) (day 9). stop after day 10 as noted above # one blood culture from 07/09 coming back positive - likely contamination given coag negative staph - f/u repeat blood culture 07/11 # Acute on chronic encephalopathy, present on admission. ongoing - multifactorial: underlying cognitive dysfunction, toxic metabolic-sepsis, medicine-induced. - continue hold off MEDICAL DOCTOR MD meds # Acute on chronic anemia. poa. ongoing and slowly worsening - no sign of active blood loss. - ? if partially 2ndry to daily phlebotomy - blood checks every other day for now # Acute hypomagnesemia. Resolved # Acute hypokalemia. - replete and f/u # Acute transaminitis. not present on admission. resolved - likely due to sepsis # History of hypertension. ongoing. improved - c/w home BP meds and f/u closely # History of dysphagia likely secondary to dementia, unknown chronicity, present on admission. Ongoing. - Swallow evaluation - c/w supportive care # History of Diabetes types 2 - cover with ISS # Progressive dementia - c/w supportive care # Goals of care - appreciate palliative care consult. will f/u w/ recs Dispo: 2-3 days VTE Prophylaxis: Sub-Q Heparin (Unfractionated) VTE Mechanical Devices: Intermittant Pneumatic CD Resuscitation Status: DNR/DNI:Do Not Resuscitate/Intubate Limited Interventions: Medications and IV Fluid Pradeep Hernandez Jul 16, 2016 15:06
[2016-07-17] VITALS (7 sets, daily range): BP systolic 134–156; BP diastolic 66–93; PULSE 68–94; RESP 13–18; O2SAT 98–100
[2016-07-17] MEDS: Cefepime Inj 2,000 MG in Dextrose 5% Minibag Plus 100 ML IV SCH ×3 (00:50→17:43)
[2016-07-17] MEDS: Vancomycin Inj 1,250 MG in 0.9% Sodium Chloride 250 ML IV SCH ×2 (02:47→15:35)
--- NOTE | 2016-07-17 06:20 | NUR ---
Mental Status Assumed care at 2320. First check pt at 2330, pt eyes closed, slightly open eyes on calling her name loudly or touch, does not answer questions at all, drip off quickly. Previous shift RN verified: pt is "sleeping", advanced dementia, orient self only,she took her oral meds very slowly and small bites, barely open eyes per previous shift. Pt open eyes wider when repositioning overnight, still does not answer questions until this morning, pt answered "Yes " loudly and clearly when RN repeatedly called her name.
[2016-07-17] MEDS: Insulin Human REGular 300 Unit/3 mL Inj SUBQ SCH ×4 (07:56→20:34)
[2016-07-17] MEDS: Heparin 5,000 Unit/mL Inj SUBQ SCH ×2 (07:57→20:28)
[2016-07-17] MEDS: Vancomycin Dose per Pharmacist XX SCH (08:30)
--- NOTE | 2016-07-17 09:17 | NUR ---
LENORA: Asked COSMETIC SURGEON to follow up with family via phone for LENORA, patient is unable to accept LENORA at this time.
--- NOTE | 2016-07-17 10:00 | NUR ---
LENORA signed with granddaughter via phone ARBEN Serrato
[2016-07-17] MEDS ORDERED: 0.9% Sodium Chloride 250 ML ONE (10:16)
[2016-07-17] MEDS: D5 0.45% NaCl + KCl 20 mEq/L 1,000 ML IV SCH (10:19)
--- NOTE | 2016-07-17 15:04 | PCM.PNMED ---
Subjective Date of Service Jul 17, 2016 Subjective ROS limited 2ndry to patient quite lethargic but seems to deny any pain or discomfort Exam Vital Signs Vital Sign - Last Date Time Temp Pulse Resp B/P Pulse Ox O2 Delivery O2 Flow Rate FiO2 07/17/16 10:46 90 07/17/16 10:37 36.6 13 142/93 100 Room Air 07/13/16 17:54 Intake and Output 07/16/16 07/16/16 07/17/16 Cumulative From/Thru 15:00 23:00 07:00 07/06/16 13:12 - 07/17/16 06:27 Intake Total 2021 ml 1253 ml 15764 ml Output Total 1002 ml 900 ml 28756 ml Balance 1019 ml 353 ml 609 ml Intake Oral 350 ml 0 ml 2161 ml IV Total 1671 ml 1253 ml 55368 ml Output Urine Total 1002 ml 900 ml 57499 ml Stool Total 3 ml Estimated Blood Loss 1 ml # Voids 2 2 # Bowel Movements 0 4 Exam appears more lethargic and sleepy again today General: No Acute Distress Head: Normal Eyes: Scleral Anicteric Mouth: Mucous Membr Moist/[place] Neck: Supple Chest & Lungs: Chest Wall Normal, Clear to auscultation bilat Cardiovascular: Regular Rate/Rhythm Pulses: NL carotid, radial, femoral, DP, PT Abdomen: Tender (seems mildly tender), Non-distended, Normoactive bowel tones, Soft Extremities: No cyanosis/clubbing/edema bilat Neurological: seems more awake and alert than prior days but still very lethargic and neuro exam limited IVs and Medications Medications Reviewed: Medications were reviewed in detail Lab and Diagnostics Result Diagram: 07/16/16 0320 07/16/16 0320 Assessment & Plan 75yo female with history of Diabetes types 2, dementia, depression, anxiety and recent prolonged hospitalizations 06/15-06/27 with worsening mental status, diverticulitis, NOÉ, possible UTI, aspiration pneumonia p/w fever, lethargy # Acute sepsis, present on admission. improving - SIRS criteria: Fever, Tachycardia, leukocytosis, tachypnea, and altered mental status. Source of infection combination of acute cholecystitis and UTI ( present on admission). - was afebrile on 07/12-07/13 but spike of fever again on 07/14 - further treatment and management as noted below - broad Abx (Vanco, Flagyl, Cefepime) day 10 - consider stopping Abx today or soon - ID consulted regarding choice and course of Abx. will f/u w/ recs # Acute cholecystitis. present on admission. - post laparoscopic cholecystectomy with intraoperative cholangiogram on 07/08/16 - CT chest/abd/pelvis 07/09 showing: "Presumed interval cholecystectomy with fluid collection in the gallbladder fossa. This could represent developing abscess versus biloma." - appreciate surgery consult. will f/u w/ recs - repeat CT 07/14: "No change in postsurgical postcholecystectomy fluid." # Acute MRSA urinary tract infection (UTI), present on admission - Vancomycin (dose per pharmacy) (day 10). - ? stop Abx. will f/u w/ ID consult recs. # one blood culture from 07/09 coming back positive - likely contamination given coag negative staph - f/u repeat blood culture 07/11 # Acute on chronic encephalopathy, present on admission. ongoing - multifactorial: underlying cognitive dysfunction, toxic metabolic-sepsis, medicine-induced. 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 poa. ongoing and slowly worsening - no sign of active blood loss. - ? if partially 2ndry to daily phlebotomy - blood checks every other day for now # Acute hypomagnesemia. Resolved # Acute hypokalemia. - replete and f/u # Acute transaminitis. not present on admission. resolved - likely due to sepsis # History of hypertension. ongoing. improved - c/w home BP meds and f/u closely # History of dysphagia likely secondary to dementia, unknown chronicity, present on admission. Ongoing. - Swallow evaluation - c/w supportive care # History of Diabetes types 2 - cover with ISS # Progressive dementia - c/w supportive care # Goals of care - appreciate palliative care consult. will f/u w/ recs Dispo: 2-3 days VTE Prophylaxis: Sub-Q Heparin (Unfractionated) VTE Mechanical Devices: Intermittant Pneumatic CD Resuscitation Status: DNR/DNI:Do Not Resuscitate/Intubate Limited Interventions: Medications and IV Fluid Pradeep Hernandez Jul 17, 2016 15:04
[2016-07-17] MEDS ORDERED: Docusate Sodium 10 mg/mL 10 mL Liquid PO PRN (16:40)
--- NOTE | 2016-07-17 18:52 | DRSVH ---
PROCEDURE: MRI STROKE PROTOCOL ([id number]) Pre- and post-contrast brain MRI, non-contrast brain MR angiogram, pre- and postcontrast neck MR winnie ogram INDICATIONS: Altered mental status TECHNIQUE: Brain: Noncontrast axial T1 spin echo, axial T2 fast spin echo, sagittal and axial FLAIR, coronal T2 fast spin echo, axial gradient echo, axial diffusion and ADC through the brain. After the administr ation of contrast, axial 3D VIBE of the cranial vasculature and brain. Brain MRA: Non-contrast 3-D time of flight MR angiogram, with multiple flswian-yndpcqovx-lwrcwivwwv (MIP) reformats performed. Neck MRA: Axial and sagittal TruFISP through the neck. Coronal dynamic MR angiogram during administ ration of contrast in the arterial and venous phases, with 3-dimenstional stbivjs-ehzeratnr-ahhpeirbm n (MIP) reformats constructed from subtraction images. COMPARISON: None. FINDINGS: Image quality: Motion degraded examination. BRAIN: CSF spaces: Ventricles are normal in size and shape. Basal cisterns are patent. No extra-axial flu id collections. Brain: No intracranial bleeds or mass effects. Mccray-white matter interface is normal. Diffusion we ighted images show no acute ischemic insults. Brainstem appears normal. Normal intravascular flow v oids are present. No abnormal intracranial enhancement. Skull and face: Calvarial marrow signal is normal. Orbits appear normal. Sinuses: Sinuses and mastoids are clear. BRAIN MR ANGIOGRAM: Anterior circulation: Intracranial internal carotid arteries are normal in size and enhancement. Th e flow within the paired anterior cerebral arteries is normal and symmetric. The flow within the mid dle cerebral arteries is normal and symmetric. No stenoses, occlusions, or aneurysms. Posterior circulation: The visualized portions of the vertebral arteries demonstrate normal caliber, and join to form a normal appearing basilar artery. origin of the left posterior cerebral susanna ry, anatomic variant. The flow within the posterior cerebral arteries is normal and symmetric. No st enoses, occlusions, or aneurysms. NECK MR ANGIOGRAM: Carotids: Great vessels demonstrate a conventional anatomy as they arise from the aortic arch. The origins of the common carotid arteries appear patent. The calibers and courses of both common caroti d arteries are normal. The bifurcation regions appear normal bilaterally. Focal stenosis of the left proximal internal carotid artery measured approximately 40%. Possible mild diffuse atherosclerotic n arrowing of the right internal carotid artery however no focal stenosis seen. Posterior circulation: The origins of the vertebral arteries are not well-seen. Dominant left verteb ral artery. Diminutive right vertebral artery which appears patent. Normal appearing basilar artery. Miscellaneous: Subclavian arteries appear patent. Pre-contrast images through the neck show no soft tissue abnormalities. IMPRESSION: BRAIN MRI: No evidence of acute ischemia BRAIN MR ANGIOGRAM: Negative examination as above NECK MR ANGIOGRAM: 40% focal stenosis of the proximal left internal carotid artery. Further assessment could be performe d with dedicated ultrasound as likely warranted. The estimate of stenosis included in the report of the imaging study was calculated using the NASCET method Dictated by: Madan Almaraz M.D. on 07/17/2016 at 18:43 Approved by: Madan Almaraz M.D. on 07/17/2016 at 18:52
--- NOTE | 2016-07-17 19:11 | NUR ---
Mental status Periods of wakefulness. No sentences spoken but a couple one word answers. Some movement of R leg and right hand. MRI for stroke protocol. Tylenol admin for pain. Frequent rounding in place.
[2016-07-17] MEDS: Mupirocin 2% 22 Gm Ointment TOPICAL SCH (20:30)
--- NOTE | 2016-07-17 22:47 | CONS ---
[address] [address] CONSULTATION REPORT PATIENT: HOWARD ORDAZ : 1940 MR#: [id number] ADMIT: 07/06/2016 JOB ID: [id number] DATE OF SERVICE: 07/17/[address] Hernandez for this timely consult. REASON FOR CONSULTATION: Altered mental status with right upper quadrant fluid collection and MRSA urinary tract infection. HISTORY OF PRESENT ILLNESS: The patient is a 75-year-old female with multiple underlying medical problems including progressive dementia as well as diabetes and history of diverticulitis and progressive debility. She broke her hip three years ago and since that time has been residing at [facility]. Her two granddaughters are very involved in her care and one of them was available for us to speak to today. The granddaughter reports that though her grandmother has had progressive decline over the past two or three years, she is able to ordinarily get around with a walker and take care of her own toileting and some basic functions. She reports that about six weeks or so ago things started to decline quite rapidly and she has had a wide variety of problems in that time including an admission to the [facility] with influenza and a subsequent admission to this facility in early April with diverticulitis and possible urinary tract infection. There were also concerns about possible aspiration pneumonia during that June admission. Following her discharge in early June back to the shelter facility, the patient again failed to really improve back to her baseline and was readmitted to this facility on July 06 with progressive decline in mental status. By the time she was admitted here on the , she was not able to use the walker nor was she able to feed herself anymore and just having overall deterioration despite her recent admissions in May to the [facility] and the other admission here in early June for possible diverticulitis and UTI. During the course of her now 10 day admission to this hospital, the patient has been found to have acute cholecystitis and underwent cholecystectomy on July 08. The pathology from that procedure showed acute cholecystitis without evidence of malignancy. Postop, the patient had a significant number of fevers and this has led to the discovery that she had a MRSA UTI which has been adequately treated with vancomycin, and also led to additional imaging which showed there was some post cholecystectomy fluid in the right upper quadrant. General Surgery believes that this fluid is not infected. In any event, due to the development of the fevers postoperatively, she has been treated with broad-spectrum antibiotics and is now approaching 10 days or so of those broad-spectrum antibiotics which include IV Vanco directed to MRSA found in the urine as well as cephalosporin and Flagyl for treatment of the cholecystitis and post cholecystectomy fluid collection. Recently, the cephalosporin was changed to cefepime and, in fact, just within the past couple of days the patient's granddaughters have noticed that her already impaired mental status has further worsened. At this point, we are unable to get any history of whatsoever from the patient. She rouses to touch but basically does not respond to any of our questions in any meaningful way. We did discuss the case in great detail with the granddaughter who is present in the room who is concerned about her grandmother's progressive decline over the past six weeks or more, and also discussed the case with the bedside nurse. The patient, for her part, is not available answer any questions or supply any history whatsoever. PAST MEDICAL HISTORY: 1. Cataracts. 2. Hypertension. 3. Diabetes mellitus. 4. Endometriosis. 5. Status post left nephrectomy. 6. Recurrent urinary tract infections. 7. Arthritis. 8. 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 The left hip replacement was precipitated by fall and hip fracture. 9. Depression and anxiety. 10. Recurrent hyponatremia. 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 SOCIAL HISTORY: The patient is currently living at the shelter facility and has been there three years. She does not smoke or drink in the SNF, but she quit smoking four years ago just prior to her SNF admission. Mild tenderness to palpation in the left upper and lower quadrants. No rebound. No significant hepatosplenomegaly. No suprapubic tenderness. FAMILY HISTORY: It is not possible to obtain a family history at this time. REVIEW OF SYSTEMS: Likewise impossible in this obtunded patient. PHYSICAL EXAMINATION: Reveals an afebrile woman. She has been afebrile since July 11 with the exception of a single spike to 38.5 degrees on July 14. Pulse is currently 90, respiratory rate 18, blood pressure 142/93, saturating 100% on room air. Examination of the head: No evidence of trauma. Eyes: Notable for pale conjunctivae. No scleral icterus. Nose normal. Oral cavity: Difficult to examine as the patient is not following commands or participating with the exam. No herpetic lesions are seen. The neck is somewhat stiff but again difficult to examine as the patient is resisting flexion of the neck. No cervical lymphadenopathy or JVD is noted. Lungs: Relatively clear bilaterally but the patient is not taking deep breaths. Cardiac tones: Regular rate and rhythm without murmurs. The abdomen is notable for some mild right upper quadrant tenderness which is reproducible with the stethoscope. Patient has hypoactive but present bowel tones. There is no splenomegaly and no evidence for ascites. She does have a Arciniega catheter. No suprapubic fullness is noted. The right upper extremity is folded over her abdomen and the patient resists efforts to straighten it out, so I cannot test her strength or function of the right upper extremity. Left upper extremity does move. She also occasionally moves both lower extremities. The patient's knees are without evidence of effusion or inflammation and the same is true of her ankles. There is no peripheral edema. She has weak but present peripheral pulses and capillary refill in her lower extremities. Formal neurologic exam cannot be done, but we saw her move both feet and her left arm while we were in the room, not her right arm. No skin rash noted. Remainder of the physical exam is unremarkable or cannot be done. LABORATORIES: Include a white count that was as high as 16,000 on July 11 and has now declined to 10,200, which is basically the upper limit of normal. The diff is normal. Creatinine less than 0.3. LFTs normal but they have not been repeated for a few days. Urinalysis 11-50 white cells, back on the , not repeated. Note that her urine did grow MRSA at that time and that MRSA was susceptible to vancomycin with an ALICIA of 1. Coag-negative staph grew from one blood culture and is almost certainly a contaminant and a stool PCR panel negative. Blood cultures negative except for the one coag-negative staph, as mentioned. IMAGING: Includes an abdominal CT scan done July 14 to help evaluate her fevers. It shows some postsurgical postcholecystectomy fluid and trace left pleural effusion. The base of the lungs was seen on that film and shows a small left pleural effusion, but otherwise the lungs are completely clear. A CT scan just done May 09 showed evidence of the cholecystectomy, of course, with the fluid in the right upper quadrant as well as diverticulosis. IMPRESSION: This is a very difficult case of a woman who has been declining for six or eight weeks now. She was admitted to [place] with flu and then subsequently admitted here about a month ago with a combination apparently of diverticulitis and presumptive urinary tract infection. Despite appropriate care at both institutions, the patient's decline has continued and she was readmitted here with altered mental status. As part of a workup for the altered mental status, she was noted to have fevers and evidence of infection and CT scanning and other imaging showed she had cholecystitis which led to her cholecystectomy on July 08. Postoperatively, she has some fevers which have now resolved. Also noted during this admission is evidence of pyuria and a urine grew MRSA. Since the patient cannot give us a history, I think at this point we have to presume she had some MRSA urinary tract infection as well. Blood cultures are negative so we know she does not have MRSA endocarditis, however, and CT scan of the abdomen showed no renal abscesses. RECOMMENDATIONS: 1. At this point, the patient has finished 10 days of vancomycin, and so I would go ahead and discontinue that agent. 2. She has also completed, at this point, 10 days of combined broad spectrum beta-lactam agents plus Flagyl directed at her cholecystitis and her gallbladder has now been removed and there has been really no evidence for abscess in the right upper quadrant, so I think we could reasonably stop those antibiotics. 3. Note that cefepime can in and of itself cause encephalopathy, especially in older people who already have some abnormality of their mental functioning, so I think it is going to be vital that we stop her antibiotics. 4. Given that we are going to stop all of her antibiotics tonight, it behooves us to watch her for another day or two to make certain that she does not develop additional fevers or overt evidence of infection and also to see whether her mental status improves off the cefepime. 5. Nasal Bactroban will be added in an attempt to decolonize her from the MRSA. 6. We will continue to closely follow this patient with you over the next few days.
[2016-07-18] VITALS (9 sets, daily range): BP systolic 143–195; BP diastolic 57–100; PULSE 80–90; RESP 18–20; O2SAT 100
[2016-07-18] MEDS ORDERED: hydrALAZINE 20 mg/mL Inj IV PRN (02:45)
[2016-07-18] MEDS: D5 0.45% NaCl + KCl 20 mEq/L 1,000 ML IV SCH ×2 (03:39→17:38)
[2016-07-18 05:18] LABS: Mean Corpuscular Hemoglobin 26.7 pg (27.0-35.0); Mean Corpuscular Volume 85.3 fL (81-100)
--- NOTE | 2016-07-18 05:30 | NUR ---
ACTIVITY Patient has remained comfortable and sleeping most of the night. Able to take some of her HS meds, but refused others. Patient has been more verbal tonight answering some questions about comfort and pain and at one point stated, " I would just like to go home please." Q2 hour turns, heels floated.
[2016-07-18 05:41] LABS: Magnesium 1.7 mg/dL (1.6-2.6)
[2016-07-18] MEDS: Heparin 5,000 Unit/mL Inj SUBQ SCH ×2 (08:27→19:51)
[2016-07-18] MEDS: Mupirocin 2% 22 Gm Ointment TOPICAL SCH ×3 (08:30→19:51)
[2016-07-18] MEDS: Insulin Human REGular 300 Unit/3 mL Inj SUBQ SCH ×4 (08:31→22:00)
--- NOTE | 2016-07-18 09:26 | NUR ---
Social Work: readiness for discharge: Data: EMR reviewed. Pt is on day 12 of hospitalization for ASP. Pt is anticipated to discharge in the next 2 days. ID consult has been ordered. SW spoke with Granddaughter Fabienne and confirmed plan of return to [facility] at discharge. Paperwork has been placed in the chart. SW will continue to follow Assessment:Pt to return to SNF. Plan: Pt will return back to [facility] when medically stable. [facility] Medicare authorization needed, anticipate denial, and pt will likely return on [facility] supp.Paperwork in the chart. SW will continue to follow. ARBEN Serrato
--- NOTE | 2016-07-18 11:07 | PROG NOTE ---
[address] [address] PROGRESS NOTE PATIENT: HOWARD ORDAZ : 1940 MR#: [id number] ADMIT: 07/06/2016 JOB ID: [id number] DATE: 07/18/2016 INFECTIOUS DISEASE FOLLOW UP NOTE: REASON FOR FOLLOWUP: MRSA urinary tract infection, ongoing encephalopathy with progressive dementia and possible pneumonia. INTERVAL HISTORY: Recall that yesterday when we saw this very complex patient, we elected to stop all of her antibiotics believing that she had received an adequate course of therapy for her proven MRSA UTI and possible aspiration event. We also were concerned that possibly one or more these antibiotics was contributing to her encephalopathy and a progressive decline in mental status. Following stopping the antibiotics yesterday, the patient has perhaps brightened a little bit in that she has her eyes open and looks a little bit more vigilant than she did before but she still is really mute and does not respond to questions or follow any commands. We discussed this case in more detail with her other granddaughter. Recall that yesterday one of her two granddaughters who is very involved in her care was there and today we had the other granddaughter. She confirms the story told by her sister in that she states the patient has been going downhill now for about eight weeks in a very steady fashion with one problem after another but basically a progressive decline in her mental status as well as her functional status. This case was also discussed at the bedside with Dr. Hernandez, the hospitalist. PHYSICAL EXAMINATION: The patient is not able to give any additional history and does not follow any commands or interact though she clearly appears awake. Temperature is 36.6, pulse 80, respiratory rate 18, blood pressure 149/57. She is saturating well on room air. Eyes are open. No scleral icterus or conjunctivitis. She does not open her mouth but her lips appear free of herpetic lesions. Her lungs are reasonably clear though she makes minimal inspiratory effort. Abdomen is benign. No skin rashes noted. LABORATORIES: Include white count which has dropped all the way to 7700 today, the first time it has been completely normal. Her creatinine is 0.3. Prealbumin is 15. No new micro studies are available. Recall that she did have a single positive blood culture for coag-negative staph, and a nasal smear that was positive for MRSA as well as a urine culture that grew MRSA. IMAGING: The MRI of the brain yesterday showed some non clinically significant stenoses but otherwise negative. IMPRESSION: This is a difficult case of a woman who has been undergoing a progressive neurologic mental status decline for a couple months. She has been admitted to the [facility] for diverticulitis as well as a possible urinary tract infection and was admitted at this time with fever and decreased mental status. She has underwent cholecystectomy for acute cholecystitis and has received appropriate treatment for a cholecystitis as well as completed a course of appropriate treatment for MRSA urinary tract infection and possible aspiration pneumonia. At this point, I see no indication for additional antibiotics. RECOMMENDATIONS: 1. Will continue to watch the patient off antibiotics and hope that her mental status improved. 2. We are increasingly concerned that what we may be observing here is just a progressive decline in her mental status secondary to worsening of her dementia which is no doubt exacerbated by her multiple recent insults including UTIs, diverticulitis, cholecystitis and the recent MRSA UTI. 3. This case discussed with Dr. Hernandez.
--- NOTE | 2016-07-18 12:29 | NUR ---
Mentation/Diet/Arciniega Patient not able to follow commands. She is responsive at times to voice, she will make eye contact. When we reposition her I noted her left arm hurts, as when I lifted her elbow to place pillow underneath she shouted, "ouch". She also shouted "ouch" when I was wiping her right foot during a bed bath. Otherwise pt has been non-verbal. Her appetite is not good. She did eat min. bites this morning with crushed medication. Blood sugars have been stable. Fluids infusing via PICC line. Frequent turning. Arciniega had been leaking per NOC shift. I removed about 8cc of fluid from Arciniega balloon, pushed Arciniega in a bit further and reinflated balloon with 10cc. Addendum: 07/18/16 at 1520 by BINA BARBOZA RN Arciniega continues to leak. Arciniega removed and new 16 polish Arciniega inserted.
--- NOTE | 2016-07-18 14:59 | PCM.PNMED ---
Subjective Date of Service Jul 18, 2016 Subjective ROS limited 2ndry to patient quite lethargic and non-verbal today Exam Vital Signs Vital Sign - Last Date Time Temp Pulse Resp B/P Pulse Ox O2 Delivery O2 Flow Rate FiO2 07/18/16 13:52 36.6 84 18 143/68 100 Room Air 07/13/16 17:54 Intake and Output 07/17/16 07/17/16 07/18/16 Cumulative From/Thru 15:00 23:00 07:00 07/06/16 13:12 - 07/18/16 06:30 Intake Total 51 ml 1200 ml 818 ml 62778 ml Output Total 1300 ml 1250 ml 91634 ml Balance 51 ml -100 ml -432 ml 128 ml Intake Oral 200 ml 0 ml 2361 ml IV Total 51 ml 1000 ml 818 ml 32935 ml Output Urine Total 1300 ml 1250 ml 28076 ml Stool Total 3 ml Estimated Blood Loss 1 ml # Voids 2 # Bowel Movements 0 4 Exam she is non-verbal today and doesn't follow any commands although appears more awake and alert than past couple of days General: No Acute Distress Head: Normal Eyes: Scleral Anicteric Mouth: Mucous Membr Moist/[place] Neck: Supple Chest & Lungs: Chest Wall Normal, Clear to auscultation bilat Cardiovascular: Regular Rate/Rhythm Pulses: NL carotid, radial, femoral, DP, PT Abdomen: non-tender, Non-distended, Normoactive bowel tones, Soft Extremities: No cyanosis/clubbing Neurological: neuro exam limited IVs and Medications Medications Reviewed: Medications were reviewed in detail Lab and Diagnostics Result Diagram: 07/18/16 0505 07/18/16 0505 Assessment & Plan 75yo female with history of Diabetes types 2, dementia, depression, anxiety and recent prolonged hospitalizations 06/15-06/27 with worsening mental status, diverticulitis, NOÉ, possible UTI, aspiration pneumonia p/w fever, lethargy # Acute sepsis, present on admission. clinically resolved - SIRS criteria: Fever, Tachycardia, leukocytosis, tachypnea, and altered mental status. Source of infection combination of acute cholecystitis and UTI ( present on admission). - afebrile since 07/14 - further treatment and management as noted below - broad Abx (Vanco, Flagyl, Cefepime) x 10 days - appreciate ID consult. will f/u w/ recs - All Abx stopped today - will f/u clinical course off of Abx # Acute cholecystitis. present on admission. - post laparoscopic cholecystectomy with intraoperative cholangiogram on 07/08/16 - CT chest/abd/pelvis 07/09 showing: "Presumed interval cholecystectomy with fluid collection in the gallbladder fossa. This could represent developing abscess versus biloma." - appreciate surgery consult. will f/u w/ recs - per surgery CT findings consistent with expected post-op changes and unlikely abscess # Acute MRSA urinary tract infection (UTI), present on admission - Vancomycin (dose per pharmacy) (day 10). # one blood culture from 07/09 coming back positive - likely contamination given coag negative staph # Acute on chronic encephalopathy, present on admission. ongoing - multifactorial: underlying cognitive dysfunction, toxic metabolic-sepsis, medicine (including Abx) induced. 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 poa. ongoing and slowly worsening - no sign of active blood loss. - ? if partially 2ndry to daily phlebotomy - blood checks every other day for now # Acute hypomagnesemia. Resolved # Acute hypokalemia. - replete and f/u # Acute transaminitis. not present on admission. resolved - likely due to sepsis # History of hypertension. ongoing. improved - c/w home BP meds and f/u closely # History of dysphagia likely secondary to dementia, unknown chronicity, present on admission. Ongoing. - Swallow evaluation - c/w supportive care # History of Diabetes types 2 - cover with ISS # Progressive dementia - c/w supportive care # Goals of care - appreciate palliative care consult. now signed off. Dispo: back to long-term SNF in 1-2 days if remain afebrile off of Abx and pending clinical course VTE Prophylaxis: Sub-Q Heparin (Unfractionated) VTE Mechanical Devices: Intermittant Pneumatic CD Resuscitation Status: DNR/DNI:Do Not Resuscitate/Intubate Limited Interventions: Medications and IV Fluid Pradeep Hernandez Jul 18, 2016 14:59
--- NOTE | 2016-07-18 15:08 | NUR ---
NUTRITION FOLLOW-UP: ASSESS: 75 YO female admitted with aspiration PNA and failure to thrive. Pt with acute cholecystitis s/p lap cholecystectomy. Diet has been advanced to Pureed with NT liquids per ST. Pt po intake continues to be poor with pt eating bites - 50% of meals. No new wt since admit. PMHx: MS, cataracts, HTN, dyslipidemia, diverticulitis, endometriosis, left nephrectomy, carpal tunnel release, UTI, arthritis, type 2 diabetes, depression, anxiety, hyponatremia, charcot yolie tooth. DIET: Pureed w/NT liquids. PO intake bites - 50% last 5 days. LABS: Reviewed. Cr .30, Glu 163, PAB 15. MEDICATIONS: Reviewed. GI symptoms / stool: last reported BM x 1 (07/13) ANTHROPOMETRICS: Current Wt: 55.3 kg BMI: 22.3 kg/m2. No new wt since admit ESTIMATED NEEDS: Calories: 2202-9645 kcal (25 -30 kcal / kg BW) Protein: 55-85 g protein (1.0-1.5 g / kg BW) NUTRITION DIAGNOSIS: 1) Inadequate oral intake related to inability to consume sufficient energy, as evidenced by poor po intake of 0-50% x 9 out of 12 days-PERSISTS. 2) Chewing / swallowing difficulties related to MS, as evidenced by requirement for modified diet texture per history.--PERSISTS INTERVENTION: 1.) Continue current supplements of Gelatein and NT Ensure on all trays. 2.) Recommend getting current wt for pt as pt has not had a new wt since admit. MONITOR/EVALUATE: Diet tolerance, PO intake, wt, labs, GI/nutrition status, POC. Follow per high nutrition risk guidelines.
--- NOTE | 2016-07-18 18:18 | NUR ---
DIET P-Patient not eating and has not had BM for 5 days per EMR. I-Encouraged patient to eat and offered Laxatives x3. E-Patient refusing meals and laxative this afternoon. Will pass information to evening shift.
[2016-07-19] VITALS (7 sets, daily range): BP systolic 128–161; BP diastolic 62–84; PULSE 82–94; RESP 18; O2SAT 98–100
--- NOTE | 2016-07-19 05:32 | NUR ---
mentation Pt is lethargic; has minimal response with turning; non-verbal. No s/s of pain or discomfort. bed alarm on for safety.
[2016-07-19] MEDS: D5 0.45% NaCl + KCl 20 mEq/L 1,000 ML IV SCH ×2 (07:40→21:25)
--- NOTE | 2016-07-19 07:50 | PCM.PNMED ---
Subjective Date of Service Jul 19, 2016 Subjective low PO intake, refusing meals - recent UTI/diveriiculitis - s/p cholecystectomy for acute baltazar with abx for mrsa UTI and possible aspiration pna. stopped abx yesterday per ID - did have recent fevers - thought possibly d/t abx with worsening cognitive decline. no cp/sob Exam Vital Signs Vital Sign - Last Date Time Temp Pulse Resp B/P Pulse Ox O2 Delivery O2 Flow Rate FiO2 07/19/16 06:08 82 07/19/16 05:25 36.8 18 142/84 98 Room Air 07/13/16 17:54 Intake and Output 07/18/16 07/18/16 07/19/16 Cumulative From/Thru 15:00 23:00 07:00 07/06/16 13:12 - 07/19/16 06:26 Intake Total 1350 ml 880 ml 81850 ml Output Total 300 ml 1800 ml 99807 ml Balance 1050 ml -920 ml 258 ml Intake Oral 500 ml 0 ml 2861 ml IV Total 850 ml 880 ml 10693 ml Output Urine Total 300 ml 1800 ml 53138 ml Stool Total 3 ml Estimated Blood Loss 1 ml # Voids 2 # Bowel Movements 0 4 Exam General: No Acute Distress Head: Normal Eyes: Scleral Anicteric Mouth: Mucous Membr Moist/[place] Neck: Supple Chest & Lungs: Chest Wall Normal, Clear to auscultation bilat Cardiovascular: Regular Rate/Rhythm Pulses: NL carotid, radial, femoral, DP, PT Abdomen: non-tender, Non-distended, Normoactive bowel tones, Soft Extremities: No cyanosis/clubbing Neurological: neuro exam limited IVs and Medications Medications Reviewed: Medications were reviewed in detail Lab and Diagnostics Result Diagram: 07/18/16 0505 07/18/16 0505 Assessment & Plan 75yo female with history of Diabetes types 2, dementia, depression, anxiety and recent prolonged hospitalizations 06/15-06/27 with worsening mental status, diverticulitis, NOÉ, possible UTI, aspiration pneumonia p/w fever, lethargy # Acute sepsis, present on admission. clinically resolved - SIRS criteria: Fever, Tachycardia, leukocytosis, tachypnea, and altered mental status. Source of infection combination of acute cholecystitis and UTI ( present on admission). - afebrile since 07/14 - further treatment and management as noted below - broad Abx (Vanco, Flagyl, Cefepime) x 10 days - appreciate ID consult. will f/u w/ recs - All Abx stopped today - will f/u clinical course off of Abx # Acute cholecystitis. present on admission. - post laparoscopic cholecystectomy with intraoperative cholangiogram on 07/08/16 - CT chest/abd/pelvis 07/09 showing: "Presumed interval cholecystectomy with fluid collection in the gallbladder fossa. This could represent developing abscess versus biloma." - appreciate surgery consult. will f/u w/ recs - per surgery CT findings consistent with expected post-op changes and unlikely abscess # Acute MRSA urinary tract infection (UTI), present on admission - Vancomycin (dose per pharmacy) (day 10). # one blood culture from 07/09 coming back positive - likely contamination given coag negative staph # Acute on chronic encephalopathy, present on admission. ongoing - multifactorial: underlying cognitive dysfunction, toxic metabolic-sepsis, medicine (including Abx) induced. - continue hold off GENER[employer]GER [employer] meds - MRI brain 07/17 without acute finding # Acute on chronic anemia. poa. ongoing and slowly worsening - no sign of active blood loss. - ? if partially 2ndry to daily phlebotomy - blood checks every other day for now # Acute hypomagnesemia. Resolved # Acute hypokalemia. - replete and f/u # Acute transaminitis. not present on admission. resolved - likely due to sepsis # History of hypertension. ongoing. improved - c/w home BP meds and f/u closely # History of dysphagia likely secondary to dementia, unknown chronicity, present on admission. Ongoing. - Swallow evaluation - c/w supportive care # History of Diabetes types 2 - cover with ISS # Progressive dementia - c/w supportive care # Goals of care - appreciate palliative care consult. now signed off. Dispo: back to long-term SNF in 1-2 days if remain afebrile off of Abx and pending clinical course Pain Evaluation: Adequate Pain Control GI Prophylaxis: H2 sheryl VTE Prophylaxis: Sub-Q Heparin (Unfractionated) VTE Mechanical Devices: Intermittant Pneumatic CD Resuscitation Status: DNR/DNI:Do Not Resuscitate/Intubate Limited Interventions: Medications and IV Fluid Time spent 35 minutes spent with eval and mgmt Wallace Lawrence DO Jul 19, 2016 07:49
[2016-07-19] MEDS: Heparin 5,000 Unit/mL Inj SUBQ SCH ×2 (08:37→21:29)
[2016-07-19] MEDS: Insulin Human REGular 300 Unit/3 mL Inj SUBQ SCH ×4 (08:37→21:36)
[2016-07-19] MEDS: Mupirocin 2% 22 Gm Ointment TOPICAL SCH ×2 (08:40→21:30)
--- NOTE | 2016-07-19 11:11 | PROG NOTE ---
[address] [address] PROGRESS NOTE PATIENT: HOWARD ORDAZ : 1940 MR#: [id number] ADMIT: 07/06/2016 JOB ID: [id number] DATE: 07/19/2016 INFECTIOUS DISEASE FOLLOW UP NOTE: REASON FOR FOLLOW UP: MRSA urinary tract infection, recent cholecystitis and altered mental status likely secondary to progressive dementia. INTERVAL HISTORY: The patient has now been off antibiotics a couple days as we successfully treated her MRSA urinary tract infection as well as provided broad-spectrum antibiotics for cholecystitis and possible aspiration pneumonia. At this point, she is clinically stable but unfortunately her mental status continues to be below her already limited baseline. Again the patient was examined and discussed today with one of her granddaughters who are closest contacts at this point. Her granddaughter reports that her mental status is still quite below what it was a few weeks ago before this series of events including the cholecystectomy. The patient, for her part, does open her eyes today spontaneously when one speaks to her which is better than yesterday but otherwise follows no commands. She did mumble a few words to her granddaughter which were unintelligible today which also represents a slight amount of progress over yesterday but she continues to be quite impaired. PHYSICAL EXAMINATION: Reveals an elderly woman who is minimally responsive as mentioned above. Temperature 37.0. She has been afebrile for days. Pulse 94, respiratory rate 18, blood pressure 161/70. She is saturating well on room air. Mental status profoundly impaired. Oral cavity without thrush or pharyngitis. No herpetic lesions on the lips. Neck: Supple. Lungs relatively clear lung lewis but she is not taking very good respirations at all. Cardiac tones regular rate and rhythm. Abdomen benign. LABORATORIES: Include white count 7000 yesterday, not repeated today. Creatinine was 0.3 yesterday, not repeated today. Micro studies were reviewed but there is no new positives to note. IMAGING: No new imaging. Note that the MRI done two days ago of the brain showed no lesion to explain her altered mental status. IMPRESSION: The patient's MRSA urinary tract infection has been adequately treated at this time. She also recently was treated for influenza as well as diverticulitis and underwent cholecystectomy just last week for acute cholecystitis. At this point, I see no additional indication for antibiotics. Note that she has now been off antibiotics a couple days so I think any contribution of her antibiotics to her altered mental status should have worked itself out by now and I what we are seeing is progression of her dementia perhaps made worse by the multiple admissions and procedures she has had lately. RECOMMENDATIONS: 1. No antibiotics at this time. 2. ID will go ahead and sign off. 3. Reinvolvement of hospice or palliative care may be appropriate in this as her granddaughters continue to look for guidance.
--- NOTE | 2016-07-19 12:44 | NUR ---
[facility] signed
--- NOTE | 2016-07-19 16:38 | NUR ---
Bowels Pt hasn't had a BM x 6 days, even with bowel meds being given. Pt given suppository at this time, upon placement there wasn't any BM palpated at or near the rectum. Will continue to monitor. Addendum: 07/19/16 at 1809 by SUZANNA FUENTES RN BM produced. Medium, dark brown, formed, pasty.
[2016-07-20 05:40] VITALS: BP 107/80; PULSE 87; RESP 18; O2SAT 100
[2016-07-20] MEDS: Insulin Human REGular 300 Unit/3 mL Inj SUBQ SCH ×4 (07:30→22:00)
--- NOTE | 2016-07-20 09:11 | PCM.PNMED ---
Subjective Date of Service Jul 20, 2016 Subjective - Pt seen and examined this morning. No acute events over night. - h/o ecent UTI/diverticulitis - s/p cholecystectomy for acute cholecystitis and treated with abx for MRSA UTI and possible aspiration pna. stopped abx on per ID - Afebrile Exam Vital Signs Vital Sign - Last Date Time Temp Pulse Resp B/P Pulse Ox O2 Delivery O2 Flow Rate FiO2 07/20/16 05:40 37.4 87 18 107/80 100 Room Air Intake and Output 07/19/16 07/19/16 07/20/16 Cumulative From/Thru 15:00 23:00 07:00 07/06/16 13:12 - 07/20/16 06:37 Intake Total 1191 ml 0 ml 46473 ml Output Total 750 ml 95 ml 15167 ml Balance 441 ml -95 ml 604 ml Intake Oral 400 ml 0 ml 3261 ml IV Total 791 ml 64946 ml Output Urine Total 750 ml 95 ml 71928 ml Stool Total 3 ml Estimated Blood Loss 1 ml # Voids 2 # Bowel Movements 1 1 6 Exam General: No Acute Distress Head: Normal Eyes: Scleral Anicteric Mouth: Mucous Membr Moist/[place] Neck: Supple Chest & Lungs: Chest Wall Normal, Clear to auscultation bilat Cardiovascular: Regular Rate/Rhythm Pulses: NL carotid, radial, femoral, DP, PT Abdomen: non-tender, Non-distended, Normoactive bowel tones, Soft Extremities: No cyanosis/clubbing Neurological: neuro exam limited IVs and Medications Medications Reviewed: Medications were reviewed in detail Lab and Diagnostics Result Diagram: 07/18/16 0505 07/18/16 0505 Assessment & Plan 75yo female with history of Diabetes types 2, dementia, depression, anxiety and recent prolonged hospitalizations 06/15-06/27 with worsening mental status, diverticulitis, NOÉ, possible UTI, aspiration pneumonia p/w fever, lethargy # Acute sepsis, present on admission. clinically resolved - SIRS criteria: Fever, Tachycardia, leukocytosis, tachypnea, and altered mental status. Source of infection combination of acute cholecystitis and UTI ( present on admission). - afebrile since 07/14 - further treatment and management as noted below - broad Abx (Vanco, Flagyl, Cefepime) x 10 days - appreciate ID consult. will f/u w/ recs - All Abx stopped on 07/18. Remains afebrile. - will f/u clinical course off of Abx # Acute cholecystitis. present on admission. - post laparoscopic cholecystectomy with intraoperative cholangiogram on 07/08/16 - CT chest/abd/pelvis 07/09 showing: "Presumed interval cholecystectomy with fluid collection in the gallbladder fossa. This could represent developing abscess versus biloma." - appreciate surgery consult. will f/u w/ recs - per surgery CT findings consistent with expected post-op changes and unlikely abscess # Acute MRSA urinary tract infection (UTI), present on admission - Vancomycin (dose per pharmacy) (day 10). # one blood culture from 07/09 coming back positive - likely contamination given coag negative staph # Acute on chronic encephalopathy, present on admission. ongoing - multifactorial: underlying cognitive dysfunction, toxic metabolic-sepsis, medicine (including Abx) induced. - continue hold off [employer] meds - MRI brain 07/17 without acute finding # Acute on chronic anemia. poa. ongoing and slowly worsening - no sign of active blood loss. - ? if partially 2ndry to daily phlebotomy - blood checks every other day for now # Acute hypomagnesemia. Resolved # Acute hypokalemia. - replete and f/u # Acute transaminitis. not present on admission. resolved - likely due to sepsis # History of hypertension. ongoing. improved - c/w home BP meds and f/u closely # History of dysphagia likely secondary to dementia, unknown chronicity, present on admission. Ongoing. - Swallow evaluation - c/w supportive care # History of Diabetes types 2 - cover with ISS # Progressive dementia - c/w supportive care # Goals of care - appreciate palliative care consult. now signed off. Dispo: back to long-term SNF in 1-2 days if remain afebrile off of Abx and pending clinical course GI Prophylaxis: H2 sheryl VTE Prophylaxis: Sub-Q Heparin (Unfractionated) Resuscitation Status: DNR/DNI:Do Not Resuscitate/Intubate Limited Interventions: Medications and IV Fluid Ezio Garcia MD Jul 20, 2016 09:11
[2016-07-20 09:19] VITALS: BP 137/81; PULSE 16; PULSE 86; RESP 16; O2SAT 99
[2016-07-20] MEDS: Mupirocin 2% 22 Gm Ointment TOPICAL SCH ×2 (09:21→20:40)
[2016-07-20] MEDS: Heparin 5,000 Unit/mL Inj SUBQ SCH ×2 (09:25→20:41)
[2016-07-20] MEDS: D5 0.45% NaCl + KCl 20 mEq/L 1,000 ML IV SCH (10:52)
--- NOTE | 2016-07-20 14:06 | NUR ---
Social Work: Continued Discharge Planning Carroting Machine Operator spoke with patient's grand-daughter, Fabienne [phone], and notified her that palliative care would not see the patient during this visit. Patient's grand-daughter was in agreement with patient being referred to [facility]. [facility] was referred to [facility] and they will call the patient's grand-daughter to schedule an informational visit. Patient was discussed in daily rounds and physician stated that the patient may discharge on 07/21/16 if she does not have a temperature. SW notified patient's grand-daughter. Patient grand-daughter state that she contacted [facility] and requested that the patient be evaluated for an Adult Family Home and [facility] is likely to come out today and evaluate the patient. Patient grand-daughter does understand that the patient can be evaluated at [facility] if she discharges before she is evaluated by [facility]. SW will continue to follow and assist. Plan: Patient is likely to discharge back to [facility] when medically stable. SW will continue to follow. Kathi Monique, ALEX, ACM
--- NOTE | 2016-07-20 14:11 | NUR ---
NUTRITION FOLLOW-UP: ASSESS: 75 YO female admitted with aspiration PNA and failure to thrive. Pt with acute cholecystitis s/p lap cholecystectomy. Diet has been advanced to Pureed with NT liquids per ST. Pt po intake has consistently been ~25% x2 days. Pt's avg PO intake x14 days is ~25%. She continues to be lethargic and non-verbal. Pt has not had a new wt since admit. New wt was requested today and pt's wt has decreased 5kg since admit. PMHx: Dementia, MS, cataracts, HTN, dyslipidemia, diverticulitis, endometriosis, left nephrectomy, carpal tunnel release, UTI, arthritis, type 2 diabetes, depression, anxiety, hyponatremia, charcot yolie tooth. DIET: Pureed w/NT liquids. PO intake bites - 50% last 5 days. LABS: Reviewed. (07/18) metal pourer .30, Glu 163 MEDICATIONS: Reviewed. SKIN: Roel 10, No PU per WC GI symptoms / stool: last reported BM x 1 (07/20) ANTHROPOMETRICS: Current Wt: 50.7kg BMI: 20.4 kg/m2. Wt has decreased 5kg since admit. Admit wt: 55.3kg ESTIMATED NEEDS: Calories: 8814-0343 kcal (25 -30 kcal / kg BW) Protein: 55-85 g protein (1.0-1.5 g / kg BW) NUTRITION DIAGNOSIS: 1) Inadequate oral intake related to inability to consume sufficient energy, as evidenced by poor po intake of 0-50% x 9 out of 12 days-PERSISTS. 2) Chewing / swallowing difficulties related to MS, as evidenced by requirement for modified diet texture per history.--PERSISTS INTERVENTION: 1.) Continue current supplements of Gelatein and NT Ensure on all trays. 2.) Spoke w/RN to get new wt. Will continue to monitor wt trends during admit. MONITOR/EVALUATE: Diet tolerance, PO intake, wt, labs, GI/nutrition status, POC. Follow per high nutrition risk guidelines.
[2016-07-20 14:42] VITALS: BP 158/62; PULSE 72; RESP 18; O2SAT 100
--- NOTE | 2016-07-20 17:42 | NUR ---
Mentation Patient is alert to self and non verbal. no sign and symptoms of cardiac/respiratory or pain and or discomfort noted. patient laying comfortably on her left side. Tuning and repositioning every 2 hours for skin prevention and patient comfort. Patient refused dinner per NAC. Afebrile. Stable oxygenation. Blood sugar 135. BP 158/62. patient is asymptomatic. continue to monitor vital sign, pain, Q2 turns, and safety.
[2016-07-20 21:34] VITALS: BP 154/103; PULSE 95; RESP 18; O2SAT 99
[2016-07-21] MEDS: D5 0.45% NaCl + KCl 20 mEq/L 1,000 ML IV SCH ×2 (01:04→15:13)
--- NOTE | 2016-07-21 02:47 | NUR ---
Mentation Pt alert to self, mumbles to self not responsive to questions. Pt took meds crushed in applesauce, cooperative, ate 1/2 cup applesauce. Will continue monitor.
[2016-07-21 04:48] VITALS: BP 184/56; PULSE 86; RESP 18; O2SAT 100
[2016-07-21] MEDS: Heparin 5,000 Unit/mL Inj SUBQ SCH ×2 (08:03→20:41)
[2016-07-21] MEDS: Mupirocin 2% 22 Gm Ointment TOPICAL SCH ×2 (08:03→20:41)
[2016-07-21] MEDS: Insulin Human REGular 300 Unit/3 mL Inj SUBQ SCH ×4 (08:20→22:06)
[2016-07-21 08:22] VITALS: BP 144/88; PULSE 103; RESP 16; O2SAT 99
--- NOTE | 2016-07-21 10:40 | PCM.PNMED ---
Subjective Date of Service Jul 21, 2016 Subjective - Pt seen and examined this morning. No acute events over night. Denies any new complaints this morning. - h/o recent UTI/diverticulitis - s/p cholecystectomy for acute cholecystitis and treated with abx for MRSA UTI and possible aspiration pna. stopped abx on per ID - Afebrile Exam Vital Signs Vital Sign - Last Date Time Temp Pulse Resp B/P Pulse Ox O2 Delivery O2 Flow Rate FiO2 07/21/16 08:22 36.8 103 16 144/88 99 Room Air Intake and Output 07/20/16 07/20/16 07/21/16 Cumulative From/Thru 14:59 22:59 06:59 07/06/16 13:12 - 07/21/16 06:27 Intake Total 1436 ml 290 ml 50 ml 68683 ml Output Total 650 ml 1075 ml 70824 ml Balance 1436 ml -360 ml -1025 ml 655 ml Intake Oral 50 ml 50 ml 3361 ml IV Total 1436 ml 240 ml 87054 ml Output Urine Total 650 ml 1075 ml 76396 ml Stool Total 3 ml Estimated Blood Loss 1 ml # Voids 2 # Bowel Movements 6 Exam General: No Acute Distress Head: Normal Eyes: Scleral Anicteric Mouth: Mucous Membr Moist/[place] Neck: Supple Chest & Lungs: Chest Wall Normal, Clear to auscultation bilat Cardiovascular: Regular Rate/Rhythm Pulses: NL carotid, radial, femoral, DP, PT Abdomen: non-tender, Non-distended, Normoactive bowel tones, Soft Extremities: No cyanosis/clubbing Neurological: neuro exam limited Lab and Diagnostics Result Diagram: 07/18/16 0505 07/18/16 0505 Assessment & Plan 75y year old female with history of Diabetes types 2, dementia, depression, anxiety and recent prolonged hospitalizations 06/15-06/27 with worsening mental status, diverticulitis, NOÉ, possible UTI, aspiration pneumonia p/w fever, lethargy # Acute sepsis, present on admission. clinically resolved - SIRS criteria: Fever, Tachycardia, leukocytosis, tachypnea, and altered mental status. Source of infection combination of acute cholecystitis and UTI ( present on admission). - afebrile since 07/14 - further treatment and management as noted below - broad Abx (Vanco, Flagyl, Cefepime) x 10 days - appreciate ID consult. will f/u w/ recs - All Abx stopped on 07/18. Remains afebrile. - will f/u clinical course off of Abx # Acute cholecystitis. present on admission. - post laparoscopic cholecystectomy with intraoperative cholangiogram on 07/08/16 - CT chest/abd/pelvis 07/09 showing: "Presumed interval cholecystectomy with fluid collection in the gallbladder fossa. This could represent developing abscess versus biloma." - appreciate surgery consult. will f/u w/ recs - per surgery CT findings consistent with expected post-op changes and unlikely abscess # Acute MRSA urinary tract infection (UTI), present on admission - Vancomycin (dose per pharmacy) (day 10). # one blood culture from 07/09 coming back positive - likely contamination given coag negative staph # Acute on chronic encephalopathy, present on admission. ongoing - multifactorial: underlying cognitive dysfunction, toxic metabolic-sepsis, medicine (including Abx) induced. 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 poa. ongoing and slowly worsening - no sign of active blood loss. - ? if partially 2ndry to daily phlebotomy - blood checks every other day for now # History of dysphagia likely secondary to dementia, unknown chronicity, present on admission. Ongoing. - Swallow evaluation - c/w supportive care # History of Diabetes types 2 - cover with ISS # Progressive dementia - c/w supportive care # Goals of care - appreciate palliative care consult. now signed off. Dispo: back to long-term SNF in 1-2 days if remain afebrile off of Abx and pending clinical course GI Prophylaxis: H2 sheryl VTE Prophylaxis: Sub-Q Heparin (Unfractionated) VTE Mechanical Devices: Intermittant Pneumatic CD Resuscitation Status: DNR/DNI:Do Not Resuscitate/Intubate Limited Interventions: Medications and IV Fluid Ezio Garcia MD Jul 21, 2016 10:40
--- NOTE | 2016-07-21 11:20 | NUR ---
Case Management D: Phone call from MARIA LUISA Major at [facility]. They are denying coverage for d/c to SNF. They will contact family, and discuss denial.
--- NOTE | 2016-07-21 13:35 | NUR ---
LENORA LENORA signed
--- NOTE | 2016-07-21 13:47 | NUR ---
FAMILY/DISCHARGE P- Family unclear about plan for patient. I- Family informed that patient to be discharged to [facility] tomorrow. Hospice to come and visit patient at [facility]. E- Family states understanding, SW was in to reinforce plan and answer questions.
[2016-07-21 14:09] VITALS: BP 148/78; PULSE 93; RESP 18; O2SAT 98
--- NOTE | 2016-07-21 14:20 | NUR ---
Social Work: Brief Note SW spoke with patient's grand-daughter, Fabienne [phone], and notified her that [facility] was available to meet with her on 07/23/15 at 2pm for a hospice information visit. Fabienne voiced understanding and stated that she will be at the hospital on 07/22/16 at 2pm for the hospice information visit. MAGDI will continue to follow. Kathi Monique LMSW, ACM
--- NOTE | 2016-07-21 16:08 | NUR ---
Social Work: readiness for discharge: Data: EMR reviewed. Pt is on day 15 of hospitalization for ASP. Pt is anticipated to discharge tomorrow or the next.Pt to have Hospice information visit tomorrow at 1400, pt's family aware. Pt to discharge back to [facility] when medically stable. Paperwork has been placed in the chart. SW will continue to follow Assessment:Pt to return to SNF. Plan: Pt will return back to [facility] when medically stable. [facility] denial has been issued, pt [facility].Paperwork in the chart. SW will continue to follow. ARBEN Serrato
[2016-07-21 20:43] VITALS: BP 175/92; PULSE 100; RESP 16; O2SAT 98
[2016-07-22 05:28] VITALS: BP 143/74; PULSE 92; RESP 16; O2SAT 98
[2016-07-22] MEDS: D5 0.45% NaCl + KCl 20 mEq/L 1,000 ML IV SCH ×2 (06:30→21:12)
--- NOTE | 2016-07-22 06:41 | NUR ---
Noc activity Pt is alert to self, baseline confused. No s/sx of chest pain, sob, n/v or abd discomfort observed. Blood sugar checks done and HS meds administered as scheduled. VSS, and pt has been afebrile overnight. Hourly rounding done, bed is in lowest position. Pt has slept most of the night.
[2016-07-22] MEDS: Insulin Human REGular 300 Unit/3 mL Inj SUBQ SCH ×4 (07:30→22:00)
--- NOTE | 2016-07-22 10:06 | PCM.DIMED ---
Discharge Instructions Date of Service Jul 22, 2016 Dates of Hospitalization Jul 06, 2016 at 16:13 Call your provider Fever or Chills, Shortness of breath, Bleeding, Chest pain, Vomitting, Excessive diarrhea, Weakness (unilateral) Patient Instructions Follow-up with PCP in: 1 week Ezio Garcia MD Jul 22, 2016 10:05
--- NOTE | 2016-07-22 10:08 | PCM.DC.MED ---
Discharge Summary Date of Service Jul 22, 2016 Dates of Hospitalization Date of Hospital Admission Jul 06, 2016 at 16:13 Date of Discharge: Jul 22, 2016 Providers: Admitting Physician: Daisy Baron MD Primary Care Physician: Patti Loera Attending Physician: Daisy Baron MD Brief History Per admission H&P: 75yo F w/ recent prolonged hospitalizations 2/3-15 with worsening mental status , diverticulitis, NOÉ, possible UTI, aspiration pneumonia p/w fever, lethargy History was obtained by Granddaughter at the bedside. Since pt was discharged, pt's MS was not back to baseline, wax and wane.However, at some point, pt was able to communicate with her family, friends. Pt was able eat 40% of meals with assistance, having persistent loose stools. 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 Pt didn't have cough, sputum, was not on love cath, no nausea, vomiting noticed. No seizure like activities observed. per EMS , VS BP 160s, [id number], 96% on RA. Of note, According to previous note, prior to previous hospitalization, At baseline pt is functional walking with walker, being able to feed herself despite baseline dementia, pt got treated with influenza, also had frequent falls and back pain. Palliative care were consulted in last hospitalization, code status remained DNR/DNI/okay with IVF, abx. this was confirmed again with granddaughter today. Patient has since undergone cholecystectomy. Recovery has been slow with recurrent fevers and concerns about persistent or new infection. Palliative medicine consulted to review patient and family wishes regarding goals of care. Patient had just recently been discharged from the hospital on - during that admission she was seen by palliative medicine/Dr. El Prior to visiting the patient today, reviewed her records in the EMR in detail. Spoke with her bedside nurse as well as with her hospitalist. When I arrived, patient is lying in bed, usually asleep but occasionally mumbling. Awakened later but remains somewhat confused. I spoke at length with her grand daughter/POA Fabienne. Reviewed with Fabienne the patient's prior palliative consultation conclusions and plans. Fabienne and the rest of the family of hope that the patient would improve and recover to what her baseline had been in May, and are concerned that she has had to return to the hospital with a new problem. Their hope is that this was a discrete problem, now fixed with surgery, but at the same time realize that this may be another step in a cascade of additional illnesses, and they do not want to unnecessarily/1 pleasantly prolong the patient's life if there is no hope of recovery. Hospital Course 75y year old female with history of Diabetes types 2, dementia, depression, anxiety and recent prolonged hospitalizations 06/15-06/27 with worsening mental status, diverticulitis, NOÉ, possible UTI, aspiration pneumonia p/w fever, lethargy # Acute sepsis, present on admission. clinically resolved - SIRS criteria: Fever, Tachycardia, leukocytosis, tachypnea, and altered mental status. Source of infection combination of acute cholecystitis and UTI ( present on admission). - afebrile since 07/14 - further treatment and management as noted below - broad Abx (Vanco, Flagyl, Cefepime) x 10 days - appreciate ID consult. will f/u w/ recs - All Abx stopped on 07/18. Remains afebrile. # Acute cholecystitis. present on admission. - post laparoscopic cholecystectomy with intraoperative cholangiogram on 07/08/16 - CT chest/abd/pelvis 07/09 showing: "Presumed interval cholecystectomy with fluid collection in the gallbladder fossa. This could represent developing abscess versus biloma." - appreciate surgery consult. will f/u w/ recs - per surgery CT findings consistent with expected post-op changes and unlikely abscess # Acute MRSA urinary tract infection (UTI), present on admission - Vancomycin (dose per pharmacy) (day 10). # one blood culture from 07/09 coming back positive - likely contamination given coag negative staph # Acute on chronic encephalopathy, present on admission. ongoing - multifactorial: underlying cognitive dysfunction, toxic metabolic-sepsis, medicine (including Abx) induced. 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 poa. ongoing and slowly worsening - no sign of active blood loss. - ? if partially 2ndry to daily phlebotomy - blood checks every other day for now # History of dysphagia likely secondary to dementia, unknown chronicity, present on admission. Ongoing. - Swallow evaluation - c/w supportive care # History of Diabetes types 2 - cover with ISS # Progressive dementia - c/w supportive care Exam Vital Signs (Last) Date Time Temp Pulse Resp B/P Pulse Ox O2 Delivery O2 Flow Rate FiO2 07/22/16 05:28 37.5 92 16 143/74 98 Room Air Exam General: No Acute Distress Head: Normal Eyes: Scleral Anicteric Mouth: Mucous Membr Moist/[place] Neck: Supple Chest & Lungs: Chest Wall Normal, Clear to auscultation bilat Cardiovascular: Regular Rate/Rhythm Pulses: NL carotid, radial, femoral, DP, PT Abdomen: non-tender, Non-distended, Normoactive bowel tones, Soft Extremities: No cyanosis/clubbing Neurological: neuro exam limited Test 07/06/16 11:20 07/06/16 11:25 07/06/16 11:47 07/09/16 05:40 Troponin T < 0.010ug/L (0.0-0.011) Urine Color Yellow (YELLOW) Urine Appearance Hazy (CLEAR,HAZY) Urine pH 6.0 (5.0-8.0) Urine Specific [place] 1.025 (1.003-1.035) Urine Protein 30mg/dL (NEG,TRACE) Urine Glucose (UA) Negativemg/dL (NEGATIVE) Urine Ketones Tracemg/dL (NEGATIVE) Urine Occult Blood Small (NEGATIVE) Urine Nitrite Positive (NEGATIVE) Urine Bilirubin Negative (NEGATIVE) Urine Urobilinogen Normalmg/dL (NORMAL) Urine Leukocyte Esterase Trace (NEGATIVE) Urine RBC 0-2/hpf (0-2) Urine WBC 11-50/hpf (0-5) Urine Epithelial Cells Occasional/hpf (NONE-MOD) Urine Crystals None seen (NONE SEEN) Urine Bacteria Moderate/hpf (NONE-FEW) Urine Hyaline Casts None/lpf (NONE) Urine Granular Casts None seen (NONE SEEN) Urine Waxy Casts None seen (NONE SEEN) Urine Red Blood Cell Casts None seen (NONE SEEN) Urine White Blood Cell Casts None seen (NONE SEEN) Urine Mucus Present (None Seen) Urine Trichomonas None seen (NONE SEEN) Urine Yeast Many (NONE SEEN) Urinalysis Comment None Urine Culture Reflexed Indicated Lactic Acid Level 1.0mmol/L (0.4-2.0) Hemoglobin A1c 6.9% (4.8-5.6) Phosphorus Level 2.2mg/dL (2.5-4.9) Test 07/10/16 05:55 07/12/16 05:30 07/14/16 05:50 07/14/16 05:53 Prothrombin Time 17.0sec (8.1-12.5) Prothromb Time International Ratio 1.57ratio Activated Partial Thromboplast Time 32.7sec (22.8-33.0) Procalcitonin 0.23ng/mL (0.00-0.08) Total Bilirubin 0.3mg/dL (0.0-1.2) Aspartate Amino Transf (AST/SGOT) 19U/L (0-50) Alanine Aminotransferase (ALT/SGPT) 27U/L (0-32) Alkaline Phosphatase 88U/L (25-165) Total Protein 4.9g/dL (6.4-8.4) Albumin 2.8g/dL (3.4-5.0) Neutrophils (%) (Auto) 78.3% (40-74) Lymphocytes (%) (Auto) 12.3% (14-46) Monocytes (%) (Auto) 6.9% (4-12) Eosinophils (%) (Auto) 1.4% (0-5) Basophils (%) (Auto) 0.3% (0-3) Test 07/16/16 12:30 07/18/16 05:05 07/20/16 05:38 Vancomycin Level Trough 16.2mcg/mL White Blood Count 7.7th/mm3 (3.8-10.1) Red Blood Count 2.92mil/mm3 (3.90-5.20) Hemoglobin 7.8g/dL (12.0-15.6) Hematocrit 24.9% (35.0-46.0) Mean Corpuscular Volume 85.3fL (81-100) Mean Corpuscular Hemoglobin 26.7pg (27.0-35.0) Mean Corpuscular Hemoglobin Concent 31.3% (32.0-37.0) Red Cell Distribution Width 14.6% (12.3-15.4) Platelet Count 283bil/L (150-400) Sodium Level 136mEq/L (134-144) Potassium Level 3.5mEq/L (3.5-5.2) Chloride Level 100mEq/L (97-108) Carbon Dioxide Level 24mmol/L (18-29) Blood Urea Nitrogen 8mg/dL (8-27) Creatinine 0.30mg/dL (0.57-1.00) Estimat Glomerular Filtration Rate 311mL/min (>59) Glucose Level 163mg/dL (60-99) Calcium Level 8.5mg/dL (8.5-10.1) Magnesium Level 1.7mg/dL (1.6-2.6) Prealbumin 15mg/dL (20-40) Hold Purple Top Tube Received (Received) Hold [place] Top Tube Received (Received) Discharge Medications Discharge Medications Atorvastatin (Lipitor) 20 Mg Tablet 20 MG PO HS (Reported) Cholecalciferol (Vitamin D3) (Vitamin D3) 2,000 Unit Tablet 2,000 UNIT PO DAILY (Reported) Donepezil (Donepezil) 5 Mg Tablet 10 MG PO HS (Reported) Folic Acid (Folic Acid) 0.8 Mg Tablet 0.4 MG PO DAILY (Reported) Lidocaine (Lidoderm) 700 Mg Adh..patch 1 PATCH TP DAILY (Reported) Losartan Potassium (Losartan Potassium) 100 Mg Tablet 100 MG PO DAILY (Reported ) Meloxicam (Meloxicam) 7.5 Mg Tablet 7.5 MG PO DAILY (Reported) Metformin HCl (Metformin HCl ER) 1,000 Mg [id number] 1,000 MG PO BID (Reported) Metoprolol Tartrate (Metoprolol Tartrate) 50 Mg Tablet 50 MG PO BID (Reported) Nut.tx.,Elemental,Lac-Free/Mct (Xtracal Plus Liquid Packet) 45 Ml Liquid.pkt 45 ML PO TIDWM (Reported) Potassium Chloride (Potassium Chloride Powder) 20 Meq Packet 20 MEQ PO DAILY ( Reported) DISSOVE CONTENTS OF PACKET IN FULL GLASS OF WATER AND DRINK ONCE DAILY. TAKE WITH FOOD Risperidone (Risperdal) 1 Mg Tablet 0.5 MG PO TID Prescribed by: MARTY ARTHUR DO Sertraline HCl (Sertraline) 50 Mg Tablet 75 MG PO DAILY (Reported) As needed ([house cough syrup]) 15-30 ML PO q6hrs PRN PRN For Cough (Reported) Acetaminophen (Acetaminophen) 325 Mg Tablet 650 MG PO Q4H PRN PRN For Pain ( Reported) Albuterol Neb Soln (Albuterol Neb Soln) 0.63 Mg/3 Ml Vial.neb 0.83 MG INHALATION Q4H PRN PRN For Shortness of Breath (Reported) Loperamide HCl (Imodium A-D) 2 Mg Capsule 2 MG PO Q4hrs PRN PRN For Diarrhea or Loose Stool (Reported) Magnesium Hydroxide (Milk of Magnesia) 400 Mg/5 Ml Oral.susp 30 ML PO DAILY PRN PRN For Constipation (Reported) Polyethylene Glycol 3350 (Miralax) 17 Gm Powd.pack 17 GM PO DAILY PRN PRN For Constipation (Reported) Sennosides (Senna) 8.6 Mg Tablet 17.2 MG PO DAILY PRN PRN For Constipation ( Reported) Tramadol (Tramadol) 50 Mg Tablet 100 MG PO Q6H PRN PRN For Pain (Reported) hydrOXYzine Hcl (HydrOXYzine Hcl) 25 Mg Tablet 25 MG PO TID PRN PRN For Itching (Reported) Followup Plan Follow-up with PCP in: 1 week Ezio Garcia MD Jul 22, 2016 10:07
[2016-07-22] MEDS: Heparin 5,000 Unit/mL Inj SUBQ SCH ×2 (10:24→21:12)
[2016-07-22] MEDS: Mupirocin 2% 22 Gm Ointment TOPICAL SCH ×2 (10:24→21:12)
--- NOTE | 2016-07-22 10:50 | PCM.PNMED ---
Subjective Date of Service Jul 22, 2016 Subjective - No acute events overnight. - Afebrile. - She is medically stable for discharge but granddaughter is appealing the discharge. Exam Vital Signs Vital Sign - Last Date Time Temp Pulse Resp B/P Pulse Ox O2 Delivery O2 Flow Rate FiO2 07/22/16 05:28 37.5 92 16 143/74 98 Room Air Intake and Output 07/21/16 07/21/16 07/22/16 Cumulative From/Thru 15:00 23:00 07:00 07/06/16 13:12 - 07/22/16 06:34 Intake Total 2088 ml 869 ml 33026 ml Output Total 1000 ml 1000 ml 64106 ml Balance 1088 ml -131 ml 1612 ml Intake Oral 368 ml 100 ml 3829 ml IV Total 1720 ml 769 ml 62768 ml Output Urine Total 1000 ml 1000 ml 95050 ml Stool Total 3 ml Estimated Blood Loss 1 ml # Voids 2 # Bowel Movements 0 6 Exam General: No Acute Distress Head: Normal Eyes: Scleral Anicteric Mouth: Mucous Membr Moist/[place] Neck: Supple Chest & Lungs: Chest Wall Normal, Clear to auscultation bilat Cardiovascular: Regular Rate/Rhythm Pulses: NL carotid, radial, femoral, DP, PT Abdomen: non-tender, Non-distended, Normoactive bowel tones, Soft Extremities: No cyanosis/clubbing Neurological: neuro exam limited IVs and Medications Medications Reviewed: Medications were reviewed in detail Lab and Diagnostics Result Diagram: 07/18/16 0505 07/18/16 0505 Assessment & Plan 75y year old female with history of Diabetes types 2, dementia, depression, anxiety and recent prolonged hospitalizations 06/15-06/27 with worsening mental status, diverticulitis, NOÉ, possible UTI, aspiration pneumonia p/w fever, lethargy # Acute sepsis, present on admission. clinically resolved - SIRS criteria: Fever, Tachycardia, leukocytosis, tachypnea, and altered mental status. Source of infection combination of acute cholecystitis and UTI ( present on admission). - afebrile since 07/14 - further treatment and management as noted below - broad Abx (Vanco, Flagyl, Cefepime) x 10 days - appreciate ID consult. will f/u w/ recs - All Abx stopped on 07/18. Remains afebrile. # Acute cholecystitis. present on admission. - post laparoscopic cholecystectomy with intraoperative cholangiogram on 07/08/16 - CT chest/abd/pelvis 07/09 showing: "Presumed interval cholecystectomy with fluid collection in the gallbladder fossa. This could represent developing abscess versus biloma." - appreciate surgery consult. will f/u w/ recs - per surgery CT findings consistent with expected post-op changes and unlikely abscess # Acute MRSA urinary tract infection (UTI), present on admission - Vancomycin (dose per pharmacy) (day 10). # one blood culture from 07/09 coming back positive - likely contamination given coag negative staph # Acute on chronic encephalopathy, present on admission. ongoing - multifactorial: underlying cognitive dysfunction, toxic metabolic-sepsis, medicine (including Abx) induced. 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 poa. ongoing and slowly worsening - no sign of active blood loss. - ? if partially 2ndry to daily phlebotomy - blood checks every other day for now # History of dysphagia likely secondary to dementia, unknown chronicity, present on admission. Ongoing. - Swallow evaluation - c/w supportive care # History of Diabetes types 2 - cover with ISS # Progressive dementia - c/w supportive care She is medically stable for discharge but grand daughter is appealing the discharge. GI Prophylaxis: H2 sheryl VTE Prophylaxis: Sub-Q Heparin (Unfractionated) VTE Mechanical Devices: Intermittant Pneumatic CD Resuscitation Status: DNR/DNI:Do Not Resuscitate/Intubate Limited Interventions: Medications and IV Fluid Ezio Garcia MD Jul 22, 2016 10:50
--- NOTE | 2016-07-22 11:23 | NUR ---
Social Work: Discharge workers' compensation claims supervisor spoke with patient's grand-daughter [phone] and notified her that the patient was ready for discharge. Patient grand daughter stated that she was appealing patient discharge because she wanted the [facility] worker to see the patient in the hospital on 07/23/16. SW notified patient's physician and CM. SW will continue to follow. Katih Monique, ALEX, ACM
[2016-07-22 11:54] VITALS: BP 128/78; PULSE 82; RESP 16; O2SAT 98
--- NOTE | 2016-07-22 12:40 | DRSVH ---
PROCEDURE: X-RAY CHEST ONE VIEW, PORTABLE ([id number]) INDICATIONS: re-check PICC placement TECHNIQUE: One view of the chest was acquired. COMPARISON: [facility], CR, XR PICC LINE PLACE BY NURSE, 07/14/2016, 16:34. FINDINGS: Surgical changes and devices: The tip of the right PICC is projected over the right brachiocephalic v ein. Lungs and pleura: No pleural effusions or pneumothorax. Lungs are clear. Mediastinum: Mediastinal contours appear normal. Heart size is normal. Bones and chest wall: No suspicious bony lesions. Soft tissue calcifications are projected over the proximal humerus suggesting large intra-articular bodies. Overlying soft tissues appear unremarkable. IMPRESSION: Tip of the right PICC has been retracted and is likely in the right brachiocephalic vein. Dictated by: Amanda Brush M.D. on 07/22/2016 at 12:37 Approved by: Amanda Brush M.D. on 07/22/2016 at 12:38
--- NOTE | 2016-07-22 13:03 | NUR ---
PICC Line PICC line at 15 cm out, originally started at 9 cm out. Chest X-ray indicating that the line is now in the brachiocephalic vein. Dr. Llanos informed with no new orders obtained.
--- NOTE | 2016-07-22 15:14 | NUR ---
Case Management D: Discharge written, pt's grand-daughter/RAMON Loving has started the appeal of discharge process through [facility]. [place] [id number]. HINN letter explained and signed by Fabienne, copy provided.
[2016-07-22 21:25] VITALS: BP 168/117; PULSE 109; RESP 19; O2SAT 98
[2016-07-22 22:35] VITALS: PULSE 92
--- NOTE | 2016-07-23 05:11 | NUR ---
Noc activity pt had an episode of fever with a 37.6 with a pain scale of 5 noted on pt's FELDT scale. Administer [place] 2 tabs PRN. Fever went down to 37.4 and has been afebrile since. No s/sx of chest pain, sob, n/v or abd disomcort. Q2 turns provided, Hourly rounding done and pt has slept most of the night.
[2016-07-23 06:01] VITALS: BP 118/62; PULSE 77; RESP 17; O2SAT 97
[2016-07-23] MEDS: Insulin Human REGular 300 Unit/3 mL Inj SUBQ SCH ×4 (07:30→21:27)
--- NOTE | 2016-07-23 08:15 | PCM.PNMED ---
Subjective Date of Service Jul 23, 2016 Subjective Nonverbal cannot really make needs known Exam Vital Signs Vital Sign - Last Date Time Temp Pulse Resp B/P Pulse Ox O2 Delivery O2 Flow Rate FiO2 07/23/16 06:01 37.1 77 17 118/62 97 Room Air Intake and Output 07/22/16 07/22/16 07/23/16 Cumulative From/Thru 15:00 23:00 07:00 07/06/16 13:12 - 07/23/16 06:02 Intake Total 982 ml 503 ml 70951 ml Output Total 650 ml 22152 ml Balance 332 ml 503 ml 2447 ml Intake Oral 140 ml 3969 ml IV Total 842 ml 503 ml 62428 ml Output Urine Total 650 ml 11321 ml Stool Total 3 ml Estimated Blood Loss 1 ml # Voids 2 # Bowel Movements 6 Exam General: No Acute Distress, somnolent, does not rouse to gentle stimulation reportedly mumbles occasionally is only intermittently understood Head: Atraumatic, normocephalic Eyes: Closed, normal limits, no drainage from either eye Mouth: Closed, lips normal Neck: Trach midline Chest & Lungs: Chest Wall Normal, Clear to auscultation bilat Cardiovascular: Regular Rate/Rhythm, 2/6 murmur no gallop Abdomen: non-tender, Non-distended, Normoactive bowel tones, Soft Extremities: No cyanosis/clubbing Neurological: neuro exam limited, nonfocal Lab and Diagnostics Result Diagram: 07/18/16 0505 07/18/16 0505 Assessment & Plan 75y year old female with history of Diabetes types 2, dementia, depression, anxiety and recent prolonged hospitalizations 06/15-06/27 with worsening mental status, diverticulitis, NOÉ, possible UTI, aspiration pneumonia p/w fever, lethargy. 07/23/16 patient was reportedly stable for discharge and was going to be discharged to [facility], granddaughter appealed the discharge 07/22/16 they are looking for an assisted living for her where they would like her to go with hospice. More likely she will be discharged back to [facility] on hospice. # Acute sepsis, present on admission. clinically resolved - SIRS criteria: Fever, Tachycardia, leukocytosis, tachypnea, and altered mental status. Source of infection combination of acute cholecystitis and UTI ( present on admission). - afebrile since 07/14 - further treatment and management as noted below - broad Abx (Vanco, Flagyl, Cefepime) x 10 days completed and discontinued 07/23 - appreciate ID consult. will f/u w/ recs - All Abx stopped on 07/18. Remains afebrile. # Acute cholecystitis. present on admission. - post laparoscopic cholecystectomy with intraoperative cholangiogram on 07/08/16 - CT chest/abd/pelvis 07/09 showing: "Presumed interval cholecystectomy with fluid collection in the gallbladder fossa. This could represent developing abscess versus biloma." - appreciate surgery consult. will f/u w/ recs - per surgery CT findings consistent with expected post-op changes and unlikely abscess # Acute MRSA urinary tract infection (UTI), present on admission - Vancomycin (dose per pharmacy) (day 10). Completed as of 07/23 # one blood culture from 07/09 coming back positive - likely contamination given coag negative staph # Acute on chronic encephalopathy, present on admission. ongoing - multifactorial: underlying cognitive dysfunction, toxic metabolic-sepsis, medicine (including Abx) induced. 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 poa. ongoing perhaps somewhat stable hemoglobin 7.8 - no sign of active blood loss. - ? if partially 2ndry to daily phlebotomy - blood checks every other day for now # History of dysphagia likely secondary to dementia, unknown chronicity, present on admission. Ongoing. - Swallow evaluation - c/w supportive care # History of Diabetes types 2 - cover with ISS -BS 140-160s 07/22- # Progressive dementia - c/w supportive care She is medically stable for discharge but grand daughter is appealing the discharge 07/23. GI Prophylaxis: H2 sheryl VTE Prophylaxis: Sub-Q Heparin (Unfractionated) VTE Mechanical Devices: Intermittant Pneumatic CD Resuscitation Status: DNR/DNI:Do Not Resuscitate/Intubate Limited Interventions: Medications and IV Fluid Sam Pierre MD Jul 23, 2016 08:15
[2016-07-23] MEDS: Heparin 5,000 Unit/mL Inj SUBQ SCH ×2 (08:16→21:19)
[2016-07-23] MEDS: Mupirocin 2% 22 Gm Ointment TOPICAL SCH ×2 (08:16→21:19)
[2016-07-23] MEDS: D5 0.45% NaCl + KCl 20 mEq/L 1,000 ML IV SCH (10:40)
--- NOTE | 2016-07-23 13:47 | NUR ---
NUTRITION FOLLOW-UP: ASSESS: 75 YO female admitted with aspiration PNA and failure to thrive. Pt with acute cholecystitis s/p lap cholecystectomy. Diet has been advanced to Pureed with NT liquids per ST. Pt po intake is 25% of meals. She continues to be lethargic and non-verbal. PMHx: Dementia, MS, cataracts, HTN, dyslipidemia, diverticulitis, endometriosis, left nephrectomy, carpal tunnel release, UTI, arthritis, type 2 diabetes, depression, anxiety, hyponatremia, charcot yolie tooth. DIET: Pureed w/NT liquids. PO intake avg 25% of meals. LABS: Reviewed. labs Pending. MEDICATIONS: Reviewed. GI symptoms / stool: last reported BM x 1 (07/20) ANTHROPOMETRICS: Current Wt: 50.4 kg BMI: 20.4 kg/m2. Wt has decreased 5 kg since admit. Admit wt: 55.3 kg (severe wt loss noted. ESTIMATED NEEDS (wt gain): Calories: 2051-2368 kcal (30-35 kcal / kg admit BW) Protein: 65-85 g protein (1.2-1.5 g / kg Admit BW) NUTRITION DIAGNOSIS: 1) Inadequate oral intake related to inability to consume sufficient energy, as evidenced by poor po intake of 25% of meals and wt loss of 5 kg (severe wt loss) --PERSISTS. 2) Chewing / swallowing difficulties related to MS, as evidenced by requirement for modified diet texture per history.--PERSISTS INTERVENTION: 1.) Continue current supplements of Gelatein and NT Ensure on all trays. MONITOR/EVALUATE: PO intake, weights, labs, GI/nutrition status, POC. Follow per high nutrition risk guidelines.
--- NOTE | 2016-07-23 14:03 | NUR ---
Social Work-continued d/c planning: data:EMR reviewed. Pt is on day 17 of hospitalization for ASP per H&P. Pt's granddaughter appealed discharge yesterday. MAGDI spoke with Hafsa Peterson who came in from [facility] today and completed assessment. Hafsa state she may have a lead at [facility] and is having daughter visit there today. Hafsa states she will call SW back after she has more information.SW updated pt's granddaughter on process and explained that if pt is ready prior to AFH then she will need to return back to [facility]. SW explained that once appeal comes back, pt will have until the next day at 1200 to discharge. Granddaughter confirms they have met with Hospice and at this time have no signed consents. SW will continue to follow. Assessment:Pt how has appealed discharge. Plan:Pt to likely discharge back to [facility] when medically stable. If AFH is found prior to discharge, then pt can return back to [facility]. SW awaiting on decision on appeal.Paperwork in the chart. SW will continue to follow. ARBEN Serrato
[2016-07-23 14:09] VITALS: BP 135/69; PULSE 81; RESP 18; O2SAT 97
--- NOTE | 2016-07-23 15:25 | NUR ---
Social Work-readiness for discharge: Data:Pt is on day 17 of hospitalization for pneumonia per H&P. Pt is medically stable and appeal has been started yesterday. Jennifer Dorado from [facility] [phone] came and saw pt at bedside and is willing to accept pt tomorrow. SW spoke with Gely at [facility] who confirms that they spoke with granddaughter and granddaughter is in agreement with Hospice. Gely confirms they can deliver DME tomorrow to [facility] and can open services on Saturday morning. Jennifer at [facility] confirms they can take pt once Equipment is in place, prior to Hospice opening. SW updated pt's granddaughter Fabienne on discharge plan. Fabienne confirms that she would be fine with pt discharging prior to appeal coming back. SW updated that if all works out then discharge will likely be tomorrow. UR specialist to update [facility]. SW to update Fabienne again tomorrow. SW will continue to follow. Assessment:Pt to go on Hospice to [facility]. Plan:Pt to discharge to [facility] with Hospice services. Hospice to likely deliver DME tomorrow. SW will continue to follow. ARBEN Serrato
--- NOTE | 2016-07-23 18:41 | NUR ---
PICC Unable to draw blood from PICC line, IV therapy notified and assessed. IV therapy informed MD PICC needs clot therapy.
[2016-07-23 21:07] VITALS: BP 185/68; PULSE 107; RESP 18; O2SAT 97
[2016-07-24] MEDS: D5 0.45% NaCl + KCl 20 mEq/L 1,000 ML IV SCH ×2 (01:39→14:47)
[2016-07-24 04:20] VITALS: O2SAT 86
[2016-07-24 04:21] VITALS: O2SAT 94
[2016-07-24 05:28] VITALS: BP 145/80; PULSE 88; RESP 18; O2SAT 98
--- NOTE | 2016-07-24 06:22 | NUR ---
Uneventful Night/Arciniega Pt dementia,alert and oriented to self only, calm and pleasant, no s/s pain/SOB/NV/fever/chills. VSS, sleeping comfortable most of night, q2h turn performed. Arciniega in place (not sure when it was placed from documentation, present prior to 07/18/2016 ), will remind MD to reevaluate Arciniega necessity.
[2016-07-24] MEDS: Heparin 5,000 Unit/mL Inj SUBQ SCH (09:16)
[2016-07-24] MEDS: Mupirocin 2% 22 Gm Ointment TOPICAL SCH (09:17)
[2016-07-24] MEDS: Insulin Human REGular 300 Unit/3 mL Inj SUBQ SCH ×3 (09:19→13:13)
--- NOTE | 2016-07-24 11:13 | PCM.DC.MED ---
Discharge Summary Date of Service Jul 24, 2016 Dates of Hospitalization Date of Hospital Admission Jul 06, 2016 at 16:13 Date of Discharge: Jul 22, 2016 Providers: Admitting Physician: Daisy Baron MD Primary Care Physician: Patti Loera Attending Physician: Daisy Braon MD Diagnosis at Time of Discharge Diagnosis at Time of Discharge Initial admission was for sepsis secondary to cholecystitis/possible UTI Consultations Infectious disease, surgery, palliative care Procedures Invasive Procedures PICC line 07/17, cholecystectomy 07/07 Brief History 75yo F w/ recent prolonged hospitalizations 06/15- with worsening mental status , diverticulitis, NOÉ, possible UTI, aspiration pneumonia p/w fever, lethargy Hospital Course 75y year old female with history of Diabetes types 2, dementia, depression, anxiety and recent prolonged hospitalizations 06/15-06/27 with worsening mental status, diverticulitis, NOÉ, possible UTI, aspiration pneumonia p/w fever, lethargy. 07/23/16 patient was reportedly stable for discharge and was going to be discharged to [facility], granddaughter appealed the discharge 07/22/16 they are looking for an assisted living for her where they would like her to go with hospice. More likely she will be discharged back to [facility] on hospice. Patient was initially admitted septic 07/06 likely secondary to cholecystitis , cholecystectomy was performed with intraoperative cholangiograms 07/08. Patient continued to have MRSA UTI and positive blood cultures and then going encephalopathy and was treated for sepsis. She had been afebrile since 07/14 antibiotics were discontinued 07/18. The plan was to discharge her 07/22 however the granddaughter appealed her discharge and it was declined. But in the meantime they were able to find if assisted living called to [facility] where she is going on hospice which was the desired outcome. [facility]. # Acute sepsis, present on admission. clinically resolved patient off antibiotics - SIRS criteria: Fever, Tachycardia, leukocytosis, tachypnea, and altered mental status. Source of infection combination of acute cholecystitis and UTI ( present on admission). - afebrile since 07/14 - further treatment and management as noted below - broad Abx (Vanco, Flagyl, Cefepime) x 10 days completed and discontinued 07/23 - appreciate ID consult. will f/u w/ recs - All Abx stopped on 07/18. Remains afebrile. # Acute cholecystitis. present on admission. Resolved status post cholecystectomy - post laparoscopic cholecystectomy with intraoperative cholangiogram on 07/08/16 - CT chest/abd/pelvis 07/09 showing: "Presumed interval cholecystectomy with fluid collection in the gallbladder fossa. This could represent developing abscess versus biloma." - appreciate surgery consult. will f/u w/ recs - per surgery CT findings consistent with expected post-op changes and unlikely abscess # Acute MRSA urinary tract infection (UTI), present on admission-resolved - Vancomycin (dose per pharmacy) (day 10). Completed as of 07/23 # one blood culture from 07/09 coming back positive-treated with extensive antibiotics and infectious disease consultation resolved - likely contamination given coag negative staph # Acute on chronic encephalopathy, present on admission. ongoing - multifactorial: underlying cognitive dysfunction, toxic metabolic-sepsis, medicine (including Abx) induced. 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 poa. ongoing perhaps somewhat stable hemoglobin 7.8 - no sign of active blood loss. - ? if partially 2ndry to daily phlebotomy - blood checks every other day for now #Left hemiparesis with contractions-present on admission likely secondary to CVA that was not worked up during this admission. At least since May per granddaughter. # History of dysphagia unknown chronicity, present on admission. Ongoing. Patient has history of CVA and hemiplegia - Swallow evaluation - c/w supportive care # History of Diabetes types 2- Will discontinue treatment given that the plan is comfort care/hospice -BS 140-160s 07/22- # Progressive dementia-discharging patient on hospice - c/w supportive care She is medically stable for discharge but grand daughter is appealing the discharge 07/23. Appeal was denied, I spoke to the granddaughter on the date of discharge, the outcome was as desired. We still need to discontinue both the Arciniega catheter and the PICC line that the patient has. If needed I believe hospice can replace the Arciniega catheter if needed. Discharging to [facility] on hospice 07/24 the desired outcome by granddaughter. Exam Vital Signs (Last) Date Time Temp Pulse Resp B/P Pulse Ox O2 Delivery O2 Flow Rate FiO2 07/24/16 05:28 37.3 88 18 145/80 98 Room Air Exam General: No Acute Distress, somnolent, does not rouse to gentle stimulation reportedly mumbles occasionally is only intermittently understood Head: Atraumatic, normocephalic Eyes: Closed, normal limits, no drainage from either eye, second visit eyes open conjunctiva clear, pupils equal eyes track symmetrically Mouth: Closed, lips normal Neck: Trach midline Chest & Lungs: Chest Wall Normal, Clear to auscultation bilat Cardiovascular: Regular Rate/Rhythm, 2/6 murmur no gallop Abdomen: non-tender, Non-distended, Normoactive bowel tones, Soft Extremities: No cyanosis/clubbing Neurological: neuro exam limited, left-sided hemiparesis with contraction Today I came to see the patient initially she was not arousable, now she is awake when her granddaughter is room a few hours later. She responds nonverbally Test 07/06/16 11:20 07/06/16 11:25 07/06/16 11:47 07/09/16 05:40 Troponin T < 0.010ug/L (0.0-0.011) Urine Color Yellow (YELLOW) Urine Appearance Hazy (CLEAR,HAZY) Urine pH 6.0 (5.0-8.0) Urine Specific [place] 1.025 (1.003-1.035) Urine Protein 30mg/dL (NEG,TRACE) Urine Glucose (UA) Negativemg/dL (NEGATIVE) Urine Ketones Tracemg/dL (NEGATIVE) Urine Occult Blood Small (NEGATIVE) Urine Nitrite Positive (NEGATIVE) Urine Bilirubin Negative (NEGATIVE) Urine Urobilinogen Normalmg/dL (NORMAL) Urine Leukocyte Esterase Trace (NEGATIVE) Urine RBC 0-2/hpf (0-2) Urine WBC 11-50/hpf (0-5) Urine Epithelial Cells Occasional/hpf (NONE-MOD) Urine Crystals None seen (NONE SEEN) Urine Bacteria Moderate/hpf (NONE-FEW) Urine Hyaline Casts None/lpf (NONE) Urine Granular Casts None seen (NONE SEEN) Urine Waxy Casts None seen (NONE SEEN) Urine Red Blood Cell Casts None seen (NONE SEEN) Urine White Blood Cell Casts None seen (NONE SEEN) Urine Mucus Present (None Seen) Urine Trichomonas None seen (NONE SEEN) Urine Yeast Many (NONE SEEN) Urinalysis Comment None Urine Culture Reflexed Indicated Lactic Acid Level 1.0mmol/L (0.4-2.0) Hemoglobin A1c 6.9% (4.8-5.6) Phosphorus Level 2.2mg/dL (2.5-4.9) Test 07/10/16 05:55 07/12/16 05:30 07/14/16 05:50 07/14/16 05:53 Prothrombin Time 17.0sec (8.1-12.5) Prothromb Time International Ratio 1.57ratio Activated Partial Thromboplast Time 32.7sec (22.8-33.0) Procalcitonin 0.23ng/mL (0.00-0.08) Total Bilirubin 0.3mg/dL (0.0-1.2) Aspartate Amino Transf (AST/SGOT) 19U/L (0-50) Alanine Aminotransferase (ALT/SGPT) 27U/L (0-32) Alkaline Phosphatase 88U/L (25-165) Total Protein 4.9g/dL (6.4-8.4) Albumin 2.8g/dL (3.4-5.0) Neutrophils (%) (Auto) 78.3% (40-74) Lymphocytes (%) (Auto) 12.3% (14-46) Monocytes (%) (Auto) 6.9% (4-12) Eosinophils (%) (Auto) 1.4% (0-5) Basophils (%) (Auto) 0.3% (0-3) Test 07/16/16 12:30 07/18/16 05:05 07/20/16 05:38 07/23/16 11:30 Vancomycin Level Trough 16.2mcg/mL White Blood Count 7.7th/mm3 (3.8-10.1) Red Blood Count 2.92mil/mm3 (3.90-5.20) Hemoglobin 7.8g/dL (12.0-15.6) Hematocrit 24.9% (35.0-46.0) Mean Corpuscular Volume 85.3fL (81-100) Mean Corpuscular Hemoglobin 26.7pg (27.0-35.0) Mean Corpuscular Hemoglobin Concent 31.3% (32.0-37.0) Red Cell Distribution Width 14.6% (12.3-15.4) Platelet Count 283bil/L (150-400) Magnesium Level 1.7mg/dL (1.6-2.6) Prealbumin 15mg/dL (20-40) Hold Purple Top Tube Received (Received) Hold [employer] [place] Top Tube Received (Received) Discharge Medications Discharge Medications Atorvastatin (Lipitor) 20 Mg Tablet 20 MG PO HS (Reported) Cholecalciferol (Vitamin D3) (Vitamin D3) 2,000 Unit Tablet 2,000 UNIT PO DAILY (Reported) Donepezil (Donepezil) 5 Mg Tablet 10 MG PO HS (Reported) Folic Acid (Folic Acid) 0.8 Mg Tablet 0.4 MG PO DAILY (Reported) Lidocaine (Lidoderm) 700 Mg Adh..patch 1 PATCH TP DAILY (Reported) Losartan Potassium (Losartan Potassium) 100 Mg Tablet 100 MG PO DAILY (Reported ) Meloxicam (Meloxicam) 7.5 Mg Tablet 7.5 MG PO DAILY (Reported) Metformin HCl (Metformin HCl ER) 1,000 Mg [id number] 1,000 MG PO BID (Reported) Metoprolol Tartrate (Metoprolol Tartrate) 50 Mg Tablet 50 MG PO BID (Reported) Nut.tx.,Elemental,Lac-Free/Mct (Xtracal Plus Liquid Packet) 45 Ml Liquid.pkt 45 ML PO TIDWM (Reported) Potassium Chloride (Potassium Chloride Powder) 20 Meq Packet 20 MEQ PO DAILY ( Reported) DISSOVE CONTENTS OF PACKET IN FULL GLASS OF WATER AND DRINK ONCE DAILY. TAKE WITH FOOD Risperidone (Risperdal) 1 Mg Tablet 0.5 MG PO TID Prescribed by: MARTY ARTHUR DO Sertraline HCl (Sertraline) 50 Mg Tablet 75 MG PO DAILY (Reported) As needed ([house cough syrup]) 15-30 ML PO q6hrs PRN PRN For Cough (Reported) Acetaminophen (Acetaminophen) 325 Mg Tablet 650 MG PO Q4H PRN PRN For Pain ( Reported) Albuterol Neb Soln (Albuterol Neb Soln) 0.63 Mg/3 Ml Vial.neb 0.83 MG INHALATION Q4H PRN PRN For Shortness of Breath (Reported) Loperamide HCl (Imodium A-D) 2 Mg Capsule 2 MG PO Q4hrs PRN PRN For Diarrhea or Loose Stool (Reported) Magnesium Hydroxide (Milk of Magnesia) 400 Mg/5 Ml Oral.susp 30 ML PO DAILY PRN PRN For Constipation (Reported) Polyethylene Glycol 3350 (Miralax) 17 Gm Powd.pack 17 GM PO DAILY PRN PRN For Constipation (Reported) Sennosides (Senna) 8.6 Mg Tablet 17.2 MG PO DAILY PRN PRN For Constipation ( Reported) Tramadol (Tramadol) 50 Mg Tablet 100 MG PO Q6H PRN PRN For Pain (Reported) hydrOXYzine Hcl (HydrOXYzine Hcl) 25 Mg Tablet 25 MG PO TID PRN PRN For Itching (Reported) Followup Plan Disposition: [facility] on hospice Discharge Diet: No restrictions Discharge Activity: No restrictions Follow-up with PCP in: Other (when necessary as patient is on hospice) Sam Pierre MD Jul 24, 2016 11:13
[2016-07-24 11:47] VITALS: BP 165/68; PULSE 96; RESP 18; O2SAT 97
--- NOTE | 2016-07-24 14:41 | NUR ---
Called and arranged S transport for 1700 via [facility]. Updated KNITTER MACHINE
--- NOTE | 2016-07-24 15:07 | NUR ---
Social Work-discharge: Data:EMR reviewed. PT is on day 18 of hospitalization for ASP pneumonia per H&P. Pt is medically stable to discharge today. MAGDI spoke with Sarah at Hospice who confirms that DME is being delivered this morning and then they will open with pt tomorrow between 10-11am. MAGID spoke with Jennifer at [facility] who confirms that all DME has been delivered and requests that SW fax all prescriptions to [facility]. MAGDI spoke with Tamy at [facility] [phone] who confirms they will need Medications faxed in and new paperwork completed. MAGDI had MD complete RX and SW faxed this to [phone] per request. MAGDI asked UR specialist to arrange BLS transport for 1700 via [place]. MAGDI updated pt's granddaughter Fabienne on discharge time and explained SW cannot guarantee that insurance will cover the cost of BLS, granddaughter agreeable to proceed. MAGDI updated Jennifer at [facility] on discharge time. All updated and agreeable to plan. Assessment:Pt who would benefit from [facility]. Plan:Pt to discharge today to [facility] via BLS at 1700. AMGDI has faxed all medications to [facility] and packet created for pt. DME has been delivered and Hospice to open tomorrow between 10-11. All updated and agreeable to plan. ARBEN Serrato
--- NOTE | 2016-07-24 17:25 | NUR ---
discharge pt left via S transport service to hospice house. IV therapy removed picc line. Arciniega cath removed. pt left with no s/s of distress.
== END 2016-07-24 17:06 | disposition hospice, home (50) | DRG 853 ==
LOC: SED 10:48 → EDBD 10:48 → EDUNIT# 10:48 → MPC 16:13
PROVIDERS: ADMIT Internal Medicine; ATTEND Internal Medicine
PROC: BF101ZZ Fluoroscopy of Bile Ducts using Low Osmolar Contrast (ICD-10-PCS; 2016-07-07)
PROC: 0FT44ZZ Resection of Gallbladder, Percutaneous Endoscopic Approach (ICD-10-PCS; principal; 2016-07-07 16:15)
DX: A41.9 Sepsis, unspecified organism (principal); G92 Toxic encephalopathy; E87.1 Hypo-osmolality and hyponatremia; K81.0 Acute cholecystitis; N39.0 Urinary tract infection, site not specified; I69.954 Hemiplegia and hemiparesis following unspecified cerebrovascular disease affecting left non-dominant side; F03.90 Unspecified dementia, unspecified severity, without behavioral disturbance, psychotic disturbance, mood disturbance, and anxiety; I10 Essential (primary) hypertension; Z66 Do not resuscitate; Z91.81 History of falling; Z87.891 Personal history of nicotine dependence; E86.0 Dehydration; E78.5 Hyperlipidemia, unspecified; Z96.643 Presence of artificial hip joint, bilateral; E11.9 Type 2 diabetes mellitus without complications; B95.62 Methicillin resistant Staphylococcus aureus infection as the cause of diseases classified elsewhere; E87.6 Hypokalemia; R13.10 Dysphagia, unspecified; D64.9 Anemia, unspecified